=== PATIENT | female | born 1995 | race Caucasian/White ===

== ENCOUNTER → 2017-01-05 | Outpatient (CLI) | payer MEDICAID ==
--- NOTE | 2017-01-05 14:10 | Diagnostic Imaging Report ---
PROCEDURE: US OB SINGLE FETUS <14 WKS. TECHNIQUE: Multiple real-time grayscale images were obtained over the gravid uterus in various projections. INDICATION: Dating. FINDINGS: There is a single intrauterine with heart rate at 146 beats per minute. The placenta is anterior. No placenta previa. Adequate amniotic fluid is seen. The growth parameters are: Biparietal diameter: 15 weeks and 2 days Head circumference: 15 weeks and zero day Abdominal circumference: 14 weeks and 3 days Femur length: 14 weeks and 2 days These average at: 14 weeks and 6 days. This would correlate with an PRIMITIVO of 06/30/2017. IMPRESSION: Live intrauterine . Dictated by: Dictated on workstation # [id number]
== END ==
LOC: RAD 12:46
PROVIDERS: ATTEND Family Medicine
DX: Z34.92 Encounter for supervision of normal pregnancy, unspecified, second trimester (principal)
CPT/HCPCS: 76801

== ENCOUNTER 2017-03-06 00:30 | Outpatient (CLI) | payer MEDICAID ==
[2017-03-06 00:45] VITALS: BP 102/56
[2017-03-06] MEDS ORDERED: PREN-53 PO (03:03)
[2017-03-06 04:00] VITALS: BP 109/64
[2017-03-06] MEDS ORDERED: NITR-65 PO (05:09)
--- NOTE | 2017-03-07 13:29 | Physician Query-Final Dx ---
RAFAEL FUNES 03/07/17 1329: Clinic Account Progress/Dx Physician Query: Please give diagnosis Date of Service Mar 06, 2017 at 00:30 ENEIDA CHANDLER DO 03/15/17 0825: Clinic Account Progress/Dx DIAGNOSIS: Diagnosis 1. - 23 wk GA 2. Fall -monitored for 4h w/ reassuring FHT RAFAEL FUNES Mar 07, 2017 13:29 ENEIDA CHANDLER DO Mar 15, 2017 08:25
== END 2017-03-06 05:17 | disposition home or self-care (01) ==
LOC: WSo 00:30 → LDRP 00:30 → WSo 05:17
PROVIDERS: ATTEND Family Medicine
DX: O9A.212 Injury, poisoning and certain other consequences of external causes complicating pregnancy, second trimester (principal); W19.XXXA Unspecified fall, initial encounter; Z3A.23 23 weeks gestation of pregnancy
CPT/HCPCS: 96361; 99213

== ENCOUNTER → 2017-03-29 | Outpatient (CLI) | payer MEDICAID ==
[~2017-03-29] MED LIST: NITR-65 PO; PREN-53 PO
--- NOTE | 2017-03-29 12:16 | Diagnostic Imaging Report ---
INDICATION: survey. TECHNIQUE: Multiple real-time grayscale images were obtained over the gravid uterus. COMPARISON: None FINDINGS: There is a single living intrauterine in cephalic presentation. There is a normal volume amniotic fluid. Placenta is anterior. There is no previa. The anatomical survey is unremarkable apart from the four-chamber heart not being well seen due to positioning. The heart rate is 123 beats per minute and regular. The biometry correlates with a gestational age of 27 weeks 3 days. IMPRESSION: Single living intrauterine with sonographically estimated gestational age of 27 weeks 3 days and estimated date of confinement of 06/25/2017. Suboptimal evaluation of the heart due to positioning Biometrical measurements are as follows: Biparietal 7.08 cm, age 28 weeks 4 days. Head circumference 26.13 cm, age 28 weeks 3 days. Abdominal circumference 20.81 cm, age 25 weeks 3 days. Femur length 4.99 cm, age 27 weeks 0 days. Sonographic estimate age: 27 weeks 3 days. Sonographic estimated date of delivery: 06/25/2017. Estimated Weight: 926 gm (+/- 135 gm). LMP percentile: 25%. heart rate: 123 beats per minute. number: 1 of 1. Dictated by: Dictated on workstation # [id number]
== END ==
LOC: RAD 10:54
PROVIDERS: ATTEND Family Medicine
DX: Z36 Encounter for antenatal screening of mother (principal); Z3A.27 27 weeks gestation of pregnancy
CPT/HCPCS: 76801; 76805

== ENCOUNTER → 2017-04-28 | Outpatient (CLI) | payer MEDICAID ==
--- NOTE | 2017-04-28 19:03 | Diagnostic Imaging Report ---
INDICATION: Assessment for heart tone. TECHNIQUE: Multiple, limited real-time grayscale images were obtained over the gravid uterus. COMPARISON: 03/29/2017. FINDINGS: Single viable intrauterine , currently in a cephalic presentation. Placenta is anterior and without evidence for previa. There is presence of polyhydramnios with an amniotic fluid index at 27 cm. heart rate: 125 beats per minute. number: 1 of 1. IMPRESSION: 1. Limited obstetrical sonogram imaging demonstrates cephalic presentation. cardiac activity demonstrated at 125 beats per minute. 2. There is presence of polyhydramnios, likely change from prior study. Currently with an index at 27 cm. Short-term followup imaging is recommended for reevaluation. Dictated by: Dictated on workstation # [id number]
== END ==
LOC: RAD 10:15
PROVIDERS: ATTEND Family Medicine
DX: Z36.89 Encounter for other specified antenatal screening (principal); Z3A.00 Weeks of gestation of pregnancy not specified
CPT/HCPCS: 76816

== ENCOUNTER 2017-05-26 21:18 | Outpatient (CLI) | payer MEDICAID ==
[~2017-05-26] VITALS: Ht 162.6 cm; Wt 89.9 kg
[2017-05-26 21:59] LABS: BILIRUBIN,URINE NEGATIVE (NEGATIVE); KETONES,URINE NEGATIVE (NEGATIVE); LEUKOCYTE ESTERASE ,URINE 3+ (NEGATIVE); NITRITE,URINE POSITIVE (NEGATIVE); PH,URINE 6 (5-9); PROTEIN,URINE 2+ (NEGATIVE); UROBILINOGEN,URINE NORMAL (NORMAL)
[2017-05-26 22:06] LABS: SQUAMOUS EPITHELIAL CELL,UR 25-50 /HPF; WBC,URINE TNTC /HPF
[2017-05-26] MEDS ORDERED: cefTRIAXone 1 GM (ROCEPHIN) VIAL ONE (22:10)
[2017-05-26] MEDS ORDERED: LACTATED RINGERS 1,000 ML IV SCH (22:15)
[2017-05-26] MEDS ORDERED: cefTRIAXone INJECTION 1,000 MG in NS (IVPB) 50 ML IV ONE (22:15)
[2017-05-26] MEDS ORDERED: NS (IVPB) 50 ML ONE (22:26)
--- NOTE | 2017-05-27 07:41 | Physician Query-Final Dx ---
RAFAEL FUNES 05/27/17 0741: Clinic Account Progress/Dx Physician Query: Please give diagnosis Date of Service May 26, 2017 at 21:18 PAPA POWELL DO 06/13/17 0924: Clinic Account Progress/Dx Physician Query: Please give diagnosis DIAGNOSIS: Diagnosis Threatened labor Polyhydramnios RAFAEL FUNES May 27, 2017 07:41 APPA POWELL DO Jun 13, 2017 09:24
== END 2017-05-26 23:30 | disposition home or self-care (01) ==
LOC: WSo 21:18 → LDRP 21:18 → WSo 23:30
PROVIDERS: ATTEND Family Medicine
DX: O47.03 False labor before 37 completed weeks of gestation, third trimester (principal); O40.3XX0 Polyhydramnios, third trimester, not applicable or unspecified; Z3A.35 35 weeks gestation of pregnancy
CPT/HCPCS: 81000; 87077; 87088; 87186; 96361; 96374; 99213

== ENCOUNTER 2017-06-02 | Outpatient (CLI) | payer MEDICAID ==
[~2017-06-02] VITALS: Ht 162.6 cm; Wt 90.5 kg
[2017-06-02 00:17] VITALS: BP 121/63
[2017-06-02] MEDS ORDERED: NITR-65 PO (00:25)
[2017-06-02] MEDS ORDERED: hydrOXYzine (VISTARIL) 25 MG CAP ONE (00:51)
[2017-06-02] MEDS ORDERED: hydrOXYzine (VISTARIL) 25 MG CAP PO ONE (01:00)
[2017-06-02 02:01] VITALS: BP 97/54
[2017-06-02 02:12] VITALS: BP 97/54
--- NOTE | 2017-06-03 08:17 | Physician Query-Final Dx ---
RAFAEL FUNES 06/03/17 0817: Clinic Account Progress/Dx Physician Query: Please give diagnosis Date of Service Jun 02, 2017 at 00:00 JESSE GONG MD 06/06/17 1854: Clinic Account Progress/Dx DIAGNOSIS: Diagnosis Vaginal discharge in RAFAEL FUNES Jun 03, 2017 08:17 JESSE GONG MD Jun 06, 2017 18:54
== END 2017-06-02 02:12 | disposition home or self-care (01) ==
LOC: WSo → LDRP 00:01 → WSo 02:12
PROVIDERS: ATTEND Family Medicine
DX: O99.89 Other specified diseases and conditions complicating pregnancy, childbirth and the puerperium (principal); N89.8 Other specified noninflammatory disorders of vagina; Z3A.36 36 weeks gestation of pregnancy
CPT/HCPCS: 99214

== ENCOUNTER → 2017-06-09 | Outpatient (CLI) | payer MEDICAID ==
--- NOTE | 2017-06-09 15:02 | Diagnostic Imaging Report ---
INDICATION: O40.3XX0 POLYHDRAMNIOS IN 3D TRIMESTER COMPLICATIO COMPARISON: None available. Biophysical Profile Score: Movement: 2 Breathin Tone: 2 Fluid: 2 Total: 8/8 cardiac activity was identified, although the heart rate was not assessed. Presentation is cephalic. Placenta is anterior in location. APRYL is 23 cm. The single largest vertical pocket is 9.2 cm. IMPRESSION: Normal Biophysical Profile Score. Dictated by: Dictated on workstation # [id number]
[2017-06-09 15:35] VITALS: BP 110/73
== END ==
LOC: RAD 14:06
PROVIDERS: ATTEND Family Medicine
DX: O40.3XX0 Polyhydramnios, third trimester, not applicable or unspecified (principal)
CPT/HCPCS: 76819

== ENCOUNTER → 2017-06-15 | Outpatient (CLI) | payer MEDICAID ==
--- NOTE | 2017-06-15 19:20 | Diagnostic Imaging Report ---
EXAMINATION: OB ultrasound. Biophysical profile. INDICATION: Polyhydramnios. FINDINGS: heart rate is 140 beats per minute. The presentation is cephalic. The placenta is anterior. No placenta previa. APRYL is 9.2 cm. This is decreased from 23 cm measurements on prior exam of 06/09/2017. The maternal adnexa are obscured. Biophysical profile parameters are within normal limits with a total score of 8 out of 8. IMPRESSION: Total biophysical profile score is 8 out of 8. Dictated on workstation # [id number]
== END ==
LOC: RAD 11:54
PROVIDERS: ATTEND Family Medicine
DX: O40.3XX0 Polyhydramnios, third trimester, not applicable or unspecified (principal); Z3A.00 Weeks of gestation of pregnancy not specified
CPT/HCPCS: 76819

== ENCOUNTER 2017-06-23 06:00 | Inpatient (IN) | payer MEDICAID ==
[~2017-06-23] VITALS: Ht 162.6 cm; Wt 89.0 kg
[2017-06-23] VITALS (39 sets, daily range): BP systolic 94–123; BP diastolic 53–80
--- OUTSIDE RECORDS SUMMARY | 2017-06-23 06:19 | XMS REPORT | Continuity of Care Document ---
Author Author [facility] [employer]. Organization [facility]. Address Unknown Phone Unavailable Allergies Active Description Code Type Severity Reaction Onset Reported/Identified Relationship to Patient Clinical Status Yes No Known Allergies NKA Miscellaneous Allergy Unknown N/A 06/07/2014 Yes MDX - No Known Drug Allergies - Nkd [id number] Drug Allergy Unknown N/A 06/10/2014 Yes No Known Drug Allergies - Nkda [id number] Drug Allergy Unknown N/A 06/10/2014 Yes No Known Drug Allergies [id number] Drug Allergy Unknown N/ A 01/14/2015 Medications Problems Date Dx Coded Attending Type Code Diagnosis Diagnosed By 02/13/2014 Donato Layne 455.3 02/13/2014 Donato Layne 648.93 02/13/2014 Donato Layne 787.91 02/13/2014 Donato Layne 788.41 02/13/2014 Donato Layne 789.03 02/13/2014 Donato Layne 789.04 06/05/2014 Dontrell Weston 278.00 06/05/2014 Dontrell Weston 346.90 06/05/2014 Dontrell Weston 644.13 06/12/2014 Dontrell Weston 278.00 06/12/2014 Dontrell Weston 455.6 06/12/2014 PriDontrell swanson 645.11 06/12/2014 Dontrell Weston 649.11 06/12/2014 Dontrell Weston 664.01 06/12/2014 Dontrell Weston 671.81 06/12/2014 Dontrell Weston V22.0 06/12/2014 Dontrell Weston V27.0 01/14/2015 ZAID LOPEZ 692.9 01/14/2015 ZAID LOPEZ W 698.9 01/14/2015 ZAID LOPEZ A 782.1 Procedures Code Description Performed By Performed On 73.01 06/10/2014 73.4 06/10/2014 73.59 06/10/2014 75.69 06/10/2014 Results Encounters ACCT No. Visit Date/Time Discharge Status Pt. Type Provider Facility Loc./Unit Complaint [id number] 01/14/2015 16:03:00 2014 17:05:00 DIS Emergency ZAID LOPEZ [facility] COL.ER [id number] 06/10/2014 06:53:00 2013 13:00:00 DIS Inpatient Dontrell Weston [facility] OB [id number] 06/04/2014 22:48:00 2013 00:25:00 DIS Outpatient Dontrell Weston [facility] LDRO [id number] 02/13/2014 17:56:00 2013 19:44:00 DIS Emergency Donato Layne [facility]. COL.ER
--- OUTSIDE RECORDS SUMMARY | 2017-06-23 06:19 | XMS REPORT ---
Author Author RODRIGO DAVID Organization [facility] Address [address] [place] [address] Care Team Providers Care Supervisor Sample Name Role Phone RODRIGO DAVID Unavailable PROBLEMS Type Condition ICD9-CM Code PNF85-PS Code Onset Dates Condition Status SNOMED Code Problem Anxiety state, unspecified F41.1 Active 698570642 Problem Major depressive disorder, recurrent episode, moderate F33.1 Active 004288231 Problem Polyhydramnios in third trimester complication, single or unspecified fetus O40.3XX0 Active 44936078 Problem Unspecified mood [affective] disorder F39 Active 97171470 Problem Post traumatic stress disorder F43.10 Active 59056612 Problem care, subsequent in second trimester Z34.82 Active 583935091 Problem Borderline personality disorder F60.3 Active 39283692 Problem Adjustment disorder with depressed mood F43.21 Active 82295541 ALLERGIES No Information SOCIAL HISTORY Never Assessed PLAN OF CARE VITAL SIGNS MEDICATIONS Unknown Medications RESULTS No Results PROCEDURES No Known procedures IMMUNIZATIONS No Known Immunizations MEDICAL (GENERAL) HISTORY Type Description Date Hospitalization History childbirth only
--- OUTSIDE RECORDS SUMMARY | 2017-06-23 06:19 | XMS REPORT | Continuity of Care Document ---
Author Author [facility]. Address [address] [place] [address] Phone Unavailable Care Team Providers Care Systems Navigator Name Role Phone Unavailable Unavailable Insurance Providers Payer Name Policy Number Subscriber Name Relationship [employer] [id number] TRISH LI SELF / SAME PATIENT Advance Directives Directive Response Recorded Date/Time Advance Directives: No 01/14/15 3:56pm Chief Complaint and Reason for Visit Reason for Visit Contact dermatitis Problems Medical Problems Problem Onset Date Status Hemorrhoids in in second trimester Unknown Active Contact dermatitis Unknown Active Medications Medication Dose Route Sig Days/Qty Instructions Order Date Discontinued Date Status [id number] () 1 TAB TAB 1 TAB ORAL 01/14/15 Discontinued Nutritional Supplement (Cranberry) 1 CAP CAP 2 CAP ORAL Discontinued oxyCODONE/Acetaminophen (Percocet) 5 MG/325 MG TABLET 1-2 UDTAB ORAL Every four hours PRN Pain 30 Qty 1-2 tablets (not to exceed 12 tablets/24 hours) 01/14/15 Discontinued Ibuprofen (Motrin) 600 MG TABLET 600 MG ORAL Every six hours PRN Pain 30 Qty 06/12/14 01/14/15 Discontinued predniSONE (predniSONE*) 20 MG TABLET 60 MG ORAL Once daily 15 Qty Active Family History Relationship Name Date of Condition Age ( At Onset ) Cause of Age ( At ) Age Gender Recorded Date/Time MOTHER Family history of cancer Unknown 30-40 30-40 F 01/14/15 1629 MOTHER Family history: Diabetes mellitus 20-25 30-40 30-40 F 1629 Social History Query Response Start Date Stop Date Smoking status: Current every day smoker Hospital Discharge Instructions No hospital discharge instructions. Plan of Care Discharge Date 01/14/15 5:05pm Disposition HOME, SELF-CARE or ASST LIVING Condition at Discharge Stable Instructions/Education Provided Contact Dermatitis (ED) Prescriptions See Medications Section Referrals Call office to schedule Madonna Betancourt Additional Instructions/Education take the prednisone as directed start benadryl for itching and for antihistamine properties to help stop the reaction you are having- take every six hours keep wound dry recheck with any increased redness, warmth, swelling or pain to area Some of your test results may not be complete prior to your leaving the Emergency Department. The Emergency Department is not authorized to give test results over the phone. Please contact the doctor's office listed on form for your final results. Follow up with your primary care physician or return to the Emergency Department for worsening or worrisome symptoms. * Emergency Department phone number: [phone] MEDICAL RECORD If you need copies of your X-rays, call [phone]. If you need copies of your medical record, including lab results, a signed authorization for release of records will be required. A telephone call for release of Health Information is not allowed. BILLING Billing can sometimes be confusing and frustrating. To help avoid confusion in the future, please take a moment to acquaint yourself with the billing parties for services. SERVICE BILLING LIBERTARIAN Emergency Room Services [facility]. Physician Services [facility] Resources X-rays [facility] Patients will receive bills for services from the appropriate provider. If have any questions about your [facility] bill, our staff will be happy to assist you. Please call [phone] and ask for the billing department. THANK YOU for choosing [facility] as your emergency care provider. Care Plan and Goals ~~Discharge Care Plan~~ Problem: Wound care and treatment Goal: Wound will be clean and dry, without redness, swelling or drainage. Instructions: Take medication(s) as prescribed. Keep wound clean and dry. Apply antibiotic ointment as directed. Follow up with primary care physician as directed. Keep wound covered if working in an unclean environment. ~~Discharge Care Plan~~ Problem: Rash/hives Goal: Decreased redness, itching, and blotches. Instructions: Take medication(s) as directed. Keep a log of medication times and dosages to avoid over or under dosage. Avoid triggers that cause your rash or hives. Functional Status No functional status results. Allergies, Adverse Reactions, Alerts Allergen Type Severity Reaction Status Last Updated No Known Drug Allergies Allergy Unknown Active 01/14/15 Immunizations No Known History of Immunizations. Vital Signs Vital Reading Collection Date/Time Result Blood Pressure 01/14/15 3:56pm 127/62 Blood Pressure Source 01/14/15 3:56pm SI Patient Temperature 01/14/15 3:56pm 96.5 Temperature Source 01/14/15 3:56pm O Respiratory Rate 01/14/15 3:56pm 16 Pulse Rate 01/14/15 3:56pm 112 Pulse Location 01/14/15 3:56pm PO Bedside Pulse Oximetry 01/14/15 3:56pm 96 Height 01/14/15 3:56pm 162.6 cm Height 06/10/14 7:10am 5 ft 64 in Weight 01/14/15 3:56pm 90.9 kg Weight 01/14/15 3:56pm 200.0 lb Body Mass Index 01/14/15 3:56pm 34.4 Procedures No Known History of Procedures. Results No Known Relevant Diagnostic Tests, Laboratory Data and/or Discharge Summary. Encounters Encounter Location Date/Time Departed Emergency [facility] 01/14/15 5:05pm Recent Diagnosis Contact dermatitis
--- OUTSIDE RECORDS SUMMARY | 2017-06-23 06:19 | XMS REPORT ---
Author Author RODRIGO DAVID Organization [facility] Address [address] [place] [address] Care Team Providers Care Brisket Puller Name Role Phone RODRIGO DAVID Unavailable PROBLEMS Type Condition ICD9-CM Code [id number] Code Onset Dates Condition Status SNOMED Code Problem Anxiety state, unspecified F41.1 Active 877330039 Problem Major depressive disorder, recurrent episode, moderate F33.1 Active 507121711 Problem Polyhydramnios in third trimester complication, single or unspecified fetus O40.3XX0 Active 60770590 Problem Unspecified mood [affective] disorder F39 Active 70954846 Problem Post traumatic stress disorder F43.10 Active 13972743 Problem care, subsequent in second trimester Z34.82 Active 852337049 Problem Borderline personality disorder F60.3 Active 86696075 Problem Adjustment disorder with depressed mood F43.21 Active 25066933 ALLERGIES No Information SOCIAL HISTORY Never Assessed PLAN OF CARE VITAL SIGNS MEDICATIONS Unknown Medications RESULTS No Results PROCEDURES No Known procedures IMMUNIZATIONS No Known Immunizations MEDICAL (GENERAL) HISTORY Type Description Date Hospitalization History childbirth only
--- OUTSIDE RECORDS SUMMARY | 2017-06-23 06:19 | XMS REPORT ---
Author Author FABI TEMPLETON Organization [employer] Address Unknown Phone Unavailable Care Team Providers Care Used [employer] Name Role Phone FABI TEMPLETON CP Unavailable Allergies No Known Allergies Problems Problem Type Condition Code Onset Dates Condition Status Assessment Major depressive disorder, recurrent episode, moderate F33.1 Active Problem Major depressive disorder, recurrent episode, moderate F33.1 Active Medications No Known Medications Procedures Procedure Coding System Code Date Psychotherapy, patient &/family, 30 minutes, new patient CPT-4 40000 Apr Results No Known Results Summary Purpose [employer] Submission
--- OUTSIDE RECORDS SUMMARY | 2017-06-23 06:19 | XMS REPORT ---
Author Author FABI TEMPLETON Organization [facility] Address [address] [place] [address] Care Team Providers Care Client Application Support Specialist Name Role Phone FABI TEMPLETON Unavailable PROBLEMS Type Condition ICD9-CM Code AIB01-PE Code Onset Dates Condition Status SNOMED Code Problem Anxiety state, unspecified F41.1 Active 033904167 Problem Major depressive disorder, recurrent episode, moderate F33.1 Active 636864304 Problem Polyhydramnios in third trimester complication, single or unspecified fetus O40.3XX0 Active 97875939 Problem Unspecified mood [affective] disorder F39 Active 46517189 Problem Post traumatic stress disorder F43.10 Active 16436826 Problem care, subsequent in second trimester Z34.82 Active 623792666 Problem Borderline personality disorder F60.3 Active 31509825 Problem Adjustment disorder with depressed mood F43.21 Active 34952640 ALLERGIES No Information SOCIAL HISTORY Never Assessed PLAN OF CARE Activity Details Follow Up next available Reason:depression and anxiety VITAL SIGNS MEDICATIONS Unknown Medications RESULTS No Results PROCEDURES Procedure Date Ordered Result Body Site Psychotherapy, patient &/family, 30 minutes, established patient December 15, 2016 IMMUNIZATIONS No Known Immunizations MEDICAL (GENERAL) HISTORY Type Description Date Hospitalization History childbirth only
[2017-06-23] MEDS ORDERED: D5 LR IV SOLUTION 1,000 ML IV SCH (06:20)
[2017-06-23] MEDS ORDERED: MINERAL OIL CONCENTRATE 99.9% 15 ML UDC TOP PRN (06:30)
[2017-06-23] MEDS ORDERED: OXYTOCIN/NORMAL SALINE 500 ML IV SCH ×2 (06:47→12:53)
[2017-06-23 07:09] LABS: BASOPHILS % (AUTO) 0 % (0-10); EOSINOPHILS # (AUTO) 0.1 10^3/uL (0.0-0.3); EOSINOPHILS % (AUTO) 2 % (0-10); LYMPHOCYTES % (AUTO) 15 % (12-44); MEAN CORPUSCULAR HEMOGLOBIN 27 PG (25-34); MEAN CORPUSCULAR HGB CONC 33 G/DL (32-36); MEAN CORPUSCULAR VOLUME 84 FL (80-99); MEAN PLATELET VOLUME 11.2 FL (7.4-10.4); MONOCYTES # (AUTO) 0.8 X 10^3 (0.0-1.0); MONOCYTES % (AUTO) 12 % (0-12); NEUTROPHILS # (AUTO) 4.8 X 10^3 (1.8-7.8); NEUTROPHILS % (AUTO) 72 % (42-75); PLATELET COUNT 227 10^3/uL (130-400); RED BLOOD COUNT 3.93 10^6/uL (4.35-5.85); WHITE BLOOD COUNT 6.6 10^3/uL (4.3-11.0)
[2017-06-23] MEDS ORDERED: SUFENTA 0.6MCG/ML BUPIVA 0.125 100 ML ONE (09:08)
[2017-06-23] MEDS ORDERED: BUPIVACAINE 0.25% 30 ML (SENSORCAINE) VIAL ONE (09:27)
[2017-06-23] MEDS ORDERED: fentaNYL INJECTION 100 MCG/2 ML AMP ONE (09:27)
--- NOTE | 2017-06-23 09:43 | Labor Progress Note ---
Labor Progress Note Labor Progress Note Date Seen by Provider: Jun 23, 2017 Time Seen by Provider: 09:40 Subjective: Pt feeling contractions, getting ready to have epidural placed. Objective: Cervical exam:4 cm/70-80%/-1 Consistency: soft Position: Presentation: vtx heart tones: [150] beats per minute, reassuring Tocometer: [] ctx/10 minutes AROM clear fluid, FSE placed Assessment/Plan: Angelica Perez is a (21 /Para 2 /1 ,Gestational Age (wks)39 here for IOL. CEFM/TOCO Continue pitocin Anesthesia: epidural to be placed Anticipate vaginal delivery. Vitals - Labs Vital Signs - I&O Vital Signs Date Time Temp Pulse Resp B/P (MAP) Pulse Ox O2 Delivery O2 Flow Rate FiO2 06/23/17 09:00 95 18 119/76 Room Air 06/23/17 08:35 100 120/78 Room Air 06/23/17 08:25 100 119/78 Room Air 06/23/17 08:05 97.9 107 109/71 Room Air 06/23/17 07:55 117 18 116/62 Room Air Labs Laboratory Tests 06/23/17 06:50: White Blood Count 6.6, Red Blood Count 3.93L, Hemoglobin 10.7L, Hematocrit 33L, Mean Corpuscular Volume 84, Mean Corpuscular Hemoglobin 27, Mean Corpuscular Hemoglobin Concent 33, Red Cell Distribution Width 14.0, Platelet Count 227, Mean Platelet Volume 11.2H, Neutrophils (%) (Auto) 72, Lymphocytes (%) (Auto) 15 , Monocytes (%) (Auto) 12, Eosinophils (%) (Auto) 2, Basophils (%) (Auto) 0, Neutrophils # (Auto) 4.8, Lymphocytes # (Auto) 1.0, Monocytes # (Auto) 0.8, Eosinophils # (Auto) 0.1, Basophils # (Auto) 0.0 ENEIDA CHANDLER DO Jun 23, 2017 09:43
--- NOTE | 2017-06-23 09:46 | History & Physical-OB ---
OB - Chief Complaint & HPI Date/Time Date of Admission: Date of Admission: Jun 23, 2017 at 6:15 am Time Seen by Provider: 10:00 (on 06/22) Chief Complaint/History OB-Reason for Admission/Chief: Induction of Labor Hx : 2 Hx Para: 1 Expected Date of Delivery: Jun 30, 2017 Gestational Age in Weeks: 39 Gestational Age in Days: 0 Indication for induction: medical complication (polyhydramnios) Admission Nurse Assessment Rev: Yes History of Labs A+, antibody neg, RI, GC/chlamydia neg. HIV/HepB/RPR NR. 1 hour glucola nml. Tetra low risk. GBS neg. Allergies and Home Medications Allergies Coded Allergies: No Known Allergies (Verified Allergy, Unknown, 03/06/17) Home Medications [id number]/Iron Fumarate/FA/Dss 1 Each Tablet, 1 EACH PO DAILY, (Reported) OB - History Hx of Present Care: Yes Ultrasounds: Abnormal US findings (polyhydramnios) Obstetrical Complications: Other (polyhydramnios, seen x2 by MFM, did not continue follow-up, did not obtain ordered 3 hour glucola) Medical Complications: None Information Induced Hypertension: No Maternal Gestational Diabetes: No Hemorrhage: No Obstetrical History Hx : 2 Hx Para: 1 Hx # Term Pregnancies: 1 Hx # Pregnancies: 0 Number of Living Children: 1 Hx Termination: No Hx Multiple Gestation: No Hx Ectopic : No Hx Stillbirth: No Hx Complication: Yes (polyhydramnios) Hx Induced Hypertens: No Hx Maternal Gestational Diabet: No Hx Hemorrhage: No Delivery History Hx Dystocia: No Hx Forceps Assisted Delivery: No Hx Vacuum Extraction Assisted: No Hx Placenta Abnormality: No Hx Distress: No Hx Large For Gestational Age I: No Hx Small for Gestational Age I: No Hx Section: No Hx Vaginal Delivery Post C-Sec: No Hx Blood Disorders: No Adverse Rxn to Tranfusion: No Patient Past Medical History PMHx: depression PSurgHx: none Social History/Family History HIV/AIDS: No Recent Infectious Disease Expo: No Sexually Transmitted Disease: No Alcohol Use: Denies Use Recreational Drug Use: No Smoking Cessation: Never smoker Immunizations Hepatitis A: No Hepatitis B: No Tetanus Booster (TDap): Less than 5yrs Date of Influenza Vaccine: May 08, 2017 Rubella: immune RPR/VDRL: Negative GBS Status: Negative HBsAG: Negative OB - Admission Exam Physical Exam Vitals: Vital Signs 06/23/17 06/23/17 08:05 09:00 Temp 97.9 Pulse 95 Resp 18 B/P (MAP) 119/76 O2 Delivery Room Air Abdomen: Non tender Extremities: Normal Cervical Dilatation: 4cm Effacement: 50% Station: -2 Membranes: Intact Mckeon Scoring Tool (Modified) Dilation (cm): 3-4cm (2) Effacement (%): 51-79% (2) Descent/Station: -2 (1) Cervix Consistency: Soft (2) Cervix Position: Anterior (2) Add 1 point for: Each previous vaginal delivery (1) Mckeon Score: 10 Labs Laboratory Tests Test 06/23/17 06:50 Range/Units White Blood Count 6.6 4.3-11.0 10^3/uL Red Blood Count 3.93 L 4.35-5.85 10^6/uL Hemoglobin 10.7 L 11.5-16.0 G/DL Hematocrit 33 L 35-52 % Mean Corpuscular Volume 84 80-99 FL Mean Corpuscular Hemoglobin 27 25-34 PG Mean Corpuscular Hemoglobin Concent 33 32-36 G/DL Red Cell Distribution Width 14.0 10.0-14.5 % Platelet Count 227 130-400 10^3/uL Mean Platelet Volume 11.2 H 7.4-10.4 FL Neutrophils (%) (Auto) 72 42-75 % Lymphocytes (%) (Auto) 15 12-44 % Monocytes (%) (Auto) 12 0-12 % Eosinophils (%) (Auto) 2 0-10 % Basophils (%) (Auto) 0 0-10 % Neutrophils # (Auto) 4.8 1.8-7.8 X 10^3 Lymphocytes # (Auto) 1.0 1.0-4.0 X 10^3 Monocytes # (Auto) 0.8 0.0-1.0 X 10^3 Eosinophils # (Auto) 0.1 0.0-0.3 10^3/uL Basophils # (Auto) 0.0 0.0-0.1 10^3/uL OB - Assessment/Plan/Diagnosis Assessment Assessment: induction of labor Plan Plan: Induction Induction Method: per Pitocin Protocol Copy Copies To 1: RODRIGO DAVID MD, BETHANY N MD Jun 23, 2017 9:46 am
[2017-06-23] MEDS ORDERED: LACTATED RINGERS 1,000 ML IV ONE ×2 (10:54)
[2017-06-23] MEDS ORDERED: ONDANSETRON 4 MG/2 ML (SDV) Z0FRAN IV PRN (11:00)
[2017-06-23] MEDS ORDERED: NALOXONE 0.4 MG/ML 1 ML (NARCAN) VIAL IV PRN (11:00)
[2017-06-23] MEDS ORDERED: EPIDURAL (SUFENTA 0.6MCG/ML BUPIVA 0.125%) 100 ML BAG EPI PRN (11:00)
--- NOTE | 2017-06-23 12:39 | OB Labor & Delivery Record ---
Vag Delivery Note Vag Delivery Note Date of Delivery: 06/23/17 Preoperative Diagnosis: Angelica Perez is a (21 /Para 2 / 1, Gestational Age (wks)39with 0 days Postoperative Diagnosis: Same Surgeon: RODRIGO DAVID Anesthesia: epidural Delivery Type: spontaneous vaginal Findings: [] Viable male infant, apgars 8/9, weight 8#2 Lacerations: periurethral abrasion Intact placenta with 3 vessel cord. No nuchal cord, body cord or shoulder dystocia Estimated Blood Loss: 250 ml Complications: None Condition: Stable Description of Procedure: The patient is a at 39w0d who presented for IOL for polyhydramnios. She was admitted and informed consent was obtained. Her labor course was unremarkable. She progressed to complete dilatation and began to push. She was then set up for delivery. The infant's head was delivered atraumatically in the THOR position. The shoulders and remainder of the infant's body were then delivered without difficulty. Upon delivery, the infant was immediately vigorous and was placed on maternal abdomen. After a delay, the cord was doubly clamped and cut and the remained on maternal abdomen transitioning. An intact placenta with 3-vessel cord delivered via Marine and there was found to be minimal bleeding.~ Vigorous fundal massage was performed and the fundus was found to be firm. IV oxytocin was given. Examination of the vagina and perineum revealed a periurethral abrasion. Following the delivery, sponge, instrument and needle counts were correct. Mom and baby were both in stable condition in the labor suite. Vitals - Labs Vital Signs - I&O Vital Signs 06/23/17 06/23/17 11:15 11:30 Temp 98.4 Pulse 91 Resp 18 B/P (MAP) 105/68 (80) Pulse Ox 98 O2 Delivery Room Air Labs Laboratory Tests 06/23/17 06:50: White Blood Count 6.6, Red Blood Count 3.93L, Hemoglobin 10.7L, Hematocrit 33L, Mean Corpuscular Volume 84, Mean Corpuscular Hemoglobin 27, Mean Corpuscular Hemoglobin Concent 33, Red Cell Distribution Width 14.0, Platelet Count 227, Mean Platelet Volume 11.2H, Neutrophils (%) (Auto) 72, Lymphocytes (%) (Auto) 15 , Monocytes (%) (Auto) 12, Eosinophils (%) (Auto) 2, Basophils (%) (Auto) 0, Neutrophils # (Auto) 4.8, Lymphocytes # (Auto) 1.0, Monocytes # (Auto) 0.8, Eosinophils # (Auto) 0.1, Basophils # (Auto) 0.0 RODRIGO DAVID MD Jun 23, 2017 12:39 pm
[2017-06-23] MEDS ORDERED: WITCH HAZEL(TUCKS) 40 EA JAR TOP PRN (13:00)
[2017-06-23] MEDS ORDERED: BENZOCAINE/MENTHOL (DERMOPLAST) 56 ML CAN TP PRN (13:00)
[2017-06-23] MEDS ORDERED: CATHETER FLUSH 10 ML SYR IV SCH (14:00)
[2017-06-23] MEDS: IBUPROFEN 600 MG (MOTRIN) TAB PO SCH ×2 (14:34→19:41)
[2017-06-23] MEDS: CATHETER FLUSH 10 ML SYR IV SCH ×2 (19:41→22:56)
[2017-06-24] VITALS: BP 104/64
[2017-06-24] MEDS: IBUPROFEN 600 MG (MOTRIN) TAB PO SCH ×2 (02:08→09:49)
[2017-06-24 04:00] VITALS: BP 93/59
[2017-06-24 05:31] LABS: BASOPHILS % (AUTO) 0 % (0-10); EOSINOPHILS # (AUTO) 0.1 10^3/uL (0.0-0.3); EOSINOPHILS % (AUTO) 2 % (0-10); LYMPHOCYTES # (AUTO) 1.6 X 10^3 (1.0-4.0); LYMPHOCYTES % (AUTO) 23 % (12-44); MEAN CORPUSCULAR HEMOGLOBIN 28 PG (25-34); MEAN CORPUSCULAR HGB CONC 33 G/DL (32-36); MEAN CORPUSCULAR VOLUME 83 FL (80-99); MEAN PLATELET VOLUME 11.1 FL (7.4-10.4); MONOCYTES # (AUTO) 0.8 X 10^3 (0.0-1.0); MONOCYTES % (AUTO) 11 % (0-12); NEUTROPHILS # (AUTO) 4.6 X 10^3 (1.8-7.8); NEUTROPHILS % (AUTO) 64 % (42-75); PLATELET COUNT 227 10^3/uL (130-400); RED BLOOD COUNT 3.99 10^6/uL (4.35-5.85); RED CELL DISTRIBUTION WIDTH 13.9 % (10.0-14.5); WHITE BLOOD COUNT 7.1 10^3/uL (4.3-11.0)
[2017-06-24] MEDS ORDERED: PRENATAL VITAMIN 1 EA TAB PO SCH (07:00)
[2017-06-24 09:30] VITALS: BP 122/69
--- NOTE | 2017-06-24 10:27 | Anesthesia-Regional Post-Op ---
Regional Patient Condition Mental Status: Alert, Oriented x3 Circulation: Same as Pre-Op Headache: Absent Sensation: Full Recovery Motor Block: Absent Post Op Complications Complications None Follow Up Care/Instructions Patient Instructions None needed. Anesthesia/Patient Condition Patient is doing well, no complaints, stable vital signs, no apparent adverse anesthesia problems. No complications reported per nursing. KATELIN VIGIL CRNA Jun 24, 2017 10:26
[2017-06-24] MEDS ORDERED: IBUP-1773 PO (12:30)
--- NOTE | 2017-06-24 12:31 | Discharge Instructions ---
Discharge Inst-Women's Serv Depart Medications New, Converted or Re-Newed RX: Transmitted to Pharmacy ([facility]) New Medications: Ibuprofen (Ibuprofen) 600 Mg Tablet 600 MG PO Q6H PRN for CRAMPS, #90 TAB 0 Refills Continued Medications: Mmp146/Iron Fumarate/FA/Dss ( 19 Tablet) 1 Each Tablet 1 EACH PO DAILY, TAB Follow Up/Instructions Goal/Follow Up: Follow-up w/ Dr. Hubbard in 6 wk Activity Activity: Activity as Tolerated Nothing Inside Vagina: No Douching, No [place], No Tampons Diet Discharge Diet: No Restrictions Symptoms to Report to : Bleeding Excessive, Pain Increased, Fever Over 101 Degrees F, Vaginal Bleeding Increase, Vaginal Discharge Foul, Questions/Concerns , Shortness of Breath For Any Problems or Questions: Contact Your Physician Copies To 1: RODRIGO HUBBARD MD, LINDA K DO Jun 24, 2017 12:31
--- NOTE | 2017-06-24 12:35 | Discharge Summary ---
Diagnosis/Chief Complaint Date of Admission Jun 23, 2017 at 06:15 Date of Discharge Jun 24, 2017 Admission Diagnosis Admission Diagnosis at 39 wk GA Polyhydramnios Discharge Diagnosis at 39 wk GA - IOL for Polyhydramnios s/p 06/23/17 Discharge Summary-OBS Procedures None. Discharge Physical Examination Allergies: Coded Allergies: No Known Allergies (Verified Allergy, Unknown, 03/06/17) Vitals & I&Os Vital Sign - Last 12Hours Date Time Temp Pulse Resp B/P (MAP) Pulse Ox O2 Delivery O2 Flow Rate FiO2 06/24/17 04:00 97.0 76 18 93/59 (70) 96 Room Air General Appearance: Alert, Oriented X3, Cooperative Abdominal: Soft, No Tenderness Psych/Mental Status: Mood NL Hospital Course Routine pp care Labs Laboratory Tests 06/24/17 05:15: White Blood Count 7.1, Red Blood Count 3.99L, Hemoglobin 11.1L, Hematocrit 33L, Mean Corpuscular Volume 83, Mean Corpuscular Hemoglobin 28, Mean Corpuscular Hemoglobin Concent 33, Red Cell Distribution Width 13.9, Platelet Count 227, Mean Platelet Volume 11.1H, Neutrophils (%) (Auto) 64, Lymphocytes (%) (Auto) 23 , Monocytes (%) (Auto) 11, Eosinophils (%) (Auto) 2, Basophils (%) (Auto) 0, Neutrophils # (Auto) 4.6, Lymphocytes # (Auto) 1.6, Monocytes # (Auto) 0.8, Eosinophils # (Auto) 0.1, Basophils # (Auto) 0.0 Discharge Instructions to patient/family Please see electronic discharge instructions given to patient. Discharge Medications Reviewed and agree with Discharge Medication list on patient's Discharge Instruction sheet Clinical Quality Measures DVT/VTE Risk/Contraindication: Risk Factor Score Per Nursin RFS Level Per Nursing on Admit: 1=Low/No VTE PPX Copy Copies To 1: RODRIGO DAVID MD, LINDA K DO Jun 24, 2017 12:35
[2017-06-24 14:10] VITALS: BP 119/80
[2017-06-24 15:45] VITALS: BP 119/80
== END 2017-06-24 15:45 | disposition home or self-care (01) | DRG 775 ==
LOC: LDRP 06:15
PROVIDERS: ADMIT Family Medicine; ATTEND Family Medicine
PROC: 10E0XZZ Delivery of Products of Conception, External Approach (ICD-10-PCS; principal; 2017-06-23)
PROC: 3E033VJ Introduction of Other Hormone into Peripheral Vein, Percutaneous Approach (ICD-10-PCS; 2017-06-23)
DX: O40.3XX0 Polyhydramnios, third trimester, not applicable or unspecified (principal); Z3A.39 39 weeks gestation of pregnancy; Z37.0 Single live birth
CPT/HCPCS: 36415; 85025; 86850; 86900; 86901

== ENCOUNTER → 2017-09-29 | Outpatient (CLI) | payer MEDICAID ==
[~2017-09-29] MED LIST changes: +IBUP-1773 PO
[2017-09-29 18:02] LABS: BASOPHILS # (AUTO) 0.1 10^3/uL (0.0-0.1); BASOPHILS % (AUTO) 1 % (0-10); EOSINOPHILS # (AUTO) 0.2 10^3/uL (0.0-0.3); EOSINOPHILS % (AUTO) 2 % (0-10); HEMATOCRIT 39 % (35-52); HEMOGLOBIN 13.2 G/DL (11.5-16.0); LYMPHOCYTES # (AUTO) 1.9 X 10^3 (1.0-4.0); LYMPHOCYTES % (AUTO) 19 % (12-44); MEAN CORPUSCULAR HEMOGLOBIN 29 PG (25-34); MEAN CORPUSCULAR HGB CONC 34 G/DL (32-36); MEAN CORPUSCULAR VOLUME 85 FL (80-99); MEAN PLATELET VOLUME 9.7 FL (7.4-10.4); MONOCYTES # (AUTO) 0.8 X 10^3 (0.0-1.0); MONOCYTES % (AUTO) 8 % (0-12); NEUTROPHILS # (AUTO) 7.1 X 10^3 (1.8-7.8); NEUTROPHILS % (AUTO) 70 % (42-75); PLATELET COUNT 314 10^3/uL (130-400); RED BLOOD COUNT 4.59 10^6/uL (4.35-5.85); RED CELL DISTRIBUTION WIDTH 15.1 % (10.0-14.5); WHITE BLOOD COUNT 10.2 10^3/uL (4.3-11.0)
[2017-09-29 18:19] LABS: ALANINE AMINOTRANSFERASE 16 U/L (0-55); ALBUMIN 4.4 GM/DL (3.2-4.5); ALKALINE PHOSPHATASE 55 U/L (40-136); BILIRUBIN,TOTAL 0.4 MG/DL (0.1-1.0); BUN/CREATININE RATIO 22; CALCIUM 9.4 MG/DL (8.5-10.1); CARBON DIOXIDE 28 MMOL/L (21-32); CHLORIDE 105 MMOL/L (98-107); CREATININE SERUM 0.72 MG/DL (0.60-1.30); GFR ESTIMATED > 60; GLUCOSE 94 MG/DL (70-105); POTASSIUM 3.8 MMOL/L (3.6-5.0); SODIUM 139 MMOL/L (135-145); URIC ACID 4.7 MG/DL (2.6-7.2)
== END ==
LOC: LAB 17:46
PROVIDERS: ATTEND Nurse Practitioner Family
DX: M79.671 Pain in right foot (principal); M79.672 Pain in left foot; M79.89 Other specified soft tissue disorders
CPT/HCPCS: 36415; 80053; 84443; 84550; 85025; 86430

== ENCOUNTER → 2017-10-10 | Outpatient (CLI) | payer MEDICAID ==
--- NOTE | 2017-10-10 17:17 | Diagnostic Imaging Report ---
CLINICAL INDICATION: Patient is having trouble walking, controlling her legs correctly and has numbness in her anterior portion of the right tibia and fibula area. This started after she got epidural having a baby 3 months ago. EXAM: MRI of the thoracic spine performed without IV contrast. Sequences include sagittal T1, sagittal T2, sagittal T2 fat-sat and axial T2. COMPARISON: None. FINDINGS: Thoracic spine has normal alignment with no fracture or dislocation. There is no abnormal paraspinal soft tissue signal or abnormality. The thoracic spinal cord has normal anatomic appearance with no abnormal cord signal. There is a small area of intraosseous hemangioma or Modic type II degenerative signal changes involving the anterior superior aspect of the T7 vertebral body. There is no significant spurring seen in the region. Otherwise, the thoracic vertebra have normal signal characteristics. The intervertebral disk heights are well-preserved. There is no significant central spinal canal or neural foramen narrowing. IMPRESSION: 1: Benign intraosseous hemangioma versus degenerative fatty infiltration involving the superior anterior aspect of the T7 vertebral body. 2: Otherwise, unremarkable MRI of the thoracic spine. Dictated by: Dictated on workstation # [id number]
--- NOTE | 2017-10-10 17:33 | Diagnostic Imaging Report ---
PROCEDURE: MRI lumbar spine. TECHNIQUE: Multiplanar, multisequence MRI of the lumbar spine was performed without contrast. INDICATION: Low back pain and radiculopathy. COMPARISON: No comparison available. FINDINGS: Alignment of the lumbar spine appears normal. Vertebral body heights are well maintained. There is no focal marrow signal abnormality demonstrated to suggest an acute osseous injury or underlying osseous lesion. Lower thoracic cord is unremarkable. The distal thoracic canal demonstrates no significant stenosis. The conus terminates at a normal level. There is no intrathecal mass. There is no abnormal nerve root thickening or clumping. There is no MR evidence of a disc herniation. There is no MR evidence of significant lumbar canal, lateral recess, or neural foraminal stenosis. The paraspinal soft tissues are unremarkable. The aorta is normal in caliber. The kidneys appear nonobstructed. IMPRESSION: 1. Normal height and alignment of the lumbar spine without evidence of osseous abnormality. 2. No disc herniation demonstrated. There is no MR evidence of significant lumbar canal, lateral recess, or neural foraminal stenosis. Dictated by: Dictated on workstation # [id number]
== END ==
LOC: RAD 16:08
PROVIDERS: ATTEND Nurse Practitioner Family
DX: M54.16 Radiculopathy, lumbar region (principal)
CPT/HCPCS: 72146; 72148

== ENCOUNTER → 2017-10-17 | Outpatient (CLI) | payer MEDICAID ==
--- NOTE | 2017-10-17 10:10 | Diagnostic Imaging Report ---
INDICATION: Bilateral lower extremity edema. EXAMINATIONS: Both grayscale and color Doppler imaging of the deep veins of the lower extremities were performed with waveform analysis. FINDINGS: There is no intraluminal filling defect. Normal continuous flow is seen throughout the deep venous systems of both legs, and there is normal response to augmentation. The deep veins compress normally. IMPRESSION: No ultrasound evidence of deep venous thrombosis in either lower extremity. Dictated by: Dictated on workstation # [id number]
== END ==
LOC: RAD 08:14
PROVIDERS: ATTEND Nurse Practitioner Family
DX: R60.0 Localized edema (principal); M79.604 Pain in right leg; M79.605 Pain in left leg
CPT/HCPCS: 93970

== ENCOUNTER 2018-02-11 15:28 | Emergency (ER) | payer MEDICAID ==
[~2018-02-11] VITALS: Ht 162.6 cm; Wt 86.2 kg
[2018-02-11] MEDS ORDERED: BACL10TA (16:02)
[2018-02-11] MEDS ORDERED: GABA800T2 (16:02)
[2018-02-11] MEDS ORDERED: IBUP-1780 (16:02)
[2018-02-11] MEDS ORDERED: ARIP5TAB20 (16:02)
[2018-02-11] MEDS ORDERED: HYDR-757 PO (16:09)
--- NOTE | 2018-02-11 16:09 | ED Back Pain ---
General Chief Complaint: Back Problems Stated Complaint: BACK PAIN Nursing Triage Note: ARRIVED VIA AMB TO ROOM 04 CARRYING A BABY. STATES SHE HAS HAD SPINE ISSUES CAUSING BACK AND LEG PAIN SINCE HAVING AN EPIDURAL WITH HER LABOR. SCHEDULED TO SEE A SPECIALIST ON THE . Nursing Sepsis Screen: No Definite Risk Source of Information: Patient Exam Limitations: No Limitations History of Present Illness Date Seen by Provider: Feb 11, 2018 Time Seen by Provider: 16:04 Initial Comments to ER with midline lumbar back pain. This began in June 2017 after having an epidural for childbirth in May.She had a thoracic and lumbar spine MRI which showed no evidence of central canal stenosis. These were done in September of this year. She states that she has had intermittent episodes of urinating on herself sinceDece. She is followed up with primary careand has also had an EMG done. She states she is scheduled to see [facility]. She was formerly on tramadoland she states that these did help when she took 2 at a time. She is also on baclofen which is not helping, she is on ibuprofen which is not helping. She is not breast-feeding.the pain radiates down both of her legs. Location: Lumbar Spine Timing/Duration: Other (8 months) Severity: Moderate Pain/Injury Location: Back Associated Symptoms: lower back pain Allergies and Home Medications Allergies Coded Allergies: No Known Allergies (Verified Allergy, Unknown, 03/06/17) Patient Home Medication List Home Medication List Reviewed: Yes Constitutional: see HPI EENTM: see HPI Respiratory: no symptoms reported Cardiovascular: no symptoms reported Genitourinary: no symptoms reported Musculoskeletal: see HPI, back pain Skin: no symptoms reported Psychiatric/Neurological: No Symptoms Reported Past [id number]-[id number] Hx Patient Social History Alcohol Use: Denies Use Recreational Drug Use: No Smoking Status: Never a Smoker Recent Foreign Travel: No Contact w/Someone Who Travel: No Recent Infectious Disease Expo: No Recent Hopitalizations: No Immunizations Up To Date Tetanus Booster (TDap): Less than 5yrs PED Vaccines UTD: No Date of Influenza Vaccine: May 08, 2017 Seasonal Allergies Seasonal Allergies: No Past Medical History Surgeries: No Respiratory: No Cardiac: No Neurological: No : No Last Menstrual Period: Jan 22, 2018 Female Reproductive Disorders: Denies Sexually Transmitted Disease: No HIV/AIDS: No Genitourinary: No Gastrointestinal: No Musculoskeletal: Yes Chronic Back Pain Endocrine: No HEENT: No Cancer: No Psychosocial: Yes Anxiety, PTSD, Depression Integumentary: No Blood Disorders: No Adverse Reaction/Blood Tranf: No Family Medical History Diabetes mellitus 19 MOTHER G8 SISTER Hypertension 19 MOTHER Respiratory disorder 19 MOTHER Visual disorder 19 MOTHER Physical Exam Vital Signs Vital Signs - First Documented 02/11/18 15:45 Temp 98.0 Pulse 111 Resp 16 B/P (MAP) 105/82 (90) Pulse Ox 98 O2 Delivery Room Air Capillary Refill : Less Than 3 Seconds Height, Weight, BMI Height: 5'4.00" Weight: 190lbs. 4.0oz. [id number]; 33.7 BMI Method:Stated General Appearance: No Apparent Distress, WD/WN HEENT: PERRL/EOMI, TMs Normal Neck: Full Range of Motion, Normal Inspection Respiratory: No Accessory Muscle Use, No Respiratory Distress Gastrointestinal: Non Tender, Soft Back: Vertebral Tenderness (over the L1-L3 region but there is no erythema overlying this) Extremity: Normal Capillary Refill, Normal Inspection Neurologic/Psychiatric: Alert, Oriented x3 Skin: Normal Color, Warm/Dry Progress/Results/Core Measures Results/Orders Vital Signs/I&O 02/11/18 15:45 Temp 98.0 Pulse 111 Resp 16 B/P (MAP) 105/82 (90) Pulse Ox 98 O2 Delivery Room Air Blood Pressure Mean: 90 Departure Impression Primary Impression: Back pain Disposition: 01 HOME, SELF-CARE Condition: Stable Departure-Patient Inst. Decision time for Depature: 16:08 Referrals: RUBEN HOLLOWAY MD (PCP) Primary Care Physician JAHAIRA MORALES APRN (Family) Primary Care Physician Patient Instructions: Low Back Pain (DC) Add. Discharge Instructions: continue with the baclofen and the ibuprofen. Use the hydrocodone only as needed for intolerable pain. This is a very addicting medication All discharge instructions reviewed with patient and/or family. Voiced understanding. Scripts Hydrocodone/Acetaminophen ([place] 5-325 Tablet) 1 Each Tablet 1 EACH PO Q6H, #10 TAB Prov: TIARRA JIMÉNEZ APRN 02/11/18 TIARRA JIMÉNEZ APRN Feb 11, 2018 16:09
[2018-02-11 16:32] VITALS: BP 105/82
== END 2018-02-11 16:31 | disposition home or self-care (01) ==
LOC: EDUNIT# 15:28 → ER 15:30
DX: M54.5 Low back pain (principal); F41.9 Anxiety disorder, unspecified; F43.10 Post-traumatic stress disorder, unspecified; F32.9 Major depressive disorder, single episode, unspecified; Z82.49 Family history of ischemic heart disease and other diseases of the circulatory system
CPT/HCPCS: 99281

== ENCOUNTER 2018-12-30 18:08 | Emergency (ER) | payer MEDICAID ==
[~2018-12-30] VITALS: Ht 162.6 cm; Wt 104.3 kg
[~2018-12-30 18:08] MED LIST changes: +ARIP5TAB20; +BACL10TA; +GABA800T10; +HYDR-4226 PO; +IBUP-1780
--- OUTSIDE RECORDS SUMMARY | 2018-12-30 18:14 | XMS REPORT ---
Author Author NICOLAS ROMO Organization [facility] Address [address] [place] [address] Care Team Providers Care Healthcare Financial Analyst Name Role Phone CLARISSA NICOLAS Unavailable PROBLEMS Type Condition ICD9-CM Code [id number] Code Onset Dates Condition Status SNOMED Code Problem Adjustment disorder with depressed mood F43.21 Active 35316637 Problem Unspecified mood [affective] disorder F39 Active 66592980 Problem Borderline personality disorder F60.3 Active 88617600 Problem Major depressive disorder, recurrent episode, moderate F33.1 Active 830265407 Problem Anxiety state, unspecified F41.1 Active 445473220 Problem care, subsequent in second trimester Z34.82 Active 605777999 Problem Post traumatic stress disorder F43.10 Active 92619303 Problem Dyspepsia R10.13 Active 666400476 Problem Complex regional pain syndrome I of right lower limb G90.521 Active 652518952281725 Problem Decreased movements in third trimester, single or unspecified fetus O36.8130 Active 818363919 Problem Polyhydramnios in third trimester complication, single or unspecified fetus O40.3XX0 Active 39774393 Problem Neuropathy G62.9 Active 075761103 Problem Bipolar disorder, current episode mixed, moderate F31.62 Active 619688462 ALLERGIES Substance Reaction Event Type Date Status Sumatriptan pinprick sensation Drug Allergy Jun, Active ENCOUNTERS Encounter Location Date Diagnosis [facility] [address] [facility] [id number], [place] [address] Jul, [facility] [address] [facility] [id number], [place] [address] Jun, Bipolar disorder, current episode mixed, moderate F31.62 and Post traumatic stress disorder F43.10 [facility] [address] [facility] [id number], [place] [address] May, Dyspepsia R10.13 [place] [id number] [place] [address] Apr, [place] [address] [address] Apr, Complex regional pain syndrome I of right lower limb G90.521 [place] [address] [address] Apr, Screening for STD (sexually transmitted disease) Z11.3 ; Encounter for surveillance of contraceptive pills Z30.41 and Well woman exam with routine gynecological exam Z01.419 [place] [address] [address] Apr, Bipolar disorder, current episode mixed, moderate F31.62 and Post traumatic stress disorder F43.10 [place] [address] [address] Mar, Bipolar disorder, current episode mixed, moderate F31.62 and Post traumatic stress disorder F43.10 [facility] [id number] [place] [address] 05 Mar, 2018 Sore throat J02.9 ; Strep throat J02.0 and Cough R05 [place] [id number] [place] [address] 04 Mar, 2018 Left upper quadrant pain R10.12 ; Complex regional pain syndrome I of right lower limb G90.521 and Dyspepsia R10.13 [facility] [id number] [place] [address] Feb, Acute maxillary sinusitis, recurrence not specified J01.00 [place] [address] [address] Jan, Dysfunction of both eustachian tubes H69.83 and Complex regional pain syndrome I of right lower limb G90.521 [place] [address] [address] Jan, Acute non-recurrent frontal sinusitis J01.10 and Acute suppurative otitis media of left ear without spontaneous rupture of tympanic membrane, recurrence not specified H66.002 [place] [id number] [place] [address] 17 Jan, 2018 Neuropathy G62.9 [place] [id number] [place] [address] 11 Jan, 2018 control counseling Z30.09 and Encounter for Depo-Provera contraception Z30.42 [place] [id number] [place] [address] 05 Jan, 2018 Acute cystitis without hematuria N30.00 [place] [id number] [place] [address] 02 Jan, 2018 Dysfunction of right eustachian tube H69.81 and Complex regional pain syndrome I of right lower limb G90.521 [place] [id number] [place] [address] 04 Dec, 2017 Acute right ankle pain M25.571 ; Neuropathy G62.9 and Complex regional pain syndrome I of right lower limb G90.521 [place] [id number] [place] [address] November, [place] [id number] [place] [address] Oct, Neuropathy G62.9 [place] [id number] [place] [address] Oct, [place] [id number] [place] [address] Oct, Bipolar disorder, current episode mixed, moderate F31.62 and Post traumatic stress disorder F43.10 [place] [id number] [place] [address] Sep, Bipolar disorder, current episode mixed, moderate F31.62 and Post traumatic stress disorder F43.10 [place] [id number] [place] [address] Sep, [facility] [address] [address] Sep, Bipolar disorder, current episode mixed, moderate F31.62 ; High risk medication use Z79.899 and Post traumatic stress disorder F43.10 [place] [address] [address] Sep, [place] [address] [address] Aug, Lumbar radiculopathy M54.16 [place] [address] [address] Aug, Major depressive disorder, recurrent episode, moderate F33.1 ; Anxiety state, unspecified F41.1 ; Borderline personality disorder F60.3 and Post traumatic stress disorder F43.10 [place] [id number] [place] [address] Aug, Anxiety state, unspecified F41.1 ; Adjustment disorder with depressed mood F43.21 ; Major depressive disorder, recurrent episode, moderate F33.1 ; Post traumatic stress disorder F43.10 and Unspecified mood [affective] disorder F39 [place] [id number] [place] [address] Aug, [facility] [id number] [place] [address] Jul, Acute nasopharyngitis J00 and Dependent edema R60.9 [facility] [address] [place] [address] Jul, [facility] [id number] [place] [address] Jun, Screening for deficiency anemia Z13.[address] [place] [address] May, Decreased movements in third trimester, single or unspecified fetus O36.8130 ; Polyhydramnios in third trimester complication, single or unspecified fetus O40.3XX0 and 38 weeks gestation of Z3A.38 [place] [id number] [place] [address] May, 37 weeks gestation of Z3A.37 ; Third trimester Z34.93 and Polyhydramnios affecting in third trimester O40.3XX0 [place] [id number] [place] [address] May, care in third trimester Z34.93 ; Polyhydramnios in third trimester complication, single or unspecified fetus O40.3XX0 and 37 weeks gestation of Z3A.37 [place] [id number] [place] [address] May, [place] [id number] [place] [address] May, care, subsequent in third trimester Z34.83 and 35 weeks gestation of Z3A.35 [place] [id number] [place] [address] May, [place] [id number] [place] [address] Apr, 34 weeks gestation of Z3A.34 [place] [id number] [place] [address] Apr, 32 weeks gestation of Z3A.32 and Polyhydramnios in third trimester complication, single or unspecified fetus O40.3XX0 [place] [address] [address] Apr, [place] [id number] [place] [address] Apr, 30 weeks gestation of Z3A.30 and Encounter for immunization Z23 [place] [address] [place] [address] 15 Mar, 2017 Diabetes mellitus screening Z13.1 ; care in third trimester Z34.93 ; 28 weeks gestation of Z3A.28 ; Evaluate anatomy not seen on prior sonogram Z36 and Encounter for immunization Z23 [place] [id number] [place] [address] Feb, care, subsequent in second trimester Z34.82 and 25 weeks gestation of Z3A.25 [place] [id number] [place] [address] Feb, Unspecified mood [affective] disorder F39 and Borderline personality disorder F60.3 [place] [id number] [place] [address] Jan, care, subsequent in second trimester Z34.82 and 21 weeks gestation of Z3A.21 [place] [id number] [place] [address] Jan, Screening, anemia, deficiency, iron Z13.0 [place] [id number] [place] [address] Dec, care, subsequent in second trimester Z34.82 ; Second trimester Z33.1 and 17 weeks gestation of Z3A.17 [place] [id number] [place] [address] Dec, Post traumatic stress disorder F43.10 and Adjustment disorder with depressed mood F43.21 [place] [id number] [place] [address] Dec, care, subsequent in first trimester Z34.81 and 12 weeks gestation of Z3A.12 [place] [id number] [place] [address] November, Major depressive disorder, recurrent episode, moderate F33.1 and Anxiety state, unspecified F41.1 [place] [address] [place] [address] November, [place] [address] [place] [address] November, [place] [address] [place] [address] November, [place] [id number] [place] [address] November, care, subsequent in first trimester Z34.81 and UTI in , first trimester O23.41 [place] [id number] [place] [address] Oct, [place] [id number] [place] [address] Oct, Encounter for test, result unknown Z32.[address] [place] [address] Apr, Major depressive disorder, recurrent episode, moderate F33.1 IMMUNIZATIONS No Known Immunizations SOCIAL HISTORY Never Assessed REASON FOR VISIT zhang/trudy Patricia PLAN OF CARE Activity Details Follow Up 4 Weeks Reason: VITAL SIGNS Height 64 in 2018-06-26 Weight 219.2 lbs 2018-06-26 Heart Rate 96 bpm 2018-06-26 Respiratory Rate 20 2018-06-26 BMI 37.62 kg/m2 2018-06-26 Blood pressure systolic 112 mmHg 2018-06-26 Blood pressure diastolic 76 mmHg 2018-06-26 MEDICATIONS Medication Instructions Dosage Frequency Start Date End Date Duration Status Ibuprofen 800 MG Orally Three times a day 1 tablet with food or milk as needed 8h Dec, Active Abilify 10 MG Orally Once a day 1 tablet 24h Sep, 30 days Active Hydrocodone-Acetaminophen 5-325 MG Orally Once a day. Must last 30 days 1 tablet as needed Apr, Active Baclofen 10 mg Orally Three times a day 1 tablet with food or milk 8h Active Trazodone HCl 100 mg Orally at bedtime as needed 1-2 tabs Mar, Active Propranolol HCl 10 MG Orally Twice a day as needed 1 tablet Jun, 30 day(s) Active RESULTS No Results PROCEDURES No Known procedures INSTRUCTIONS MEDICATIONS ADMINISTERED No Known Medications MEDICAL (GENERAL) HISTORY Type Description Date Surgical History natural birthx 2 Hospitalization History childbirth only
--- OUTSIDE RECORDS SUMMARY | 2018-12-30 18:14 | XMS REPORT ---
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 Hand Name Role Phone RUBEN HOLLOWAY Unavailable PROBLEMS Type Condition ICD9-CM Code GLU85-CI Code Onset Dates Condition Status SNOMED Code Problem Adjustment disorder with depressed mood F43.21 Active 18628208 Problem Unspecified mood [affective] disorder F39 Active 35993797 Problem Borderline personality disorder F60.3 Active 48154455 Problem Major depressive disorder, recurrent episode, moderate F33.1 Active 922393541 Problem Anxiety state, unspecified F41.1 Active 712417035 Problem care, subsequent in second trimester Z34.82 Active 502462206 Problem Post traumatic stress disorder F43.10 Active 99528493 Problem Dyspepsia R10.13 Active 898914733 Problem Complex regional pain syndrome I of right lower limb G90.521 Active 237541322272618 Problem Decreased movements in third trimester, single or unspecified fetus O36.8130 Active 842340118 Problem Polyhydramnios in third trimester complication, single or unspecified fetus O40.3XX0 Active 07077782 Problem Neuropathy G62.9 Active 873665621 Problem Bipolar disorder, current episode mixed, moderate F31.62 Active 715144245 ALLERGIES Substance Reaction Event Type Date Status Sumatriptan pinprick sensation Drug Allergy Mar, Active ENCOUNTERS Encounter Location Date Diagnosis [facility] [address] [facility] [id number] [address] Jun, [facility] [address] [id number] [address] Apr, [facility] [address] [facility] [id number] [address] Apr, Complex regional pain syndrome I of right lower limb G90.521 [place] [address] [id number] [place] [address] 03 Apr, 2018 Screening for STD (sexually transmitted disease) Z11.3 ; Encounter for surveillance of contraceptive pills Z30.41 and Well woman exam with routine gynecological exam Z01.419 [place] [id number] [place] [address] Apr, Bipolar disorder, current episode mixed, moderate F31.62 and Post traumatic stress disorder F43.10 [place] [address] [address] Mar, Bipolar disorder, current episode mixed, moderate F31.62 and Post traumatic stress disorder F43.10 [facility] [place] [id number] [place] [address] 05 Mar, 2018 Sore throat J02.9 ; Strep throat J02.0 and Cough R05 [place] [address] [address] 04 Mar, 2018 Left upper quadrant pain R10.12 ; Complex regional pain syndrome I of right lower limb G90.521 and Dyspepsia R10.13 [facility] [place] [id number] [place] [address] Feb, Acute maxillary sinusitis, recurrence not specified J01.00 [place] [id number] [place] [address] Jan, Dysfunction of both eustachian tubes H69.83 and Complex regional pain syndrome I of right lower limb G90.521 [place] [id number] [place] [address] Jan, Acute non-recurrent frontal sinusitis J01.10 and Acute suppurative otitis media of left ear without spontaneous rupture of tympanic membrane, recurrence not specified H66.002 [place] [id number] [place] [address] Jan, Neuropathy G62.9 [place] [id number] [place] [address] 11 Jan, 2018 control counseling Z30.09 and Encounter for Depo-Provera contraception Z30.42 [place] [id number] [place] [address] 05 Jan, 2018 Acute cystitis without hematuria N30.00 [place] [address] [id number] [place] [address] 02 Jan, 2018 Dysfunction of right eustachian tube H69.81 and Complex regional pain syndrome I of right lower limb G90.521 [place] [id number] [place] [address] 04 Dec, 2017 Acute right ankle pain M25.571 ; Neuropathy G62.9 and Complex regional pain syndrome I of right lower limb G90.521 [place] [id number] [place] [address] November, [place] [id number] [place] [address] Oct, Neuropathy G62.9 [place] [id number] [place] [address] Oct, [place] [id number] [place] [address] Oct, Bipolar disorder, current episode mixed, moderate F31.62 and Post traumatic stress disorder F43.10 [place] [id number] [place] [address] Sep, Bipolar disorder, current episode mixed, moderate F31.62 and Post traumatic stress disorder F43.10 [place] [id number] [place] [address] Sep, [place] [id number] [place] [address] Sep, Bipolar disorder, current episode mixed, moderate F31.62 ; High risk medication use Z79.899 and Post traumatic stress disorder F43.10 [facility] [id number] [place] [address] Sep, [place] [id number] [place] [address] 26 Aug, 2017 Lumbar radiculopathy M54.16 [place] [id number] [place] [address] 19 Aug, 2017 Major depressive disorder, recurrent episode, moderate F33.1 ; Anxiety state, unspecified F41.1 ; Borderline personality disorder F60.3 and Post traumatic stress disorder F43.10 [place] [id number] [place] [address] 15 Aug, 2017 Anxiety state, unspecified F41.1 ; Adjustment disorder with depressed mood F43.21 ; Major depressive disorder, recurrent episode, moderate F33.1 ; Post traumatic stress disorder F43.10 and Unspecified mood [affective] disorder F39 [place] [id number] [place] [address] Aug, [facility] [id number] [place] [address] Jul, Acute nasopharyngitis J00 and Dependent edema R60.9 [place] [id number] [place] [address] Jul, [facility] [id number] [place] [address] Jun, Screening for deficiency anemia Z13.0 [place] [id number] [place] [address] May, Decreased movements in third trimester, single or unspecified fetus O36.8130 ; Polyhydramnios in third trimester complication, single or unspecified fetus O40.3XX0 and 38 weeks gestation of Z3A.38 [place] [address] [id number] [place] [address] May, 37 weeks gestation of Z3A.37 ; Third trimester Z34.93 and Polyhydramnios affecting in third trimester O40.3XX0 [place] [id number] [place] [address] May, care in third trimester Z34.93 ; Polyhydramnios in third trimester complication, single or unspecified fetus O40.3XX0 and 37 weeks gestation of Z3A.37 [place] [address] [address] May, [place] [id number] [place] [address] May, care, subsequent in third trimester Z34.83 and 35 weeks gestation of Z3A.35 [place] [address] [address] May, [place] [address] [address] Apr, 34 weeks gestation of Z3A.34 [place] [address] [id number] [place] [address] Apr, 32 weeks gestation of Z3A.32 and Polyhydramnios in third trimester complication, single or unspecified fetus O40.3XX0 [place] [id number] [place] [address] Apr, [place] [address] [address] Apr, 30 weeks gestation of Z3A.30 and Encounter for immunization Z23 [address] [address] 15 Mar, 2017 Diabetes mellitus screening Z13.1 ; care in third trimester Z34.93 ; 28 weeks gestation of Z3A.28 ; Evaluate anatomy not seen on prior sonogram Z36 and Encounter for immunization Z23 [address] [address] Feb, care, subsequent in second trimester Z34.82 and 25 weeks gestation of Z3A.25 [place] [address] [id number] [place] [address] Feb, Unspecified mood [affective] disorder F39 and Borderline personality disorder F60.3 [place] [id number] [place] [address] Jan, care, subsequent in second trimester Z34.82 and 21 weeks gestation of Z3A.21 [place] [id number] [place] [address] Jan, Screening, anemia, deficiency, iron Z13.0 [place] [id number] [place] [address] Dec, care, subsequent in second trimester Z34.82 ; Second trimester Z33.1 and 17 weeks gestation of Z3A.17 [place] [address] [id number] [place] [address] Dec, Post traumatic stress disorder F43.10 and Adjustment disorder with depressed mood F43.21 [place] [id number] [place] [address] Dec, care, subsequent in first trimester Z34.81 and 12 weeks gestation of Z3A.12 [place] [id number] [place] [address] November, Major depressive disorder, recurrent episode, moderate F33.1 and Anxiety state, unspecified F41.1 [place] [id number] [place] [address] November, [place] [id number] [place] [address] November, [place] [address] [id number] [place] [address] November, [place] [address] [facility] [id number] [address] November, care, subsequent in first trimester Z34.81 and UTI in , first trimester O23.41 [place] [id number] [address] Oct, [place] [address] [address] Oct, Encounter for test, result unknown Z32.00 [place] [address] [address] Apr, Major depressive disorder, recurrent episode, moderate F33.1 IMMUNIZATIONS No Known Immunizations SOCIAL HISTORY Never Assessed REASON FOR VISIT Fever, PT reports she has been having a fever for a couple of days, and has a sh apr pain on her left side that goes around to her back, pain strong enough to ca use nausea. PT notes loss of appetite due to nausea, Pt is concerened it could b e her gallbladder-[facility] PLAN OF CARE Activity Details Follow Up 3 Months; call if pain not improving Reason: Pending Test H PYLORI (IN HOUSE) VITAL SIGNS Height 64 in 2018-03-28 Weight 195 lbs 2018-03-28 Temperature 97.9 degrees Fahrenheit 2018-03-28 Heart Rate 106 bpm 2018-03-28 Respiratory Rate 18 2018-03-28 Oximetry 97 % 2018-03-28 BMI 33.47 kg/m2 2018-03-28 Blood pressure systolic 110 mmHg 2018-03-28 Blood pressure diastolic 70 mmHg 2018-03-28 MEDICATIONS Medication Instructions Dosage Frequency Start Date End Date Duration Status Depo-Provera 150 MG/ML 1 ml Active SudoGest 60 mg Orally every 6 hrs 1 tablet as needed 6h Jan, 07 days Active Omeprazole 20 mg Orally Once a day, 30 min ac 1 capsule Mar, Active Abilify 5 MG Orally Once a day 1 tablet 24h Sep, 30 days Active Ibuprofen 800 MG Orally Three times a day 1 tablet with food or milk as needed 8h Dec, Active Hydrocodone-Acetaminophen 5-325 MG Orally Once a day. Must last 30 days 1 tablet as needed Mar, Active Baclofen 10 mg Orally Three times a day 1 tablet with food or milk 8h Active Gabapentin 800 MG Orally Three times a day 1 tablet 8h Dec, 30 day(s) Active RESULTS No Results PROCEDURES Procedure Date Ordered Result Body Site IMMUNOASSAY,INFECTIOUS AGENT Mar 28, 2018 INSTRUCTIONS MEDICATIONS ADMINISTERED No Known Medications MEDICAL (GENERAL) HISTORY Type Description Date Surgical History natural birthx 2 Hospitalization History childbirth only
--- OUTSIDE RECORDS SUMMARY | 2018-12-30 18:14 | XMS REPORT ---
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 Name Role Phone KP SCHMIDTA Unavailable PROBLEMS Type Condition ICD9-CM Code [id number] Code Onset Dates Condition Status SNOMED Code Problem Adjustment disorder with depressed mood F43.21 Active 94605417 Problem Unspecified mood [affective] disorder F39 Active 79598129 Problem Borderline personality disorder F60.3 Active 50483715 Problem Major depressive disorder, recurrent episode, moderate F33.1 Active 724614493 Problem Anxiety state, unspecified F41.1 Active 685356809 Problem care, subsequent in second trimester Z34.82 Active 885036340 Problem Post traumatic stress disorder F43.10 Active 84013696 Problem Dyspepsia R10.13 Active 798802092 Problem Complex regional pain syndrome I of right lower limb G90.521 Active 836733412503954 Problem Decreased movements in third trimester, single or unspecified fetus O36.8130 Active 208719236 Problem Polyhydramnios in third trimester complication, single or unspecified fetus O40.3XX0 Active 90235625 Problem Neuropathy G62.9 Active 134167840 Problem Bipolar disorder, current episode mixed, moderate F31.62 Active [id number] ALLERGIES No Information ENCOUNTERS Encounter Location Date Diagnosis [facility] [id number] [address] Jun, [facility] [id number] [address] Apr, [facility] [id number] [address] Apr, Complex regional pain syndrome I of right lower limb G90.521 [facility] [id number] [address] Apr, Screening for STD (sexually transmitted disease) Z11.3 ; Encounter for surveillance of contraceptive pills Z30.41 and Well woman exam with routine gynecological exam Z01.419 [place] [id number] [place] [address] 01 Apr, 2018 Bipolar disorder, current episode mixed, moderate F31.62 and Post traumatic stress disorder F43.10 [place] [address] [address] 10 Mar, 2018 Bipolar disorder, current episode mixed, moderate F31.62 and Post traumatic stress disorder F43.10 [facility] IN [facility] [address] [address] 05 Mar, 2018 Sore throat J02.9 ; Strep throat J02.0 and Cough R05 [address] [address] 04 Mar, 2018 Left upper quadrant pain R10.12 ; Complex regional pain syndrome I of right lower limb G90.521 and Dyspepsia R10.13 [facility] IN [place] [address] [address] Feb, Acute maxillary sinusitis, recurrence not specified J01.00 [place] [id number] [place] [address] Jan, Dysfunction of both eustachian tubes H69.83 and Complex regional pain syndrome I of right lower limb G90.521 [place] [id number] [place] [address] Jan, Acute non-recurrent frontal sinusitis J01.10 and Acute suppurative otitis media of left ear without spontaneous rupture of tympanic membrane, recurrence not specified H66.002 [place] [id number] [place] [address] Jan, Neuropathy G62.9 [place] [address] [address] Jan, control counseling Z30.09 and Encounter for Depo-Provera contraception Z30.42 [place] [id number] [place] [address] 05 Jan, 2018 Acute cystitis without hematuria N30.00 [place] [id number] [place] [address] 02 Jan, 2018 Dysfunction of right eustachian tube H69.81 and Complex regional pain syndrome I of right lower limb G90.521 [place] [address] [place] [address] 04 Dec, 2017 Acute right ankle pain M25.571 ; Neuropathy G62.9 and Complex regional pain syndrome I of right lower limb G90.521 [place] [id number] [place] [address] November, [place] [id number] [place] [address] Oct, Neuropathy G62.9 [place] [id number] [place] [address] Oct, [place] [id number] [place] [address] Oct, Bipolar disorder, current episode mixed, moderate F31.62 and Post traumatic stress disorder F43.10 [place] [id number] [place] [address] Sep, Bipolar disorder, current episode mixed, moderate F31.62 and Post traumatic stress disorder F43.10 [place] [id number] [place] [address] Sep, [place] [id number] [place] [address] Sep, Bipolar disorder, current episode mixed, moderate F31.62 ; High risk medication use Z79.899 and Post traumatic stress disorder F43.10 [place] [address] [place] [address] Sep, [facility] [id number] [place] [address] Aug, Lumbar radiculopathy M54.16 [place] [id number] [place] [address] Aug, Major depressive disorder, recurrent episode, moderate F33.1 ; Anxiety state, unspecified F41.1 ; Borderline personality disorder F60.3 and Post traumatic stress disorder F43.10 [place] [address] [address] 15 Aug, 2017 Anxiety state, unspecified F41.1 ; Adjustment disorder with depressed mood F43.21 ; Major depressive disorder, recurrent episode, moderate F33.1 ; Post traumatic stress disorder F43.10 and Unspecified mood [affective] disorder F39 [place] [address] [address] Aug, [facility] [id number] [place] [address] Jul, Acute nasopharyngitis J00 and Dependent edema R60.9 [place] [id number] [place] [address] Jul, [facility] [id number] [place] [address] Jun, Screening for deficiency anemia Z13.0 [place] [address] [place] [address] May, Decreased movements in third trimester, single or unspecified fetus O36.8130 ; Polyhydramnios in third trimester complication, single or unspecified fetus O40.3XX0 and 38 weeks gestation of Z3A.38 [place] [address] [place] [address] May, 37 weeks gestation of Z3A.37 ; Third trimester Z34.93 and Polyhydramnios affecting in third trimester O40.3XX0 [place] [address] [place] [address] 16 May, 2017 care in third trimester Z34.93 ; Polyhydramnios in third trimester complication, single or unspecified fetus O40.3XX0 and 37 weeks gestation of Z3A.37 [place] [address] [place] [address] 09 May, 2017 [place] [address] [place] [address] May, care, subsequent in third trimester Z34.83 and 35 weeks gestation of Z3A.35 [place] [id number] [place] [address] May, [place] [id number] [place] [address] Apr, 34 weeks gestation of Z3A.34 [place] [address] [place] [address] Apr, 32 weeks gestation of Z3A.32 and Polyhydramnios in third trimester complication, single or unspecified fetus O40.3XX0 [place] [id number] [place] [address] Apr, [place] [id number] [place] [address] Apr, 30 weeks gestation of Z3A.30 and Encounter for immunization Z23 [place] [id number] [place] [address] Mar, Diabetes mellitus screening Z13.1 ; care in third trimester Z34.93 ; 28 weeks gestation of Z3A.28 ; Evaluate anatomy not seen on prior sonogram Z36 and Encounter for immunization Z23 [place] [id number] [place] [address] Feb, care, subsequent in second trimester Z34.82 and 25 weeks gestation of Z3A.25 [place] [id number] [place] [address] Feb, Unspecified mood [affective] disorder F39 and Borderline personality disorder F60.3 [place] [address] [place] [address] Jan, care, subsequent in second trimester Z34.82 and 21 weeks gestation of Z3A.21 [place] [id number] [place] [address] Jan, Screening, anemia, deficiency, iron Z13.0 [place] [id number] [place] [address] Dec, care, subsequent in second trimester Z34.82 ; Second trimester Z33.1 and 17 weeks gestation of Z3A.17 [place] [address] [place] [address] Dec, Post traumatic stress disorder F43.10 and Adjustment disorder with depressed mood F43.21 [place] [id number] [place] [address] Dec, care, subsequent in first trimester Z34.81 and 12 weeks gestation of Z3A.12 [place] [address] [place] [address] November, Major depressive disorder, recurrent episode, moderate F33.1 and Anxiety state, unspecified F41.1 [place] [address] [place] [address] November, [place] [id number] [place] [address] November, [place] [address] [place] [address] November, [place] [address] [place] [address] November, care, subsequent in first trimester Z34.81 and UTI in , first trimester O23.41 [place] [address] [address] Oct, [place] [id number] [address] Oct, Encounter for test, result unknown Z32.00 [place] [id number] [address] Apr, Major depressive disorder, recurrent episode, moderate F33.1 IMMUNIZATIONS No Known Immunizations SOCIAL HISTORY Never Assessed REASON FOR VISIT rx from lab PLAN OF CARE VITAL SIGNS MEDICATIONS Medication Instructions Dosage Frequency Start Date End Date Duration Status Diflucan 150 MG 1 tablet Apr, Apr, 1 dose Active RESULTS No Results PROCEDURES No Known procedures INSTRUCTIONS MEDICATIONS ADMINISTERED No Known Medications MEDICAL (GENERAL) HISTORY Type Description Date Surgical History natural birthx 2 Hospitalization History childbirth only
--- OUTSIDE RECORDS SUMMARY | 2018-12-30 18:14 | XMS REPORT ---
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 Role Phone RUBEN HOLLOWAY Unavailable PROBLEMS Type Condition ICD9-CM Code [id number] Code Onset Dates Condition Status SNOMED Code Problem Adjustment disorder with depressed mood F43.21 Active 27922648 Problem Unspecified mood [affective] disorder F39 Active 70284097 Problem Borderline personality disorder F60.3 Active 14522759 Problem Major depressive disorder, recurrent episode, moderate F33.1 Active 149437076 Problem Anxiety state, unspecified F41.1 Active 537036869 Problem care, subsequent in second trimester Z34.82 Active 508986664 Problem Post traumatic stress disorder F43.10 Active 53143406 Problem Dyspepsia R10.13 Active 090692490 Problem Complex regional pain syndrome I of right lower limb G90.521 Active 126638210363369 Problem Decreased movements in third trimester, single or unspecified fetus O36.8130 Active 272656761 Problem Polyhydramnios in third trimester complication, single or unspecified fetus O40.3XX0 Active 21283702 Problem Neuropathy G62.9 Active 788309008 Problem Bipolar disorder, current episode mixed, moderate F31.62 Active 214818136 ALLERGIES No Information ENCOUNTERS Encounter Location Date Diagnosis [facility] [id number] [address] Jun, [facility] [address] [address] May, Dyspepsia R10.13 [facility] [id number] [address] Apr, [facility] [id number] [address] Apr, Complex regional pain syndrome I of right lower limb G90.521 [place] [id number] [place] [address] Apr, Screening for STD (sexually transmitted disease) Z11.3 ; Encounter for surveillance of contraceptive pills Z30.41 and Well woman exam with routine gynecological exam Z01.419 [place] [address] [address] Apr, Bipolar disorder, current episode mixed, moderate F31.62 and Post traumatic stress disorder F43.10 [place] [address] [address] Mar, Bipolar disorder, current episode mixed, moderate F31.62 and Post traumatic stress disorder F43.10 [facility] [address] [address] 05 Mar, 2018 Sore throat J02.9 ; Strep throat J02.0 and Cough R05 [place] [address] [address] 04 Mar, 2018 Left upper quadrant pain R10.12 ; Complex regional pain syndrome I of right lower limb G90.521 and Dyspepsia R10.13 [facility] [place] [id number] [place] [address] Feb, Acute maxillary sinusitis, recurrence not specified J01.00 [place] [address] [address] Jan, Dysfunction of both eustachian tubes H69.83 and Complex regional pain syndrome I of right lower limb G90.521 [place] [address] [address] Jan, Acute non-recurrent frontal sinusitis J01.10 and Acute suppurative otitis media of left ear without spontaneous rupture of tympanic membrane, recurrence not specified H66.002 [place] [address] [address] 17 Jan, 2018 Neuropathy G62.9 [place] [id number] [place] [address] 11 Jan, 2018 control counseling Z30.09 and Encounter for Depo-Provera contraception Z30.42 [place] [id number] [place] [address] 05 Jan, 2018 Acute cystitis without hematuria N30.00 [place] [address] [address] 02 Jan, 2018 Dysfunction of right eustachian tube H69.81 and Complex regional pain syndrome I of right lower limb G90.521 [place] [id number] [place] [address] 04 Dec, 2017 Acute right ankle pain M25.571 ; Neuropathy G62.9 and Complex regional pain syndrome I of right lower limb G90.521 [place] [id number] [place] [address] November, [place] [id number] [place] [address] Oct, Neuropathy G62.9 [place] [id number] [place] [address] Oct, [place] [id number] [place] [address] Oct, Bipolar disorder, current episode mixed, moderate F31.62 and Post traumatic stress disorder F43.10 [place] [id number] [place] [address] Sep, Bipolar disorder, current episode mixed, moderate F31.62 and Post traumatic stress disorder F43.10 [place] [id number] [place] [address] Sep, [place] [id number] [place] [address] Sep, Bipolar disorder, current episode mixed, moderate F31.62 ; High risk medication use Z79.899 and Post traumatic stress disorder F43.10 [place] [id number] [place] [address] Sep, [place] [id number] [place] [address] Aug, Lumbar radiculopathy M54.16 [place] [id number] [place] [address] Aug, Major depressive disorder, recurrent episode, moderate F33.1 ; Anxiety state, unspecified F41.1 ; Borderline personality disorder F60.3 and Post traumatic stress disorder F43.10 [place] [id number] [place] [address] 15 Aug, 2017 Anxiety state, unspecified F41.1 ; Adjustment disorder with depressed mood F43.21 ; Major depressive disorder, recurrent episode, moderate F33.1 ; Post traumatic stress disorder F43.10 and Unspecified mood [affective] disorder F39 [facility] [id number] [place] [address] Aug, [facility] [id number] [place] [address] Jul, Acute nasopharyngitis J00 and Dependent edema R60.9 [place] [id number] [place] [address] Jul, [facility] [id number] [place] [address] Jun, Screening for deficiency anemia Z13.0 [place] [address] [place] [address] May, Decreased movements in third trimester, single or unspecified fetus O36.8130 ; Polyhydramnios in third trimester complication, single or unspecified fetus O40.3XX0 and 38 weeks gestation of Z3A.38 [place] [address] [place] [address] May, 37 weeks gestation of Z3A.37 ; Third trimester Z34.93 and Polyhydramnios affecting in third trimester O40.3XX0 [place] [address] [place] [address] May, care in third trimester Z34.93 ; Polyhydramnios in third trimester complication, single or unspecified fetus O40.3XX0 and 37 weeks gestation of Z3A.37 [place] [id number] [place] [address] May, [place] [id number] [place] [address] May, care, subsequent in third trimester Z34.83 and 35 weeks gestation of Z3A.35 [place] [id number] [place] [address] May, [place] [id number] [place] [address] Apr, 34 weeks gestation of Z3A.34 [place] [id number] [place] [address] Apr, 32 weeks gestation of Z3A.32 and Polyhydramnios in third trimester complication, single or unspecified fetus O40.3XX0 [place] [id number] [place] [address] Apr, [place] [id number] [place] [address] Apr, 30 weeks gestation of Z3A.30 and Encounter for immunization Z23 [place] [id number] [place] [address] Mar, Diabetes mellitus screening Z13.1 ; care in third trimester Z34.93 ; 28 weeks gestation of Z3A.28 ; Evaluate anatomy not seen on prior sonogram Z36 and Encounter for immunization Z23 [place] [id number] [place] [address] Feb, care, subsequent in second trimester Z34.82 and 25 weeks gestation of Z3A.25 [place] [id number] [place] [address] Feb, Unspecified mood [affective] disorder F39 and Borderline personality disorder F60.3 [place] [id number] [place] [address] Jan, care, subsequent in second trimester Z34.82 and 21 weeks gestation of Z3A.21 [place] [id number] [place] [address] Jan, Screening, anemia, deficiency, iron Z13.0 [place] [id number] [place] [address] Dec, care, subsequent in second trimester Z34.82 ; Second trimester Z33.1 and 17 weeks gestation of Z3A.17 [place] [id number] [place] [address] Dec, Post traumatic stress disorder F43.10 and Adjustment disorder with depressed mood F43.21 [place] [id number] [place] [address] Dec, care, subsequent in first trimester Z34.81 and 12 weeks gestation of Z3A.12 [place] [id number] [place] [address] November, Major depressive disorder, recurrent episode, moderate F33.1 and Anxiety state, unspecified F41.1 [place] [id number] [place] [address] November, [place] [id number] [place] [address] November, [place] [address] [place] [address] November, [facility] [address] [address] November, care, subsequent in first trimester Z34.81 and UTI in , first trimester O23.41 [place] [id number] [place] [address] Oct, [place] [id number] [place] [address] Oct, Encounter for test, result unknown Z32.00 [place] [address] [place] [address] Apr, Major depressive disorder, recurrent episode, moderate F33.1 IMMUNIZATIONS No Known Immunizations SOCIAL HISTORY Never Assessed REASON FOR VISIT Refill request PLAN OF CARE VITAL SIGNS MEDICATIONS Medication Instructions Dosage Frequency Start Date End Date Duration Status Ibuprofen 800 MG Orally Three times a day 1 tablet with food or milk as needed 8h Dec, Active RESULTS No Results PROCEDURES No Known procedures INSTRUCTIONS MEDICATIONS ADMINISTERED No Known Medications MEDICAL (GENERAL) HISTORY Type Description Date Surgical History natural birthx 2 Hospitalization History childbirth only
--- OUTSIDE RECORDS SUMMARY | 2018-12-30 18:14 | XMS REPORT ---
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 Name Role Phone NICOLAS OLMOS Unavailable PROBLEMS Type Condition ICD9-CM Code HTE45-MW Code Onset Dates Condition Status SNOMED Code Problem Anxiety state, unspecified F41.1 Active 181355186 Problem Major depressive disorder, recurrent episode, moderate F33.1 Active 309338639 Problem Adjustment disorder with depressed mood F43.21 Active 35200071 Problem Borderline personality disorder F60.3 Active 22830610 Problem Unspecified mood [affective] disorder F39 Active 05360723 Problem Complex regional pain syndrome I of right lower limb G90.521 Active 004869893139659 Problem Post traumatic stress disorder F43.10 Active 06592680 Problem Dyspepsia R10.13 Active 879321957 Problem care, subsequent in second trimester Z34.82 Active 050684022 Problem Polyhydramnios in third trimester complication, single or unspecified fetus O40.3XX0 Active 54142758 Problem Decreased movements in third trimester, single or unspecified fetus O36.8130 Active 675920868 Problem Bipolar disorder, current episode mixed, moderate F31.62 Active 869105722 Problem Neuropathy G62.9 Active 546469395 ALLERGIES Substance Reaction Event Type Date Status Sumatriptan pinprick sensation Drug Allergy Sep, Active ENCOUNTERS Encounter Location Date Diagnosis [facility] [address] [facility] [id number] [address] Oct, Sore throat J02.9 ; Chest congestion R09.89 and Acute bronchitis, unspecified organism J20.9 [facility] [place] [address] [facility] [id number] [address] Oct, Bipolar disorder, current episode mixed, moderate F31.62 and Post traumatic stress disorder F43.10 [facility] [place] [address] [address] Sep, Bipolar disorder, current episode mixed, moderate F31.62 and Post traumatic stress disorder F43.10 [facility] [place] [address], [place] [address] Aug, Complex regional pain syndrome I of right lower limb G90.521 [facility] [place] [id number] [place] [address] Jul, Complex regional pain syndrome I of right lower limb G90.521 [facility] [place] [id number] [place] [address] Jul, Complex regional pain syndrome I of right lower limb G90.521 [facility] [place] [address] [place] [address] Jul, Complex regional pain syndrome I of right lower limb G90.521 [facility] [place] [address] [place] [address] Jul, Bipolar disorder, current episode mixed, moderate F31.62 and Post traumatic stress disorder F43.10 [place] [address] [place] [address] Jun, Bipolar disorder, current episode mixed, moderate F31.62 and Post traumatic stress disorder F43.10 [facility] [place] [address] [address] May, Dyspepsia R10.13 [facility] [place] [address], [place] [address] Apr, [facility] [place] [id number] [place] [address] Apr, Complex regional pain syndrome I of right lower limb G90.521 [facility] [place] [address] [place] [address] Apr, Screening for STD (sexually transmitted disease) Z11.3 ; Encounter for surveillance of contraceptive pills Z30.41 and Well woman exam with routine gynecological exam Z01.419 [facility] [id number] [place] [address] 01 Apr, 2018 Bipolar disorder, current episode mixed, moderate F31.62 and Post traumatic stress disorder F43.10 [place] [address] [address] 10 Mar, 2018 Bipolar disorder, current episode mixed, moderate F31.62 and Post traumatic stress disorder F43.10 [facility] [address] [address] 05 Mar, 2018 Sore throat J02.9 ; Strep throat J02.0 and Cough R05 [place] [address] [address] 04 Mar, 2018 Left upper quadrant pain R10.12 ; Complex regional pain syndrome I of right lower limb G90.521 and Dyspepsia R10.13 [facility] [id number] [place] [address] Feb, Acute maxillary sinusitis, recurrence not specified J01.00 [place] [address] [address] Jan, Dysfunction of both eustachian tubes H69.83 and Complex regional pain syndrome I of right lower limb G90.521 [place] [address] [address] Jan, Acute non-recurrent frontal sinusitis J01.10 and Acute suppurative otitis media of left ear without spontaneous rupture of tympanic membrane, recurrence not specified H66.002 [facility] [id number] [place] [address] 17 Jan, 2018 Neuropathy G62.9 [place] [address] [address] 11 Jan, 2018 control counseling Z30.09 and Encounter for Depo-Provera contraception Z30.42 [facility] [id number] [place] [address] 05 Jan, 2018 Acute cystitis without hematuria N30.00 [facility] [id number] [place] [address] Jan, Dysfunction of right eustachian tube H69.81 and Complex regional pain syndrome I of right lower limb G90.521 [facility] [place] [id number] [place] [address] Dec, Acute right ankle pain M25.571 ; Neuropathy G62.9 and Complex regional pain syndrome I of right lower limb G90.521 [facility] [id number] [place] [address] November, [facility] [place] [id number] [place] [address] Oct, Neuropathy G62.9 [facility] [id number] [place] [address] Oct, [facility] [id number] [place] [address] Oct, Bipolar disorder, current episode mixed, moderate F31.62 and Post traumatic stress disorder F43.10 [facility] [id number] [place] [address] Sep, Bipolar disorder, current episode mixed, moderate F31.62 and Post traumatic stress disorder F43.10 [facility] [id number] [place] [address] Sep, [place] [id number] [place] [address] Sep, Bipolar disorder, current episode mixed, moderate F31.62 ; High risk medication use Z79.899 and Post traumatic stress disorder F43.10 [facility] [id number] [place] [address] Sep, [facility] [place] [address] [place] [address] Aug, Lumbar radiculopathy M54.16 [facility] [id number] [place] [address] 19 Aug, 2017 Major depressive disorder, recurrent episode, moderate F33.1 ; Anxiety state, unspecified F41.1 ; Borderline personality disorder F60.3 and Post traumatic stress disorder F43.10 [place] [id number] [place] [address] 15 Aug, 2017 Anxiety state, unspecified F41.1 ; Adjustment disorder with depressed mood F43.21 ; Major depressive disorder, recurrent episode, moderate F33.1 ; Post traumatic stress disorder F43.10 and Unspecified mood [affective] disorder F39 [place] [address] [address] Aug, [facility] [id number] [place] [address] Jul, Acute nasopharyngitis J00 and Dependent edema R60.[address] [address] Jul, [facility] [id number] [place] [address] Jun, Screening for deficiency anemia Z13.0 [place] [place] [id number] [place] [address] May, Decreased movements in third trimester, single or unspecified fetus O36.8130 ; Polyhydramnios in third trimester complication, single or unspecified fetus O40.3XX0 and 38 weeks gestation of Z3A.38 [place] [id number] [place] [address] May, 37 weeks gestation of Z3A.37 ; Third trimester Z34.93 and Polyhydramnios affecting in third trimester O40.3XX0 [place] [address] [place] [address] 16 May, 2017 care in third trimester Z34.93 ; Polyhydramnios in third trimester complication, single or unspecified fetus O40.3XX0 and 37 weeks gestation of Z3A.37 [place] [id number] [place] [address] May, [place] [id number] [place] [address] May, care, subsequent in third trimester Z34.83 and 35 weeks gestation of Z3A.35 [place] [address] [address] May, [place] [id number] [place] [address] Apr, 34 weeks gestation of Z3A.34 [place] [id number] [place] [address] Apr, 32 weeks gestation of Z3A.32 and Polyhydramnios in third trimester complication, single or unspecified fetus O40.3XX0 [place] [id number] [place] [address] Apr, [place] [place] [id number] [place] [address] Apr, 30 weeks gestation of Z3A.30 and Encounter for immunization Z23 [place] [id number] [place] [address] Mar, Diabetes mellitus screening Z13.1 ; care in third trimester Z34.93 ; 28 weeks gestation of Z3A.28 ; Evaluate anatomy not seen on prior sonogram Z36 and Encounter for immunization Z23 [place] [address] [place] [address] Feb, care, subsequent in second trimester Z34.82 and 25 weeks gestation of Z3A.25 [place] [id number] [place] [address] Feb, Unspecified mood [affective] disorder F39 and Borderline personality disorder F60.3 [facility] [id number] [place] [address] Jan, care, subsequent in second trimester Z34.82 and 21 weeks gestation of Z3A.21 [place] [id number] [place] [address] 07 Jan, 2017 Screening, anemia, deficiency, iron Z13.0 [place] [address] [address] Dec, care, subsequent in second trimester Z34.82 ; Second trimester Z33.1 and 17 weeks gestation of Z3A.17 [place] [id number] [place] [address] Dec, Post traumatic stress disorder F43.10 and Adjustment disorder with depressed mood F43.21 [facility] [id number] [place] [address] Dec, care, subsequent in first trimester Z34.81 and 12 weeks gestation of Z3A.12 [place] [id number] [place] [address] November, Major depressive disorder, recurrent episode, moderate F33.1 and Anxiety state, unspecified F41.1 [place] [address] [place] [address] November, [place] [id number] [place] [address] November, [place] [id number] [place] [address] November, [place] [id number] [place] [address] November, care, subsequent in first trimester Z34.81 and UTI in , first trimester O23.41 [place] [address] [facility] [id number] [place] [address] Oct, [facility] [place] [address] [facility] [id number] [address] 10 Oct, 2016 Encounter for test, result unknown Z32.00 [place] [address] [facility] [id number], [place] [address] Apr, Major depressive disorder, recurrent episode, moderate F33.1 IMMUNIZATIONS No Known Immunizations SOCIAL HISTORY Never Assessed REASON FOR VISIT f/u [place] PLAN OF CARE Activity Details Follow Up 4 Weeks Reason: VITAL SIGNS Height 64 in 2018-09-25 Weight 226.8 lbs 2018-09-25 Heart Rate 84 bpm 2018-09-25 Respiratory Rate 22 2018-09-25 BMI 38.93 kg/m2 2018-09-25 Blood pressure systolic 130 mmHg 2018-09-25 Blood pressure diastolic 80 mmHg 2018-09-25 MEDICATIONS Medication Instructions Dosage Frequency Start Date End Date Duration Status Baclofen 10 mg Orally Three times a day 1 tablet with food or milk 8h Active Propranolol HCl 10 MG Orally Twice a day as needed 1 tablet Jun, 30 days Active Trileptal 300 MG Orally Twice a day 1 tablet 12h Sep, 30 day(s) Active Trazodone HCl 100 mg Orally at bedtime as needed 1-2 tabs Mar, 30 days Active Ibuprofen 800 MG Orally Three times a day 1 tablet with food or milk as needed 8h Dec, Active Lyrica 75 MG Orally Twice a day 1 capsule 12h Active Hydrocodone-Acetaminophen 5-325 MG Orally Once a day 1 tablet as needed 24h Aug, Active Effexor XR 75 MG Orally Once a day 1 capsule with food 24h Jul, 30 days Active RESULTS No Results PROCEDURES No Known procedures INSTRUCTIONS MEDICATIONS ADMINISTERED No Known Medications MEDICAL (GENERAL) HISTORY Type Description Date Surgical History natural birthx 2 Hospitalization History childbirth only
--- OUTSIDE RECORDS SUMMARY | 2018-12-30 18:15 | XMS REPORT ---
Author Author RUBEN HOLLOWAY Organization [facility] Address [address] [place] [address] Care Team Providers Care Hemstitcher Name Role Phone RUBEN HOLLOWAY Unavailable PROBLEMS Type Condition ICD9-CM Code [id number] Code Onset Dates Condition Status SNOMED Code Problem Adjustment disorder with depressed mood F43.21 Active 02652274 Problem Unspecified mood [affective] disorder F39 Active 70981064 Problem Borderline personality disorder F60.3 Active 52820587 Problem Major depressive disorder, recurrent episode, moderate F33.1 Active 495608681 Problem Anxiety state, unspecified F41.1 Active 191715878 Problem care, subsequent in second trimester Z34.82 Active 905150642 Problem Post traumatic stress disorder F43.10 Active 90586148 Problem Dyspepsia R10.13 Active 675510051 Problem Complex regional pain syndrome I of right lower limb G90.521 Active 962923189663821 Problem Decreased movements in third trimester, single or unspecified fetus O36.8130 Active 210386599 Problem Polyhydramnios in third trimester complication, single or unspecified fetus O40.3XX0 Active 03038758 Problem Neuropathy G62.9 Active 769874505 Problem Bipolar disorder, current episode mixed, moderate F31.62 Active 913189108 ALLERGIES No Information ENCOUNTERS Encounter Location Date Diagnosis [facility] [id number] [address] Jun, [facility] [id number] [address] Apr, [facility] [id number], [place] [address] Apr, Complex regional pain syndrome I of right lower limb G90.521 [facility] [id number] [address] Apr, Screening for STD (sexually transmitted disease) Z11.3 ; Encounter for surveillance of contraceptive pills Z30.41 and Well woman exam with routine gynecological exam Z01.419 [place] [id number] [place] [address] Apr, Bipolar disorder, current episode mixed, moderate F31.62 and Post traumatic stress disorder F43.10 [place] [address] [address] Mar, Bipolar disorder, current episode mixed, moderate F31.62 and Post traumatic stress disorder F43.10 [facility] [address] [address] 05 Mar, 2018 Sore throat J02.9 ; Strep throat J02.0 and Cough R05 [address] [address] 04 Mar, 2018 Left upper quadrant pain R10.12 ; Complex regional pain syndrome I of right lower limb G90.521 and Dyspepsia R10.13 [facility] [place] [id number] [place] [address] Feb, Acute maxillary sinusitis, recurrence not specified J01.00 [place] [id number] [place] [address] Jan, Dysfunction of both eustachian tubes H69.83 and Complex regional pain syndrome I of right lower limb G90.521 [place] [id number] [place] [address] Jan, Acute non-recurrent frontal sinusitis J01.10 and Acute suppurative otitis media of left ear without spontaneous rupture of tympanic membrane, recurrence not specified H66.002 [place] [id number] [place] [address] Jan, Neuropathy G62.9 [place] [address] [address] Jan, control counseling Z30.09 and Encounter for Depo-Provera contraception Z30.42 [place] [id number] [place] [address] 05 Jan, 2018 Acute cystitis without hematuria N30.00 [place] [id number] [place] [address] 02 Jan, 2018 Dysfunction of right eustachian tube H69.81 and Complex regional pain syndrome I of right lower limb G90.521 [place] [id number] [place] [address] 04 Dec, 2017 Acute right ankle pain M25.571 ; Neuropathy G62.9 and Complex regional pain syndrome I of right lower limb G90.521 [place] [id number] [place] [address] November, [place] [id number] [place] [address] Oct, Neuropathy G62.9 [place] [id number] [place] [address] Oct, [place] [id number] [place] [address] Oct, Bipolar disorder, current episode mixed, moderate F31.62 and Post traumatic stress disorder F43.10 [place] [address] [place] [address] Sep, Bipolar disorder, current episode mixed, moderate F31.62 and Post traumatic stress disorder F43.10 [place] [address] [place] [address] Sep, [place] [id number] [place] [address] Sep, Bipolar disorder, current episode mixed, moderate F31.62 ; High risk medication use Z79.899 and Post traumatic stress disorder F43.10 [place] [address] [place] [address] Sep, [facility] [id number] [place] [address] Aug, Lumbar radiculopathy M54.16 [facility] [id number] [place] [address] 19 Aug, 2017 Major depressive disorder, recurrent episode, moderate F33.1 ; Anxiety state, unspecified F41.1 ; Borderline personality disorder F60.3 and Post traumatic stress disorder F43.10 [place] [id number] [place] [address] 15 Aug, 2017 Anxiety state, unspecified F41.1 ; Adjustment disorder with depressed mood F43.21 ; Major depressive disorder, recurrent episode, moderate F33.1 ; Post traumatic stress disorder F43.10 and Unspecified mood [affective] disorder F39 [place] [id number] [place] [address] Aug, [facility] [id number] [place] [address] Jul, Acute nasopharyngitis J00 and Dependent edema R60.9 [place] [id number] [place] [address] Jul, [facility] [id number] [place] [address] Jun, Screening for deficiency anemia Z13.0 [place] [id number] [place] [address] May, Decreased movements in third trimester, single or unspecified fetus O36.8130 ; Polyhydramnios in third trimester complication, single or unspecified fetus O40.3XX0 and 38 weeks gestation of Z3A.38 [place] [id number] [place] [address] May, 37 weeks gestation of Z3A.37 ; Third trimester Z34.93 and Polyhydramnios affecting in third trimester O40.3XX0 [place] [address] [place] [address] 16 May, 2017 care in third trimester Z34.93 ; Polyhydramnios in third trimester complication, single or unspecified fetus O40.3XX0 and 37 weeks gestation of Z3A.37 [place] [id number] [place] [address] 09 May, 2017 [place] [id number] [place] [address] May, care, subsequent in third trimester Z34.83 and 35 weeks gestation of Z3A.35 [place] [id number] [place] [address] May, [place] [id number] [place] [address] Apr, 34 weeks gestation of Z3A.34 [place] [id number] [place] [address] Apr, 32 weeks gestation of Z3A.32 and Polyhydramnios in third trimester complication, single or unspecified fetus O40.3XX0 [place] [id number] [place] [address] Apr, [place] [id number] [place] [address] Apr, 30 weeks gestation of Z3A.30 and Encounter for immunization Z23 [place] [id number] [place] [address] Mar, Diabetes mellitus screening Z13.1 ; care in third trimester Z34.93 ; 28 weeks gestation of Z3A.28 ; Evaluate anatomy not seen on prior sonogram Z36 and Encounter for immunization Z23 [place] [id number] [place] [address] Feb, care, subsequent in second trimester Z34.82 and 25 weeks gestation of Z3A.25 [place] [id number] [place] [address] Feb, Unspecified mood [affective] disorder F39 and Borderline personality disorder F60.3 [place] [id number] [place] [address] Jan, care, subsequent in second trimester Z34.82 and 21 weeks gestation of Z3A.21 [place] [id number] [place] [address] Jan, Screening, anemia, deficiency, iron Z13.0 [place] [id number] [place] [address] Dec, care, subsequent in second trimester Z34.82 ; Second trimester Z33.1 and 17 weeks gestation of Z3A.17 [place] [id number] [place] [address] Dec, Post traumatic stress disorder F43.10 and Adjustment disorder with depressed mood F43.21 [place] [id number] [place] [address] Dec, care, subsequent in first trimester Z34.81 and 12 weeks gestation of Z3A.12 [place] [id number] [place] [address] November, Major depressive disorder, recurrent episode, moderate F33.1 and Anxiety state, unspecified F41.1 [place] [id number] [place] [address] November, [place] [id number] [place] [address] November, [place] [id number] [place] [address] November, [place] [id number] [place] [address] November, care, subsequent in first trimester Z34.81 and UTI in , first trimester O23.41 [place] [address], [place] [address] Oct, [place] [id number], [place] [address] Oct, Encounter for test, result unknown Z32.00 [place] [id number], [place] [address] Apr, Major depressive disorder, recurrent episode, moderate F33.1 IMMUNIZATIONS No Known Immunizations SOCIAL HISTORY Never Assessed REASON FOR VISIT Medication refill request PLAN OF CARE VITAL SIGNS MEDICATIONS Medication Instructions Dosage Frequency Start Date End Date Duration Status Baclofen 10 mg Orally Three times a day 1 tablet with food or milk 8h Active Hydrocodone-Acetaminophen 5-325 MG Orally Once a day. Must last 30 days 1 tablet as needed Apr, Active RESULTS No Results PROCEDURES No Known procedures INSTRUCTIONS MEDICATIONS ADMINISTERED No Known Medications MEDICAL (GENERAL) HISTORY Type Description Date Surgical History natural birthx 2 Hospitalization History childbirth only
--- OUTSIDE RECORDS SUMMARY | 2018-12-30 18:15 | XMS REPORT ---
Author Author NICOLAS ROMO Organization [facility] Address [address] [place] [address] Care Team Providers Care Department Of Mathematics Chair Name Role Phone NICOLAS ROMO Unavailable PROBLEMS Type Condition ICD9-CM Code AXA21-YO Code Onset Dates Condition Status SNOMED Code Problem Adjustment disorder with depressed mood F43.21 Active 70069017 Problem Unspecified mood [affective] disorder F39 Active 84802498 Problem Borderline personality disorder F60.3 Active 38540670 Problem Major depressive disorder, recurrent episode, moderate F33.1 Active 692645715 Problem Anxiety state, unspecified F41.1 Active 630408423 Problem care, subsequent in second trimester Z34.82 Active 564573754 Problem Post traumatic stress disorder F43.10 Active 50768075 Problem Dyspepsia R10.13 Active 487674374 Problem Complex regional pain syndrome I of right lower limb G90.521 Active 716105267740052 Problem Decreased movements in third trimester, single or unspecified fetus O36.8130 Active 836393452 Problem Polyhydramnios in third trimester complication, single or unspecified fetus O40.3XX0 Active 25758757 Problem Neuropathy G62.9 Active 815853014 Problem Bipolar disorder, current episode mixed, moderate F31.62 Active 011346623 ALLERGIES No Information ENCOUNTERS Encounter Location Date Diagnosis [facility] [id number], [place] [address] Jun, [facility] [id number], [place] [address] Apr, [facility] [id number], [place] [address] Apr, Complex regional pain syndrome I of right lower limb G90.521 [facility] [id number], [place] [address] Apr, Screening for STD (sexually transmitted disease) Z11.3 ; Encounter for surveillance of contraceptive pills Z30.41 and Well woman exam with routine gynecological exam Z01.419 [place] [id number] [place] [address] Apr, Bipolar disorder, current episode mixed, moderate F31.62 and Post traumatic stress disorder F43.10 [place] [address] [address] Mar, Bipolar disorder, current episode mixed, moderate F31.62 and Post traumatic stress disorder F43.10 [facility] [place] [address] [address] 05 Mar, 2018 Sore throat J02.9 ; Strep throat J02.0 and Cough R05 [address] [address] 04 Mar, 2018 Left upper quadrant pain R10.12 ; Complex regional pain syndrome I of right lower limb G90.521 and Dyspepsia R10.13 [facility] [place] [address] [address] Feb, Acute maxillary sinusitis, recurrence not specified J01.00 [place] [address] [address] Jan, Dysfunction of both eustachian tubes H69.83 and Complex regional pain syndrome I of right lower limb G90.521 [place] [address] [address] Jan, Acute non-recurrent frontal sinusitis J01.10 and Acute suppurative otitis media of left ear without spontaneous rupture of tympanic membrane, recurrence not specified H66.002 [place] [id number] [place] [address] Jan, Neuropathy G62.9 [place] [address] [address] 11 Jan, 2018 control counseling Z30.09 and Encounter for Depo-Provera contraception Z30.42 [place] [id number] [place] [address] 05 Jan, 2018 Acute cystitis without hematuria N30.00 [place] [id number] [place] [address] 02 Jan, 2018 Dysfunction of right eustachian tube H69.81 and Complex regional pain syndrome I of right lower limb G90.521 [place] [id number] [place] [address] 04 Dec, 2017 Acute right ankle pain M25.571 ; Neuropathy G62.9 and Complex regional pain syndrome I of right lower limb G90.521 [place] [id number] [place] [address] November, [place] [id number] [place] [address] Oct, Neuropathy G62.9 [place] [id number] [place] [address] Oct, [place] [id number] [place] [address] Oct, Bipolar disorder, current episode mixed, moderate F31.62 and Post traumatic stress disorder F43.10 [place] [address] [place] [address] Sep, Bipolar disorder, current episode mixed, moderate F31.62 and Post traumatic stress disorder F43.10 [place] [address] [place] [address] Sep, [place] [id number] [place] [address] Sep, Bipolar disorder, current episode mixed, moderate F31.62 ; High risk medication use Z79.899 and Post traumatic stress disorder F43.10 [place] [id number] [place] [address] Sep, [place] [id number] [place] [address] Aug, Lumbar radiculopathy M54.16 [place] [id number] [place] [address] Aug, Major depressive disorder, recurrent episode, moderate F33.1 ; Anxiety state, unspecified F41.1 ; Borderline personality disorder F60.3 and Post traumatic stress disorder F43.10 [place] [id number] [place] [address] Aug, Anxiety state, unspecified F41.1 ; Adjustment disorder with depressed mood F43.21 ; Major depressive disorder, recurrent episode, moderate F33.1 ; Post traumatic stress disorder F43.10 and Unspecified mood [affective] disorder F39 [place] [id number] [place] [address] Aug, [facility] [id number] [place] [address] Jul, Acute nasopharyngitis J00 and Dependent edema R60.9 [place] [id number] [place] [address] Jul, [place] [id number] [place] [address] Jun, Screening for deficiency anemia Z13.0 [place] [id number] [place] [address] May, Decreased movements in third trimester, single or unspecified fetus O36.8130 ; Polyhydramnios in third trimester complication, single or unspecified fetus O40.3XX0 and 38 weeks gestation of Z3A.38 [place] [id number] [place] [address] May, 37 weeks gestation of Z3A.37 ; Third trimester Z34.93 and Polyhydramnios affecting in third trimester O40.3XX0 [place] [id number] [place] [address] 16 May, 2017 care in third trimester Z34.93 ; Polyhydramnios in third trimester complication, single or unspecified fetus O40.3XX0 and 37 weeks gestation of Z3A.37 [place] [id number] [place] [address] 09 May, 2017 [place] [id number] [place] [address] May, care, subsequent in third trimester Z34.83 and 35 weeks gestation of Z3A.35 [place] [id number] [place] [address] May, [place] [id number] [place] [address] Apr, 34 weeks gestation of Z3A.34 [place] [id number] [place] [address] Apr, 32 weeks gestation of Z3A.32 and Polyhydramnios in third trimester complication, single or unspecified fetus O40.3XX0 [place] [id number] [place] [address] Apr, [place] [id number] [place] [address] Apr, 30 weeks gestation of Z3A.30 and Encounter for immunization Z23 [place] [id number] [place] [address] Mar, Diabetes mellitus screening Z13.1 ; care in third trimester Z34.93 ; 28 weeks gestation of Z3A.28 ; Evaluate anatomy not seen on prior sonogram Z36 and Encounter for immunization Z23 [place] [id number] [place] [address] Feb, care, subsequent in second trimester Z34.82 and 25 weeks gestation of Z3A.25 [place] [id number] [place] [address] Feb, Unspecified mood [affective] disorder F39 and Borderline personality disorder F60.3 [place] [id number] [place] [address] Jan, care, subsequent in second trimester Z34.82 and 21 weeks gestation of Z3A.21 [place] [id number] [place] [address] Jan, Screening, anemia, deficiency, iron Z13.0 [place] [id number] [place] [address] Dec, care, subsequent in second trimester Z34.82 ; Second trimester Z33.1 and 17 weeks gestation of Z3A.17 [place] [id number] [place] [address] Dec, Post traumatic stress disorder F43.10 and Adjustment disorder with depressed mood F43.21 [place] [id number] [place] [address] Dec, care, subsequent in first trimester Z34.81 and 12 weeks gestation of Z3A.12 [place] [id number] [place] [address] November, Major depressive disorder, recurrent episode, moderate F33.1 and Anxiety state, unspecified F41.1 [place] [id number] [place] [address] November, [place] [id number] [place] [address] November, [place] [id number] [place] [address] November, [place] [id number] [place] [address] November, care, subsequent in first trimester Z34.81 and UTI in , first trimester O23.41 [place] [address] [facility] [id number] [address] Oct, [place] [address] [facility] [id number] [address] Oct, Encounter for test, result unknown Z32.00 [place] [address] [facility] [id number] [address] Apr, Major depressive disorder, recurrent episode, moderate F33.1 IMMUNIZATIONS No Known Immunizations SOCIAL HISTORY Never Assessed REASON FOR VISIT f/u PLAN OF CARE Activity Details Follow Up June Reason: VITAL SIGNS MEDICATIONS Medication Instructions Dosage Frequency Start Date End Date Duration Status SudoGest 60 mg Orally every 6 hrs 1 tablet as needed 6h Jan, 7 days Active Trazodone HCl 100 mg Orally at bedtime as needed 1-2 tabs Mar, 30 days Active Abilify 10 MG Orally Once a day 1 tablet 24h Sep, 30 days Active Hydrocodone-Acetaminophen 5-325 MG Orally Once a day. Must last 30 days 1 tablet as needed Mar, Active Ibuprofen 800 MG Orally Three times a day 1 tablet with food or milk as needed 8h Dec, Active Baclofen 10 mg Orally Three times a day 1 tablet with food or milk 8h Active Depo-Provera 150 MG/ML 1 ml Active Omeprazole 20 mg Orally Once a day, 30 min ac 1 capsule Mar, Active RESULTS No Results PROCEDURES No Known procedures INSTRUCTIONS MEDICATIONS ADMINISTERED No Known Medications MEDICAL (GENERAL) HISTORY Type Description Date Surgical History natural birthx 2 Hospitalization History childbirth only
--- OUTSIDE RECORDS SUMMARY | 2018-12-30 18:15 | XMS REPORT ---
Author Author ALY SCHMID [facility] Address [address] [place] [address] Care Team Providers Care Facilities Director Name Role Phone KP SCHMIDTA Unavailable PROBLEMS Type Condition ICD9-CM Code GMO21-FY Code Onset Dates Condition Status SNOMED Code Problem Adjustment disorder with depressed mood F43.21 Active 86822543 Problem Unspecified mood [affective] disorder F39 Active 90178410 Problem Borderline personality disorder F60.3 Active 78343076 Problem Major depressive disorder, recurrent episode, moderate F33.1 Active 160915476 Problem Anxiety state, unspecified F41.1 Active 822253501 Problem care, subsequent in second trimester Z34.82 Active 322655832 Problem Post traumatic stress disorder F43.10 Active 11229283 Problem Dyspepsia R10.13 Active 266760432 Problem Complex regional pain syndrome I of right lower limb G90.521 Active 469393730265262 Problem Decreased movements in third trimester, single or unspecified fetus O36.8130 Active 744389137 Problem Polyhydramnios in third trimester complication, single or unspecified fetus O40.3XX0 Active 05133408 Problem Neuropathy G62.9 Active 459046173 Problem Bipolar disorder, current episode mixed, moderate F31.62 Active 767312309 ALLERGIES Substance Reaction Event Type Date Status Sumatriptan pinprick sensation Drug Allergy Apr, Active ENCOUNTERS Encounter Location Date Diagnosis [facility] [address] [facility] [id number], [place] [address] Jun, [facility] [address], [place] [address] Apr, [facility] [address] [facility] [id number], [place] [address] Apr, Complex regional pain syndrome I of right lower limb G90.521 [facility] [place] [address] [place] [id number] [place] [address] 03 Apr, 2018 Screening for STD (sexually transmitted disease) Z11.3 ; Encounter for surveillance of contraceptive pills Z30.41 and Well woman exam with routine gynecological exam Z01.419 [place] [address] [place] [id number] [place] [address] Apr, Bipolar disorder, current episode mixed, moderate F31.62 and Post traumatic stress disorder F43.10 [place] [address] [address] Mar, Bipolar disorder, current episode mixed, moderate F31.62 and Post traumatic stress disorder F43.10 [facility] [place] [address] [place] [id number] [place] [address] 05 Mar, 2018 Sore throat J02.9 ; Strep throat J02.0 and Cough R05 [address] [address] 04 Mar, 2018 Left upper quadrant pain R10.12 ; Complex regional pain syndrome I of right lower limb G90.521 and Dyspepsia R10.13 [facility] [place] [address] [place] [id number] [place] [address] Feb, Acute maxillary sinusitis, recurrence not specified J01.00 [place] [address] [place] [id number] [place] [address] Jan, Dysfunction of both eustachian tubes H69.83 and Complex regional pain syndrome I of right lower limb G90.521 [place] [address] [place] [id number] [place] [address] Jan, Acute non-recurrent frontal sinusitis J01.10 and Acute suppurative otitis media of left ear without spontaneous rupture of tympanic membrane, recurrence not specified H66.002 [place] [address] [place] [id number] [place] [address] Jan, Neuropathy G62.9 [place] [address] [place] [id number] [place] [address] 11 Jan, 2018 control counseling Z30.09 and Encounter for Depo-Provera contraception Z30.42 [place] [address] [place] [id number] [place] [address] 05 Jan, 2018 Acute cystitis without hematuria N30.00 [place] [address] [place] [id number] [place] [address] 02 Jan, 2018 Dysfunction of right eustachian tube H69.81 and Complex regional pain syndrome I of right lower limb G90.521 [place] [address] [place] [id number] [place] [address] 04 Dec, 2017 Acute right ankle pain M25.571 ; Neuropathy G62.9 and Complex regional pain syndrome I of right lower limb G90.521 [place] [address] [place] [id number] [place] [address] November, [place] [address] [place] [id number] [place] [address] Oct, Neuropathy G62.9 [place] [address] [place] [id number] [place] [address] Oct, [place] [address] [place] [id number] [place] [address] Oct, Bipolar disorder, current episode mixed, moderate F31.62 and Post traumatic stress disorder F43.10 [place] [address] [place] [id number] [place] [address] Sep, Bipolar disorder, current episode mixed, moderate F31.62 and Post traumatic stress disorder F43.10 [place] [address] [address] [id number] [place] [address] Sep, [place] [address] [place] [id number] [place] [address] Sep, Bipolar disorder, current episode mixed, moderate F31.62 ; High risk medication use Z79.899 and Post traumatic stress disorder F43.10 [facility] [address] [place] [address] Sep, [facility] [address] [place] [id number] [place] [address] 26 Aug, 2017 Lumbar radiculopathy M54.16 [place] [address] [place] [id number] [place] [address] 19 Aug, 2017 Major depressive disorder, recurrent episode, moderate F33.1 ; Anxiety state, unspecified F41.1 ; Borderline personality disorder F60.3 and Post traumatic stress disorder F43.10 [place] [address] [place] [id number] [place] [address] 15 Aug, 2017 Anxiety state, unspecified F41.1 ; Adjustment disorder with depressed mood F43.21 ; Major depressive disorder, recurrent episode, moderate F33.1 ; Post traumatic stress disorder F43.10 and Unspecified mood [affective] disorder F39 [place] [address] [id number] [place] [address] 15 Aug, 2017 [facility] WALK IN [facility] [address] [id number] [place] [address] Jul, Acute nasopharyngitis J00 and Dependent edema R60.9 [place] [address] [place] [id number] [place] [address] Jul, [facility] [address] [place] [id number] [place] [address] Jun, Screening for deficiency anemia Z13.0 [place] [address] [address] [id number] [place] [address] May, Decreased movements in third trimester, single or unspecified fetus O36.8130 ; Polyhydramnios in third trimester complication, single or unspecified fetus O40.3XX0 and 38 weeks gestation of Z3A.38 [place] [address] [place] [address] [id number] [place] [address] May, 37 weeks gestation of Z3A.37 ; Third trimester Z34.93 and Polyhydramnios affecting in third trimester O40.3XX0 [place] [address] [address] [id number] [place] [address] May, care in third trimester Z34.93 ; Polyhydramnios in third trimester complication, single or unspecified fetus O40.3XX0 and 37 weeks gestation of Z3A.37 [place] [address] [address] [id number] [place] [address] May, [place] [address] [address] [id number] [place] [address] May, care, subsequent in third trimester Z34.83 and 35 weeks gestation of Z3A.35 [place] [address] [place] [address] [id number] [place] [address] May, [place] [address] [address] Apr, 34 weeks gestation of Z3A.34 [place] [address] [place] [id number] [place] [address] Apr, 32 weeks gestation of Z3A.32 and Polyhydramnios in third trimester complication, single or unspecified fetus O40.3XX0 [place] [address] [place] [id number] [place] [address] Apr, [place] [address] [address] Apr, 30 weeks gestation of Z3A.30 and Encounter for immunization Z23 [address] [address] 15 Mar, 2017 Diabetes mellitus screening Z13.1 ; care in third trimester Z34.93 ; 28 weeks gestation of Z3A.28 ; Evaluate anatomy not seen on prior sonogram Z36 and Encounter for immunization Z23 [address] [address] Feb, care, subsequent in second trimester Z34.82 and 25 weeks gestation of Z3A.25 [place] [address] [address] [id number] [place] [address] Feb, Unspecified mood [affective] disorder F39 and Borderline personality disorder F60.3 [place] [address] [address] [id number] [place] [address] Jan, care, subsequent in second trimester Z34.82 and 21 weeks gestation of Z3A.21 [place] [address] [place] [address] [id number] [place] [address] Jan, Screening, anemia, deficiency, iron Z13.0 [place] [address] [place] [address] [id number] [place] [address] Dec, care, subsequent in second trimester Z34.82 ; Second trimester Z33.1 and 17 weeks gestation of Z3A.17 [place] [address] [place] [id number] [place] [address] Dec, Post traumatic stress disorder F43.10 and Adjustment disorder with depressed mood F43.21 [place] [address] [place] [id number] [place] [address] Dec, care, subsequent in first trimester Z34.81 and 12 weeks gestation of Z3A.12 [place] [address] [place] [address] November, Major depressive disorder, recurrent episode, moderate F33.1 and Anxiety state, unspecified F41.1 [place] [address] [place] [id number] [place] [address] November, [place] [address] [place] [id number] [place] [address] November, [place] [address] [place] [id number] [place] [address] November, [place] [address] [facility] [id number], [place] [address] November, care, subsequent in first trimester Z34.81 and UTI in , first trimester O23.41 [place] [address], [place] [address] Oct, [place] [address] [address] Oct, Encounter for test, result unknown Z32.00 [place] [address], [place] [address] Apr, Major depressive disorder, recurrent episode, moderate F33.1 IMMUNIZATIONS No Known Immunizations SOCIAL HISTORY Never Assessed REASON FOR VISIT Well Woman Exam bea SINGLETON, normal pap 11/2016 Sussy, concerned with STD Magdalena maravilla MA PLAN OF CARE Activity Details Follow Up 1 Year Reason:WWE Pending Test GC/CHLAM PROBE (STATE) Pending Test TEST, URINE (IN HOUSE) VITAL SIGNS Height 64 in 2018-04-26 Weight 205.8 lbs 2018-04-26 Temperature 97.9 degrees Fahrenheit 2018-04-26 Heart Rate 100 bpm 2018-04-26 Respiratory Rate 22 2018-04-26 BMI 35.32 kg/m2 2018-04-26 Blood pressure systolic 124 mmHg 2018-04-26 Blood pressure diastolic 74 mmHg 2018-04-26 MEDICATIONS Medication Instructions Dosage Frequency Start Date End Date Duration Status Omeprazole 20 mg Orally Once a day, 30 min ac 1 capsule Mar, Active Hydrocodone-Acetaminophen 5-325 MG Orally Once a day. Must last 30 days 1 tablet as needed Mar, Active Trazodone HCl 100 mg Orally at bedtime as needed 1-2 tabs Mar, 30 days Active Loestrin Fe 08/13 1-20 MG-MCG Orally Once a day 1 tablet 24h Apr, 28 day(s) Active Ibuprofen 800 MG Orally Three times a day 1 tablet with food or milk as needed 8h Dec, Active Baclofen 10 mg Orally Three times a day 1 tablet with food or milk 8h Active Abilify 10 MG Orally Once a day 1 tablet 24h Sep, 30 days Active RESULTS No Results PROCEDURES Procedure Date Ordered Result Body Site Bacterial Vaginosis In House Apr 26, 2018 No Charge Apr 26, 2018 [facility] Apr 26, 2018 URINE TEST Apr 26, 2018 INSTRUCTIONS MEDICATIONS ADMINISTERED No Known Medications MEDICAL (GENERAL) HISTORY Type Description Date Surgical History natural birthx 2 Hospitalization History childbirth only
--- OUTSIDE RECORDS SUMMARY | 2018-12-30 18:15 | XMS REPORT ---
Author Author NICOLAS ROMO Organization [facility] Address [address] [place] [address] Care Team Providers Care Train Engineer Name Role Phone CLARISSA NICOLAS Unavailable PROBLEMS Type Condition ICD9-CM Code HUD21-KF Code Onset Dates Condition Status SNOMED Code Problem Adjustment disorder with depressed mood F43.21 Active 35461977 Problem Unspecified mood [affective] disorder F39 Active 03260302 Problem Borderline personality disorder F60.3 Active 45383784 Problem Major depressive disorder, recurrent episode, moderate F33.1 Active 251852530 Problem Anxiety state, unspecified F41.1 Active 315223591 Problem care, subsequent in second trimester Z34.82 Active 063749478 Problem Post traumatic stress disorder F43.10 Active 25137698 Problem Dyspepsia R10.13 Active 738783867 Problem Complex regional pain syndrome I of right lower limb G90.521 Active 720794765037874 Problem Decreased movements in third trimester, single or unspecified fetus O36.8130 Active 348278486 Problem Polyhydramnios in third trimester complication, single or unspecified fetus O40.3XX0 Active 14404547 Problem Neuropathy G62.9 Active 097873655 Problem Bipolar disorder, current episode mixed, moderate F31.62 Active 460782858 ALLERGIES No Information ENCOUNTERS Encounter Location Date Diagnosis [facility] [id number] [address] Jun, [facility] [address] [id number] [address] Apr, [facility] [id number] [address] Apr, Bipolar disorder, current episode mixed, moderate F31.62 and Post traumatic stress disorder F43.10 [facility] [address] [address] 10 Mar, 2018 Bipolar disorder, current episode mixed, moderate F31.62 and Post traumatic stress disorder F43.10 [facility] WALK IN [facility] [address] [address] 05 Mar, 2018 Sore throat J02.9 ; Strep throat J02.0 and Cough R05 [place] [address] [address] 04 Mar, 2018 Left upper quadrant pain R10.12 ; Complex regional pain syndrome I of right lower limb G90.521 and Dyspepsia R10.13 [facility] IN [facility] [address] [address] 15 Feb, 2018 Acute maxillary sinusitis, recurrence not specified J01.00 [place] [address] [address] Jan, Dysfunction of both eustachian tubes H69.83 and Complex regional pain syndrome I of right lower limb G90.521 [place] [address] [address] Jan, Acute non-recurrent frontal sinusitis J01.10 and Acute suppurative otitis media of left ear without spontaneous rupture of tympanic membrane, recurrence not specified H66.002 [place] [address] [address] 17 Jan, 2018 Neuropathy G62.9 [place] [address] [address] 11 Jan, 2018 control counseling Z30.09 and Encounter for Depo-Provera contraception Z30.42 [place] [address] [address] 05 Jan, 2018 Acute cystitis without hematuria N30.00 [place] [address] [address] 02 Jan, 2018 Dysfunction of right eustachian tube H69.81 and Complex regional pain syndrome I of right lower limb G90.521 [place] [address] [place] [address] Dec, Acute right ankle pain M25.571 ; Neuropathy G62.9 and Complex regional pain syndrome I of right lower limb G90.521 [place] [address] [place] [address] November, [place] [address] [place] [id number] [place] [address] Oct, Neuropathy G62.9 [place] [address] [place] [id number] [place] [address] Oct, [place] [address] [place] [id number] [place] [address] Oct, Bipolar disorder, current episode mixed, moderate F31.62 and Post traumatic stress disorder F43.10 [place] [address] [place] [id number] [place] [address] Sep, Bipolar disorder, current episode mixed, moderate F31.62 and Post traumatic stress disorder F43.10 [place] [address] [place] [address] Sep, [place] [address] [place] [address] Sep, Bipolar disorder, current episode mixed, moderate F31.62 ; High risk medication use Z79.899 and Post traumatic stress disorder F43.10 [place] [address] [place] [address] Sep, [place] [address] [place] [id number] [place] [address] Aug, Lumbar radiculopathy M54.16 [place] [address] [place] [address] Aug, Major depressive disorder, recurrent episode, moderate F33.1 ; Anxiety state, unspecified F41.1 ; Borderline personality disorder F60.3 and Post traumatic stress disorder F43.10 [place] [address] [place] [id number] [place] [address] Aug, Anxiety state, unspecified F41.1 ; Adjustment disorder with depressed mood F43.21 ; Major depressive disorder, recurrent episode, moderate F33.1 ; Post traumatic stress disorder F43.10 and Unspecified mood [affective] disorder F39 [place] [address] [address] Aug, [facility] [address] [address] Jul, Acute nasopharyngitis J00 and Dependent edema R60.9 [place] [address] [address] Jul, [place] [address] [address] Jun, Screening for deficiency anemia Z13.0 [place] [id number] [place] [address] May, Decreased movements in third trimester, single or unspecified fetus O36.8130 ; Polyhydramnios in third trimester complication, single or unspecified fetus O40.3XX0 and 38 weeks gestation of Z3A.38 [place] [address] [place] [id number] [place] [address] May, 37 weeks gestation of Z3A.37 ; Third trimester Z34.93 and Polyhydramnios affecting in third trimester O40.3XX0 [place] [address] [address] May, care in third trimester Z34.93 ; Polyhydramnios in third trimester complication, single or unspecified fetus O40.3XX0 and 37 weeks gestation of Z3A.37 [place] [address] [address] May, [place] [address] [place] [id number] [place] [address] May, care, subsequent in third trimester Z34.83 and 35 weeks gestation of Z3A.35 [place] [id number] [place] [address] May, [place] [address] [address] Apr, 34 weeks gestation of Z3A.34 [place] [id number] [place] [address] Apr, 32 weeks gestation of Z3A.32 and Polyhydramnios in third trimester complication, single or unspecified fetus O40.3XX0 [place] [id number] [place] [address] Apr, [place] [id number] [place] [address] Apr, 30 weeks gestation of Z3A.30 and Encounter for immunization Z23 [address] [address] Mar, Diabetes mellitus screening Z13.1 ; care in third trimester Z34.93 ; 28 weeks gestation of Z3A.28 ; Evaluate anatomy not seen on prior sonogram Z36 and Encounter for immunization Z23 [place] [id number] [place] [address] Feb, care, subsequent in second trimester Z34.82 and 25 weeks gestation of Z3A.[address] [address] Feb, Unspecified mood [affective] disorder F39 and Borderline personality disorder F60.3 [place] [id number] [place] [address] Jan, care, subsequent in second trimester Z34.82 and 21 weeks gestation of Z3A.21 [place] [address] [place] [address] 07 Jan, 2017 Screening, anemia, deficiency, iron Z13.0 [place] [address] [place] [id number] [place] [address] 30 Dec, 2016 care, subsequent in second trimester Z34.82 ; Second trimester Z33.1 and 17 weeks gestation of Z3A.17 [place] [address] [place] [id number] [place] [address] 16 Dec, 2016 Post traumatic stress disorder F43.10 and Adjustment disorder with depressed mood F43.21 [place] [address] [place] [id number] [place] [address] Dec, care, subsequent in first trimester Z34.81 and 12 weeks gestation of Z3A.12 [place] [address] [place] [id number] [place] [address] November, Major depressive disorder, recurrent episode, moderate F33.1 and Anxiety state, unspecified F41.1 [place] [address] [place] [id number] [place] [address] November, [place] [address] [place] [id number] [place] [address] November, [place] [address] [place] [id number] [place] [address] November, [place] [address] [place] [id number] [place] [address] November, care, subsequent in first trimester Z34.81 and UTI in , first trimester O23.41 [place] [address] [place] [id number] [place] [address] Oct, [place] [address] [place] [id number] [place] [address] Oct, Encounter for test, result unknown Z32.00 [facility] [address] [facility] [id number] [address] Apr, Major depressive disorder, recurrent episode, moderate F33.1 IMMUNIZATIONS No Known Immunizations SOCIAL HISTORY Never Assessed REASON FOR VISIT f/u PLAN OF CARE Activity Details Follow Up 3 Weeks Reason: VITAL SIGNS MEDICATIONS Medication Instructions Dosage Frequency Start Date End Date Duration Status Hydrocodone-Acetaminophen 5-325 MG Orally Once a day. Must last 30 days 1 tablet as needed Mar, Active Depo-Provera 150 MG/ML 1 ml Active Omeprazole 20 mg Orally Once a day, 30 min ac 1 capsule Mar, Active SudoGest 60 mg Orally every 6 hrs 1 tablet as needed 6h Jan, 7 days Active Trazodone HCl 50 MG Orally at bedtime as needed 0.5-2 tabs Mar, 30 day(s) Active Baclofen 10 mg Orally Three times a day 1 tablet with food or milk 8h Active Ibuprofen 800 MG Orally Three times a day 1 tablet with food or milk as needed 8h Dec, Active Abilify 10 MG Orally Once a day 1 tablet 24h Sep, 30 days Active Gabapentin 800 MG Orally Three times a day 1 tablet 8h Dec, 30 day(s) Active RESULTS No Results PROCEDURES No Known procedures INSTRUCTIONS MEDICATIONS ADMINISTERED No Known Medications MEDICAL (GENERAL) HISTORY Type Description Date Surgical History natural birthx 2 Hospitalization History childbirth only
--- OUTSIDE RECORDS SUMMARY | 2018-12-30 18:16 | XMS REPORT ---
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 Name Role Phone RUBEN HOLLOWAY Unavailable PROBLEMS Type Condition ICD9-CM Code STL34-FX Code Onset Dates Condition Status SNOMED Code Problem Adjustment disorder with depressed mood F43.21 Active 87055461 Problem Unspecified mood [affective] disorder F39 Active 60928872 Problem Borderline personality disorder F60.3 Active 98177720 Problem Major depressive disorder, recurrent episode, moderate F33.1 Active 407003238 Problem Anxiety state, unspecified F41.1 Active 677159989 Problem care, subsequent in second trimester Z34.82 Active 304601574 Problem Post traumatic stress disorder F43.10 Active 76166903 Problem Dyspepsia R10.13 Active 488955310 Problem Complex regional pain syndrome I of right lower limb G90.521 Active 676701277448757 Problem Decreased movements in third trimester, single or unspecified fetus O36.8130 Active 178871213 Problem Polyhydramnios in third trimester complication, single or unspecified fetus O40.3XX0 Active 23920663 Problem Neuropathy G62.9 Active 543663376 Problem Bipolar disorder, current episode mixed, moderate F31.62 Active 894210330 ALLERGIES No Information ENCOUNTERS Encounter Location Date Diagnosis [facility] [id number], [place] [address] 05 Mar, 2018 Sore throat J02.9 ; Strep throat J02.0 and Cough R05 [facility] [id number], [place] [address] 04 Mar, 2018 Left upper quadrant pain R10.12 ; Complex regional pain syndrome I of right lower limb G90.521 and Dyspepsia R10.13 [facility] [id number] [place] [address] Feb, Acute maxillary sinusitis, recurrence not specified J01.00 [place] [address] [id number] [place] [address] Jan, Dysfunction of both eustachian tubes H69.83 and Complex regional pain syndrome I of right lower limb G90.521 [place] [id number] [place] [address] Jan, Acute non-recurrent frontal sinusitis J01.10 and Acute suppurative otitis media of left ear without spontaneous rupture of tympanic membrane, recurrence not specified H66.002 [place] [address] [address] 17 Jan, 2018 Neuropathy G62.9 [place] [address] [address] 11 Jan, 2018 control counseling Z30.09 and Encounter for Depo-Provera contraception Z30.42 [place] [id number] [place] [address] 05 Jan, 2018 Acute cystitis without hematuria N30.00 [place] [id number] [place] [address] 02 Jan, 2018 Dysfunction of right eustachian tube H69.81 and Complex regional pain syndrome I of right lower limb G90.521 [place] [id number] [place] [address] 04 Dec, 2017 Acute right ankle pain M25.571 ; Neuropathy G62.9 and Complex regional pain syndrome I of right lower limb G90.521 [place] [id number] [place] [address] November, [place] [id number] [place] [address] Oct, Neuropathy G62.9 [place] [id number] [place] [address] Oct, [place] [address] [place] [address] Oct, Bipolar disorder, current episode mixed, moderate F31.62 and Post traumatic stress disorder F43.10 [place] [address] [place] [address] Sep, Bipolar disorder, current episode mixed, moderate F31.62 and Post traumatic stress disorder F43.10 [place] [id number] [place] [address] Sep, [place] [id number] [place] [address] Sep, Bipolar disorder, current episode mixed, moderate F31.62 ; High risk medication use Z79.899 and Post traumatic stress disorder F43.10 [place] [id number] [place] [address] Sep, [facility] [place] [id number] [place] [address] Aug, Lumbar radiculopathy M54.16 [place] [id number] [place] [address] 19 Aug, 2017 Major depressive disorder, recurrent episode, moderate F33.1 ; Anxiety state, unspecified F41.1 ; Borderline personality disorder F60.3 and Post traumatic stress disorder F43.10 [place] [address] [place] [address] 15 Aug, 2017 Anxiety state, unspecified F41.1 ; Adjustment disorder with depressed mood F43.21 ; Major depressive disorder, recurrent episode, moderate F33.1 ; Post traumatic stress disorder F43.10 and Unspecified mood [affective] disorder F39 [place] [address] [place] [address] 15 Aug, 2017 [facility] [address] [place] [address] Jul, Acute nasopharyngitis J00 and Dependent edema R60.9 [place] [id number] [place] [address] Jul, [place] [id number] [place] [address] Jun, Screening for deficiency anemia Z13.0 [place] [id number] [place] [address] May, Decreased movements in third trimester, single or unspecified fetus O36.8130 ; Polyhydramnios in third trimester complication, single or unspecified fetus O40.3XX0 and 38 weeks gestation of Z3A.38 [place] [id number] [place] [address] May, 37 weeks gestation of Z3A.37 ; Third trimester Z34.93 and Polyhydramnios affecting in third trimester O40.3XX0 [place] [id number] [place] [address] 16 May, 2017 care in third trimester Z34.93 ; Polyhydramnios in third trimester complication, single or unspecified fetus O40.3XX0 and 37 weeks gestation of Z3A.37 [place] [id number] [place] [address] 09 May, 2017 [place] [id number] [place] [address] May, care, subsequent in third trimester Z34.83 and 35 weeks gestation of Z3A.35 [place] [id number] [place] [address] May, [place] [address] [address] Apr, 34 weeks gestation of Z3A.34 [place] [id number] [place] [address] 17 Oct, 2017 32 weeks gestation of Z3A.32 and Polyhydramnios in third trimester complication, single or unspecified fetus O40.3XX0 [id number] [place] [address] Apr, [place] [id number] [place] [address] Apr, 30 weeks gestation of Z3A.30 and Encounter for immunization Z23 [address] [address] Mar, Diabetes mellitus screening Z13.1 ; care in third trimester Z34.93 ; 28 weeks gestation of Z3A.28 ; Evaluate anatomy not seen on prior sonogram Z36 and Encounter for immunization Z23 [address] [place] [id number] [place] [address] Feb, care, subsequent in second trimester Z34.82 and 25 weeks gestation of Z3A.[address] [address] Feb, Unspecified mood [affective] disorder F39 and Borderline personality disorder F60.3 [place] [id number] [place] [address] Jan, care, subsequent in second trimester Z34.82 and 21 weeks gestation of Z3A.21 [place] [id number] [place] [address] Jan, Screening, anemia, deficiency, iron Z13.0 [place] [id number] [place] [address] Dec, care, subsequent in second trimester Z34.82 ; Second trimester Z33.1 and 17 weeks gestation of Z3A.17 [place] [id number] [place] [address] 16 Dec, 2016 Post traumatic stress disorder F43.10 and Adjustment disorder with depressed mood F43.[address] [id number] [address] Dec, care, subsequent in first trimester Z34.81 and 12 weeks gestation of Z3A.12 [place] [address], [place] [address] November, Major depressive disorder, recurrent episode, moderate F33.1 and Anxiety state, unspecified F41.1 [place] [id number] [place] [address] November, [place] [id number] [place] [address] November, [place] [id number] [place] [address] November, [place] [id number] [place] [address] November, care, subsequent in first trimester Z34.81 and UTI in , first trimester O23.41 [place] [address], [place] [address] Oct, [place] [id number] [place] [address] Oct, Encounter for test, result unknown Z32.00 [address], [place] [address] Apr, Major depressive disorder, recurrent episode, moderate F33.1 IMMUNIZATIONS No Known Immunizations SOCIAL HISTORY Never Assessed REASON FOR VISIT Refill request PLAN OF CARE VITAL SIGNS MEDICATIONS Medication Instructions Dosage Frequency Start Date End Date Duration Status Gabapentin 800 MG Orally Three times a day 1 tablet 8h Dec, 30 day(s) Active RESULTS No Results PROCEDURES No Known procedures INSTRUCTIONS MEDICATIONS ADMINISTERED No Known Medications MEDICAL (GENERAL) HISTORY Type Description Date Surgical History natural birthx 2 Hospitalization History childbirth only
--- OUTSIDE RECORDS SUMMARY | 2018-12-30 18:16 | XMS REPORT ---
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 Name Role Phone RUBEN HOLLOWAY Unavailable PROBLEMS Type Condition ICD9-CM Code EUX06-PB Code Onset Dates Condition Status SNOMED Code Problem Adjustment disorder with depressed mood F43.21 Active 28691620 Problem Unspecified mood [affective] disorder F39 Active 53644648 Problem Borderline personality disorder F60.3 Active 08616399 Problem Major depressive disorder, recurrent episode, moderate F33.1 Active 391582646 Problem Anxiety state, unspecified F41.1 Active 603410492 Problem care, subsequent in second trimester Z34.82 Active 178408025 Problem Post traumatic stress disorder F43.10 Active 30427797 Problem Dyspepsia R10.13 Active 985491684 Problem Complex regional pain syndrome I of right lower limb G90.521 Active 721669424496271 Problem Decreased movements in third trimester, single or unspecified fetus O36.8130 Active 266586552 Problem Polyhydramnios in third trimester complication, single or unspecified fetus O40.3XX0 Active 39377684 Problem Neuropathy G62.9 Active 048573934 Problem Bipolar disorder, current episode mixed, moderate F31.62 Active 856286291 ALLERGIES Substance Reaction Event Type Date Status Sumatriptan pinprick sensation Drug Allergy Jan, Active ENCOUNTERS Encounter Location Date Diagnosis [facility] [address] [facility] [id number] [address] Apr, [facility] [id number], [place] [address] Mar, Bipolar disorder, current episode mixed, moderate F31.62 and Post traumatic stress disorder F43.10 [facility] [address] [facility] [id number] [address] Mar, Sore throat J02.9 ; Strep throat J02.0 and Cough R05 [place] [address] [address] 04 Mar, 2018 Left upper quadrant pain R10.12 ; Complex regional pain syndrome I of right lower limb G90.521 and Dyspepsia R10.13 [facility] [address] [address] Feb, Acute maxillary sinusitis, recurrence not specified J01.00 [address] [place] [address] [address] Jan, Dysfunction of both eustachian tubes H69.83 and Complex regional pain syndrome I of right lower limb G90.521 [address] [address] Jan, Acute non-recurrent frontal sinusitis J01.10 and Acute suppurative otitis media of left ear without spontaneous rupture of tympanic membrane, recurrence not specified H66.002 [address] [address] [address] 17 Jan, 2018 Neuropathy G62.9 [address] [address] [address] Jan, control counseling Z30.09 and Encounter for Depo-Provera contraception Z30.42 [address] [place] [address] [address] 05 Jan, 2018 Acute cystitis without hematuria N30.00 [address] [address] [address] Jan, Dysfunction of right eustachian tube H69.81 and Complex regional pain syndrome I of right lower limb G90.521 [place] [address] [address] 04 Dec, 2017 Acute right ankle pain M25.571 ; Neuropathy G62.9 and Complex regional pain syndrome I of right lower limb G90.521 [facility] [address], [place] [address] November, [facility] [id number] [place] [address] Oct, Neuropathy G62.9 [facility] [address] [place] [address] Oct, [place] [id number] [place] [address] Oct, Bipolar disorder, current episode mixed, moderate F31.62 and Post traumatic stress disorder F43.10 [place] [id number] [place] [address] Sep, Bipolar disorder, current episode mixed, moderate F31.62 and Post traumatic stress disorder F43.10 [place] [address] [place] [address] Sep, [place] [address] [place] [address] Sep, Bipolar disorder, current episode mixed, moderate F31.62 ; High risk medication use Z79.899 and Post traumatic stress disorder F43.10 [address] [place] [address], [place] [address] Sep, [place] [address] [place] [address] Aug, Lumbar radiculopathy M54.16 [place] [address], [place] [address] Aug, Major depressive disorder, recurrent episode, moderate F33.1 ; Anxiety state, unspecified F41.1 ; Borderline personality disorder F60.3 and Post traumatic stress disorder F43.10 [place] [id number], [place] [address] 15 Aug, 2017 Anxiety state, unspecified F41.1 ; Adjustment disorder with depressed mood F43.21 ; Major depressive disorder, recurrent episode, moderate F33.1 ; Post traumatic stress disorder F43.10 and Unspecified mood [affective] disorder F39 [facility] [id number] [place] [address] 15 Aug, 2017 [facility] [id number] [place] [address] Jul, Acute nasopharyngitis J00 and Dependent edema R60.9 [facility] [id number] [place] [address] Jul, [place] [id number] [place] [address] Jun, Screening for deficiency anemia Z13.0 [place] [address] [place] [address] May, Decreased movements in third trimester, single or unspecified fetus O36.8130 ; Polyhydramnios in third trimester complication, single or unspecified fetus O40.3XX0 and 38 weeks gestation of Z3A.38 [place] [address] [place] [address] 22 May, 2017 37 weeks gestation of Z3A.37 ; Third trimester Z34.93 and Polyhydramnios affecting in third trimester O40.3XX0 [place] [address] [place] [address] 16 May, 2017 care in third trimester Z34.93 ; Polyhydramnios in third trimester complication, single or unspecified fetus O40.3XX0 and 37 weeks gestation of Z3A.37 [place] [address] [place] [address] 09 May, 2017 [place] [address] [place] [address] 07 May, 2017 care, subsequent in third trimester Z34.83 and 35 weeks gestation of Z3A.35 [place] [address], [place] [address] May, [place] [id number] [place] [address] Apr, 34 weeks gestation of Z3A.34 [place] [id number] [place] [address] Apr, 32 weeks gestation of Z3A.32 and Polyhydramnios in third trimester complication, single or unspecified fetus O40.3XX0 [place] [address] [place] [address] Apr, [place] [id number] [place] [address] Apr, 30 weeks gestation of Z3A.30 and Encounter for immunization Z23 [address] [address] Mar, Diabetes mellitus screening Z13.1 ; care in third trimester Z34.93 ; 28 weeks gestation of Z3A.28 ; Evaluate anatomy not seen on prior sonogram Z36 and Encounter for immunization Z23 [place] [id number] [place] [address] Feb, care, subsequent in second trimester Z34.82 and 25 weeks gestation of Z3A.25 [place] [address] [place] [address] Feb, Unspecified mood [affective] disorder F39 and Borderline personality disorder F60.3 [place] [address] [place] [address] Jan, care, subsequent in second trimester Z34.82 and 21 weeks gestation of Z3A.21 [place] [address] [place] [address] 07 Jan, 2017 Screening, anemia, deficiency, iron Z13.0 [place] [address] [place] [address] 30 Dec, 2016 care, subsequent in second trimester Z34.82 ; Second trimester Z33.1 and 17 weeks gestation of Z3A.17 [place] [address] [place] [address] 16 Dec, 2016 Post traumatic stress disorder F43.10 and Adjustment disorder with depressed mood F43.21 [place] [address] [address] 02 Dec, 2016 care, subsequent in first trimester Z34.81 and 12 weeks gestation of Z3A.12 [place] [address] [address] November, Major depressive disorder, recurrent episode, moderate F33.1 and Anxiety state, unspecified F41.1 [place] [address] [address] November, [place] [id number] [place] [address] November, [place] [address] [address] November, [place] [id number] [place] [address] November, care, subsequent in first trimester Z34.81 and UTI in , first trimester O23.41 [place] [id number] [place] [address] Oct, [place] [address] [address] Oct, Encounter for test, result unknown Z32.00 [place] [id number] [place] [address] Apr, Major depressive disorder, recurrent episode, moderate F33.1 IMMUNIZATIONS No Known Immunizations SOCIAL HISTORY Never Assessed REASON FOR VISIT Ear pain Pt c/o L ear pain was given amoxicillen last week which has not helped , she is also having leg pain from an incident with epidural during labor and wo uld like pain meds for that ARELI Basurto PLAN OF CARE Activity Details Follow Up prn Reason: VITAL SIGNS Height 5'4" in 2018-02-20 Weight 196.4 lbs 2018-02-20 Temperature 98.9 degrees Fahrenheit 2018-02-20 Heart Rate 90 bpm 2018-02-20 Respiratory Rate 18 2018-02-20 BMI 33.71 kg/m2 2018-02-20 Blood pressure systolic 122 mmHg 2018-02-20 Blood pressure diastolic 68 mmHg 2018-02-20 MEDICATIONS Medication Instructions Dosage Frequency Start Date End Date Duration Status Augmentin 875-125 MG Orally every 12 hrs 1 tablet 12h Jan, Feb, 10 day(s) Active Hydrocodone-Acetaminophen 5-325 MG Orally Once a day. Must last 30 days 1 tablet as needed Jan, Active SudoGest 60 mg Orally every 6 hrs 1 tablet as needed 6h Jan, 07 days Active Abilify 5 MG Orally Once a day 1 tablet 24h Sep, 30 days Active Gabapentin 800 MG Orally Three times a day 1 tablet 8h Dec, 30 day(s) Active Baclofen 10 mg Orally Three times a day 1 tablet with food or milk 8h Active SudoGest 60 mg Orally every 6 hrs 1 tablet as needed 6h Jan, 07 days Active Ibuprofen 800 MG Orally Three times a day 1 tablet with food or milk as needed 8h Dec, Active RESULTS No Results PROCEDURES No Known procedures INSTRUCTIONS MEDICATIONS ADMINISTERED No Known Medications MEDICAL (GENERAL) HISTORY Type Description Date Surgical History natural birthx 2 Hospitalization History childbirth only
--- OUTSIDE RECORDS SUMMARY | 2018-12-30 18:16 | XMS REPORT ---
Author Author ALY SCHMID Organization [facility] Address [address] [place] [address] Care Team Providers Care Foreign Language Professor Name Role Phone KP SCHMIDTA Unavailable PROBLEMS Type Condition ICD9-CM Code [id number] Code Onset Dates Condition Status SNOMED Code Problem Adjustment disorder with depressed mood F43.21 Active 51022132 Problem Unspecified mood [affective] disorder F39 Active 10808385 Problem Borderline personality disorder F60.3 Active 61140688 Problem Major depressive disorder, recurrent episode, moderate F33.1 Active 741914022 Problem Anxiety state, unspecified F41.1 Active 553775905 Problem care, subsequent in second trimester Z34.82 Active 795952206 Problem Post traumatic stress disorder F43.10 Active 32364074 Problem Dyspepsia R10.13 Active 304307391 Problem Complex regional pain syndrome I of right lower limb G90.521 Active 317171773441145 Problem Decreased movements in third trimester, single or unspecified fetus O36.8130 Active 988929622 Problem Polyhydramnios in third trimester complication, single or unspecified fetus O40.3XX0 Active 91019985 Problem Neuropathy G62.9 Active 027113711 Problem Bipolar disorder, current episode mixed, moderate F31.62 Active 390220504 ALLERGIES Substance Reaction Event Type Date Status Sumatriptan pinprick sensation Drug Allergy Jan, Active ENCOUNTERS Encounter Location Date Diagnosis [facility] [address] [facility] [id number] [address] Apr, [facility] [id number] [address] Mar, Bipolar disorder, current episode mixed, moderate F31.62 and Post traumatic stress disorder F43.10 [facility] [address] [facility] [facility] [id number], [place] [address] 05 Mar, 2018 Sore throat J02.9 ; Strep throat J02.0 and Cough R05 [place] [id number] [place] [address] 04 Mar, 2018 Left upper quadrant pain R10.12 ; Complex regional pain syndrome I of right lower limb G90.521 and Dyspepsia R10.13 [facility] [id number] [place] [address] Feb, Acute maxillary sinusitis, recurrence not specified J01.00 [place] [address] [address] Jan, Dysfunction of both eustachian tubes H69.83 and Complex regional pain syndrome I of right lower limb G90.521 [place] [address] [address] Jan, Acute non-recurrent frontal sinusitis J01.10 and Acute suppurative otitis media of left ear without spontaneous rupture of tympanic membrane, recurrence not specified H66.002 [place] [address] [address] 17 Jan, 2018 Neuropathy G62.9 [place] [address] [address] Jan, control counseling Z30.09 and Encounter for Depo-Provera contraception Z30.42 [place] [address] [address] 05 Jan, 2018 Acute cystitis without hematuria N30.00 [place] [id number] [place] [address] Jan, Dysfunction of right eustachian tube H69.81 and Complex regional pain syndrome I of right lower limb G90.521 [place] [id number] [place] [address] 04 Dec, 2017 Acute right ankle pain M25.571 ; Neuropathy G62.9 and Complex regional pain syndrome I of right lower limb G90.521 [facility] [address] [address] November, [facility] [id number] [place] [address] Oct, Neuropathy G62.9 [facility] [address] [place] [address] Oct, [place] [id number] [place] [address] Oct, Bipolar disorder, current episode mixed, moderate F31.62 and Post traumatic stress disorder F43.10 [place] [id number] [place] [address] Sep, Bipolar disorder, current episode mixed, moderate F31.62 and Post traumatic stress disorder F43.10 [place] [address] [place] [address] Sep, [place] [address] [place] [address] Sep, Bipolar disorder, current episode mixed, moderate F31.62 ; High risk medication use Z79.899 and Post traumatic stress disorder F43.10 [place] [address] [address] Sep, [place] [address] [place] [address] Aug, Lumbar radiculopathy M54.16 [place] [address], [place] [address] Aug, Major depressive disorder, recurrent episode, moderate F33.1 ; Anxiety state, unspecified F41.1 ; Borderline personality disorder F60.3 and Post traumatic stress disorder F43.10 [place] [address], [place] [address] 15 Aug, 2017 Anxiety state, unspecified F41.1 ; Adjustment disorder with depressed mood F43.21 ; Major depressive disorder, recurrent episode, moderate F33.1 ; Post traumatic stress disorder F43.10 and Unspecified mood [affective] disorder F39 [facility] [id number] [place] [address] 15 Aug, 2017 [facility] [id number] [place] [address] Jul, Acute nasopharyngitis J00 and Dependent edema R60.9 [facility] [id number] [place] [address] Jul, [place] [address] [address] Jun, Screening for deficiency anemia Z13.0 [place] [id number] [place] [address] May, Decreased movements in third trimester, single or unspecified fetus O36.8130 ; Polyhydramnios in third trimester complication, single or unspecified fetus O40.3XX0 and 38 weeks gestation of Z3A.38 [place] [id number] [place] [address] May, 37 weeks gestation of Z3A.37 ; Third trimester Z34.93 and Polyhydramnios affecting in third trimester O40.3XX0 [place] [id number] [place] [address] 16 May, 2017 care in third trimester Z34.93 ; Polyhydramnios in third trimester complication, single or unspecified fetus O40.3XX0 and 37 weeks gestation of Z3A.37 [place] [id number] [place] [address] 09 May, 2017 [place] [id number] [place] [address] 07 May, 2017 care, subsequent in third trimester Z34.83 and 35 weeks gestation of Z3A.35 [place] [address], [place] [address] May, [place] [id number] [place] [address] Apr, 34 weeks gestation of Z3A.34 [place] [id number] [place] [address] Apr, 32 weeks gestation of Z3A.32 and Polyhydramnios in third trimester complication, single or unspecified fetus O40.3XX0 [place] [id number] [place] [address] Apr, [place] [id number] [place] [address] Apr, 30 weeks gestation of Z3A.30 and Encounter for immunization Z23 [place] [id number] [place] [address] Mar, Diabetes mellitus screening Z13.1 ; care in third trimester Z34.93 ; 28 weeks gestation of Z3A.28 ; Evaluate anatomy not seen on prior sonogram Z36 and Encounter for immunization Z23 [place] [id number] [place] [address] Feb, care, subsequent in second trimester Z34.82 and 25 weeks gestation of Z3A.25 [place] [id number] [place] [address] Feb, Unspecified mood [affective] disorder F39 and Borderline personality disorder F60.3 [place] [id number] [place] [address] Jan, care, subsequent in second trimester Z34.82 and 21 weeks gestation of Z3A.21 [place] [id number] [place] [address] 07 Jan, 2017 Screening, anemia, deficiency, iron Z13.0 [place] [id number] [place] [address] 30 Dec, 2016 care, subsequent in second trimester Z34.82 ; Second trimester Z33.1 and 17 weeks gestation of Z3A.17 [place] [id number] [place] [address] 16 Dec, 2016 Post traumatic stress disorder F43.10 and Adjustment disorder with depressed mood F43.21 [place] [address] [address] 02 Dec, 2016 care, subsequent in first trimester Z34.81 and 12 weeks gestation of Z3A.12 [place] [address] [address] November, Major depressive disorder, recurrent episode, moderate F33.1 and Anxiety state, unspecified F41.1 [place] [id number] [place] [address] November, [place] [id number] [place] [address] November, [place] [address] [address] November, [place] [id number] [place] [address] November, care, subsequent in first trimester Z34.81 and UTI in , first trimester O23.41 [place] [id number] [place] [address] Oct, [place] [id number] [place] [address] Oct, Encounter for test, result unknown Z32.00 [place] [id number] [place] [address] 18 Apr, 2016 Major depressive disorder, recurrent episode, moderate F33.1 IMMUNIZATIONS No Known Immunizations SOCIAL HISTORY Never Assessed REASON FOR VISIT Sore throat/Earrache-ARELI Crow, Pt c/o not being able to breath. Hospital j ust put her on Hydrocodone 5mg, pain in left ear and left eye is red and irritat ed PLAN OF CARE Activity Details Follow Up 3-5 days if not better Reason:sinus infection VITAL SIGNS Height 5'4" in 2018-02-15 Weight 194.3 lbs 2018-02-15 Temperature 98.1 degrees Fahrenheit 2018-02-15 Heart Rate 96 bpm 2018-02-15 Respiratory Rate 18 2018-02-15 BMI 33.35 kg/m2 2018-02-15 Blood pressure systolic 102 mmHg 2018-02-15 Blood pressure diastolic 68 mmHg 2018-02-15 MEDICATIONS Medication Instructions Dosage Frequency Start Date End Date Duration Status Abilify 5 MG Orally Once a day 1 tablet 24h Sep, 30 days Active Gabapentin 800 MG Orally Three times a day 1 tablet 8h Dec, 30 day(s) Active Ibuprofen 800 MG Orally Three times a day 1 tablet with food or milk as needed 8h Dec, Active Baclofen 10 mg Orally Three times a day 1 tablet with food or milk 8h Active SudoGest 60 mg Orally every 6 hrs 1 tablet as needed 6h Jan, 07 days Active Augmentin 875-125 MG Orally every 12 hrs 1 tablet 12h Jan, Feb, 10 day(s) Active RESULTS No Results PROCEDURES No Known procedures INSTRUCTIONS MEDICATIONS ADMINISTERED No Known Medications MEDICAL (GENERAL) HISTORY Type Description Date Surgical History natural birthx 2 Hospitalization History childbirth only
--- OUTSIDE RECORDS SUMMARY | 2018-12-30 18:16 | XMS REPORT ---
Author Author RAUL BE Organization [facility] Address [address] [place] [address] Care Team Providers Care Retail Shift Leader Name Role Phone RAUL BE Unavailable PROBLEMS Type Condition ICD9-CM Code ADD03-BZ Code Onset Dates Condition Status SNOMED Code Problem Adjustment disorder with depressed mood F43.21 Active 07547466 Problem Unspecified mood [affective] disorder F39 Active 51287997 Problem Borderline personality disorder F60.3 Active 88245699 Problem Major depressive disorder, recurrent episode, moderate F33.1 Active 784799324 Problem Anxiety state, unspecified F41.1 Active 668562653 Problem care, subsequent in second trimester Z34.82 Active 123662167 Problem Post traumatic stress disorder F43.10 Active 04790450 Problem Dyspepsia R10.13 Active 719357872 Problem Complex regional pain syndrome I of right lower limb G90.521 Active 290795811172159 Problem Decreased movements in third trimester, single or unspecified fetus O36.8130 Active 674274656 Problem Polyhydramnios in third trimester complication, single or unspecified fetus O40.3XX0 Active 26987580 Problem Neuropathy G62.9 Active 343728258 Problem Bipolar disorder, current episode mixed, moderate F31.62 Active 811606247 ALLERGIES Substance Reaction Event Type Date Status Sumatriptan pinprick sensation Drug Allergy Feb, Active ENCOUNTERS Encounter Location Date Diagnosis [facility] [place] [address] [facility] [id number] [address] Apr, [facility] [place] [id number] [address] Mar, Bipolar disorder, current episode mixed, moderate F31.62 and Post traumatic stress disorder F43.10 [facility] [id number] [address] Mar, Sore throat J02.9 ; Strep throat J02.0 and Cough R05 [place] [address] [address] 04 Mar, 2018 Left upper quadrant pain R10.12 ; Complex regional pain syndrome I of right lower limb G90.521 and Dyspepsia R10.13 [facility] [address] [address] Feb, Acute maxillary sinusitis, recurrence not specified J01.00 [place] [address] [address] Jan, Dysfunction of both eustachian tubes H69.83 and Complex regional pain syndrome I of right lower limb G90.521 [place] [address] [address] Jan, Acute non-recurrent frontal sinusitis J01.10 and Acute suppurative otitis media of left ear without spontaneous rupture of tympanic membrane, recurrence not specified H66.002 [place] [address] [address] 17 Jan, 2018 Neuropathy G62.9 [place] [address] [address] Jan, control counseling Z30.09 and Encounter for Depo-Provera contraception Z30.42 [place] [address] [address] Jan, Acute cystitis without hematuria N30.00 [place] [address] [address] Jan, Dysfunction of right eustachian tube H69.81 and Complex regional pain syndrome I of right lower limb G90.521 [place] [address] [address] Dec, Acute right ankle pain M25.571 ; Neuropathy G62.9 and Complex regional pain syndrome I of right lower limb G90.521 [place] [address] [address] November, [place] [id number] [place] [address] Oct, Neuropathy G62.9 [facility] [place] [id number] [place] [address] Oct, [place] [id number] [place] [address] Oct, Bipolar disorder, current episode mixed, moderate F31.62 and Post traumatic stress disorder F43.10 [place] [id number] [place] [address] Sep, Bipolar disorder, current episode mixed, moderate F31.62 and Post traumatic stress disorder F43.10 [place] [id number] [place] [address] Sep, [place] [address] [place] [address] Sep, Bipolar disorder, current episode mixed, moderate F31.62 ; High risk medication use Z79.899 and Post traumatic stress disorder F43.10 [place] [address] [place] [address] Sep, [place] [id number] [place] [address] Aug, Lumbar radiculopathy M54.16 [place] [address] [place] [address] Aug, Major depressive disorder, recurrent episode, moderate F33.1 ; Anxiety state, unspecified F41.1 ; Borderline personality disorder F60.3 and Post traumatic stress disorder F43.10 [place] [address] [address] 15 Aug, 2017 Anxiety state, unspecified F41.1 ; Adjustment disorder with depressed mood F43.21 ; Major depressive disorder, recurrent episode, moderate F33.1 ; Post traumatic stress disorder F43.10 and Unspecified mood [affective] disorder F39 [facility] [place] [id number] [place] [address] 15 Aug, 2017 [facility] [address] [place] [address] Jul, Acute nasopharyngitis J00 and Dependent edema R60.9 [facility] [place] [id number] [place] [address] Jul, [place] [id number] [place] [address] Jun, Screening for deficiency anemia Z13.0 [place] [id number] [place] [address] May, Decreased movements in third trimester, single or unspecified fetus O36.8130 ; Polyhydramnios in third trimester complication, single or unspecified fetus O40.3XX0 and 38 weeks gestation of Z3A.38 [place] [id number] [place] [address] May, 37 weeks gestation of Z3A.37 ; Third trimester Z34.93 and Polyhydramnios affecting in third trimester O40.3XX0 [place] [address] [place] [address] 16 May, 2017 care in third trimester Z34.93 ; Polyhydramnios in third trimester complication, single or unspecified fetus O40.3XX0 and 37 weeks gestation of Z3A.37 [place] [id number] [place] [address] 09 May, 2017 [place] [address] [place] [address] 07 May, 2017 care, subsequent in third trimester Z34.83 and 35 weeks gestation of Z3A.35 [place] [address] [address] May, [place] [id number] [place] [address] Apr, 34 weeks gestation of Z3A.34 [place] [id number] [place] [address] Apr, 32 weeks gestation of Z3A.32 and Polyhydramnios in third trimester complication, single or unspecified fetus O40.3XX0 [place] [id number] [place] [address] Apr, [address] [address] Apr, 30 weeks gestation of Z3A.30 and Encounter for immunization Z23 [address] [address] 15 Mar, 2017 Diabetes mellitus screening Z13.1 ; care in third trimester Z34.93 ; 28 weeks gestation of Z3A.28 ; Evaluate anatomy not seen on prior sonogram Z36 and Encounter for immunization Z23 [place] [id number] [place] [address] Feb, care, subsequent in second trimester Z34.82 and 25 weeks gestation of Z3A.25 [place] [id number] [place] [address] Feb, Unspecified mood [affective] disorder F39 and Borderline personality disorder F60.3 [place] [id number] [place] [address] Jan, care, subsequent in second trimester Z34.82 and 21 weeks gestation of Z3A.21 [place] [id number] [place] [address] 07 Jan, 2017 Screening, anemia, deficiency, iron Z13.[address] [place] [address] 30 Dec, 2016 care, subsequent in second trimester Z34.82 ; Second trimester Z33.1 and 17 weeks gestation of Z3A.17 [place] [id number] [place] [address] 16 Dec, 2016 Post traumatic stress disorder F43.10 and Adjustment disorder with depressed mood F43.21 [place] [id number] [place] [address] 02 Dec, 2016 care, subsequent in first trimester Z34.81 and 12 weeks gestation of Z3A.12 [place] [id number] [place] [address] November, Major depressive disorder, recurrent episode, moderate F33.1 and Anxiety state, unspecified F41.1 [place] [id number] [place] [address] November, [place] [id number] [place] [address] November, [place] [id number] [place] [address] November, [place] [id number] [place] [address] November, care, subsequent in first trimester Z34.81 and UTI in , first trimester O23.41 [place] [id number] [place] [address] Oct, [place] [id number] [place] [address] Oct, Encounter for test, result unknown Z32.00 [place] [id number] [place] [address] Apr, Major depressive disorder, recurrent episode, moderate F33.1 IMMUNIZATIONS No Known Immunizations SOCIAL HISTORY Never Assessed REASON FOR VISIT congestion for about 1 month- has seen huerter x2 for this. Has tried ear drops , nasal spray, sudogest, allergy meds JStrasserRN PLAN OF CARE Activity Details Follow Up 1 Week, prn Reason:if symptoms not improving VITAL SIGNS Height 64 in 2018-03-08 Weight 194.4 lbs 2018-03-08 Temperature 98.1 degrees Fahrenheit 2018-03-08 Heart Rate 80 bpm 2018-03-08 Respiratory Rate 18 2018-03-08 BMI 33.37 kg/m2 2018-03-08 Blood pressure systolic 100 mmHg 2018-03-08 Blood pressure diastolic 70 mmHg 2018-03-08 MEDICATIONS Medication Instructions Dosage Frequency Start Date End Date Duration Status Gabapentin 800 MG Orally Three times a day 1 tablet 8h Dec, 30 day(s) Active Abilify 5 MG Orally Once a day 1 tablet 24h Sep, 30 days Active Ibuprofen 800 MG Orally Three times a day 1 tablet with food or milk as needed 8h Dec, Active Azithromycin 250 MG Orally Once a day 2 tablets on the first day, then 1 tablet daily for 4 days 24h Feb, Feb, 5 day(s) Active Baclofen 10 mg Orally Three times a day 1 tablet with food or milk 8h Active SudoGest 60 mg Orally every 6 hrs 1 tablet as needed 6h Jan, 07 days Active Hydrocodone-Acetaminophen 5-325 MG Orally Once a day. Must last 30 days 1 tablet as needed Jan, Active Depo-Provera 150 MG/ML 1 ml Active RESULTS No Results PROCEDURES No Known procedures INSTRUCTIONS MEDICATIONS ADMINISTERED No Known Medications MEDICAL (GENERAL) HISTORY Type Description Date Surgical History natural birthx 2 Hospitalization History childbirth only
--- OUTSIDE RECORDS SUMMARY | 2018-12-30 18:16 | XMS REPORT ---
Author Author RAUL BE Organization [facility] Address [address] [place] [address] Care Team Providers Care Lead Radiologic Technologist Name Role Phone RAUL BE Unavailable PROBLEMS Type Condition ICD9-CM Code [id number] Code Onset Dates Condition Status SNOMED Code Problem Adjustment disorder with depressed mood F43.21 Active 48137071 Problem Unspecified mood [affective] disorder F39 Active 00134722 Problem Borderline personality disorder F60.3 Active 44077206 Problem Major depressive disorder, recurrent episode, moderate F33.1 Active 061044752 Problem Anxiety state, unspecified F41.1 Active 325643596 Problem care, subsequent in second trimester Z34.82 Active 528388089 Problem Post traumatic stress disorder F43.10 Active 22602303 Problem Dyspepsia R10.13 Active 900389819 Problem Complex regional pain syndrome I of right lower limb G90.521 Active 925257012370238 Problem Decreased movements in third trimester, single or unspecified fetus O36.8130 Active 925015858 Problem Polyhydramnios in third trimester complication, single or unspecified fetus O40.3XX0 Active 67039742 Problem Neuropathy G62.9 Active 808805132 Problem Bipolar disorder, current episode mixed, moderate F31.62 Active 411589423 ALLERGIES Substance Reaction Event Type Date Status Sumatriptan pinprick sensation Drug Allergy Mar, Active ENCOUNTERS Encounter Location Date Diagnosis [facility] [address] [facility] [id number] [address] Apr, [facility] [address] [id number] [address] Apr, [facility] [address] [facility] [id number], [place] [address] Mar, Bipolar disorder, current episode mixed, moderate F31.62 and Post traumatic stress disorder F43.10 [facility] [id number] [place] [address] 05 Mar, 2018 Sore throat J02.9 ; Strep throat J02.0 and Cough R05 [place] [id number] [place] [address] 04 Mar, 2018 Left upper quadrant pain R10.12 ; Complex regional pain syndrome I of right lower limb G90.521 and Dyspepsia R10.13 [facility] [id number] [place] [address] 15 Feb, 2018 Acute maxillary sinusitis, recurrence not specified J01.00 [place] [address] [address] Jan, Dysfunction of both eustachian tubes H69.83 and Complex regional pain syndrome I of right lower limb G90.521 [place] [address] [address] Jan, Acute non-recurrent frontal sinusitis J01.10 and Acute suppurative otitis media of left ear without spontaneous rupture of tympanic membrane, recurrence not specified H66.002 [place] [id number] [place] [address] 17 Jan, 2018 Neuropathy G62.9 [place] [address] [address] 11 Jan, 2018 control counseling Z30.09 and Encounter for Depo-Provera contraception Z30.42 [place] [id number] [place] [address] 05 Jan, 2018 Acute cystitis without hematuria N30.00 [place] [address] [address] 02 Jan, 2018 Dysfunction of right eustachian tube H69.81 and Complex regional pain syndrome I of right lower limb G90.521 [place] [address] [address] Dec, Acute right ankle pain M25.571 ; Neuropathy G62.9 and Complex regional pain syndrome I of right lower limb G90.521 [place] [address] [place] [address] November, [place] [id number] [place] [address] Oct, Neuropathy G62.9 [place] [id number] [place] [address] Oct, [place] [id number] [place] [address] Oct, Bipolar disorder, current episode mixed, moderate F31.62 and Post traumatic stress disorder F43.10 [place] [address] [place] [address] Sep, Bipolar disorder, current episode mixed, moderate F31.62 and Post traumatic stress disorder F43.10 [place] [id number] [place] [address] Sep, [place] [id number] [place] [address] Sep, Bipolar disorder, current episode mixed, moderate F31.62 ; High risk medication use Z79.899 and Post traumatic stress disorder F43.10 [place] [address] [place] [address] Sep, [place] [id number] [place] [address] Aug, Lumbar radiculopathy M54.16 [place] [id number] [place] [address] Aug, Major depressive disorder, recurrent episode, moderate F33.1 ; Anxiety state, unspecified F41.1 ; Borderline personality disorder F60.3 and Post traumatic stress disorder F43.10 [place] [id number] [place] [address] 15 Aug, 2017 Anxiety state, unspecified F41.1 ; Adjustment disorder with depressed mood F43.21 ; Major depressive disorder, recurrent episode, moderate F33.1 ; Post traumatic stress disorder F43.10 and Unspecified mood [affective] disorder F39 [facility] [id number] [place] [address] Aug, [facility] [id number] [place] [address] Jul, Acute nasopharyngitis J00 and Dependent edema R60.[address] [address] Jul, [place] [address] [id number] [place] [address] Jun, Screening for deficiency anemia Z13.[address] [address] May, Decreased movements in third trimester, single or unspecified fetus O36.8130 ; Polyhydramnios in third trimester complication, single or unspecified fetus O40.3XX0 and 38 weeks gestation of Z3A.38 [place] [id number] [place] [address] May, 37 weeks gestation of Z3A.37 ; Third trimester Z34.93 and Polyhydramnios affecting in third trimester O40.3XX0 [place] [id number] [place] [address] 16 May, 2017 care in third trimester Z34.93 ; Polyhydramnios in third trimester complication, single or unspecified fetus O40.3XX0 and 37 weeks gestation of Z3A.37 [place] [address] [place] [address] May, [address] [address] May, care, subsequent in third trimester Z34.83 and 35 weeks gestation of Z3A.35 [place] [id number] [place] [address] May, [place] [address] [place] [address] Apr, 34 weeks gestation of Z3A.34 [place] [address] [address] Apr, 32 weeks gestation of Z3A.32 and Polyhydramnios in third trimester complication, single or unspecified fetus O40.3XX0 [place] [address] [id number] [place] [address] Apr, [address] [address] Apr, 30 weeks gestation of Z3A.30 and Encounter for immunization Z23 [place] [id number] [place] [address] 15 Mar, 2017 Diabetes mellitus screening Z13.1 ; care in third trimester Z34.93 ; 28 weeks gestation of Z3A.28 ; Evaluate anatomy not seen on prior sonogram Z36 and Encounter for immunization [id number] [place] [address] Feb, care, subsequent in second trimester Z34.82 and 25 weeks gestation of Z3A.25 [place] [id number] [place] [address] Feb, Unspecified mood [affective] disorder F39 and Borderline personality disorder F60.3 [place] [id number] [place] [address] Jan, care, subsequent in second trimester Z34.82 and 21 weeks gestation of Z3A.[address] [address] 07 Jan, 2017 Screening, anemia, deficiency, iron Z13.0 [place] [address] [address] 30 Dec, 2016 care, subsequent in second trimester Z34.82 ; Second trimester Z33.1 and 17 weeks gestation of Z3A.17 [place] [id number] [place] [address] 16 Dec, 2016 Post traumatic stress disorder F43.10 and Adjustment disorder with depressed mood F43.21 [place] [id number] [place] [address] 02 Dec, 2016 care, subsequent in first trimester Z34.81 and 12 weeks gestation of Z3A.12 [place] [id number] [place] [address] November, Major depressive disorder, recurrent episode, moderate F33.1 and Anxiety state, unspecified F41.1 [place] [id number] [place] [address] November, [place] [id number] [place] [address] November, [place] [id number] [place] [address] November, [place] [id number] [place] [address] November, care, subsequent in first trimester Z34.81 and UTI in , first trimester O23.41 [place] [id number] [place] [address] Oct, [place] [id number] [place] [address] Oct, Encounter for test, result unknown Z32.00 [place] [id number] [place] [address] Apr, Major depressive disorder, recurrent episode, moderate F33.1 IMMUNIZATIONS No Known Immunizations SOCIAL HISTORY Never Assessed REASON FOR VISIT Congestion, fever for the last few days JStrasserRN PLAN OF CARE Activity Details Follow Up 1 Week, prn Reason:if symptoms worsen VITAL SIGNS Height 64 in 2018-03-29 Weight 197.6 lbs 2018-03-29 Temperature 98.5 degrees Fahrenheit 2018-03-29 Heart Rate 96 bpm 2018-03-29 Respiratory Rate 22 2018-03-29 BMI 33.91 kg/m2 2018-03-29 Blood pressure systolic 102 mmHg 2018-03-29 Blood pressure diastolic 70 mmHg 2018-03-29 MEDICATIONS Medication Instructions Dosage Frequency Start Date End Date Duration Status PredniSONE 20 mg Orally Once a day 2 tablets 24h Mar, Mar, 05 days Active Ibuprofen 800 MG Orally Three times a day 1 tablet with food or milk as needed 8h Dec, Active Omeprazole 20 mg Orally Once a day, 30 min ac 1 capsule Mar, Active Baclofen 10 mg Orally Three times a day 1 tablet with food or milk 8h Active Amoxicillin 500 mg Orally every 12 hrs 1 capsule 12h Mar, Mar, 10 day(s) Active Depo-Provera 150 MG/ML 1 ml Active Gabapentin 800 MG Orally Three times a day 1 tablet 8h Dec, 30 day(s) Active Hydrocodone-Acetaminophen 5-325 MG Orally Once a day. Must last 30 days 1 tablet as needed Mar, Active SudoGest 60 mg Orally every 6 hrs 1 tablet as needed 6h Jan, 07 days Active Abilify 5 MG Orally Once a day 1 tablet 24h Sep, 30 days Active RESULTS Name Result Date Reference Range STREP A (IN HOUSE) 2018-03-29 STREP A positive Control + Lot # [id number] Exp date 2018-06-23 PROCEDURES Procedure Date Ordered Result Body Site STREP A ASSAY W/OPTIC Mar 29, 2018 INSTRUCTIONS MEDICATIONS ADMINISTERED No Known Medications MEDICAL (GENERAL) HISTORY Type Description Date Surgical History natural birthx 2 Hospitalization History childbirth only
--- OUTSIDE RECORDS SUMMARY | 2018-12-30 18:17 | XMS REPORT ---
Author Author RUBEN HOLLOWAY Organization [facility] Address [address] [place] [address] Care Team Providers Care Guide Foreign Tour Name Role Phone RUBEN HOLLOWAY Unavailable PROBLEMS Type Condition ICD9-CM Code [id number] Code Onset Dates Condition Status SNOMED Code Problem Post traumatic stress disorder F43.10 Active 64097251 Problem Borderline personality disorder F60.3 Active 09427111 Problem Adjustment disorder with depressed mood F43.21 Active 43894952 Problem Major depressive disorder, recurrent episode, moderate F33.1 Active 430640218 Problem Anxiety state, unspecified F41.1 Active 927752322 Problem care, subsequent in second trimester Z34.82 Active 287651757 Problem Complex regional pain syndrome I of right lower limb G90.521 Active 682306619612096 Problem Neuropathy G62.9 Active 845100430 Problem Polyhydramnios in third trimester complication, single or unspecified fetus O40.3XX0 Active 14630380 Problem Unspecified mood [affective] disorder F39 Active 29154502 Problem Bipolar disorder, current episode mixed, moderate F31.62 Active 332239003 Problem Decreased movements in third trimester, single or unspecified fetus O36.8130 Active 278914862 ALLERGIES Substance Reaction Event Type Date Status Sumatriptan pinprick sensation Drug Allergy Jan, Active ENCOUNTERS Encounter Location Date Diagnosis [facility] [address] [facility] [id number] [address] Feb, Acute maxillary sinusitis, recurrence not specified J01.00 [facility] [id number] [address] Jan, Dysfunction of both eustachian tubes H69.83 and Complex regional pain syndrome I of right lower limb G90.521 [facility] [id number], [place] [address] Jan, Acute non-recurrent frontal sinusitis J01.10 and Acute suppurative otitis media of left ear without spontaneous rupture of tympanic membrane, recurrence not specified H66.002 [place] [id number] [place] [address] 17 Jan, 2018 Neuropathy G62.9 [place] [address] [address] 11 Jan, 2018 control counseling Z30.09 and Encounter for Depo-Provera contraception Z30.42 [place] [address] [address] 05 Jan, 2018 Acute cystitis without hematuria N30.00 [place] [address] [address] 02 Jan, 2018 Dysfunction of right eustachian tube H69.81 and Complex regional pain syndrome I of right lower limb G90.521 [place] [address] [address] 04 Dec, 2017 Acute right ankle pain M25.571 ; Neuropathy G62.9 and Complex regional pain syndrome I of right lower limb G90.521 [place] [id number] [place] [address] November, [place] [id number] [place] [address] Oct, Neuropathy G62.9 [place] [id number] [place] [address] Oct, [place] [address] [address] Oct, Bipolar disorder, current episode mixed, moderate F31.62 and Post traumatic stress disorder F43.10 [place] [id number] [place] [address] Sep, Bipolar disorder, current episode mixed, moderate F31.62 and Post traumatic stress disorder F43.10 [place] [id number] [place] [address] Sep, [facility] [address] [address] Sep, Bipolar disorder, current episode mixed, moderate F31.62 ; High risk medication use Z79.899 and Post traumatic stress disorder F43.10 [facility] [address] [address] Sep, [place] [address] [address] Aug, Lumbar radiculopathy M54.16 [place] [address] [address] 19 Aug, 2017 Major depressive disorder, recurrent episode, moderate F33.1 ; Anxiety state, unspecified F41.1 ; Borderline personality disorder F60.3 and Post traumatic stress disorder F43.10 [place] [id number] [place] [address] 15 Aug, 2017 Anxiety state, unspecified F41.1 ; Adjustment disorder with depressed mood F43.21 ; Major depressive disorder, recurrent episode, moderate F33.1 ; Post traumatic stress disorder F43.10 and Unspecified mood [affective] disorder F39 [facility] [id number] [place] [address] Aug, [facility] [id number] [place] [address] Jul, Acute nasopharyngitis J00 and Dependent edema R60.9 [facility] [address] [address] Jul, [facility] [address] [address] Jun, Screening for deficiency anemia Z13.0 [place] [address] [address] May, Decreased movements in third trimester, single or unspecified fetus O36.8130 ; Polyhydramnios in third trimester complication, single or unspecified fetus O40.3XX0 and 38 weeks gestation of Z3A.38 [place] [address] [address] May, 37 weeks gestation of Z3A.37 ; Third trimester Z34.93 and Polyhydramnios affecting in third trimester O40.3XX0 [place] [address] [place] [address] May, care in third trimester Z34.93 ; Polyhydramnios in third trimester complication, single or unspecified fetus O40.3XX0 and 37 weeks gestation of Z3A.37 [place] [id number] [place] [address] May, [place] [id number] [place] [address] May, care, subsequent in third trimester Z34.83 and 35 weeks gestation of Z3A.35 [place] [id number] [place] [address] May, [place] [id number] [place] [address] Apr, 34 weeks gestation of Z3A.34 [place] [id number] [place] [address] Apr, 32 weeks gestation of Z3A.32 and Polyhydramnios in third trimester complication, single or unspecified fetus O40.3XX0 [place] [id number] [place] [address] Apr, [place] [id number] [place] [address] Apr, 30 weeks gestation of Z3A.30 and Encounter for immunization Z23 [place] [address], [place] [address] 15 Mar, 2017 Diabetes mellitus screening Z13.1 ; care in third trimester Z34.93 ; 28 weeks gestation of Z3A.28 ; Evaluate anatomy not seen on prior sonogram Z36 and Encounter for immunization Z23 [place] [address] [place] [address] Feb, care, subsequent in second trimester Z34.82 and 25 weeks gestation of Z3A.25 [place] [id number] [place] [address] Feb, Unspecified mood [affective] disorder F39 and Borderline personality disorder F60.3 [place] [id number] [place] [address] Jan, care, subsequent in second trimester Z34.82 and 21 weeks gestation of Z3A.21 [place] [id number] [place] [address] Jan, Screening, anemia, deficiency, iron Z13.0 [place] [id number] [place] [address] Dec, care, subsequent in second trimester Z34.82 ; Second trimester Z33.1 and 17 weeks gestation of Z3A.17 [place] [id number] [place] [address] Dec, Post traumatic stress disorder F43.10 and Adjustment disorder with depressed mood F43.[address] [place] [address] Dec, care, subsequent in first trimester Z34.81 and 12 weeks gestation of Z3A.12 [place] [id number] [place] [address] November, Major depressive disorder, recurrent episode, moderate F33.1 and Anxiety state, unspecified F41.[address] [id number] [address] November, [place] [address] [address] November, [facility] [address], [place] [address] November, [place] [address], [place] [address] November, care, subsequent in first trimester Z34.81 and UTI in , first trimester O23.41 [place] [id number] [place] [address] Oct, [place] [address] [place] [address] Oct, Encounter for test, result unknown Z32.00 [place] [address], [place] [address] Apr, Major depressive disorder, recurrent episode, moderate F33.1 IMMUNIZATIONS No Known Immunizations SOCIAL HISTORY Never Assessed REASON FOR VISIT Frequent urination-ARELI antonio, lower back is hurting PLAN OF CARE Activity Details Follow Up Regular appt Reason: VITAL SIGNS Height 5'4" in 2018-01-26 Weight 191.0 lbs 2018-01-26 Temperature 98.0 degrees Fahrenheit 2018-01-26 Heart Rate 80 bpm 2018-01-26 Respiratory Rate 18 2018-01-26 BMI 32.78 kg/m2 2018-01-26 Blood pressure systolic 98 mmHg 2018-01-26 Blood pressure diastolic 54 mmHg 2018-01-26 MEDICATIONS Medication Instructions Dosage Frequency Start Date End Date Duration Status Gabapentin 800 MG Orally Three times a day 1 tablet 8h Dec, 30 day(s) Active Macrobid 100 mg Orally every 12 hrs 1 capsule with food 12h Jan, Jan, 05 days Active Abilify 5 MG Orally Once a day 1 tablet 24h Sep, 30 days Active SudoGest 60 mg Orally every 6 hrs 1 tablet as needed 6h Jan, 07 days Active Baclofen 10 mg Orally Three times a day 1 tablet with food or milk 8h Active Cymbalta 60 MG Orally Once a day 1 capsule 24h Active Ibuprofen 800 MG Orally Three times a day 1 tablet with food or milk as needed 8h Dec, Active RESULTS Name Result Date Reference Range UA LONG DIP (IN HOUSE) 2018-01-26 Lot # [id number] Exp date 10/2018 Clarity clear Color yellow Odor no GLU negative JADE negative KET negative SG 1.025 BLO 3+ pH 7.0 Protein negative URO 0.2 NIT negative DL trace Lot # Exp date PROCEDURES Procedure Date Ordered Result Body Site URINALYSIS, AUTO, W/O SCOPE January 26, 2018 INSTRUCTIONS MEDICATIONS ADMINISTERED No Known Medications MEDICAL (GENERAL) HISTORY Type Description Date Surgical History natural birthx 2 Hospitalization History childbirth only
--- OUTSIDE RECORDS SUMMARY | 2018-12-30 18:17 | XMS REPORT ---
Author Author RUBEN HOLLOWAY Organization [facility] [place] Address [address] [place] [address] Care Team Providers Care Director Sales Support Name Role Phone RUBEN HOLLOWAY Unavailable PROBLEMS Type Condition ICD9-CM Code [id number] Code Onset Dates Condition Status SNOMED Code Problem Post traumatic stress disorder F43.10 Active 33538987 Problem Borderline personality disorder F60.3 Active 31014586 Problem Adjustment disorder with depressed mood F43.21 Active 41153737 Problem Major depressive disorder, recurrent episode, moderate F33.1 Active 876758744 Problem Anxiety state, unspecified F41.1 Active 255143492 Problem care, subsequent in second trimester Z34.82 Active 407505521 Problem Complex regional pain syndrome I of right lower limb G90.521 Active 258600063723932 Problem Neuropathy G62.9 Active 851481713 Problem Polyhydramnios in third trimester complication, single or unspecified fetus O40.3XX0 Active 54475215 Problem Unspecified mood [affective] disorder F39 Active 39692890 Problem Bipolar disorder, current episode mixed, moderate F31.62 Active 801235406 Problem Decreased movements in third trimester, single or unspecified fetus O36.8130 Active 290740056 ALLERGIES Substance Reaction Event Type Date Status Sumatriptan pinprick sensation Drug Allergy Jan, Active ENCOUNTERS Encounter Location Date Diagnosis [facility] [address] [facility] [id number] [address] Feb, Acute maxillary sinusitis, recurrence not specified J01.00 [facility] [place] [id number] [address] Jan, Dysfunction of both eustachian tubes H69.83 and Complex regional pain syndrome I of right lower limb G90.521 [facility] [place] [id number] [address] Jan, Acute non-recurrent frontal sinusitis J01.10 and Acute suppurative otitis media of left ear without spontaneous rupture of tympanic membrane, recurrence not specified H66.002 [place] [id number] [place] [address] 17 Jan, 2018 Neuropathy G62.9 [place] [address] [address] 11 Jan, 2018 control counseling Z30.09 and Encounter for Depo-Provera contraception Z30.42 [place] [address] [address] 05 Jan, 2018 Acute cystitis without hematuria N30.00 [place] [address] [address] 02 Jan, 2018 Dysfunction of right eustachian tube H69.81 and Complex regional pain syndrome I of right lower limb G90.521 [place] [address] [address] 04 Dec, 2017 Acute right ankle pain M25.571 ; Neuropathy G62.9 and Complex regional pain syndrome I of right lower limb G90.521 [place] [id number] [place] [address] November, [place] [id number] [place] [address] Oct, Neuropathy G62.9 [place] [id number] [place] [address] Oct, [place] [address] [address] Oct, Bipolar disorder, current episode mixed, moderate F31.62 and Post traumatic stress disorder F43.10 [place] [id number] [place] [address] Sep, Bipolar disorder, current episode mixed, moderate F31.62 and Post traumatic stress disorder F43.10 [place] [id number] [place] [address] Sep, [facility] [place] [address] [address] Sep, Bipolar disorder, current episode mixed, moderate F31.62 ; High risk medication use Z79.899 and Post traumatic stress disorder F43.10 [facility] [place] [address] [address] Sep, [place] [address] [address] Aug, Lumbar radiculopathy M54.16 [place] [address] [address] 19 Aug, 2017 Major depressive disorder, recurrent episode, moderate F33.1 ; Anxiety state, unspecified F41.1 ; Borderline personality disorder F60.3 and Post traumatic stress disorder F43.10 [place] [id number] [place] [address] 15 Aug, 2017 Anxiety state, unspecified F41.1 ; Adjustment disorder with depressed mood F43.21 ; Major depressive disorder, recurrent episode, moderate F33.1 ; Post traumatic stress disorder F43.10 and Unspecified mood [affective] disorder F39 [facility] [place] [id number] [place] [address] Aug, [facility] [id number] [place] [address] Jul, Acute nasopharyngitis J00 and Dependent edema R60.9 [facility] [place] [address] [address] Jul, [facility] [place] [address] [address] Jun, Screening for deficiency anemia Z13.0 [place] [address] [address] May, Decreased movements in third trimester, single or unspecified fetus O36.8130 ; Polyhydramnios in third trimester complication, single or unspecified fetus O40.3XX0 and 38 weeks gestation of Z3A.38 [place] [address] [address] May, 37 weeks gestation of Z3A.37 ; Third trimester Z34.93 and Polyhydramnios affecting in third trimester O40.3XX0 [place] [address] [place] [address] May, care in third trimester Z34.93 ; Polyhydramnios in third trimester complication, single or unspecified fetus O40.3XX0 and 37 weeks gestation of Z3A.37 [place] [id number] [place] [address] May, [place] [id number] [place] [address] May, care, subsequent in third trimester Z34.83 and 35 weeks gestation of Z3A.35 [place] [id number] [place] [address] May, [place] [id number] [place] [address] Apr, 34 weeks gestation of Z3A.34 [place] [id number] [place] [address] Apr, 32 weeks gestation of Z3A.32 and Polyhydramnios in third trimester complication, single or unspecified fetus O40.3XX0 [place] [id number] [place] [address] Apr, [place] [id number] [place] [address] Apr, 30 weeks gestation of Z3A.30 and Encounter for immunization Z23 [place] [address] [address] 15 Mar, 2017 Diabetes mellitus screening Z13.1 ; care in third trimester Z34.93 ; 28 weeks gestation of Z3A.28 ; Evaluate anatomy not seen on prior sonogram Z36 and Encounter for immunization Z23 [place] [address] [place] [address] Feb, care, subsequent in second trimester Z34.82 and 25 weeks gestation of Z3A.25 [place] [id number] [place] [address] Feb, Unspecified mood [affective] disorder F39 and Borderline personality disorder F60.3 [place] [id number] [place] [address] Jan, care, subsequent in second trimester Z34.82 and 21 weeks gestation of Z3A.21 [place] [id number] [place] [address] Jan, Screening, anemia, deficiency, iron Z13.0 [place] [id number] [place] [address] Dec, care, subsequent in second trimester Z34.82 ; Second trimester Z33.1 and 17 weeks gestation of Z3A.17 [place] [id number] [place] [address] Dec, Post traumatic stress disorder F43.10 and Adjustment disorder with depressed mood F43.[address] [place] [address] Dec, care, subsequent in first trimester Z34.81 and 12 weeks gestation of Z3A.12 [place] [id number] [place] [address] November, Major depressive disorder, recurrent episode, moderate F33.1 and Anxiety state, unspecified F41.[address] [id number] [address] November, [place] [address] [address] November, [facility] [place] [address] [address] November, [place] [address] [place] [address] November, care, subsequent in first trimester Z34.81 and UTI in , first trimester O23.41 [place] [id number] [place] [address] Oct, [place] [id number] [place] [address] Oct, Encounter for test, result unknown Z32.00 [place] [address] [place] [address] Apr, Major depressive disorder, recurrent episode, moderate F33.1 IMMUNIZATIONS No Known Immunizations SOCIAL HISTORY Never Assessed REASON FOR VISIT Right ear pain WB-MA, Med refill, Sore throat PLAN OF CARE Activity Details Follow Up Regular appt Reason: VITAL SIGNS Height 5'4" in 2018-01-23 Weight 188 lbs 2018-01-23 Temperature 97.9 degrees Fahrenheit 2018-01-23 Heart Rate 90 bpm 2018-01-23 Respiratory Rate 20 2018-01-23 BMI 32.27 kg/m2 2018-01-23 Blood pressure systolic 116 mmHg 2018-01-23 Blood pressure diastolic 74 mmHg 2018-01-23 MEDICATIONS Medication Instructions Dosage Frequency Start Date End Date Duration Status Gabapentin 800 MG Orally Three times a day 1 tablet 8h Dec, 30 day(s) Active Cymbalta 60 MG Orally Once a day 1 capsule 24h Active Abilify 5 MG Orally Once a day 1 tablet 24h Sep, 30 days Active Baclofen 10 mg Orally Three [...]
--- OUTSIDE RECORDS SUMMARY | 2018-12-30 18:17 | XMS REPORT ---
Author Author RUBEN HOLLOWAY Organization [facility] Address [address] [place] [address] Care Team Providers Care Tomography Technologist Name Role Phone RUBEN HOLLOWAY Unavailable PROBLEMS Type Condition ICD9-CM Code TVO37-IB Code Onset Dates Condition Status SNOMED Code Problem Post traumatic stress disorder F43.10 Active 60132182 Problem Borderline personality disorder F60.3 Active 93274182 Problem Adjustment disorder with depressed mood F43.21 Active 30054357 Problem Major depressive disorder, recurrent episode, moderate F33.1 Active 456114131 Problem Anxiety state, unspecified F41.1 Active 445553644 Problem care, subsequent in second trimester Z34.82 Active 162212753 Problem Complex regional pain syndrome I of right lower limb G90.521 Active 614607576226242 Problem Neuropathy G62.9 Active 043225798 Problem Polyhydramnios in third trimester complication, single or unspecified fetus O40.3XX0 Active 81429661 Problem Unspecified mood [affective] disorder F39 Active 87258896 Problem Bipolar disorder, current episode mixed, moderate F31.62 Active 669792743 Problem Decreased movements in third trimester, single or unspecified fetus O36.8130 Active 021803942 ALLERGIES Substance Reaction Event Type Date Status Sumatriptan pinprick sensation Drug Allergy Dec, Active ENCOUNTERS Encounter Location Date Diagnosis [facility] [address] [facility] [id number] [address] Feb, Acute maxillary sinusitis, recurrence not specified J01.00 [facility] [id number] [address] Jan, Dysfunction of both eustachian tubes H69.83 and Complex regional pain syndrome I of right lower limb G90.521 [facility] [address] [id number], [place] [address] Jan, Acute non-recurrent frontal sinusitis J01.10 and Acute suppurative otitis media of left ear without spontaneous rupture of tympanic membrane, recurrence not specified H66.002 [place] [id number] [place] [address] 17 Jan, 2018 Neuropathy G62.9 [place] [address] [address] 11 Jan, 2018 control counseling Z30.09 and Encounter for Depo-Provera contraception Z30.42 [place] [address] [address] 05 Jan, 2018 Acute cystitis without hematuria N30.00 [place] [address] [address] 02 Jan, 2018 Dysfunction of right eustachian tube H69.81 and Complex regional pain syndrome I of right lower limb G90.521 [place] [address] [address] 04 Dec, 2017 Acute right ankle pain M25.571 ; Neuropathy G62.9 and Complex regional pain syndrome I of right lower limb G90.521 [place] [id number] [place] [address] November, [place] [id number] [place] [address] Oct, Neuropathy G62.9 [place] [id number] [place] [address] Oct, [place] [address] [address] Oct, Bipolar disorder, current episode mixed, moderate F31.62 and Post traumatic stress disorder F43.10 [place] [id number] [place] [address] Sep, Bipolar disorder, current episode mixed, moderate F31.62 and Post traumatic stress disorder F43.10 [place] [id number] [place] [address] Sep, [facility] [address] [address] Sep, Bipolar disorder, current episode mixed, moderate F31.62 ; High risk medication use Z79.899 and Post traumatic stress disorder F43.10 [facility] [address] [address] Sep, [place] [address] [address] Aug, Lumbar radiculopathy M54.16 [place] [address] [address] 19 Aug, 2017 Major depressive disorder, recurrent episode, moderate F33.1 ; Anxiety state, unspecified F41.1 ; Borderline personality disorder F60.3 and Post traumatic stress disorder F43.10 [place] [id number] [place] [address] 15 Aug, 2017 Anxiety state, unspecified F41.1 ; Adjustment disorder with depressed mood F43.21 ; Major depressive disorder, recurrent episode, moderate F33.1 ; Post traumatic stress disorder F43.10 and Unspecified mood [affective] disorder F39 [facility] [id number] [place] [address] Aug, [facility] [id number] [place] [address] Jul, Acute nasopharyngitis J00 and Dependent edema R60.9 [facility] [address] [address] Jul, [facility] [address] [address] Jun, Screening for deficiency anemia Z13.0 [place] [address] [address] May, Decreased movements in third trimester, single or unspecified fetus O36.8130 ; Polyhydramnios in third trimester complication, single or unspecified fetus O40.3XX0 and 38 weeks gestation of Z3A.38 [place] [address], [place] [address] May, 37 weeks gestation of Z3A.37 ; Third trimester Z34.93 and Polyhydramnios affecting in third trimester O40.3XX0 [place] [address] [place] [address] May, care in third trimester Z34.93 ; Polyhydramnios in third trimester complication, single or unspecified fetus O40.3XX0 and 37 weeks gestation of Z3A.37 [place] [id number] [place] [address] May, [place] [id number] [place] [address] May, care, subsequent in third trimester Z34.83 and 35 weeks gestation of Z3A.35 [place] [id number] [place] [address] May, [place] [id number] [place] [address] Apr, 34 weeks gestation of Z3A.34 [place] [id number] [place] [address] Apr, 32 weeks gestation of Z3A.32 and Polyhydramnios in third trimester complication, single or unspecified fetus O40.3XX0 [place] [id number] [place] [address] Apr, [place] [id number] [place] [address] Apr, 30 weeks gestation of Z3A.30 and Encounter for immunization Z23 [place] [address], [place] [address] 15 Mar, 2017 Diabetes mellitus screening Z13.1 ; care in third trimester Z34.93 ; 28 weeks gestation of Z3A.28 ; Evaluate anatomy not seen on prior sonogram Z36 and Encounter for immunization Z23 [place] [address] [place] [address] Feb, care, subsequent in second trimester Z34.82 and 25 weeks gestation of Z3A.25 [place] [id number] [place] [address] Feb, Unspecified mood [affective] disorder F39 and Borderline personality disorder F60.3 [place] [id number] [place] [address] Jan, care, subsequent in second trimester Z34.82 and 21 weeks gestation of Z3A.21 [place] [id number] [place] [address] Jan, Screening, anemia, deficiency, iron Z13.0 [place] [id number] [place] [address] Dec, care, subsequent in second trimester Z34.82 ; Second trimester Z33.1 and 17 weeks gestation of Z3A.17 [place] [id number] [place] [address] Dec, Post traumatic stress disorder F43.10 and Adjustment disorder with depressed mood F43.21 [address] [place] [address] Dec, care, subsequent in first trimester Z34.81 and 12 weeks gestation of Z3A.12 [place] [id number] [place] [address] November, Major depressive disorder, recurrent episode, moderate F33.1 and Anxiety state, unspecified F41.[address] [id number] [address] November, [place] [address], [place] [address] November, [facility] [address], [place] [address] November, [place] [address] [place] [address] November, care, subsequent in first trimester Z34.81 and UTI in , first trimester O23.41 [place] [id number] [place] [address] Oct, [place] [id number] [place] [address] Oct, Encounter for test, result unknown Z32.00 [place] [address], [place] [address] Apr, Major depressive disorder, recurrent episode, moderate F33.1 IMMUNIZATIONS No Known Immunizations SOCIAL HISTORY Never Assessed REASON FOR VISIT Right leg swelling WB-MA, PT is also having muscle spasms in the same leg PLAN OF CARE Activity Details Follow Up 4 Weeks Reason: VITAL SIGNS Height 5'4" in 2017-12-26 Weight 192.5 lbs 2017-12-26 Temperature 98 degrees Fahrenheit 2017-12-26 Heart Rate 72 bpm 2017-12-26 Respiratory Rate 20 2017-12-26 BMI 33.04 kg/m2 2017-12-26 Blood pressure systolic 104 mmHg 2017-12-26 Blood pressure diastolic 64 mmHg 2017-12-26 MEDICATIONS Medication Instructions Dosage Frequency Start Date End Date Duration Status Tramadol HCl 50 MG Orally 3 times a day 2 tablet 8h Active Gabapentin 800 MG Orally Three times a day 1 tablet 8h Dec, 30 day(s) Active Cymbalta 60 MG Orally Once a day 1 capsule 24h Active Baclofen 10 MG Orally Three times a day 1 tablet with food or milk 8h Active Abilify 5 MG Orally Once a day 1 tablet 24h Sep, 30 days Active Ibuprofen 800 MG Orally Three times a day 1 tablet with food or milk as needed 8h 04 Jesse, 2018 Active Gabapentin 600 MG Orally Once a day at HS 1 tablet Not-Taking RESULTS Name Result Date Reference Range Xray : Ankle, Right 2 views (IN HOUSE) 2017-12-26 PROCEDURES Procedure Date Ordered Result Body Site X-RAY EXAM OF ANKLE December 26, 2017 INSTRUCTIONS MEDICATIONS ADMINISTERED No Known Medications MEDICAL (GENERAL) HISTORY Type Description Date Surgical History natural birthx 2 Hospitalization History childbirth only
--- OUTSIDE RECORDS SUMMARY | 2018-12-30 18:17 | XMS REPORT ---
Author Author RUBEN HOLLOWAY Organization [facility] Address [address] [place] [address] Care Team Providers Care Email Marketer Name Role Phone RUBEN HOLLOWAY Unavailable PROBLEMS Type Condition ICD9-CM Code WBB74-[id number] Code Onset Dates Condition Status SNOMED Code Problem Post traumatic stress disorder F43.10 Active 38615910 Problem Borderline personality disorder F60.3 Active 13076003 Problem Adjustment disorder with depressed mood F43.21 Active 73902891 Problem Major depressive disorder, recurrent episode, moderate F33.1 Active 886372941 Problem Anxiety state, unspecified F41.1 Active 264228785 Problem care, subsequent in second trimester Z34.82 Active 461865295 Problem Complex regional pain syndrome I of right lower limb G90.521 Active 583565769643078 Problem Neuropathy G62.9 Active 246355598 Problem Polyhydramnios in third trimester complication, single or unspecified fetus O40.3XX0 Active 23350329 Problem Unspecified mood [affective] disorder F39 Active 74884427 Problem Bipolar disorder, current episode mixed, moderate F31.62 Active 747584117 Problem Decreased movements in third trimester, single or unspecified fetus O36.8130 Active 820848670 ALLERGIES No Information ENCOUNTERS Encounter Location Date Diagnosis [facility] [id number] [address] Feb, Acute maxillary sinusitis, recurrence not specified J01.00 [facility] [id number] [place] [address] Jan, Dysfunction of both eustachian tubes H69.83 and Complex regional pain syndrome I of right lower limb G90.521 [facility] [address] [facility] [id number] [address] Jan, Acute non-recurrent frontal sinusitis J01.10 and Acute suppurative otitis media of left ear without spontaneous rupture of tympanic membrane, recurrence not specified H66.002 [place] [address] [address] 17 Jan, 2018 Neuropathy G62.9 [place] [address] [address] 11 Jan, 2018 control counseling Z30.09 and Encounter for Depo-Provera contraception Z30.42 [place] [address] [address] 05 Jan, 2018 Acute cystitis without hematuria N30.00 [place] [address] [address] 02 Jan, 2018 Dysfunction of right eustachian tube H69.81 and Complex regional pain syndrome I of right lower limb G90.521 [place] [address] [address] 04 Dec, 2017 Acute right ankle pain M25.571 ; Neuropathy G62.9 and Complex regional pain syndrome I of right lower limb G90.521 [place] [address] [address] November, [place] [address] [address] Oct, Neuropathy G62.9 [place] [address] [address] Oct, [place] [address] [address] Oct, Bipolar disorder, current episode mixed, moderate F31.62 and Post traumatic stress disorder F43.10 [place] [address] [address] Sep, Bipolar disorder, current episode mixed, moderate F31.62 and Post traumatic stress disorder F43.10 [place] [address] [address] Sep, [facility] [id number] [place] [address] Sep, Bipolar disorder, current episode mixed, moderate F31.62 ; High risk medication use Z79.899 and Post traumatic stress disorder F43.10 [place] [address] [address] Sep, [place] [address] [address] Aug, Lumbar radiculopathy M54.16 [place] [address] [address] Aug, Major depressive disorder, recurrent episode, moderate F33.1 ; Anxiety state, unspecified F41.1 ; Borderline personality disorder F60.3 and Post traumatic stress disorder F43.10 [place] [address] [address] Aug, Anxiety state, unspecified F41.1 ; Adjustment disorder with depressed mood F43.21 ; Major depressive disorder, recurrent episode, moderate F33.1 ; Post traumatic stress disorder F43.10 and Unspecified mood [affective] disorder F39 [place] [id number] [place] [address] Aug, [facility] [address] [address] Jul, Acute nasopharyngitis J00 and Dependent edema R60.9 [facility] [address] [address] Jul, [place] [address] [address] Jun, Screening for deficiency anemia Z13.0 [place] [address] [address] May, Decreased movements in third trimester, single or unspecified fetus O36.8130 ; Polyhydramnios in third trimester complication, single or unspecified fetus O40.3XX0 and 38 weeks gestation of Z3A.38 [place] [id number] [place] [address] May, 37 weeks gestation of Z3A.37 ; Third trimester Z34.93 and Polyhydramnios affecting in third trimester O40.3XX0 [place] [id number] [place] [address] May, care in third trimester Z34.93 ; Polyhydramnios in third trimester complication, single or unspecified fetus O40.3XX0 and 37 weeks gestation of Z3A.37 [place] [id number] [place] [address] May, [address] [address] May, care, subsequent in third trimester Z34.83 and 35 weeks gestation of Z3A.35 [place] [id number] [place] [address] May, [place] [id number] [place] [address] Apr, 34 weeks gestation of Z3A.34 [place] [id number] [place] [address] Apr, 32 weeks gestation of Z3A.32 and Polyhydramnios in third trimester complication, single or unspecified fetus O40.3XX0 [place] [id number] [place] [address] Apr, [address] [address] Apr, 30 weeks gestation of Z3A.30 and Encounter for immunization Z23 [address] [address] 15 Mar, 2017 Diabetes mellitus screening Z13.1 ; care in third trimester Z34.93 ; 28 weeks gestation of Z3A.28 ; Evaluate anatomy not seen on prior sonogram Z36 and Encounter for immunization Z23 [place] [id number] [place] [address] Feb, care, subsequent in second trimester Z34.82 and 25 weeks gestation of Z3A.25 [address] [id number] [place] [address] Feb, Unspecified mood [affective] disorder F39 and Borderline personality disorder F60.[address] [address] Jan, care, subsequent in second trimester Z34.82 and 21 weeks gestation of Z3A.[address] [address] Jan, Screening, anemia, deficiency, iron Z13.0 [place] [id number] [place] [address] Dec, care, subsequent in second trimester Z34.82 ; Second trimester Z33.1 and 17 weeks gestation of Z3A.17 [place] [id number] [place] [address] Dec, Post traumatic stress disorder F43.10 and Adjustment disorder with depressed mood F43.21 [place] [id number] [place] [address] Dec, care, subsequent in first trimester Z34.81 and 12 weeks gestation of Z3A.12 [place] [id number] [place] [address] November, Major depressive disorder, recurrent episode, moderate F33.1 and Anxiety state, unspecified F41.[address] [address] November, [facility] [id number] [address] November, [facility] [address] [address] November, [facility] [address] [address] November, care, subsequent in first trimester Z34.81 and UTI in , first trimester O23.41 [place] [address] [address] Oct, [place] [address] [place] [address] Oct, Encounter for test, result unknown Z32.00 [place] [address] [address] Apr, Major depressive disorder, recurrent episode, moderate F33.1 IMMUNIZATIONS No Known Immunizations SOCIAL HISTORY Never Assessed REASON FOR VISIT Controlled Med Refill PLAN OF CARE VITAL SIGNS MEDICATIONS No Known Medications RESULTS No Results PROCEDURES No Known procedures INSTRUCTIONS MEDICATIONS ADMINISTERED No Known Medications MEDICAL (GENERAL) HISTORY Type Description Date Surgical History natural birthx 2 Hospitalization History childbirth only
--- OUTSIDE RECORDS SUMMARY | 2018-12-30 18:17 | XMS REPORT ---
Author Author ALY SCHMID Organization [facility] Address [address] [place] [address] Care Team Providers Care Water Valve Repairer Name Role Phone KP SCHMIDTA Unavailable PROBLEMS Type Condition ICD9-CM Code NAF80-ND Code Onset Dates Condition Status SNOMED Code Problem Adjustment disorder with depressed mood F43.21 Active 58470549 Problem Unspecified mood [affective] disorder F39 Active 74138840 Problem Borderline personality disorder F60.3 Active 13646046 Problem Major depressive disorder, recurrent episode, moderate F33.1 Active 812996184 Problem Anxiety state, unspecified F41.1 Active 045624844 Problem care, subsequent in second trimester Z34.82 Active 834848850 Problem Post traumatic stress disorder F43.10 Active 08211962 Problem Dyspepsia R10.13 Active 489609896 Problem Complex regional pain syndrome I of right lower limb G90.521 Active 943125440141336 Problem Decreased movements in third trimester, single or unspecified fetus O36.8130 Active 495646831 Problem Polyhydramnios in third trimester complication, single or unspecified fetus O40.3XX0 Active 70626588 Problem Neuropathy G62.9 Active 407363448 Problem Bipolar disorder, current episode mixed, moderate F31.62 Active 786011710 ALLERGIES Substance Reaction Event Type Date Status Sumatriptan pinprick sensation Drug Allergy Jan, Active ENCOUNTERS Encounter Location Date Diagnosis [facility] [address] [facility] [id number] [address] Mar, Sore throat J02.9 ; Strep throat J02.0 and Cough R05 [facility] [address] [facility] [facility] [id number] [address] 04 Mar, 2018 Left upper quadrant pain R10.12 ; Complex regional pain syndrome I of right lower limb G90.521 and Dyspepsia R10.13 [facility] [address] [place] [address] Feb, Acute maxillary sinusitis, recurrence not specified J01.00 [place] [id number] [place] [address] Jan, Dysfunction of both eustachian tubes H69.83 and Complex regional pain syndrome I of right lower limb G90.521 [place] [address] [address] Jan, Acute non-recurrent frontal sinusitis J01.10 and Acute suppurative otitis media of left ear without spontaneous rupture of tympanic membrane, recurrence not specified H66.002 [place] [id number] [place] [address] 17 Jan, 2018 Neuropathy G62.9 [place] [address] [address] 11 Jan, 2018 control counseling Z30.09 and Encounter for Depo-Provera contraception Z30.42 [place] [id number] [place] [address] 05 Jan, 2018 Acute cystitis without hematuria N30.00 [place] [id number] [place] [address] 02 Jan, 2018 Dysfunction of right eustachian tube H69.81 and Complex regional pain syndrome I of right lower limb G90.521 [place] [id number] [place] [address] Dec, Acute right ankle pain M25.571 ; Neuropathy G62.9 and Complex regional pain syndrome I of right lower limb G90.521 [place] [id number] [place] [address] November, [place] [id number] [place] [address] Oct, Neuropathy G62.9 [place] [id number], [place] [address] Oct, [facility] [address] [place] [address] Oct, Bipolar disorder, current episode mixed, moderate F31.62 and Post traumatic stress disorder F43.10 [facility] [address], [place] [address] Sep, Bipolar disorder, current episode mixed, moderate F31.62 and Post traumatic stress disorder F43.10 [place] [id number] [place] [address] Sep, [place] [id number] [place] [address] Sep, Bipolar disorder, current episode mixed, moderate F31.62 ; High risk medication use Z79.899 and Post traumatic stress disorder F43.10 [place] [id number] [place] [address] Sep, [facility] [address] [place] [address] Aug, Lumbar radiculopathy M54.16 [place] [address], [place] [address] 19 Aug, 2017 Major depressive disorder, recurrent episode, moderate F33.1 ; Anxiety state, unspecified F41.1 ; Borderline personality disorder F60.3 and Post traumatic stress disorder F43.10 [place] [address], [place] [address] 15 Aug, 2017 Anxiety state, unspecified F41.1 ; Adjustment disorder with depressed mood F43.21 ; Major depressive disorder, recurrent episode, moderate F33.1 ; Post traumatic stress disorder F43.10 and Unspecified mood [affective] disorder F39 [facility] [address], [place] [address] 15 Aug, 2017 [facility] [id number] [place] [address] Jul, Acute nasopharyngitis J00 and Dependent edema R60.9 [place] [id number] [place] [address] Jul, [place] [id number] [place] [address] Jun, Screening for deficiency anemia Z13.0 [place] [id number] [place] [address] May, Decreased movements in third trimester, single or unspecified fetus O36.8130 ; Polyhydramnios in third trimester complication, single or unspecified fetus O40.3XX0 and 38 weeks gestation of Z3A.38 [place] [id number] [place] [address] May, 37 weeks gestation of Z3A.37 ; Third trimester Z34.93 and Polyhydramnios affecting in third trimester O40.3XX0 [place] [address] [place] [address] 16 May, 2017 care in third trimester Z34.93 ; Polyhydramnios in third trimester complication, single or unspecified fetus O40.3XX0 and 37 weeks gestation of Z3A.37 [place] [address] [place] [address] May, [place] [id number] [place] [address] May, care, subsequent in third trimester Z34.83 and 35 weeks gestation of Z3A.35 [place] [id number] [place] [address] May, [place] [id number] [place] [address] Apr, 34 weeks gestation of Z3A.34 [place] [id number] [place] [address] Apr, 32 weeks gestation of Z3A.32 and Polyhydramnios in third trimester complication, single or unspecified fetus O40.3XX0 [place] [id number] [place] [address] Apr, [place] [id number] [place] [address] Apr, 30 weeks gestation of Z3A.30 and Encounter for immunization Z23 [place] [id number] [place] [address] Mar, Diabetes mellitus screening Z13.1 ; care in third trimester Z34.93 ; 28 weeks gestation of Z3A.28 ; Evaluate anatomy not seen on prior sonogram Z36 and Encounter for immunization Z23 [place] [id number] [place] [address] Feb, care, subsequent in second trimester Z34.82 and 25 weeks gestation of Z3A.25 [place] [id number] [place] [address] Feb, Unspecified mood [affective] disorder F39 and Borderline personality disorder F60.3 [place] [id number] [place] [address] Jan, care, subsequent in second trimester Z34.82 and 21 weeks gestation of Z3A.21 [place] [id number] [place] [address] Jan, Screening, anemia, deficiency, iron Z13.0 [place] [id number] [place] [address] Dec, care, subsequent in second trimester Z34.82 ; Second trimester Z33.1 and 17 weeks gestation of Z3A.17 [place] [id number] [place] [address] 16 Dec, 2016 Post traumatic stress disorder F43.10 and Adjustment disorder with depressed mood F43.21 [place] [address], [place] [address] Dec, care, subsequent in first trimester Z34.81 and 12 weeks gestation of Z3A.12 [place] [id number] [place] [address] November, Major depressive disorder, recurrent episode, moderate F33.1 and Anxiety state, unspecified F41.1 [place] [id number] [place] [address] November, [place] [id number] [place] [address] November, [place] [id number] [place] [address] November, [place] [id number] [place] [address] November, care, subsequent in first trimester Z34.81 and UTI in , first trimester O23.41 [place] [id number] [place] [address] Oct, [place] [id number] [place] [address] Oct, Encounter for test, result unknown Z32.00 [place] [id number] [place] [address] Apr, Major depressive disorder, recurrent episode, moderate F33.1 IMMUNIZATIONS Vaccine Route Administration Date Status DEPO PROVERA (150 MG/ML) IM Intramuscular February 01, 2018 Administered SOCIAL HISTORY Never Assessed REASON FOR VISIT control consult--Allan, -Is requesting depo provera PLAN OF CARE Activity Details Follow Up 3 months/1 year Reason: control VITAL SIGNS Height 5'4" in 2018-02-01 Weight 193.2 lbs 2018-02-01 Temperature 97.7 degrees Fahrenheit 2018-02-01 Heart Rate 92 bpm 2018-02-01 Respiratory Rate 18 2018-02-01 BMI 33.16 kg/m2 2018-02-01 Blood pressure systolic 122 mmHg 2018-02-01 Blood pressure diastolic 70 mmHg 2018-02-01 MEDICATIONS Medication Instructions Dosage Frequency Start Date End Date Duration Status Abilify 5 MG Orally Once a day 1 tablet 24h Sep, 30 days Active Gabapentin 800 MG Orally Three times a day 1 tablet 8h Dec, 30 day(s) Active SudoGest 60 mg Orally every 6 hrs 1 tablet as needed 6h Jan, 07 days Active Ibuprofen 800 MG Orally Three times a day 1 tablet with food or milk as needed 8h Dec, Active Baclofen 10 mg Orally Three times a day 1 tablet with food or milk 8h Active RESULTS Name Result Date Reference Range TEST, URINE (IN HOUSE) 2018-02-01 RESULTS Negative Lot # [id number] Control + Exp date 06/2019 GC/CHLAM URINE (STATE) 2018-02-01 CHLAMYDIA neg GC neg PROCEDURES Procedure Date Ordered Result Body Site URINE TEST February 01, 2018 No Charge February 01, 2018 DEPO PROVERA (150 MG/ML) February 01, 2018 THER/PROPH/DIAG INJ, SC/IM February 01, 2018 INSTRUCTIONS MEDICATIONS ADMINISTERED No Known Medications MEDICAL (GENERAL) HISTORY Type Description Date Surgical History natural birthx 2 Hospitalization History childbirth only
--- OUTSIDE RECORDS SUMMARY | 2018-12-30 18:18 | XMS REPORT ---
Author Author NICOLAS ROMO Organization [facility] Address [address] [place] [address] Care Team Providers Care Miniature Set Designer Name Role Phone NICOLAS ROMO Unavailable PROBLEMS Type Condition ICD9-CM Code QHE28-XG Code Onset Dates Condition Status SNOMED Code Problem Post traumatic stress disorder F43.10 Active 60533753 Problem Borderline personality disorder F60.3 Active 10709314 Problem Adjustment disorder with depressed mood F43.21 Active 16991773 Problem Major depressive disorder, recurrent episode, moderate F33.1 Active 082199134 Problem Anxiety state, unspecified F41.1 Active 938369744 Problem care, subsequent in second trimester Z34.82 Active 804432311 Problem Complex regional pain syndrome I of right lower limb G90.521 Active 935460909542209 Problem Neuropathy G62.9 Active 382538638 Problem Polyhydramnios in third trimester complication, single or unspecified fetus O40.3XX0 Active 01790891 Problem Unspecified mood [affective] disorder F39 Active 43397379 Problem Bipolar disorder, current episode mixed, moderate F31.62 Active 375534849 Problem Decreased movements in third trimester, single or unspecified fetus O36.8130 Active 007932310 ALLERGIES No Known Allergies ENCOUNTERS Encounter Location Date Diagnosis [facility] [id number] [address] 17 Jan, 2018 Neuropathy G62.9 [facility] [address] [address] 11 Jan, 2018 control counseling Z30.09 and Encounter for Depo-Provera contraception Z30.42 [facility] [id number] [address] 05 Jan, 2018 Acute cystitis without hematuria N30.00 [facility] [id number] [place] [address] Jan, Dysfunction of right eustachian tube H69.81 and Complex regional pain syndrome I of right lower limb G90.521 [place] [address] [id number] [place], [place] [address] Dec, Acute right ankle pain M25.571 ; Neuropathy G62.9 and Complex regional pain syndrome I of right lower limb G90.521 [address] [id number] [place] [address] November, [place] [id number] [place] [address] Oct, Neuropathy G62.9 [place] [id number] [place] [address] Oct, [place] [id number] [place] [address] Oct, Bipolar disorder, current episode mixed, moderate F31.62 and Post traumatic stress disorder F43.10 [place] [id number] [place] [address] Sep, Bipolar disorder, current episode mixed, moderate F31.62 and Post traumatic stress disorder F43.10 [place] [id number] [place] [address] Sep, [place] [id number] [place] [address] Sep, Bipolar disorder, current episode mixed, moderate F31.62 ; High risk medication use Z79.899 and Post traumatic stress disorder F43.10 [place] [id number] [place] [address] Sep, [place] [id number] [place] [address] Aug, Lumbar radiculopathy M54.16 [place] [address] [address] [place] [address] 19 Aug, 2017 Major depressive disorder, recurrent episode, moderate F33.1 ; Anxiety state, unspecified F41.1 ; Borderline personality disorder F60.3 and Post traumatic stress disorder F43.10 [facility] [id number] [place] [address] 15 Aug, 2017 Anxiety state, unspecified F41.1 ; Adjustment disorder with depressed mood F43.21 ; Major depressive disorder, recurrent episode, moderate F33.1 ; Post traumatic stress disorder F43.10 and Unspecified mood [affective] disorder F39 [facility] [id number] [place] [address] Aug, [facility] [id number] [place] [address] Jul, Acute nasopharyngitis J00 and Dependent edema R60.9 [place] [id number] [place] [address] Jul, [facility] [id number] [place] [address] Jun, Screening for deficiency anemia Z13.0 [place] [id number] [place] [address] May, Decreased movements in third trimester, single or unspecified fetus O36.8130 ; Polyhydramnios in third trimester complication, single or unspecified fetus O40.3XX0 and 38 weeks gestation of Z3A.38 [place] [id number] [place] [address] May, 37 weeks gestation of Z3A.37 ; Third trimester Z34.93 and Polyhydramnios affecting in third trimester O40.3XX0 [place] [address] [place] [address] 16 May, 2017 care in third trimester Z34.93 ; Polyhydramnios in third trimester complication, single or unspecified fetus O40.3XX0 and 37 weeks gestation of Z3A.37 [place] [id number] [place] [address] May, [place] [id number] [place] [address] May, care, subsequent in third trimester Z34.83 and 35 weeks gestation of Z3A.[address] [address] May, [place] [id number] [place] [address] Apr, 34 weeks gestation of Z3A.34 [place] [id number] [place] [address] Apr, 32 weeks gestation of Z3A.32 and Polyhydramnios in third trimester complication, single or unspecified fetus O40.3XX0 [place] [id number] [place] [address] Apr, [address] [address] Apr, 30 weeks gestation of Z3A.30 and Encounter for immunization Z23 [id number] [place] [address] 15 Mar, 2017 Diabetes mellitus screening Z13.1 ; care in third trimester Z34.93 ; 28 weeks gestation of Z3A.28 ; Evaluate anatomy not seen on prior sonogram Z36 and Encounter for immunization Z23 [address] [place] [address] Feb, care, subsequent in second trimester Z34.82 and 25 weeks gestation of Z3A.25 [id number] [place] [address] Feb, Unspecified mood [affective] disorder F39 and Borderline personality disorder F60.3 [address] [address] Jan, care, subsequent in second trimester Z34.82 and 21 weeks gestation of Z3A.21 [place] [address] [address] 07 Jan, 2017 Screening, anemia, deficiency, iron Z13.0 [place] [address], [place] [address] 30 Dec, 2016 care, subsequent in second trimester Z34.82 ; Second trimester Z33.1 and 17 weeks gestation of Z3A.17 [place] [id number] [place] [address] 16 Dec, 2016 Post traumatic stress disorder F43.10 and Adjustment disorder with depressed mood F43.21 [place] [address] [address] Dec, care, subsequent in first trimester Z34.81 and 12 weeks gestation of Z3A.12 [place] [address] [place] [address] November, Major depressive disorder, recurrent episode, moderate F33.1 and Anxiety state, unspecified F41.1 [place] [address] [address] November, [place] [address] [address] November, [place] [address] [address] [address] November, [place] [address] [address] November, care, subsequent in first trimester Z34.81 and UTI in , first trimester O23.41 [place] [address], [place] [address] Oct, [place] [id number] [address] Oct, Encounter for test, result unknown Z32.00 [facility] [address] [facility] [id number] [address] 18 Apr, 2016 Major depressive disorder, recurrent episode, moderate F33.1 IMMUNIZATIONS No Known Immunizations SOCIAL HISTORY Never Assessed REASON FOR VISIT Psychiatric f/u PLAN OF CARE Activity Details Follow Up 3 Weeks Reason: VITAL SIGNS Height 5'4" in 2017-10-17 Weight 186.5 lbs 2017-10-17 Heart Rate 104 bpm 2017-10-17 Respiratory Rate 20 2017-10-17 BMI 32.01 kg/m2 2017-10-17 Blood pressure systolic 120 mmHg 2017-10-17 Blood pressure diastolic 74 mmHg 2017-10-17 MEDICATIONS Medication Instructions Dosage Frequency Start Date End Date Duration Status Abilify 5 MG Orally Once a day 1 tablet 24h Sep, 30 day(s) Active Amoxicillin 250 MG Orally every 8 hrs 1 capsule 8h Not-Taking Flexeril 10 mg 1 tablet Active Gabapentin 300 MG Orally 3 times a day 1 tablet 8h Active Zoloft 50 mg Orally Once a day 1 tablet 24h 16 Dec, 2016 Not-Taking Complete 14-0.4 MG Orally Once a day 1 tablet 24h Not-Taking RESULTS No Results PROCEDURES No Known procedures INSTRUCTIONS MEDICATIONS ADMINISTERED No Known Medications MEDICAL (GENERAL) HISTORY Type Description Date Surgical History natural birthx 2 Hospitalization History childbirth only
--- OUTSIDE RECORDS SUMMARY | 2018-12-30 18:18 | XMS REPORT ---
Author Author RUBEN HOLLOWAY Organization [facility] Address [address] [place] [address] Care Team Providers Care Technical Sales Advisor Name Role Phone RUBEN HOLLOWAY Unavailable PROBLEMS Type Condition ICD9-CM Code PWR11-MR Code Onset Dates Condition Status SNOMED Code Problem Post traumatic stress disorder F43.10 Active 48506880 Problem Borderline personality disorder F60.3 Active 35078704 Problem Adjustment disorder with depressed mood F43.21 Active 31696732 Problem Major depressive disorder, recurrent episode, moderate F33.1 Active 675320003 Problem Anxiety state, unspecified F41.1 Active 415876467 Problem care, subsequent in second trimester Z34.82 Active 291411131 Problem Complex regional pain syndrome I of right lower limb G90.521 Active 896757321027903 Problem Neuropathy G62.9 Active 368125726 Problem Polyhydramnios in third trimester complication, single or unspecified fetus O40.3XX0 Active 06373431 Problem Unspecified mood [affective] disorder F39 Active 03620532 Problem Bipolar disorder, current episode mixed, moderate F31.62 Active 053005088 Problem Decreased movements in third trimester, single or unspecified fetus O36.8130 Active 618461228 ALLERGIES No Information ENCOUNTERS Encounter Location Date Diagnosis [id number] [place] [address] 17 Jan, 2018 Neuropathy G62.9 [facility] [id number] [address] 11 Jan, 2018 control counseling Z30.09 and Encounter for Depo-Provera contraception Z30.42 [place] [id number] [address] 05 Jan, 2018 Acute cystitis without hematuria N30.00 [place] [id number] [place] [address] Jan, Dysfunction of right eustachian tube H69.81 and Complex regional pain syndrome I of right lower limb G90.521 [address] [address] [id number] [place], [place] [address] Dec, Acute right ankle pain M25.571 ; Neuropathy G62.9 and Complex regional pain syndrome I of right lower limb G90.521 [address] [id number] [place] [address] November, [place] [address] Oct, Neuropathy G62.9 [place] [address] [address] Oct, [place] [id number] [place] [address] Oct, Bipolar disorder, current episode mixed, moderate F31.62 and Post traumatic stress disorder F43.10 [place] [id number] [place] [address] Sep, Bipolar disorder, current episode mixed, moderate F31.62 and Post traumatic stress disorder F43.10 [place] [id number] [place] [address] Sep, [place] [id number] [place] [address] Sep, Bipolar disorder, current episode mixed, moderate F31.62 ; High risk medication use Z79.899 and Post traumatic stress disorder F43.10 [place] [address] [address] Sep, [place] [id number] [place] [address] Aug, Lumbar radiculopathy M54.16 [place] [address] [id number] 19 Aug, 2017 Major depressive disorder, recurrent episode, moderate F33.1 ; Anxiety state, unspecified F41.1 ; Borderline personality disorder F60.3 and Post traumatic stress disorder F43.10 [place] [address] [address] [place] [address] 15 Aug, 2017 Anxiety state, unspecified F41.1 ; Adjustment disorder with depressed mood F43.21 ; Major depressive disorder, recurrent episode, moderate F33.1 ; Post traumatic stress disorder F43.10 and Unspecified mood [affective] disorder F39 [facility] [address] [place] [address] Aug, [facility] [address] [place] [address] Jul, Acute nasopharyngitis J00 and Dependent edema R60.9 [id number] [place] [address] Jul, [facility] [address] [place] [address] Jun, Screening for deficiency anemia Z13.0 [place] [id number] [place] [address] May, Decreased movements in third trimester, single or unspecified fetus O36.8130 ; Polyhydramnios in third trimester complication, single or unspecified fetus O40.3XX0 and 38 weeks gestation of Z3A.38 [place] [address] [place] [address] May, 37 weeks gestation of Z3A.37 ; Third trimester Z34.93 and Polyhydramnios affecting in third trimester O40.3XX0 [place] [address] [place] [address] May, care in third trimester Z34.93 ; Polyhydramnios in third trimester complication, single or unspecified fetus O40.3XX0 and 37 weeks gestation of Z3A.37 [place] [address] [place] [address] 09 May, 2017 [place] [id number] [place] [address] May, care, subsequent in third trimester Z34.83 and 35 weeks gestation of Z3A.35 [place] [id number] [place] [address] May, [place] [id number] [place] [address] Apr, 34 weeks gestation of Z3A.34 [place] [id number] [place] [address] Apr, 32 weeks gestation of Z3A.32 and Polyhydramnios in third trimester complication, single or unspecified fetus O40.3XX0 [place] [id number] [place] [address] Apr, [place] [id number] [place] [address] Apr, 30 weeks gestation of Z3A.30 and Encounter for immunization Z23 [place] [address] [place] [address] 15 Mar, 2017 Diabetes mellitus screening Z13.1 ; care in third trimester Z34.93 ; 28 weeks gestation of Z3A.28 ; Evaluate anatomy not seen on prior sonogram Z36 and Encounter for immunization Z23 [place] [address] [place] [address] Feb, care, subsequent in second trimester Z34.82 and 25 weeks gestation of Z3A.25 [place] [id number] [place] [address] Feb, Unspecified mood [affective] disorder F39 and Borderline personality disorder F60.[address] [place] [address] Jan, care, subsequent in second trimester Z34.82 and 21 weeks gestation of Z3A.21 [place] [id number] [place] [address] 07 Jan, 2017 Screening, anemia, deficiency, iron Z13.0 [place] [id number], [place] [address] Dec, care, subsequent in second trimester Z34.82 ; Second trimester Z33.1 and 17 weeks gestation of Z3A.17 [place] [id number] [place] [address] 16 Dec, 2016 Post traumatic stress disorder F43.10 and Adjustment disorder with depressed mood F43.21 [place] [id number] [place] [address] 02 Dec, 2016 care, subsequent in first trimester Z34.81 and 12 weeks gestation of Z3A.12 [place] [address] [address] November, Major depressive disorder, recurrent episode, moderate F33.1 and Anxiety state, unspecified F41.1 [place] [address], [place] [address] November, [place] [address], [place] [address] November, [place] [id number], [place] [address] November, [place] [id number] [place] [address] November, care, subsequent in first trimester Z34.81 and UTI in , first trimester O23.41 [place] [address], [place] [address] Oct, [place] [id number] [place] [address], [place] [address] Oct, Encounter for test, result unknown Z32.00 [facility] [address] [facility] [id number] [address] 18 Apr, 2016 Major depressive disorder, recurrent episode, moderate F33.1 IMMUNIZATIONS No Known Immunizations SOCIAL HISTORY Never Assessed REASON FOR VISIT MRI concerns PLAN OF CARE VITAL SIGNS MEDICATIONS Unknown Medications RESULTS No Results PROCEDURES No Known procedures INSTRUCTIONS MEDICATIONS ADMINISTERED No Known Medications MEDICAL (GENERAL) HISTORY Type Description Date Surgical History natural birthx 2 Hospitalization History childbirth only
--- OUTSIDE RECORDS SUMMARY | 2018-12-30 18:18 | XMS REPORT ---
Author Author RUBEN HOLLOWAY Organization [facility] Address [address] [place] [address] Care Team Providers Care Pan Tank Worker Name Role Phone RUBEN HOLLOWAY Unavailable PROBLEMS Type Condition ICD9-CM Code EZS98-MM Code Onset Dates Condition Status SNOMED Code Problem Post traumatic stress disorder F43.10 Active 44925108 Problem Borderline personality disorder F60.3 Active 45711045 Problem Adjustment disorder with depressed mood F43.21 Active 01610849 Problem Major depressive disorder, recurrent episode, moderate F33.1 Active 862788798 Problem Anxiety state, unspecified F41.1 Active 369511242 Problem care, subsequent in second trimester Z34.82 Active 653395670 Problem Complex regional pain syndrome I of right lower limb G90.521 Active 120009882898871 Problem Neuropathy G62.9 Active 725343077 Problem Polyhydramnios in third trimester complication, single or unspecified fetus O40.3XX0 Active 27773392 Problem Unspecified mood [affective] disorder F39 Active 85371446 Problem Bipolar disorder, current episode mixed, moderate F31.62 Active 258970665 Problem Decreased movements in third trimester, single or unspecified fetus O36.8130 Active 222789188 ALLERGIES Substance Reaction Event Type Date Status Sumatriptan pinprick sensation Drug Allergy Oct, Active ENCOUNTERS Encounter Location Date Diagnosis [facility] [address] [facility] [id number] [address] Jan, Dysfunction of both eustachian tubes H69.83 and Complex regional pain syndrome I of right lower limb G90.521 [facility] [address] [facility] [id number], [place] [address] Jan, Acute non-recurrent frontal sinusitis J01.10 and Acute suppurative otitis media of left ear without spontaneous rupture of tympanic membrane, recurrence not specified H66.002 [place] [address] [place] [id number] [place] [address] 17 Jan, 2018 Neuropathy G62.9 [place] [address] [id number] [place] [address] 11 Jan, 2018 control counseling Z30.09 and Encounter for Depo-Provera contraception Z30.42 [place] [address] [id number] [place] [address] 05 Jan, 2018 Acute cystitis without hematuria N30.00 [place] [address] [id number] [place] [address] 02 Jan, 2018 Dysfunction of right eustachian tube H69.81 and Complex regional pain syndrome I of right lower limb G90.521 [place] [address] [id number] [place] [address] 04 Dec, 2017 Acute right ankle pain M25.571 ; Neuropathy G62.9 and Complex regional pain syndrome I of right lower limb G90.521 [place] [address] [place] [id number] [place] [address] November, [place] [address] [id number] [place] [address] Oct, Neuropathy G62.9 [place] [address] [id number] [place] [address] Oct, [place] [address] [id number] [place] [address] Oct, Bipolar disorder, current episode mixed, moderate F31.62 and Post traumatic stress disorder F43.10 [place] [address] [id number] [place] [address] Sep, Bipolar disorder, current episode mixed, moderate F31.62 and Post traumatic stress disorder F43.10 [place] [id number] [place] [address] Sep, [place] [address] [place] [id number] [place] [address] Sep, Bipolar disorder, current episode mixed, moderate F31.62 ; High risk medication use Z79.899 and Post traumatic stress disorder F43.10 [place] [address] [id number] [place] [address] Sep, [place] [address] [address] Aug, Lumbar radiculopathy M54.16 [place] [address] [address] Aug, Major depressive disorder, recurrent episode, moderate F33.1 ; Anxiety state, unspecified F41.1 ; Borderline personality disorder F60.3 and Post traumatic stress disorder F43.10 [place] [id number] [place] [address] Aug, Anxiety state, unspecified F41.1 ; Adjustment disorder with depressed mood F43.21 ; Major depressive disorder, recurrent episode, moderate F33.1 ; Post traumatic stress disorder F43.10 and Unspecified mood [affective] disorder F39 [place] [id number] [place] [address] Aug, [facility] [id number] [place] [address] Jul, Acute nasopharyngitis J00 and Dependent edema R60.9 [place] [id number] [place] [address] Jul, [place] [id number] [place] [address] Jun, Screening for deficiency anemia Z13.0 [place] [address] [id number] [place] [address] May, Decreased movements in third trimester, single or unspecified fetus O36.8130 ; Polyhydramnios in third trimester complication, single or unspecified fetus O40.3XX0 and 38 weeks gestation of Z3A.38 [place] [address] [place] [address] May, 37 weeks gestation of Z3A.37 ; Third trimester Z34.93 and Polyhydramnios affecting in third trimester O40.3XX0 [place] [id number] [place] [address] May, care in third trimester Z34.93 ; Polyhydramnios in third trimester complication, single or unspecified fetus O40.3XX0 and 37 weeks gestation of Z3A.37 [place] [id number] [place] [address] May, [place] [address] [id number] [place] [address] May, care, subsequent in third trimester Z34.83 and 35 weeks gestation of Z3A.35 [place] [address] [id number] [place] [address] May, [place] [address] [id number] [place] [address] Apr, 34 weeks gestation of Z3A.34 [place] [address] [address] [id number] [place] [address] Apr, 32 weeks gestation of Z3A.32 and Polyhydramnios in third trimester complication, single or unspecified fetus O40.3XX0 [place] [address] [address] [id number] [place] [address] Apr, [place] [address] [address] [id number] [place] [address] Apr, 30 weeks gestation of Z3A.30 and Encounter for immunization Z23 [place] [address] [address] [id number] [place] [address] Mar, Diabetes mellitus screening Z13.1 ; care in third trimester Z34.93 ; 28 weeks gestation of Z3A.28 ; Evaluate anatomy not seen on prior sonogram Z36 and Encounter for immunization Z23 [place] [address] [id number] [place] [address] Feb, care, subsequent in second trimester Z34.82 and 25 weeks gestation of Z3A.25 [place] [address] [address] [id number] [place] [address] Feb, Unspecified mood [affective] disorder F39 and Borderline personality disorder F60.3 [place] [address] [id number] [place] [address] Jan, care, subsequent in second trimester Z34.82 and 21 weeks gestation of Z3A.21 [place] [address] [id number] [place] [address] Jan, Screening, anemia, deficiency, iron Z13.0 [place] [address] [address] Dec, care, subsequent in second trimester Z34.82 ; Second trimester Z33.1 and 17 weeks gestation of Z3A.17 [place] [address] [id number] [place] [address] Dec, Post traumatic stress disorder F43.10 and Adjustment disorder with depressed mood F43.21 [place] [address] [id number] [place] [address] Dec, care, subsequent in first trimester Z34.81 and 12 weeks gestation of Z3A.12 [place] [address] [address] [id number] [place] [address] November, Major depressive disorder, recurrent episode, moderate F33.1 and Anxiety state, unspecified F41.1 [place] [address] [address] [id number] [place] [address] November, [place] [address] [id number] [place] [address] November, [facility] [address] [facility] [id number], [place] [address] November, [facility] [address] [facility] [id number] [address] November, care, subsequent in first trimester Z34.81 and UTI in , first trimester O23.41 [place] [address] [address] Oct, [place] [address] [facility] [id number] [address] Oct, Encounter for test, result unknown Z32.00 [place] [address] [address] Apr, Major depressive disorder, recurrent episode, moderate F33.1 IMMUNIZATIONS No Known Immunizations SOCIAL HISTORY Never Assessed REASON FOR VISIT Establish Care, PT has leg pain and back pain. When given her epederial during c hild the location was missed twice-[facility] PLAN OF CARE Activity Details Follow Up 3 Months Reason: VITAL SIGNS Height 5'4" in 2017-11-07 Weight 187.5 lbs 2017-11-07 Heart Rate 90 bpm 2017-11-07 Respiratory Rate 20 2017-11-07 BMI 32.18 kg/m2 2017-11-07 Blood pressure systolic 108 mmHg 2017-11-07 Blood pressure diastolic 72 mmHg 2017-11-07 MEDICATIONS Medication Instructions Dosage Frequency Start Date End Date Duration Status Abilify 5 MG Orally Once a day 1 tablet 24h Sep, 30 days Active Gabapentin 300 MG Orally Twice a day, 2 hs 1 tablet Active Gabapentin 600 MG Orally Once a day @ HS 1 tablet Active Flexeril 10 mg 1 tablet Active Tramadol HCl 50 MG Orally 3 times a day 2 tablet 8h Active RESULTS No Results PROCEDURES No Known procedures INSTRUCTIONS MEDICATIONS ADMINISTERED No Known Medications MEDICAL (GENERAL) HISTORY Type Description Date Surgical History natural birthx 2 Hospitalization History childbirth only
--- OUTSIDE RECORDS SUMMARY | 2018-12-30 18:18 | XMS REPORT ---
Author Author NICOLAS ROMO Organization [facility] Address [address] [place] [address] Care Team Providers Care Technical Support Intern Name Role Phone NICOLAS ROMO Unavailable PROBLEMS Type Condition ICD9-CM Code THY31-AK Code Onset Dates Condition Status SNOMED Code Problem Post traumatic stress disorder F43.10 Active 78595818 Problem Borderline personality disorder F60.3 Active 15083787 Problem Adjustment disorder with depressed mood F43.21 Active 27680482 Problem Major depressive disorder, recurrent episode, moderate F33.1 Active 947644468 Problem Anxiety state, unspecified F41.1 Active 630531401 Problem care, subsequent in second trimester Z34.82 Active 304180795 Problem Complex regional pain syndrome I of right lower limb G90.521 Active 624398975077477 Problem Neuropathy G62.9 Active 635748210 Problem Polyhydramnios in third trimester complication, single or unspecified fetus O40.3XX0 Active 34552934 Problem Unspecified mood [affective] disorder F39 Active 21293601 Problem Bipolar disorder, current episode mixed, moderate F31.62 Active 995859321 Problem Decreased movements in third trimester, single or unspecified fetus O36.8130 Active 430239274 ALLERGIES Substance Reaction Event Type Date Status Sumatriptan pinprick sensation Drug Allergy Oct, Active ENCOUNTERS Encounter Location Date Diagnosis [facility] [address] [facility] [id number] [address] Jan, Dysfunction of both eustachian tubes H69.83 and Complex regional pain syndrome I of right lower limb G90.521 [facility] [address] [facility] [id number] [place] [address] Jan, Acute non-recurrent frontal sinusitis J01.10 and Acute suppurative otitis media of left ear without spontaneous rupture of tympanic membrane, recurrence not specified H66.002 [place] [address] [place] [id number] [place] [address] 17 Jan, 2018 Neuropathy G62.9 [place] [address] [place] [id number] [place] [address] 11 Jan, 2018 control counseling Z30.09 and Encounter for Depo-Provera contraception Z30.42 [place] [address] [place] [id number] [place] [address] 05 Jan, 2018 Acute cystitis without hematuria N30.00 [place] [address] [place] [id number] [place] [address] 02 Jan, 2018 Dysfunction of right eustachian tube H69.81 and Complex regional pain syndrome I of right lower limb G90.521 [place] [address] [place] [id number] [place] [address] 04 Dec, 2017 Acute right ankle pain M25.571 ; Neuropathy G62.9 and Complex regional pain syndrome I of right lower limb G90.521 [place] [address] [place] [id number] [place] [address] November, [place] [address] [place] [id number] [place] [address] Oct, Neuropathy G62.9 [place] [address] [place] [id number] [place] [address] Oct, [place] [address] [place] [id number] [place] [address] Oct, Bipolar disorder, current episode mixed, moderate F31.62 and Post traumatic stress disorder F43.10 [place] [address] [place] [id number] [place] [address] Sep, Bipolar disorder, current episode mixed, moderate F31.62 and Post traumatic stress disorder F43.10 [facility] [address] [place] [address] Sep, [place] [address] [place] [id number] [place] [address] Sep, Bipolar disorder, current episode mixed, moderate F31.62 ; High risk medication use Z79.899 and Post traumatic stress disorder F43.10 [place] [address] [place] [id number] [place] [address] Sep, [place] [address] [address] Aug, Lumbar radiculopathy M54.16 [place] [address] [place] [id number] [place] [address] Aug, Major depressive disorder, recurrent episode, moderate F33.1 ; Anxiety state, unspecified F41.1 ; Borderline personality disorder F60.3 and Post traumatic stress disorder F43.10 [place] [address] [place] [address] [id number] [place] [address] Aug, Anxiety state, unspecified F41.1 ; Adjustment disorder with depressed mood F43.21 ; Major depressive disorder, recurrent episode, moderate F33.1 ; Post traumatic stress disorder F43.10 and Unspecified mood [affective] disorder F39 [place] [address] [place] [id number] [place] [address] Aug, [facility] [address] [place] [id number] [place] [address] Jul, Acute nasopharyngitis J00 and Dependent edema R60.9 [place] [address] [place] [id number] [place] [address] Jul, [place] [address] [place] [address] [id number] [place] [address] Jun, Screening for deficiency anemia Z13.0 [place] [address] [place] [id number] [place] [address] May, Decreased movements in third trimester, single or unspecified fetus O36.8130 ; Polyhydramnios in third trimester complication, single or unspecified fetus O40.3XX0 and 38 weeks gestation of Z3A.38 [place] [address] [address] May, 37 weeks gestation of Z3A.37 ; Third trimester Z34.93 and Polyhydramnios affecting in third trimester O40.3XX0 [place] [address] [place] [id number] [place] [address] May, care in third trimester Z34.93 ; Polyhydramnios in third trimester complication, single or unspecified fetus O40.3XX0 and 37 weeks gestation of Z3A.37 [place] [address] [place] [id number] [place] [address] May, [place] [address] [place] [id number] [place] [address] May, care, subsequent in third trimester Z34.83 and 35 weeks gestation of Z3A.35 [place] [address] [place] [id number] [place] [address] May, [place] [address] [place] [id number] [place] [address] Apr, 34 weeks gestation of Z3A.34 [place] [address] [place] [address] [id number] [place] [address] Apr, 32 weeks gestation of Z3A.32 and Polyhydramnios in third trimester complication, single or unspecified fetus O40.3XX0 [place] [address] [place] [address] Apr, [place] [address] [place] [id number] [place] [address] Apr, 30 weeks gestation of Z3A.30 and Encounter for immunization Z23 [place] [address] [place] [id number] [place] [address] Mar, Diabetes mellitus screening Z13.1 ; care in third trimester Z34.93 ; 28 weeks gestation of Z3A.28 ; Evaluate anatomy not seen on prior sonogram Z36 and Encounter for immunization Z23 [place] [address] [place] [id number] [place] [address] Feb, care, subsequent in second trimester Z34.82 and 25 weeks gestation of Z3A.25 [place] [address] [place] [id number] [place] [address] Feb, Unspecified mood [affective] disorder F39 and Borderline personality disorder F60.3 [place] [address] [address] Jan, care, subsequent in second trimester Z34.82 and 21 weeks gestation of Z3A.21 [place] [address] [address] Jan, Screening, anemia, deficiency, iron Z13.0 [place] [address] [place] [id number] [place] [address] Dec, care, subsequent in second trimester Z34.82 ; Second trimester Z33.1 and 17 weeks gestation of Z3A.17 [place] [address] [place] [id number] [place] [address] Dec, Post traumatic stress disorder F43.10 and Adjustment disorder with depressed mood F43.21 [place] [address] [place] [id number] [place] [address] Dec, care, subsequent in first trimester Z34.81 and 12 weeks gestation of Z3A.12 [place] [address] [place] [id number] [place] [address] November, Major depressive disorder, recurrent episode, moderate F33.1 and Anxiety state, unspecified F41.1 [place] [address] [place] [id number] [place] [address] November, [place] [address] [place] [address] [id number] [place] [address] November, [facility] [id number] [address] November, [place] [address] [place] [address] [id number] [address] November, care, subsequent in first trimester Z34.81 and UTI in , first trimester O23.41 [place] [address] [address] Oct, [place] [address] [place] [address] [id number] [address] Oct, Encounter for test, result unknown Z32.00 [place] [address] [place] [address] [id number] [address] Apr, Major depressive disorder, recurrent episode, moderate F33.1 IMMUNIZATIONS No Known Immunizations SOCIAL HISTORY Never Assessed REASON FOR VISIT f/u [place] PLAN OF CARE Activity Details Follow Up 3 Months, prn Reason: VITAL SIGNS Height 5'4" in 2017-11-07 Weight 187.5 lbs 2017-11-07 Heart Rate 92 bpm 2017-11-07 Respiratory Rate 20 2017-11-07 BMI 32.18 kg/m2 2017-11-07 Blood pressure systolic 108 mmHg 2017-11-07 Blood pressure diastolic 72 mmHg 2017-11-07 MEDICATIONS Medication Instructions Dosage Frequency Start Date End Date Duration Status Zoloft 50 mg Orally Once a day 1 tablet 24h Dec, Not-Taking Amoxicillin 250 MG Orally every 8 hrs 1 capsule 8h Not-Taking Tramadol HCl 50 MG Orally 3 times a day 2 tablet 8h Active Complete 14-0.4 MG Orally Once a day 1 tablet 24h Not-Taking Flexeril 10 mg 1 tablet Active Gabapentin 600 MG Orally Once a day @ HS 1 tablet Active Abilify 5 MG Orally Once a day 1 tablet 24h Sep, 30 days Active Gabapentin 300 MG Orally Twice a day 1 tablet 12h Active RESULTS No Results PROCEDURES No Known procedures INSTRUCTIONS MEDICATIONS ADMINISTERED No Known Medications MEDICAL (GENERAL) HISTORY Type Description Date Surgical History natural birthx 2 Hospitalization History childbirth only
--- OUTSIDE RECORDS SUMMARY | 2018-12-30 18:18 | XMS REPORT ---
Author Author RODRIGO DAVID [facility] Address [address] [place] [address] Care Team Providers Care Concrete Block Molder Name Role Phone RODRIGO DAVID Unavailable PROBLEMS Type Condition ICD9-CM Code SDK51-DW Code Onset Dates Condition Status SNOMED Code Problem Post traumatic stress disorder F43.10 Active 67719658 Problem Borderline personality disorder F60.3 Active 36698815 Problem Adjustment disorder with depressed mood F43.21 Active 29701381 Problem Major depressive disorder, recurrent episode, moderate F33.1 Active 591220588 Problem Anxiety state, unspecified F41.1 Active 014306115 Problem care, subsequent in second trimester Z34.82 Active 389276070 Problem Complex regional pain syndrome I of right lower limb G90.521 Active 788250380055542 Problem Neuropathy G62.9 Active 039245918 Problem Polyhydramnios in third trimester complication, single or unspecified fetus O40.3XX0 Active 87119654 Problem Unspecified mood [affective] disorder F39 Active 99212772 Problem Bipolar disorder, current episode mixed, moderate F31.62 Active 041842749 Problem Decreased movements in third trimester, single or unspecified fetus O36.8130 Active 841977969 ALLERGIES No Information ENCOUNTERS Encounter Location Date Diagnosis [place] [address] [place] [address] Jan, Dysfunction of both eustachian tubes H69.83 and Complex regional pain syndrome I of right lower limb G90.521 [facility] [address] [place] [address] Jan, Acute non-recurrent frontal sinusitis J01.10 and Acute suppurative otitis media of left ear without spontaneous rupture of tympanic membrane, recurrence not specified H66.002 [facility] [address] [place] [address] 17 Jan, 2018 Neuropathy G62.9 [place] [address] [place] [id number] [place] [address] 11 Jan, 2018 control counseling Z30.09 and Encounter for Depo-Provera contraception Z30.42 [place] [address] [place] [id number] [place] [address] 05 Jan, 2018 Acute cystitis without hematuria N30.00 [place] [address] [place] [id number] [place] [address] 02 Jan, 2018 Dysfunction of right eustachian tube H69.81 and Complex regional pain syndrome I of right lower limb G90.521 [place] [address] [place] [id number] [place] [address] 04 Dec, 2017 Acute right ankle pain M25.571 ; Neuropathy G62.9 and Complex regional pain syndrome I of right lower limb G90.521 [place] [address] [place] [id number] [place] [address] November, [place] [address] [place] [id number] [place] [address] Oct, Neuropathy G62.9 [place] [address] [place] [id number] [place] [address] Oct, [place] [address] [place] [id number] [place] [address] Oct, Bipolar disorder, current episode mixed, moderate F31.62 and Post traumatic stress disorder F43.10 [place] [address] [place] [address] Sep, Bipolar disorder, current episode mixed, moderate F31.62 and Post traumatic stress disorder F43.10 [place] [address] [place] [id number] [place] [address] Sep, [place] [address] [place] [id number] [place] [address] Sep, Bipolar disorder, current episode mixed, moderate F31.62 ; High risk medication use Z79.899 and Post traumatic stress disorder F43.10 [facility] [address] [id number] [place] [address] Sep, [facility] [address] [place] [id number] [place] [address] Aug, Lumbar radiculopathy M54.16 [facility] [address] [address] Aug, Major depressive disorder, recurrent episode, moderate F33.1 ; Anxiety state, unspecified F41.1 ; Borderline personality disorder F60.3 and Post traumatic stress disorder F43.10 [place] [address] [place] [id number] [place] [address] Aug, Anxiety state, unspecified F41.1 ; Adjustment disorder with depressed mood F43.21 ; Major depressive disorder, recurrent episode, moderate F33.1 ; Post traumatic stress disorder F43.10 and Unspecified mood [affective] disorder F39 [facility] [address] [place] [id number] [place] [address] Aug, [facility] [address] [id number] [place] [address] Jul, Acute nasopharyngitis J00 and Dependent edema R60.9 [facility] [address] [id number] [place] [address] Jul, [facility] [address] [place] [id number] [place] [address] Jun, Screening for deficiency anemia Z13.0 [place] [address] [place] [id number] [place] [address] May, Decreased movements in third trimester, single or unspecified fetus O36.8130 ; Polyhydramnios in third trimester complication, single or unspecified fetus O40.3XX0 and 38 weeks gestation of Z3A.38 [place] [address] [place] [address] May, 37 weeks gestation of Z3A.37 ; Third trimester Z34.93 and Polyhydramnios affecting in third trimester O40.3XX0 [place] [address] [place] [id number] [place] [address] May, care in third trimester Z34.93 ; Polyhydramnios in third trimester complication, single or unspecified fetus O40.3XX0 and 37 weeks gestation of Z3A.37 [place] [address] [place] [id number] [place] [address] May, [place] [address] [place] [id number] [place] [address] May, care, subsequent in third trimester Z34.83 and 35 weeks gestation of Z3A.35 [place] [address] [place] [id number] [place] [address] May, [place] [address] [place] [id number] [place] [address] Apr, 34 weeks gestation of Z3A.34 [place] [address] [place] [id number] [place] [address] Apr, 32 weeks gestation of Z3A.32 and Polyhydramnios in third trimester complication, single or unspecified fetus O40.3XX0 [place] [address] [place] [id number] [place] [address] Apr, [place] [address] [place] [id number] [place] [address] Apr, 30 weeks gestation of Z3A.30 and Encounter for immunization Z23 [place] [address] [place] [id number] [place] [address] 15 Mar, 2017 Diabetes mellitus screening Z13.1 ; care in third trimester Z34.93 ; 28 weeks gestation of Z3A.28 ; Evaluate anatomy not seen on prior sonogram Z36 and Encounter for immunization Z23 [place] [address] [place] [id number] [place] [address] Feb, care, subsequent in second trimester Z34.82 and 25 weeks gestation of Z3A.25 [place] [address] [place] [id number] [place] [address] Feb, Unspecified mood [affective] disorder F39 and Borderline personality disorder F60.3 [place] [address] [place] [id number] [place] [address] Jan, care, subsequent in second trimester Z34.82 and 21 weeks gestation of Z3A.21 [place] [address] [place] [id number] [place] [address] Jan, Screening, anemia, deficiency, iron Z13.[address] [address] 30 Dec, 2016 care, subsequent in second trimester Z34.82 ; Second trimester Z33.1 and 17 weeks gestation of Z3A.17 [place] [address] [place] [id number] [place] [address] 16 Dec, 2016 Post traumatic stress disorder F43.10 and Adjustment disorder with depressed mood F43.21 [place] [address] [place] [id number] [place] [address] Dec, care, subsequent in first trimester Z34.81 and 12 weeks gestation of Z3A.12 [place] [address] [place] [id number] [place] [address] November, Major depressive disorder, recurrent episode, moderate F33.1 and Anxiety state, unspecified F41.1 [place] [address] [place] [id number] [place] [address] November, [place] [address] [place] [id number] [place] [address] November, [place] [address] [address] November, [facility] [address] [place] [id number] [place] [address] November, care, subsequent in first trimester Z34.81 and UTI in , first trimester O23.41 [place] [address] [place] [id number] [place] [address] Oct, [place] [address] [place] [id number] [place] [address] Oct, Encounter for test, result unknown Z32.00 [place] [id number] [place] [address] Apr, Major depressive disorder, recurrent episode, moderate F33.1 IMMUNIZATIONS No Known Immunizations SOCIAL HISTORY Never Assessed REASON FOR VISIT PLAN OF CARE VITAL SIGNS MEDICATIONS Unknown Medications RESULTS No Results PROCEDURES No Known procedures INSTRUCTIONS MEDICATIONS ADMINISTERED No Known Medications MEDICAL (GENERAL) HISTORY Type Description Date Surgical History natural birthx 2 Hospitalization History childbirth only
--- OUTSIDE RECORDS SUMMARY | 2018-12-30 18:19 | XMS REPORT ---
Author Author NICOLAS ROMO Organization [facility] Address [address] [place] [address] Care Team Providers Care Php Website Developer Name Role Phone NICOLAS ROMO Unavailable PROBLEMS Type Condition ICD9-CM Code GJV63-CN Code Onset Dates Condition Status SNOMED Code Problem Post traumatic stress disorder F43.10 Active 21122921 Problem Borderline personality disorder F60.3 Active 75685514 Problem Adjustment disorder with depressed mood F43.21 Active 59885711 Problem Major depressive disorder, recurrent episode, moderate F33.1 Active 823534008 Problem Anxiety state, unspecified F41.1 Active 378528419 Problem care, subsequent in second trimester Z34.82 Active 123922798 Problem Complex regional pain syndrome I of right lower limb G90.521 Active 667835185726731 Problem Neuropathy G62.9 Active 801108367 Problem Polyhydramnios in third trimester complication, single or unspecified fetus O40.3XX0 Active 29092828 Problem Unspecified mood [affective] disorder F39 Active 66864608 Problem Bipolar disorder, current episode mixed, moderate F31.62 Active 607012270 Problem Decreased movements in third trimester, single or unspecified fetus O36.8130 Active 495743389 ALLERGIES No Known Allergies ENCOUNTERS Encounter Location Date Diagnosis [facility] [id number] [address] 16 Jan, 2018 [facility] [address] [address] 11 Jan, 2018 control counseling Z30.09 and Encounter for Depo-Provera contraception Z30.42 [facility] [id number] [address] 05 Jan, 2018 Acute cystitis without hematuria N30.00 [facility] [address] [place] [address] Jan, Dysfunction of right eustachian tube H69.81 and Complex regional pain syndrome I of right lower limb G90.521 [place] [address] [place] [address] [id number] [place] [address] Dec, Acute right ankle pain M25.571 ; Neuropathy G62.9 and Complex regional pain syndrome I of right lower limb G90.521 [place] [address] [place] [id number] [place] [address] November, [place] [address] [place] [id number] [place] [address] Oct, Neuropathy G62.9 [place] [address] [place] [id number] [place] [address] Oct, [place] [address] [place] [id number] [place] [address] Oct, Bipolar disorder, current episode mixed, moderate F31.62 and Post traumatic stress disorder F43.10 [place] [address] [place] [id number] [place] [address] Sep, Bipolar disorder, current episode mixed, moderate F31.62 and Post traumatic stress disorder F43.10 [place] [address] [place] [address] Sep, [place] [address] [place] [id number] [place] [address] Sep, Bipolar disorder, current episode mixed, moderate F31.62 ; High risk medication use Z79.899 and Post traumatic stress disorder F43.10 [place] [address] [place] [id number] [place] [address] Sep, [place] [address] [place] [id number] [place] [address] Aug, Lumbar radiculopathy M54.16 [place] [address] [place] [id number] [place] [address] 19 Aug, 2017 Major depressive disorder, recurrent episode, moderate F33.1 ; Anxiety state, unspecified F41.1 ; Borderline personality disorder F60.3 and Post traumatic stress disorder F43.10 [place] [address] [place] [address] 15 Aug, 2017 Anxiety state, unspecified F41.1 ; Adjustment disorder with depressed mood F43.21 ; Major depressive disorder, recurrent episode, moderate F33.1 ; Post traumatic stress disorder F43.10 and Unspecified mood [affective] disorder F39 [facility] [address] [place] [id number] [place] [address] Aug, [facility] [address] [place] [id number] [place] [address] Jul, Acute nasopharyngitis J00 and Dependent edema R60.9 [place] [address] [place] [id number] [place] [address] Jul, [facility] [address] [place] [id number] [place] [address] Jun, Screening for deficiency anemia Z13.0 [place] [address] [place] [id number] [place] [address] May, Decreased movements in third trimester, single or unspecified fetus O36.8130 ; Polyhydramnios in third trimester complication, single or unspecified fetus O40.3XX0 and 38 weeks gestation of Z3A.38 [place] [address] [place] [address] May, 37 weeks gestation of Z3A.37 ; Third trimester Z34.93 and Polyhydramnios affecting in third trimester O40.3XX0 [place] [address] [place] [id number] [place] [address] 16 May, 2017 care in third trimester Z34.93 ; Polyhydramnios in third trimester complication, single or unspecified fetus O40.3XX0 and 37 weeks gestation of Z3A.37 [place] [address] [place] [address] 09 May, 2017 [place] [address] [place] [id number] [place] [address] May, care, subsequent in third trimester Z34.83 and 35 weeks gestation of Z3A.35 [place] [address] [place] [id number] [place] [address] May, [place] [address] [place] [id number] [place] [address] Apr, 34 weeks gestation of Z3A.34 [place] [address] [place] [id number] [place] [address] 17 Apr, 2017 32 weeks gestation of Z3A.32 and Polyhydramnios in third trimester complication, single or unspecified fetus O40.3XX0 [place] [id number] [place] [address] Apr, [place] [address] [place] [address] [id number] [place] [address] Apr, 30 weeks gestation of Z3A.30 and Encounter for immunization Z23 [place] [address] [place] [address] [id number] [place] [address] 15 Mar, 2017 Diabetes mellitus screening Z13.1 ; care in third trimester Z34.93 ; 28 weeks gestation of Z3A.28 ; Evaluate anatomy not seen on prior sonogram Z36 and Encounter for immunization Z23 [place] [address] [place] [address] Feb, care, subsequent in second trimester Z34.82 and 25 weeks gestation of Z3A.25 [place] [address] [place] [id number] [place] [address] Feb, Unspecified mood [affective] disorder F39 and Borderline personality disorder F60.3 [place] [id number] [place] [address] Jan, care, subsequent in second trimester Z34.82 and 21 weeks gestation of Z3A.21 [place] [address] [place] [id number] [address] 07 Jan, 2017 Screening, anemia, deficiency, iron Z13.0 [place] [address] [address] Dec, care, subsequent in second trimester Z34.82 ; Second trimester Z33.1 and 17 weeks gestation of Z3A.17 [place] [address] [place] [address] [id number] [place] [address] 16 Dec, 2016 Post traumatic stress disorder F43.10 and Adjustment disorder with depressed mood F43.21 [place] [address] [address] Dec, care, subsequent in first trimester Z34.81 and 12 weeks gestation of Z3A.12 [place] [address] [address] November, Major depressive disorder, recurrent episode, moderate F33.1 and Anxiety state, unspecified F41.1 [place] [address] [address] November, [place] [address] [address] November, [place] [address] [id number] [address] November, [place] [address] [place] [address] November, care, subsequent in first trimester Z34.81 and UTI in , first trimester O23.41 [place] [address] [address] Oct, [place] [address] [place] [address] [id number] [place] [address] Oct, Encounter for test, result unknown Z32.00 [facility] [address] [facility] [id number] [place] [address] Apr, Major depressive disorder, recurrent episode, moderate F33.1 IMMUNIZATIONS No Known Immunizations SOCIAL HISTORY Never Assessed REASON FOR VISIT intake-Dakota [facility] PLAN OF CARE Activity Details Follow Up 3 Weeks Reason: VITAL SIGNS Height 5'4" in 2017-09-26 Weight 182.9 lbs 2017-09-26 Heart Rate 82 bpm 2017-09-26 Respiratory Rate 18 2017-09-26 BMI 31.39 kg/m2 2017-09-26 Blood pressure systolic 110 mmHg 2017-09-26 Blood pressure diastolic 68 mmHg 2017-09-26 MEDICATIONS Medication Instructions Dosage Frequency Start Date End Date Duration Status Amoxicillin 250 MG Orally every 8 hrs 1 capsule 8h Not-Taking Flexeril 10 mg 1 tablet Active Zoloft 50 mg Orally Once a day 1 tablet 24h 16 Dec, 2016 Not-Taking [place] Carbonate 300 MG Orally twice a day 1 capsule 12h Sep, 30 day(s) Active Complete 14-0.4 MG Orally Once a day 1 tablet 24h Not-Taking RESULTS No Results PROCEDURES No Known procedures INSTRUCTIONS MEDICATIONS ADMINISTERED No Known Medications MEDICAL (GENERAL) HISTORY Type Description Date Surgical History natural birthx 2 Hospitalization History childbirth only
--- OUTSIDE RECORDS SUMMARY | 2018-12-30 18:19 | XMS REPORT ---
Author Author RUBEN HOLLOWAY Organization [facility] Address [address] [place] [address] Care Team Providers Care Sales Broker Name Role Phone RUBEN HOLLOWAY Unavailable PROBLEMS Type Condition ICD9-CM Code [id number] Code Onset Dates Condition Status SNOMED Code Problem Post traumatic stress disorder F43.10 Active 12645304 Problem Borderline personality disorder F60.3 Active 97427241 Problem Adjustment disorder with depressed mood F43.21 Active 03427197 Problem Major depressive disorder, recurrent episode, moderate F33.1 Active 070392665 Problem Anxiety state, unspecified F41.1 Active 992083437 Problem care, subsequent in second trimester Z34.82 Active 901476371 Problem Complex regional pain syndrome I of right lower limb G90.521 Active 230874755754468 Problem Neuropathy G62.9 Active 148163853 Problem Polyhydramnios in third trimester complication, single or unspecified fetus O40.3XX0 Active 32273502 Problem Unspecified mood [affective] disorder F39 Active 91023200 Problem Bipolar disorder, current episode mixed, moderate F31.62 Active 953499773 Problem Decreased movements in third trimester, single or unspecified fetus O36.8130 Active 198373892 ALLERGIES No Known Allergies ENCOUNTERS Encounter Location Date Diagnosis [place] [id number] [address] 16 Jan, 2018 [place] [id number] [address] 11 Jan, 2018 control counseling Z30.09 and Encounter for Depo-Provera contraception Z30.42 [place] [id number] [address] 05 Jan, 2018 Acute cystitis without hematuria N30.00 [place] [address] [place] [address] Jan, Dysfunction of right eustachian tube H69.81 and Complex regional pain syndrome I of right lower limb G90.521 [place] [address] [id number] [place] [address] Dec, Acute right ankle pain M25.571 ; Neuropathy G62.9 and Complex regional pain syndrome I of right lower limb G90.521 [place] [id number] [place] [address] November, [place] [id number] [place] [address] Oct, Neuropathy G62.9 [place] [id number] [place] [address] Oct, [place] [id number] [place] [address] Oct, Bipolar disorder, current episode mixed, moderate F31.62 and Post traumatic stress disorder F43.10 [place] [id number] [place] [address] Sep, Bipolar disorder, current episode mixed, moderate F31.62 and Post traumatic stress disorder F43.10 [place] [address] [place] [address] Sep, [place] [id number] [place] [address] Sep, Bipolar disorder, current episode mixed, moderate F31.62 ; High risk medication use Z79.899 and Post traumatic stress disorder F43.10 [place] [id number] [place] [address] Sep, [place] [id number] [place] [address] Aug, Lumbar radiculopathy M54.16 [place] [id number] [place] [address] 19 Aug, 2017 Major depressive disorder, recurrent episode, moderate F33.1 ; Anxiety state, unspecified F41.1 ; Borderline personality disorder F60.3 and Post traumatic stress disorder F43.10 [facility] [address] [place] [address] 15 Aug, 2017 Anxiety state, unspecified F41.1 ; Adjustment disorder with depressed mood F43.21 ; Major depressive disorder, recurrent episode, moderate F33.1 ; Post traumatic stress disorder F43.10 and Unspecified mood [affective] disorder F39 [facility] [id number] [place] [address] Aug, [facility] [id number] [place] [address] Jul, Acute nasopharyngitis J00 and Dependent edema R60.9 [place] [id number] [place] [address] Jul, [facility] [id number] [place] [address] Jun, Screening for deficiency anemia Z13.0 [place] [address] [place] [address] May, Decreased movements in third trimester, single or unspecified fetus O36.8130 ; Polyhydramnios in third trimester complication, single or unspecified fetus O40.3XX0 and 38 weeks gestation of Z3A.38 [place] [id number] [place] [address] May, 37 weeks gestation of Z3A.37 ; Third trimester Z34.93 and Polyhydramnios affecting in third trimester O40.3XX0 [place] [id number] [place] [address] 16 May, 2017 care in third trimester Z34.93 ; Polyhydramnios in third trimester complication, single or unspecified fetus O40.3XX0 and 37 weeks gestation of Z3A.37 [place] [address] [place] [address] 09 May, 2017 [place] [id number] [place] [address] May, care, subsequent in third trimester Z34.83 and 35 weeks gestation of Z3A.35 [place] [address] [place] [address] May, [place] [id number] [place] [address] Apr, 34 weeks gestation of Z3A.34 [place] [address] [place] [address] Apr, 32 weeks gestation of Z3A.32 and Polyhydramnios in third trimester complication, single or unspecified fetus O40.3XX0 [place] [address] [place] [address] Apr, [place] [address] [place] [address] Apr, 30 weeks gestation of Z3A.30 and Encounter for immunization Z23 [place] [address] [place] [address] 15 Mar, 2017 Diabetes mellitus screening Z13.1 ; care in third trimester Z34.93 ; 28 weeks gestation of Z3A.28 ; Evaluate anatomy not seen on prior sonogram Z36 and Encounter for immunization Z23 [address] [place] [address] Feb, care, subsequent in second trimester Z34.82 and 25 weeks gestation of Z3A.25 [place] [address] [place] [address] Feb, Unspecified mood [affective] disorder F39 and Borderline personality disorder F60.3 [place] [address] [place] [address] Jan, care, subsequent in second trimester Z34.82 and 21 weeks gestation of Z3A.21 [place] [address] [address] Jan, Screening, anemia, deficiency, iron Z13.0 [place] [address] [address] 30 Dec, 2016 care, subsequent in second trimester Z34.82 ; Second trimester Z33.1 and 17 weeks gestation of Z3A.17 [place] [address] [place] [address] 16 Dec, 2016 Post traumatic stress disorder F43.10 and Adjustment disorder with depressed mood F43.21 [place] [address] [address] Dec, care, subsequent in first trimester Z34.81 and 12 weeks gestation of Z3A.12 [place] [address] [address] November, Major depressive disorder, recurrent episode, moderate F33.1 and Anxiety state, unspecified F41.1 [place] [address] [address] November, [place] [address] [address] November, [place] [address] [address] November, [place] [address] [address] November, care, subsequent in first trimester Z34.81 and UTI in , first trimester O23.41 [place] [address] [address] Oct, [place] [id number] [place] [address] Oct, Encounter for test, result unknown Z32.00 [facility] [address] [facility] [id number] [place] [address] Apr, Major depressive disorder, recurrent episode, moderate F33.1 IMMUNIZATIONS No Known Immunizations SOCIAL HISTORY Never Assessed REASON FOR VISIT Pain (acute)back , patient states she went to ER at [facility] last week because is having pain on her spine , legs x few month -- arabella wells, PHQ 2, AUDIT C PLAN OF CARE Activity Details Follow Up Will call after MRI Reason: VITAL SIGNS Height 5'4" in 2017-09-19 Weight 186.0 lbs 2017-09-19 Temperature 98.0 degrees Fahrenheit 2017-09-19 Heart Rate 76 bpm 2017-09-19 Respiratory Rate 18 2017-09-19 BMI 31.92 kg/m2 2017-09-19 MEDICATIONS Medication Instructions Dosage Frequency Start Date End Date Duration Status Amoxicillin 250 MG Orally every 8 hrs 1 capsule 8h Not-Taking Flexeril 10 mg 1 tablet Active Zoloft 50 mg Orally Once a day 1 tablet 24h 16 Dec, 2016 Not-Taking Complete 14-0.4 MG Orally Once a day 1 tablet 24h Not-Taking RESULTS Name Result Date Reference Range MRI : Lumbar w/o contrast 2017-09-23 PROCEDURES No Known procedures INSTRUCTIONS MEDICATIONS ADMINISTERED No Known Medications MEDICAL (GENERAL) HISTORY Type Description Date Surgical History natural birthx 2 Hospitalization History childbirth only
--- OUTSIDE RECORDS SUMMARY | 2018-12-30 18:19 | XMS REPORT ---
Author Author PANCHO Yu Organization [facility] Address [address] [place] [address] Care Team Providers Care Airfield Manager Name Role Phone PANCHO Yu Unavailable PROBLEMS Type Condition ICD9-CM Code [id number] Code Onset Dates Condition Status SNOMED Code Problem Post traumatic stress disorder F43.10 Active 35063597 Problem Borderline personality disorder F60.3 Active 26004294 Problem Adjustment disorder with depressed mood F43.21 Active 33336798 Problem Major depressive disorder, recurrent episode, moderate F33.1 Active 510950738 Problem Anxiety state, unspecified F41.1 Active 776529510 Problem care, subsequent in second trimester Z34.82 Active 133881966 Problem Complex regional pain syndrome I of right lower limb G90.521 Active 990397030492518 Problem Neuropathy G62.9 Active 337646604 Problem Polyhydramnios in third trimester complication, single or unspecified fetus O40.3XX0 Active 01332885 Problem Unspecified mood [affective] disorder F39 Active 51743778 Problem Bipolar disorder, current episode mixed, moderate F31.62 Active 100491721 Problem Decreased movements in third trimester, single or unspecified fetus O36.8130 Active 444513172 ALLERGIES No Information ENCOUNTERS Encounter Location Date Diagnosis [facility] [id number] [address] Jan, [facility] [id number] [address] Jan, [place] [id number] [place] [address] Jan, Acute cystitis without hematuria N30.00 [facility] [id number] [address] Jan, Dysfunction of right eustachian tube H69.81 and Complex regional pain syndrome I of right lower limb G90.521 [place] [id number] [place] [address] Dec, Acute right ankle pain M25.571 ; Neuropathy G62.9 and Complex regional pain syndrome I of right lower limb G90.521 [place] [id number] [place] [address] November, [place] [id number] [place] [address] Oct, Neuropathy G62.9 [place] [address] [address] Oct, [place] [id number] [place] [address] Oct, Bipolar disorder, current episode mixed, moderate F31.62 and Post traumatic stress disorder F43.10 [place] [id number] [place] [address] Sep, Bipolar disorder, current episode mixed, moderate F31.62 and Post traumatic stress disorder F43.10 [place] [address] [place] [address] Sep, [place] [address] [place] [address] Sep, Bipolar disorder, current episode mixed, moderate F31.62 ; High risk medication use Z79.899 and Post traumatic stress disorder F43.10 [place] [address] [place] [address] Sep, [place] [id number] [place] [address] Aug, Lumbar radiculopathy M54.16 [place] [id number] [place] [address] Aug, Major depressive disorder, recurrent episode, moderate F33.1 ; Anxiety state, unspecified F41.1 ; Borderline personality disorder F60.3 and Post traumatic stress disorder F43.10 [place] [id number] [place] [address] Aug, Anxiety state, unspecified F41.1 ; Adjustment disorder with depressed mood F43.21 ; Major depressive disorder, recurrent episode, moderate F33.1 ; Post traumatic stress disorder F43.10 and Unspecified mood [affective] disorder F39 [facility] [id number] [place] [address] Aug, [facility] [address] [address] Jul, Acute nasopharyngitis J00 and Dependent edema R60.[address] [address] Jul, [place] [id number] [place] [address] Jun, Screening for deficiency anemia Z13.0 [place] [id number] [place] [address] May, Decreased movements in third trimester, single or unspecified fetus O36.8130 ; Polyhydramnios in third trimester complication, single or unspecified fetus O40.3XX0 and 38 weeks gestation of Z3A.38 [address] [id number] [place] [address] May, 37 weeks gestation of Z3A.37 ; Third trimester Z34.93 and Polyhydramnios affecting in third trimester O40.3XX0 [address] [address] 16 May, 2017 care in third trimester Z34.93 ; Polyhydramnios in third trimester complication, single or unspecified fetus O40.3XX0 and 37 weeks gestation of Z3A.37 [place] [address] [place] [address] 09 May, 2017 [place] [id number] [place] [address] May, care, subsequent in third trimester Z34.83 and 35 weeks gestation of Z3A.35 [place] [id number] [place] [address] May, [place] [id number] [place] [address] Apr, 34 weeks gestation of Z3A.[address] [address] Apr, 32 weeks gestation of Z3A.32 and Polyhydramnios in third trimester complication, single or unspecified fetus O40.3XX0 [address] [address] Apr, [place] [id number] [place] [address] Apr, 30 weeks gestation of Z3A.30 and Encounter for immunization [id number] [place] [address] 15 Mar, 2017 Diabetes mellitus screening Z13.1 ; care in third trimester Z34.93 ; 28 weeks gestation of Z3A.28 ; Evaluate anatomy not seen on prior sonogram Z36 and Encounter for immunization Z23 [place] [id number] [place] [address] Feb, care, subsequent in second trimester Z34.82 and 25 weeks gestation of Z3A.25 [place] [id number] [place] [address] Feb, Unspecified mood [affective] disorder F39 and Borderline personality disorder F60.3 [id number] [place] [address] Jan, care, subsequent in second trimester Z34.82 and 21 weeks gestation of Z3A.21 [place] [address] [place] [address] 07 Jan, 2017 Screening, anemia, deficiency, iron Z13.0 [place] [address] [address] 30 Dec, 2016 care, subsequent in second trimester Z34.82 ; Second trimester Z33.1 and 17 weeks gestation of Z3A.17 [place] [id number] [place] [address] 16 Dec, 2016 Post traumatic stress disorder F43.10 and Adjustment disorder with depressed mood F43.21 [place] [id number] [place] [address] Dec, care, subsequent in first trimester Z34.81 and 12 weeks gestation of Z3A.12 [place] [id number] [place] [address] November, Major depressive disorder, recurrent episode, moderate F33.1 and Anxiety state, unspecified F41.1 [place] [id number] [place] [address] November, [place] [address] [address] November, [place] [id number] [place] [address] November, [place] [id number] [place] [address] November, care, subsequent in first trimester Z34.81 and UTI in , first trimester O23.41 [place] [address] [address] Oct, [place] [id number] [place] [address] Oct, Encounter for test, result unknown Z32.00 [facility] [address] [facility] [id number] [place] [address] 18 Apr, 2016 Major depressive disorder, recurrent episode, moderate F33.1 IMMUNIZATIONS No Known Immunizations SOCIAL HISTORY Never Assessed REASON FOR VISIT f/u PLAN OF CARE Activity Details Follow Up 2 Weeks Reason:Depression, anxiety VITAL SIGNS MEDICATIONS Unknown Medications RESULTS No Results PROCEDURES Procedure Date Ordered Result Body Site Psychotherapy, patient &/family, 30 minutes, established patient Sep 12, 2017 INSTRUCTIONS MEDICATIONS ADMINISTERED No Known Medications MEDICAL (GENERAL) HISTORY Type Description Date Surgical History natural birthx 2 Hospitalization History childbirth only
--- OUTSIDE RECORDS SUMMARY | 2018-12-30 18:19 | XMS REPORT ---
Author Author RODRIGO DAVID [facility] Address [address] [place] [address] Care Team Providers Care Dairy Equipment Repairer Name Role Phone FRANKIEKYRA ALEGRIAHANY Unavailable PROBLEMS Type Condition ICD9-CM Code [id number] Code Onset Dates Condition Status SNOMED Code Problem care, subsequent in second trimester Z34.82 Active 760116559 Problem Adjustment disorder with depressed mood F43.21 Active 85426758 Problem Post traumatic stress disorder F43.10 Active 36489164 Problem Major depressive disorder, recurrent episode, moderate F33.1 Active 288640091 Problem Anxiety state, unspecified F41.1 Active 695688304 Problem Neuropathy G62.9 Active 993952492 Problem Bipolar disorder, current episode mixed, moderate F31.62 Active 537785344 Problem Unspecified mood [affective] disorder F39 Active 31362483 Problem Borderline personality disorder F60.3 Active 89309430 Problem Decreased movements in third trimester, single or unspecified fetus O36.8130 Active 586946158 Problem Polyhydramnios in third trimester complication, single or unspecified fetus O40.3XX0 Active 18758866 ALLERGIES No Information ENCOUNTERS Encounter Location Date Diagnosis [place] [id number] [address] Jan, [facility] [place] [id number] [address] Oct, Neuropathy G62.9 [place] [id number] [address] Oct, [place] [id number] [address] Oct, Bipolar disorder, current episode mixed, moderate F31.62 and Post traumatic stress disorder F43.10 [place] [address] [place] [address] Sep, Bipolar disorder, current episode mixed, moderate F31.62 and Post traumatic stress disorder F43.10 [facility] [place] [id number] [place] [address] Sep, [facility] [place] [id number] [place] [address] Sep, Bipolar disorder, current episode mixed, moderate F31.62 ; High risk medication use Z79.899 and Post traumatic stress disorder F43.10 [facility] [place] [id number] [place] [address] Sep, [facility] [place] [id number] [place] [address] Aug, Lumbar radiculopathy M54.16 [place] [address] [address] 19 Aug, 2017 Major depressive disorder, recurrent episode, moderate F33.1 ; Anxiety state, unspecified F41.1 ; Borderline personality disorder F60.3 and Post traumatic stress disorder F43.10 [place] [id number] [place] [address] 15 Aug, 2017 Anxiety state, unspecified F41.1 ; Adjustment disorder with depressed mood F43.21 ; Major depressive disorder, recurrent episode, moderate F33.1 ; Post traumatic stress disorder F43.10 and Unspecified mood [affective] disorder F39 [facility] [place] [address] [place] [address] Aug, [facility] [id number] [place] [address] Jul, Acute nasopharyngitis J00 and Dependent edema R60.9 [facility] [place] [id number] [place] [address] Jul, [facility] [place] [address] [address] Jun, Screening for deficiency anemia Z13.0 [place] [address] [address] May, Decreased movements in third trimester, single or unspecified fetus O36.8130 ; Polyhydramnios in third trimester complication, single or unspecified fetus O40.3XX0 and 38 weeks gestation of Z3A.38 [place] [id number] [place] [address] May, 37 weeks gestation of Z3A.37 ; Third trimester Z34.93 and Polyhydramnios affecting in third trimester O40.3XX0 [place] [id number] [place] [address] May, care in third trimester Z34.93 ; Polyhydramnios in third trimester complication, single or unspecified fetus O40.3XX0 and 37 weeks gestation of Z3A.37 [place] [id number] [place] [address] May, [place] [id number] [place] [address] May, care, subsequent in third trimester Z34.83 and 35 weeks gestation of Z3A.35 [place] [address] [address] May, [place] [id number] [place] [address] Apr, 34 weeks gestation of Z3A.34 [place] [id number] [place] [address] Apr, 32 weeks gestation of Z3A.32 and Polyhydramnios in third trimester complication, single or unspecified fetus O40.3XX0 [place] [address] [address] Apr, [place] [id number] [place] [address] Apr, 30 weeks gestation of Z3A.30 and Encounter for immunization Z23 [id number] [place] [address] 15 Mar, 2017 Diabetes mellitus screening Z13.1 ; care in third trimester Z34.93 ; 28 weeks gestation of Z3A.28 ; Evaluate anatomy not seen on prior sonogram Z36 and Encounter for immunization Z23 [address] [address] Feb, care, subsequent in second trimester Z34.82 and 25 weeks gestation of Z3A.[address] [address] Feb, Unspecified mood [affective] disorder F39 and Borderline personality disorder F60.[address] [address] Jan, care, subsequent in second trimester Z34.82 and 21 weeks gestation of Z3A.[address] [address] Jan, Screening, anemia, deficiency, iron Z13.0 [id number] [place] [address] Dec, care, subsequent in second trimester Z34.82 ; Second trimester Z33.1 and 17 weeks gestation of Z3A.17 [id number] [place] [address] Dec, Post traumatic stress disorder F43.10 and Adjustment disorder with depressed mood F43.21 [id number] [place] [address] Dec, care, subsequent in first trimester Z34.81 and 12 weeks gestation of Z3A.[address] [address] November, Major depressive disorder, recurrent episode, moderate F33.1 and Anxiety state, unspecified F41.1 [place] [address] [place] [address] November, [place] [id number] [address] November, [place] [id number] [place] [address] November, [place] [id number] [place] [address] November, care, subsequent in first trimester Z34.81 and UTI in , first trimester O23.41 [place] [id number] [place] [address] Oct, [place] [id number] [place] [address] Oct, Encounter for test, result unknown Z32.[address] [place] [address] Apr, Major depressive disorder, recurrent episode, moderate F33.1 IMMUNIZATIONS Vaccine Route Administration Date Status FLUARIX QUAD (3 AND UP) 2016 IM Intramuscular Apr 08, 2017 Administered SOCIAL HISTORY Never Assessed REASON FOR VISIT OB 3 wk f/u -- arabella wells PLAN OF CARE Activity Details Follow Up 2 Weeks, 2 Weeks Reason: VITAL SIGNS Height 5'4" in 2017-04-08 Weight 194.6 lbs 2017-04-08 Temperature 98.0 degrees Fahrenheit 2017-04-08 BMI 33.40 kg/m2 2017-04-08 Blood pressure systolic 128 mmHg 2017-04-08 Blood pressure diastolic 70 mmHg 2017-04-08 MEDICATIONS Medication Instructions Dosage Frequency Start Date End Date Duration Status Complete 14-0.4 MG Orally Once a day 1 tablet 24h Active RESULTS Name Result Date Reference Range GLUCOSE PARMINDER 1 HOUR 2017-04-08 Gestational Diabetes Screen 99 65-139 CBC 2017-04-08 WBC 7.5 3.4-10.8 RBC 3.94 3.77-5.28 Hemoglobin 11.5 11.1-15.9 Hematocrit 34.3 34.0-46.6 MCV 87 79-97 MCH 29.2 26.6-33.0 MCHC 33.5 31.5-35.7 RDW 13.1 12.3-15.4 Platelets 275 150-379 Neutrophils 73 Lymphs 19 Monocytes 7 Eos 1 Basos 0 Neutrophils (Absolute) 5.4 1.4-7.0 Lymphs (Absolute) 1.4 0.7-3.1 Monocytes(Absolute) 0.6 0.1-0.9 Eos (Absolute) 0.1 0.0-0.4 Baso (Absolute) 0.0 0.0-0.2 Immature Granulocytes 0 Immature Grans (Abs) 0.0 0.0-0.1 UA OB DIP (IN HOUSE) 2017-04-08 Glucose neg Protein trace GLUCOSE PARMINDER 1 HOUR 2017-04-08 Gestational Diabetes Screen 99 65-139 CBC 2017-04-08 WBC 7.5 3.4-10.8 RBC 3.94 3.77-5.28 Hemoglobin 11.5 11.1-15.9 Hematocrit 34.3 34.0-46.6 MCV 87 79-97 MCH 29.2 26.6-33.0 MCHC 33.5 31.5-35.7 RDW 13.1 12.3-15.4 Platelets 275 150-379 Neutrophils 73 Lymphs 19 Monocytes 7 Eos 1 Basos 0 Neutrophils (Absolute) 5.4 1.4-7.0 Lymphs (Absolute) 1.4 0.7-3.1 Monocytes(Absolute) 0.6 0.1-0.9 Eos (Absolute) 0.1 0.0-0.4 Baso (Absolute) 0.0 0.0-0.2 Immature Granulocytes 0 Immature Grans (Abs) 0.0 0.0-0.1 UA OB DIP (IN HOUSE) 2017-04-08 Glucose neg Protein trace Ultrasound : OB, Follow-up 2017-04-28 PROCEDURES Procedure Date Ordered Result Body Site URINE-NO MICRO Apr 08, 2017 [facility] Apr 08, 2017 FLUARIX QUAD (3 & UP)-GSK-2015 Apr 08, 2017 VENIPUNCT, ROUTINE* Apr 08, 2017 SINGLE IMMUNIZATION ADMIN Apr 08, 2017 INSTRUCTIONS MEDICATIONS ADMINISTERED No Known Medications MEDICAL (GENERAL) HISTORY Type Description Date Surgical History natural birthx 2 Hospitalization History childbirth only
--- OUTSIDE RECORDS SUMMARY | 2018-12-30 18:19 | XMS REPORT ---
Author Author ENEIDA CHANDLER [facility] Address [address] [place] [address] Care Team Providers Care Manager Business Process Name Role Phone ENEIDA CHANDLER Unavailable PROBLEMS Type Condition ICD9-CM Code [id number] Code Onset Dates Condition Status SNOMED Code Problem Post traumatic stress disorder F43.10 Active 87545957 Problem Borderline personality disorder F60.3 Active 67620144 Problem Adjustment disorder with depressed mood F43.21 Active 88724998 Problem Major depressive disorder, recurrent episode, moderate F33.1 Active 471224473 Problem Anxiety state, unspecified F41.1 Active 423048923 Problem care, subsequent in second trimester Z34.82 Active 765914260 Problem Complex regional pain syndrome I of right lower limb G90.521 Active 489454832711133 Problem Neuropathy G62.9 Active 479180436 Problem Polyhydramnios in third trimester complication, single or unspecified fetus O40.3XX0 Active 92500437 Problem Unspecified mood [affective] disorder F39 Active 61441215 Problem Bipolar disorder, current episode mixed, moderate F31.62 Active 386064286 Problem Decreased movements in third trimester, single or unspecified fetus O36.8130 Active 024966315 ALLERGIES No Information ENCOUNTERS Encounter Location Date Diagnosis [place] [id number] [address] 16 Jan, 2018 [place] [id number] [address] 11 Jan, 2018 control counseling Z30.09 and Encounter for Depo-Provera contraception Z30.42 [place] [id number], [place] [address] 05 Jan, 2018 Acute cystitis without hematuria N30.00 [place] [id number] [place] [address] Jan, Dysfunction of right eustachian tube H69.81 and Complex regional pain syndrome I of right lower limb G90.521 [place] [id number] [place] [address] Dec, Acute right ankle pain M25.571 ; Neuropathy G62.9 and Complex regional pain syndrome I of right lower limb G90.521 [place] [id number] [place] [address] November, [place] [address] [address] Oct, Neuropathy G62.9 [place] [address] [address] Oct, [place] [id number] [place] [address] Oct, Bipolar disorder, current episode mixed, moderate F31.62 and Post traumatic stress disorder F43.10 [place] [id number] [place] [address] Sep, Bipolar disorder, current episode mixed, moderate F31.62 and Post traumatic stress disorder F43.10 [place] [id number] [place] [address] Sep, [place] [id number] [place] [address] Sep, Bipolar disorder, current episode mixed, moderate F31.62 ; High risk medication use Z79.899 and Post traumatic stress disorder F43.10 [place] [id number] [place] [address] Sep, [place] [address] [address] Aug, Lumbar radiculopathy M54.16 [place] [id number] [place] [address] 19 Aug, 2017 Major depressive disorder, recurrent episode, moderate F33.1 ; Anxiety state, unspecified F41.1 ; Borderline personality disorder F60.3 and Post traumatic stress disorder F43.10 [place] [address] [address] [place] [address] Aug, Anxiety state, unspecified F41.1 ; Adjustment disorder with depressed mood F43.21 ; Major depressive disorder, recurrent episode, moderate F33.1 ; Post traumatic stress disorder F43.10 and Unspecified mood [affective] disorder F39 [facility] [place] [id number] [place] [address] Aug, [facility] [id number] [place] [address] Jul, Acute nasopharyngitis J00 and Dependent edema R60.9 [address] [id number] [place] [address] Jul, [place] [id number] [place] [address] Jun, Screening for deficiency anemia Z13.0 [address] [id number] [place] [address] May, Decreased movements in third trimester, single or unspecified fetus O36.8130 ; Polyhydramnios in third trimester complication, single or unspecified fetus O40.3XX0 and 38 weeks gestation of Z3A.38 [place] [id number] [place] [address] May, 37 weeks gestation of Z3A.37 ; Third trimester Z34.93 and Polyhydramnios affecting in third trimester O40.3XX0 [place] [id number] [place] [address] May, care in third trimester Z34.93 ; Polyhydramnios in third trimester complication, single or unspecified fetus O40.3XX0 and 37 weeks gestation of Z3A.37 [place] [address] [place] [address] May, [place] [address] [address] May, care, subsequent in third trimester Z34.83 and 35 weeks gestation of Z3A.[address] [address] May, [place] [address] [address] Apr, 34 weeks gestation of Z3A.[address] [address] Apr, 32 weeks gestation of Z3A.32 and Polyhydramnios in third trimester complication, single or unspecified fetus O40.3XX0 [address] [address] Apr, [address] [address] Apr, 30 weeks gestation of Z3A.30 and Encounter for immunization Z23 [address] [id number] [place] [address] Mar, Diabetes mellitus screening Z13.1 ; care in third trimester Z34.93 ; 28 weeks gestation of Z3A.28 ; Evaluate anatomy not seen on prior sonogram Z36 and Encounter for immunization Z23 [address] [id number] [place] [address] Feb, care, subsequent in second trimester Z34.82 and 25 weeks gestation of Z3A.25 [address] [id number] [place] [address] Feb, Unspecified mood [affective] disorder F39 and Borderline personality disorder F60.[address] [address] Jan, care, subsequent in second trimester Z34.82 and 21 weeks gestation of Z3A.21 [place] [id number] [place] [address] 07 Jan, 2017 Screening, anemia, deficiency, iron Z13.0 [place] [address], [place] [address] 30 Dec, 2016 care, subsequent in second trimester Z34.82 ; Second trimester Z33.1 and 17 weeks gestation of Z3A.17 [place] [id number] [place] [address] 16 Dec, 2016 Post traumatic stress disorder F43.10 and Adjustment disorder with depressed mood F43.21 [place] [id number] [place] [address] 02 Dec, 2016 care, subsequent in first trimester Z34.81 and 12 weeks gestation of Z3A.12 [place] [id number] [place] [address] November, Major depressive disorder, recurrent episode, moderate F33.1 and Anxiety state, unspecified F41.1 [place] [id number] [place] [address] November, [place] [address], [place] [address] November, [place] [id number] [place] [address] November, [place] [id number] [place] [address] November, care, subsequent in first trimester Z34.81 and UTI in , first trimester O23.41 [place] [id number], [place] [address] Oct, [place] [id number] [place] [address] Oct, Encounter for test, result unknown Z32.00 [facility] [place] [address] [facility] [place] [id number] [place] [address] Apr, Major depressive disorder, recurrent episode, moderate F33.1 IMMUNIZATIONS No Known Immunizations SOCIAL HISTORY Never Assessed REASON FOR VISIT Test results PLAN OF CARE VITAL SIGNS MEDICATIONS Unknown Medications RESULTS No Results PROCEDURES No Known procedures INSTRUCTIONS MEDICATIONS ADMINISTERED No Known Medications MEDICAL (GENERAL) HISTORY Type Description Date Surgical History natural birthx 2 Hospitalization History childbirth only
--- OUTSIDE RECORDS SUMMARY | 2018-12-30 18:20 | XMS REPORT ---
Author Author RODRIGO DAVID [facility] Address [address] [place] [address] Care Team Providers Care Mh Teacher Name Role Phone FRANKIEKYRARODRIGO Unavailable PROBLEMS Type Condition ICD9-CM Code PBK34-QF Code Onset Dates Condition Status SNOMED Code Problem care, subsequent in second trimester Z34.82 Active 677590667 Problem Adjustment disorder with depressed mood F43.21 Active 02052508 Problem Post traumatic stress disorder F43.10 Active 96073900 Problem Major depressive disorder, recurrent episode, moderate F33.1 Active 292747104 Problem Anxiety state, unspecified F41.1 Active 301815975 Problem Neuropathy G62.9 Active 280602722 Problem Bipolar disorder, current episode mixed, moderate F31.62 Active 423471887 Problem Unspecified mood [affective] disorder F39 Active 17168271 Problem Borderline personality disorder F60.3 Active 09897706 Problem Decreased movements in third trimester, single or unspecified fetus O36.8130 Active 026700483 Problem Polyhydramnios in third trimester complication, single or unspecified fetus O40.3XX0 Active 04703957 ALLERGIES No Known Allergies ENCOUNTERS Encounter Location Date Diagnosis [place] [id number] [address] Jan, [facility] [id number], [place] [address] November, [facility] [id number] [place] [address] Oct, Neuropathy G62.9 [facility] [id number], [place] [address] Oct, [facility] [id number], [place] [address] Oct, Bipolar disorder, current episode mixed, moderate F31.62 and Post traumatic stress disorder F43.10 [facility] [address] [place] [address] Sep, Bipolar disorder, current episode mixed, moderate F31.62 and Post traumatic stress disorder F43.10 [place] [id number] [place] [address] Sep, [facility] [id number] [place] [address] Sep, Bipolar disorder, current episode mixed, moderate F31.62 ; High risk medication use Z79.899 and Post traumatic stress disorder F43.10 [place] [id number] [place] [address] Sep, [facility] [id number] [place] [address] Aug, Lumbar radiculopathy M54.16 [facility] [id number] [place] [address] Aug, Major depressive disorder, recurrent episode, moderate F33.1 ; Anxiety state, unspecified F41.1 ; Borderline personality disorder F60.3 and Post traumatic stress disorder F43.10 [place] [id number] [place] [address] Aug, Anxiety state, unspecified F41.1 ; Adjustment disorder with depressed mood F43.21 ; Major depressive disorder, recurrent episode, moderate F33.1 ; Post traumatic stress disorder F43.10 and Unspecified mood [affective] disorder F39 [facility] [id number] [place] [address] Aug, [facility] [id number] [place] [address] Jul, Acute nasopharyngitis J00 and Dependent edema R60.9 [facility] [id number] [place] [address] Jul, [place] [address], [place] [address] Jun, Screening for deficiency anemia Z13.0 [place] [address], [place] [address] May, Decreased movements in third trimester, single or unspecified fetus O36.8130 ; Polyhydramnios in third trimester complication, single or unspecified fetus O40.3XX0 and 38 weeks gestation of Z3A.38 [place] [id number], [place] [address] May, 37 weeks gestation of Z3A.37 ; Third trimester Z34.93 and Polyhydramnios affecting in third trimester O40.3XX0 [place] [address], [place] [address] May, care in third trimester Z34.93 ; Polyhydramnios in third trimester complication, single or unspecified fetus O40.3XX0 and 37 weeks gestation of Z3A.37 [place] [address] [place] [address] May, [place] [address], [place] [address] May, care, subsequent in third trimester Z34.83 and 35 weeks gestation of Z3A.35 [place] [address], [place] [address] May, [place] [address] [place] [address] Apr, 34 weeks gestation of Z3A.34 [place] [address] [place] [address] Apr, 32 weeks gestation of Z3A.32 and Polyhydramnios in third trimester complication, single or unspecified fetus O40.3XX0 [place] [address] [place] [address] Apr, [place] [id number] [place] [address] Apr, 30 weeks gestation of Z3A.30 and Encounter for immunization Z23 [place] [id number] [place] [address] 15 Mar, 2017 Diabetes mellitus screening Z13.1 ; care in third trimester Z34.93 ; 28 weeks gestation of Z3A.28 ; Evaluate anatomy not seen on prior sonogram Z36 and Encounter for immunization Z23 [place] [id number] [place] [address] Feb, care, subsequent in second trimester Z34.82 and 25 weeks gestation of Z3A.25 [place] [id number] [place] [address] Feb, Unspecified mood [affective] disorder F39 and Borderline personality disorder F60.3 [place] [id number] [place] [address] Jan, care, subsequent in second trimester Z34.82 and 21 weeks gestation of Z3A.21 [place] [id number] [place] [address] Jan, Screening, anemia, deficiency, iron Z13.0 [place] [id number] [place] [address] Dec, care, subsequent in second trimester Z34.82 ; Second trimester Z33.1 and 17 weeks gestation of Z3A.17 [place] [id number] [place] [address] 16 Dec, 2016 Post traumatic stress disorder F43.10 and Adjustment disorder with depressed mood F43.[address] [place] [address] Dec, care, subsequent in first trimester Z34.81 and 12 weeks gestation of Z3A.12 [place] [address], [place] [address] November, Major depressive disorder, recurrent episode, moderate F33.1 and Anxiety state, unspecified F41.1 [place] [address], [place] [address] November, [place] [id number] [place] [address] November, [place] [id number] [place] [address] November, [place] [id number] [place] [address] November, care, subsequent in first trimester Z34.81 and UTI in , first trimester O23.41 [place] [id number] [place] [address] Oct, [place] [address] [place] [address] Oct, Encounter for test, result unknown Z32.00 [place] [address] [place] [address] Apr, Major depressive disorder, recurrent episode, moderate F33.1 IMMUNIZATIONS No Known Immunizations SOCIAL HISTORY Never Assessed REASON FOR VISIT OB f/u 1 wk-Miguel A Koroma PLAN OF CARE VITAL SIGNS Height 5'4" in 2017-06-22 Weight 196.1 lbs 2017-06-22 Temperature 97.9 degrees Fahrenheit 2017-06-22 Heart Rate 100 bpm 2017-06-22 Respiratory Rate 16 2017-06-22 BMI 33.66 kg/m2 2017-06-22 Blood pressure systolic 110 mmHg 2017-06-22 Blood pressure diastolic 68 mmHg 2017-06-22 MEDICATIONS Medication Instructions Dosage Frequency Start Date End Date Duration Status Complete 14-0.4 MG Orally Once a day 1 tablet 24h Active Zoloft 50 mg Orally Once a day 1 tablet 24h Dec, Not-Taking Amoxicillin 250 MG Orally every 8 hrs 1 capsule 8h Not-Taking RESULTS Name Result Date Reference Range UA OB DIP (IN HOUSE) 2017-06-22 Glucose negative Protein negative PROCEDURES Procedure Date Ordered Result Body Site NON-STRESS TEST 2017-06-22 Reactive NON-STRESS TEST Jun 22, 2017 URINE-NO MICRO Jun 22, 2017 INSTRUCTIONS MEDICATIONS ADMINISTERED No Known Medications MEDICAL (GENERAL) HISTORY Type Description Date Surgical History natural birthx 2 Hospitalization History childbirth only
--- OUTSIDE RECORDS SUMMARY | 2018-12-30 18:20 | XMS REPORT ---
Author Author RODRIGO DAVID [facility] Address [address] [place] [address] Care Team Providers Care Pocket Cutter Name Role Phone FRANKIEKYRA ALEGRIAHANY Unavailable PROBLEMS Type Condition ICD9-CM Code UIE89-ON Code Onset Dates Condition Status SNOMED Code Problem care, subsequent in second trimester Z34.82 Active 072746984 Problem Adjustment disorder with depressed mood F43.21 Active 67405052 Problem Post traumatic stress disorder F43.10 Active 22523707 Problem Major depressive disorder, recurrent episode, moderate F33.1 Active 857536889 Problem Anxiety state, unspecified F41.1 Active 054043933 Problem Neuropathy G62.9 Active 293254242 Problem Bipolar disorder, current episode mixed, moderate F31.62 Active 764739516 Problem Unspecified mood [affective] disorder F39 Active 38249197 Problem Borderline personality disorder F60.3 Active 27172516 Problem Decreased movements in third trimester, single or unspecified fetus O36.8130 Active 408640007 Problem Polyhydramnios in third trimester complication, single or unspecified fetus O40.3XX0 Active 37139739 ALLERGIES No Information ENCOUNTERS Encounter Location Date Diagnosis [place] [id number], [place] [address] Jan, [facility] [id number], [place] [address] Oct, Neuropathy G62.9 [place] [id number], [place] [address] Oct, [place] [id number] [address] Oct, Bipolar disorder, current episode mixed, moderate F31.62 and Post traumatic stress disorder F43.10 [place] [address] [place] [address] Sep, Bipolar disorder, current episode mixed, moderate F31.62 and Post traumatic stress disorder F43.10 [facility] [id number] [place] [address] Sep, [facility] [id number] [place] [address] Sep, Bipolar disorder, current episode mixed, moderate F31.62 ; High risk medication use Z79.899 and Post traumatic stress disorder F43.10 [facility] [id number] [place] [address] Sep, [facility] [id number] [place] [address] Aug, Lumbar radiculopathy M54.16 [place] [address] [address] 19 Aug, 2017 Major depressive disorder, recurrent episode, moderate F33.1 ; Anxiety state, unspecified F41.1 ; Borderline personality disorder F60.3 and Post traumatic stress disorder F43.10 [place] [id number] [place] [address] 15 Aug, 2017 Anxiety state, unspecified F41.1 ; Adjustment disorder with depressed mood F43.21 ; Major depressive disorder, recurrent episode, moderate F33.1 ; Post traumatic stress disorder F43.10 and Unspecified mood [affective] disorder F39 [facility] [address] [place] [address] Aug, [facility] [id number] [place] [address] Jul, Acute nasopharyngitis J00 and Dependent edema R60.9 [facility] [id number] [place] [address] Jul, [facility] [address] [address] Jun, Screening for deficiency anemia Z13.0 [place] [address], [place] [address] May, Decreased movements in third trimester, single or unspecified fetus O36.8130 ; Polyhydramnios in third trimester complication, single or unspecified fetus O40.3XX0 and 38 weeks gestation of Z3A.38 [place] [id number] [place] [address] May, 37 weeks gestation of Z3A.37 ; Third trimester Z34.93 and Polyhydramnios affecting in third trimester O40.3XX0 [place] [id number] [place] [address] May, care in third trimester Z34.93 ; Polyhydramnios in third trimester complication, single or unspecified fetus O40.3XX0 and 37 weeks gestation of Z3A.37 [place] [id number] [place] [address] May, [place] [id number] [place] [address] May, care, subsequent in third trimester Z34.83 and 35 weeks gestation of Z3A.35 [place] [address], [place] [address] May, [place] [id number] [place] [address] Apr, 34 weeks gestation of Z3A.34 [place] [id number] [place] [address] Apr, 32 weeks gestation of Z3A.32 and Polyhydramnios in third trimester complication, single or unspecified fetus O40.3XX0 [place] [address], [place] [address] Apr, [place] [id number] [place] [address] Apr, 30 weeks gestation of Z3A.30 and Encounter for immunization Z23 [id number] [place] [address] 15 Mar, 2017 Diabetes mellitus screening Z13.1 ; care in third trimester Z34.93 ; 28 weeks gestation of Z3A.28 ; Evaluate anatomy not seen on prior sonogram Z36 and Encounter for immunization Z23 [address] [address] Feb, care, subsequent in second trimester Z34.82 and 25 weeks gestation of Z3A.[address] [address] Feb, Unspecified mood [affective] disorder F39 and Borderline personality disorder F60.[address] [address] Jan, care, subsequent in second trimester Z34.82 and 21 weeks gestation of Z3A.[address] [address] Jan, Screening, anemia, deficiency, iron Z13.0 [id number] [place] [address] Dec, care, subsequent in second trimester Z34.82 ; Second trimester Z33.1 and 17 weeks gestation of Z3A.17 [id number] [place] [address] Dec, Post traumatic stress disorder F43.10 and Adjustment disorder with depressed mood F43.21 [address] [place] [address] Dec, care, subsequent in first trimester Z34.81 and 12 weeks gestation of Z3A.[address] [address] November, Major depressive disorder, recurrent episode, moderate F33.1 and Anxiety state, unspecified F41.1 [place] [address], [place] [address] November, [place] [address], [place] [address] November, [place] [id number] [place] [address] November, [place] [id number] [place] [address] November, care, subsequent in first trimester Z34.81 and UTI in , first trimester O23.41 [place] [address], [place] [address] Oct, [place] [id number] [place] [address] Oct, Encounter for test, result unknown Z32.00 [address] [place] [address] Apr, Major depressive disorder, recurrent episode, moderate F33.1 IMMUNIZATIONS No Known Immunizations SOCIAL HISTORY Never Assessed REASON FOR VISIT 2 week ob fu -- [facility] PLAN OF CARE Activity Details Follow Up 2 Weeks Reason: VITAL SIGNS Height 5'4" in 2017-05-24 Weight 195.0 lbs 2017-05-24 Temperature 97.0 degrees Fahrenheit 2017-05-24 BMI 33.47 kg/m2 2017-05-24 Blood pressure systolic 108 mmHg 2017-05-24 Blood pressure diastolic 68 mmHg 2017-05-24 MEDICATIONS Medication Instructions Dosage Frequency Start Date End Date Duration Status Complete 14-0.4 MG Orally Once a day 1 tablet 24h Active RESULTS Name Result Date Reference Range UA OB DIP (IN HOUSE) 2017-05-24 Glucose neg Protein trace PROCEDURES Procedure Date Ordered Result Body Site URINE-NO MICRO May 24, 2017 INSTRUCTIONS MEDICATIONS ADMINISTERED No Known Medications MEDICAL (GENERAL) HISTORY Type Description Date Surgical History natural birthx 2 Hospitalization History childbirth only
--- OUTSIDE RECORDS SUMMARY | 2018-12-30 18:20 | XMS REPORT ---
Author Author RODRIGO DAVID [facility] Address [address] [place] [address] Care Team Providers Care Electrician Substation Name Role Phone FRANKIEKYRA ALEGRIAHANY Unavailable PROBLEMS Type Condition ICD9-CM Code [id number] Code Onset Dates Condition Status SNOMED Code Problem care, subsequent in second trimester Z34.82 Active 852097029 Problem Adjustment disorder with depressed mood F43.21 Active 44391350 Problem Post traumatic stress disorder F43.10 Active 06759533 Problem Major depressive disorder, recurrent episode, moderate F33.1 Active 666951185 Problem Anxiety state, unspecified F41.1 Active 250692241 Problem Neuropathy G62.9 Active 409784086 Problem Bipolar disorder, current episode mixed, moderate F31.62 Active 138791387 Problem Unspecified mood [affective] disorder F39 Active 88560526 Problem Borderline personality disorder F60.3 Active 43993599 Problem Decreased movements in third trimester, single or unspecified fetus O36.8130 Active 387323425 Problem Polyhydramnios in third trimester complication, single or unspecified fetus O40.3XX0 Active 30954576 ALLERGIES No Information ENCOUNTERS Encounter Location Date Diagnosis [place] [id number] [address] Jan, [facility] [id number] [address] Oct, Neuropathy G62.9 [place] [id number] [address] Oct, [place] [id number] [address] Oct, Bipolar disorder, current episode mixed, moderate F31.62 and Post traumatic stress disorder F43.10 [place] [address] [place] [address] Sep, Bipolar disorder, current episode mixed, moderate F31.62 and Post traumatic stress disorder F43.10 [facility] [id number] [place] [address] Sep, [facility] [id number] [place] [address] Sep, Bipolar disorder, current episode mixed, moderate F31.62 ; High risk medication use Z79.899 and Post traumatic stress disorder F43.10 [facility] [id number] [place] [address] Sep, [facility] [id number] [place] [address] Aug, Lumbar radiculopathy M54.16 [place] [address] [address] 19 Aug, 2017 Major depressive disorder, recurrent episode, moderate F33.1 ; Anxiety state, unspecified F41.1 ; Borderline personality disorder F60.3 and Post traumatic stress disorder F43.10 [place] [id number] [place] [address] 15 Aug, 2017 Anxiety state, unspecified F41.1 ; Adjustment disorder with depressed mood F43.21 ; Major depressive disorder, recurrent episode, moderate F33.1 ; Post traumatic stress disorder F43.10 and Unspecified mood [affective] disorder F39 [facility] [address] [place] [address] Aug, [facility] [id number] [place] [address] Jul, Acute nasopharyngitis J00 and Dependent edema R60.9 [facility] [id number] [place] [address] Jul, [facility] [address] [address] Jun, Screening for deficiency anemia Z13.0 [place] [address] [address] May, Decreased movements in third trimester, single or unspecified fetus O36.8130 ; Polyhydramnios in third trimester complication, single or unspecified fetus O40.3XX0 and 38 weeks gestation of Z3A.38 [place] [id number] [place] [address] May, 37 weeks gestation of Z3A.37 ; Third trimester Z34.93 and Polyhydramnios affecting in third trimester O40.3XX0 [place] [id number] [place] [address] May, care in third trimester Z34.93 ; Polyhydramnios in third trimester complication, single or unspecified fetus O40.3XX0 and 37 weeks gestation of Z3A.37 [place] [id number] [place] [address] May, [place] [id number] [place] [address] May, care, subsequent in third trimester Z34.83 and 35 weeks gestation of Z3A.35 [place] [address] [address] May, [place] [id number] [place] [address] Apr, 34 weeks gestation of Z3A.34 [place] [id number] [place] [address] Apr, 32 weeks gestation of Z3A.32 and Polyhydramnios in third trimester complication, single or unspecified fetus O40.3XX0 [place] [address] [address] Apr, [place] [id number] [place] [address] Apr, 30 weeks gestation of Z3A.30 and Encounter for immunization Z23 [place] [id number] [place] [address] 15 Mar, 2017 Diabetes mellitus screening Z13.1 ; care in third trimester Z34.93 ; 28 weeks gestation of Z3A.28 ; Evaluate anatomy not seen on prior sonogram Z36 and Encounter for immunization Z23 [address] [address] Feb, care, subsequent in second trimester Z34.82 and 25 weeks gestation of Z3A.[address] [address] Feb, Unspecified mood [affective] disorder F39 and Borderline personality disorder F60.[address] [address] Jan, care, subsequent in second trimester Z34.82 and 21 weeks gestation of Z3A.[address] [address] Jan, Screening, anemia, deficiency, iron Z13.0 [place] [id number] [place] [address] Dec, care, subsequent in second trimester Z34.82 ; Second trimester Z33.1 and 17 weeks gestation of Z3A.17 [place] [id number] [place] [address] Dec, Post traumatic stress disorder F43.10 and Adjustment disorder with depressed mood F43.21 [place] [address] [place] [address] Dec, care, subsequent in first trimester Z34.81 and 12 weeks gestation of Z3A.[address] [address] November, Major depressive disorder, recurrent episode, moderate F33.1 and Anxiety state, unspecified F41.1 [place] [address] [place] [address] November, [place] [address] [address] November, [place] [id number] [place] [address] November, [place] [id number] [place] [address] November, care, subsequent in first trimester Z34.81 and UTI in , first trimester O23.41 [place] [address] [address] Oct, [place] [id number] [place] [address] Oct, Encounter for test, result unknown Z32.00 [place] [address] [place] [address] Apr, Major depressive disorder, recurrent episode, moderate F33.1 IMMUNIZATIONS Vaccine Route Administration Date Status TDAP (BOOSTRIX) IM Intramuscular Apr 26, 2017 Administered SOCIAL HISTORY Never Assessed REASON FOR VISIT OB 2 wk f/u -- arabella wells PLAN OF CARE Activity Details Follow Up 2 Weeks, 2 Weeks, 2 Weeks Reason: VITAL SIGNS Height 5'4" in 2017-04-26 Weight 195.0 lbs 2017-04-26 Temperature 97.6 degrees Fahrenheit 2017-04-26 BMI 33.47 kg/m2 2017-04-26 Blood pressure systolic 118 mmHg 2017-04-26 Blood pressure diastolic 70 mmHg 2017-04-26 MEDICATIONS Medication Instructions Dosage Frequency Start Date End Date Duration Status Complete 14-0.4 MG Orally Once a day 1 tablet 24h Active RESULTS Name Result Date Reference Range UA OB DIP (IN HOUSE) 2017-04-26 Glucose neg Protein trace PROCEDURES Procedure Date Ordered Result Body Site URINE-NO MICRO Apr 26, 2017 TDAP (BOOSTRIX) Apr 26, 2017 SINGLE IMMUNIZATION ADMIN Apr 26, 2017 INSTRUCTIONS MEDICATIONS ADMINISTERED No Known Medications MEDICAL (GENERAL) HISTORY Type Description Date Surgical History natural birthx 2 Hospitalization History childbirth only
--- OUTSIDE RECORDS SUMMARY | 2018-12-30 18:20 | XMS REPORT ---
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 Name Role Phone FRANKIEKYRA ALEGRIAHANY Unavailable PROBLEMS Type Condition ICD9-CM Code [id number] Code Onset Dates Condition Status SNOMED Code Problem care, subsequent in second trimester Z34.82 Active 522659780 Problem Adjustment disorder with depressed mood F43.21 Active 81991471 Problem Post traumatic stress disorder F43.10 Active 39579511 Problem Major depressive disorder, recurrent episode, moderate F33.1 Active 320457758 Problem Anxiety state, unspecified F41.1 Active 698774262 Problem Neuropathy G62.9 Active 911362834 Problem Bipolar disorder, current episode mixed, moderate F31.62 Active 985724556 Problem Unspecified mood [affective] disorder F39 Active 56068400 Problem Borderline personality disorder F60.3 Active 89402533 Problem Decreased movements in third trimester, single or unspecified fetus O36.8130 Active 891669076 Problem Polyhydramnios in third trimester complication, single or unspecified fetus O40.3XX0 Active 01070203 ALLERGIES No Information ENCOUNTERS Encounter Location Date Diagnosis [place] [id number], [place] [address] Jan, [facility] [id number], [place] [address] Oct, Neuropathy G62.9 [place] [id number], [place] [address] Oct, [place] [id number], [place] [address] Oct, Bipolar disorder, current episode mixed, moderate F31.62 and Post traumatic stress disorder F43.10 [place] [address] [place] [address] Sep, Bipolar disorder, current episode mixed, moderate F31.62 and Post traumatic stress disorder F43.10 [facility] [id number] [place] [address] Sep, [facility] [id number] [place] [address] Sep, Bipolar disorder, current episode mixed, moderate F31.62 ; High risk medication use Z79.899 and Post traumatic stress disorder F43.10 [facility] [id number] [place] [address] Sep, [facility] [id number] [place] [address] Aug, Lumbar radiculopathy M54.16 [place] [address] [address] 19 Aug, 2017 Major depressive disorder, recurrent episode, moderate F33.1 ; Anxiety state, unspecified F41.1 ; Borderline personality disorder F60.3 and Post traumatic stress disorder F43.10 [place] [id number] [place] [address] 15 Aug, 2017 Anxiety state, unspecified F41.1 ; Adjustment disorder with depressed mood F43.21 ; Major depressive disorder, recurrent episode, moderate F33.1 ; Post traumatic stress disorder F43.10 and Unspecified mood [affective] disorder F39 [facility] [address] [place] [address] Aug, [facility] [id number] [place] [address] Jul, Acute nasopharyngitis J00 and Dependent edema R60.9 [facility] [id number] [place] [address] Jul, [facility] [address] [address] Jun, Screening for deficiency anemia Z13.0 [place] [address], [place] [address] May, Decreased movements in third trimester, single or unspecified fetus O36.8130 ; Polyhydramnios in third trimester complication, single or unspecified fetus O40.3XX0 and 38 weeks gestation of Z3A.38 [place] [id number] [place] [address] May, 37 weeks gestation of Z3A.37 ; Third trimester Z34.93 and Polyhydramnios affecting in third trimester O40.3XX0 [place] [id number] [place] [address] May, care in third trimester Z34.93 ; Polyhydramnios in third trimester complication, single or unspecified fetus O40.3XX0 and 37 weeks gestation of Z3A.37 [place] [id number] [place] [address] May, [place] [id number] [place] [address] May, care, subsequent in third trimester Z34.83 and 35 weeks gestation of Z3A.35 [place] [address], [place] [address] May, [place] [id number] [place] [address] Apr, 34 weeks gestation of Z3A.34 [place] [id number] [place] [address] Apr, 32 weeks gestation of Z3A.32 and Polyhydramnios in third trimester complication, single or unspecified fetus O40.3XX0 [place] [address], [place] [address] Apr, [place] [id number] [place] [address] Apr, 30 weeks gestation of Z3A.30 and Encounter for immunization Z23 [place] [id number] [place] [address] 15 Mar, 2017 Diabetes mellitus screening Z13.1 ; care in third trimester Z34.93 ; 28 weeks gestation of Z3A.28 ; Evaluate anatomy not seen on prior sonogram Z36 and Encounter for immunization Z23 [address] [address] Feb, care, subsequent in second trimester Z34.82 and 25 weeks gestation of Z3A.[address] [address] Feb, Unspecified mood [affective] disorder F39 and Borderline personality disorder F60.[address] [address] Jan, care, subsequent in second trimester Z34.82 and 21 weeks gestation of Z3A.[address] [address] Jan, Screening, anemia, deficiency, iron Z13.0 [place] [id number] [place] [address] Dec, care, subsequent in second trimester Z34.82 ; Second trimester Z33.1 and 17 weeks gestation of Z3A.17 [id number] [place] [address] Dec, Post traumatic stress disorder F43.10 and Adjustment disorder with depressed mood F43.21 [place] [id number] [place] [address] Dec, care, subsequent in first trimester Z34.81 and 12 weeks gestation of Z3A.[address] [address] November, Major depressive disorder, recurrent episode, moderate F33.1 and Anxiety state, unspecified F41.1 [place] [address], [place] [address] November, [place] [address], [place] [address] November, [place] [id number] [place] [address] November, [place] [id number] [place] [address] November, care, subsequent in first trimester Z34.81 and UTI in , first trimester O23.41 [place] [address], [place] [address] Oct, [place] [id number] [place] [address] Oct, Encounter for test, result unknown Z32.00 [address], [place] [address] Apr, Major depressive disorder, recurrent episode, moderate F33.1 IMMUNIZATIONS No Known Immunizations SOCIAL HISTORY Never Assessed REASON FOR VISIT Referral PLAN OF CARE VITAL SIGNS MEDICATIONS Unknown Medications RESULTS No Results PROCEDURES No Known procedures INSTRUCTIONS MEDICATIONS ADMINISTERED No Known Medications MEDICAL (GENERAL) HISTORY Type Description Date Surgical History natural birthx 2 Hospitalization History childbirth only
--- OUTSIDE RECORDS SUMMARY | 2018-12-30 18:20 | XMS REPORT ---
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 Name Role Phone PANCHO Yu Unavailable PROBLEMS Type Condition ICD9-CM Code [id number]-EY Code Onset Dates Condition Status SNOMED Code Problem Post traumatic stress disorder F43.10 Active 26214149 Problem Borderline personality disorder F60.3 Active 75809132 Problem Adjustment disorder with depressed mood F43.21 Active 88925631 Problem Major depressive disorder, recurrent episode, moderate F33.1 Active 864460574 Problem Anxiety state, unspecified F41.1 Active 579388304 Problem care, subsequent in second trimester Z34.82 Active 723443825 Problem Complex regional pain syndrome I of right lower limb G90.521 Active 589228393209680 Problem Neuropathy G62.9 Active 981867230 Problem Polyhydramnios in third trimester complication, single or unspecified fetus O40.3XX0 Active 94708626 Problem Unspecified mood [affective] disorder F39 Active 36130480 Problem Bipolar disorder, current episode mixed, moderate F31.62 Active 909169434 Problem Decreased movements in third trimester, single or unspecified fetus O36.8130 Active 021226141 ALLERGIES No Information ENCOUNTERS Encounter Location Date Diagnosis [place] [address] [id number] [address] Jan, [facility] [id number] [address] Jan, [place] [id number] [place] [address] Jan, Dysfunction of right eustachian tube H69.81 and Complex regional pain syndrome I of right lower limb G90.521 [place] [id number] [place] [address] Dec, Acute right ankle pain M25.571 ; Neuropathy G62.9 and Complex regional pain syndrome I of right lower limb G90.521 [place] [address] [place] [address] November, [place] [address] [id number] [place] [address] Oct, Neuropathy G62.9 [place] [id number] [place] [address] Oct, [place] [address] [id number] [place] [address] Oct, Bipolar disorder, current episode mixed, moderate F31.62 and Post traumatic stress disorder F43.10 [place] [address] [place] [address] Sep, Bipolar disorder, current episode mixed, moderate F31.62 and Post traumatic stress disorder F43.10 [place] [address] [place] [address] Sep, [place] [address] [id number] [place] [address] Sep, Bipolar disorder, current episode mixed, moderate F31.62 ; High risk medication use Z79.899 and Post traumatic stress disorder F43.10 [place] [address] [place] [address] Sep, [place] [address] [place] [address] Aug, Lumbar radiculopathy M54.16 [place] [address] [place] [address] Aug, Major depressive disorder, recurrent episode, moderate F33.1 ; Anxiety state, unspecified F41.1 ; Borderline personality disorder F60.3 and Post traumatic stress disorder F43.10 [place] [id number] [place] [address] 15 Aug, 2017 Anxiety state, unspecified F41.1 ; Adjustment disorder with depressed mood F43.21 ; Major depressive disorder, recurrent episode, moderate F33.1 ; Post traumatic stress disorder F43.10 and Unspecified mood [affective] disorder F39 [facility] [id number] [place] [address] Aug, [facility] [address] [address] Jul, Acute nasopharyngitis J00 and Dependent edema R60.[address] [address] Jul, [facility] [id number] [place] [address] Jun, Screening for deficiency anemia Z13.0 [place] [address] [address] May, Decreased movements in third trimester, single or unspecified fetus O36.8130 ; Polyhydramnios in third trimester complication, single or unspecified fetus O40.3XX0 and 38 weeks gestation of Z3A.38 [place] [id number] [place] [address] May, 37 weeks gestation of Z3A.37 ; Third trimester Z34.93 and Polyhydramnios affecting in third trimester O40.3XX0 [place] [id number] [place] [address] May, care in third trimester Z34.93 ; Polyhydramnios in third trimester complication, single or unspecified fetus O40.3XX0 and 37 weeks gestation of Z3A.37 [place] [id number] [place] [address] May, [place] [address] [address] May, care, subsequent in third trimester Z34.83 and 35 weeks gestation of Z3A.35 [place] [id number] [place] [address] May, [place] [id number] [place] [address] Apr, 34 weeks gestation of Z3A.34 [place] [id number] [place] [address] Apr, 32 weeks gestation of Z3A.32 and Polyhydramnios in third trimester complication, single or unspecified fetus O40.3XX0 [place] [id number] [place] [address] Apr, [place] [id number] [place] [address] Apr, 30 weeks gestation of Z3A.30 and Encounter for immunization Z23 [place] [id number] [place] [address] 15 Mar, 2017 Diabetes mellitus screening Z13.1 ; care in third trimester Z34.93 ; 28 weeks gestation of Z3A.28 ; Evaluate anatomy not seen on prior sonogram Z36 and Encounter for immunization Z23 [place] [id number] [place] [address] Feb, care, subsequent in second trimester Z34.82 and 25 weeks gestation of Z3A.25 [place] [id number] [place] [address] Feb, Unspecified mood [affective] disorder F39 and Borderline personality disorder F60.3 [place] [id number] [place] [address] Jan, care, subsequent in second trimester Z34.82 and 21 weeks gestation of Z3A.21 [place] [address] [address] 07 Jan, 2017 Screening, anemia, deficiency, iron Z13.0 [place] [address] [place] [address] 30 Dec, 2016 care, subsequent in second trimester Z34.82 ; Second trimester Z33.1 and 17 weeks gestation of Z3A.17 [place] [id number] [place] [address] 16 Dec, 2016 Post traumatic stress disorder F43.10 and Adjustment disorder with depressed mood F43.21 [place] [id number] [place] [address] 02 Dec, 2016 care, subsequent in first trimester Z34.81 and 12 weeks gestation of Z3A.12 [place] [id number] [place] [address] November, Major depressive disorder, recurrent episode, moderate F33.1 and Anxiety state, unspecified F41.1 [place] [id number] [place] [address] November, [place] [id number] [place] [address] November, [place] [id number] [place] [address] November, [place] [id number] [place] [address] November, care, subsequent in first trimester Z34.81 and UTI in , first trimester O23.41 [place] [id number] [place] [address] Oct, [place] [id number] [place] [address] Oct, Encounter for test, result unknown Z32.00 [place] [id number] [place] [address] Apr, Major depressive disorder, recurrent episode, moderate F33.1 IMMUNIZATIONS No Known Immunizations SOCIAL HISTORY Never Assessed REASON FOR VISIT BH/AT phone response PLAN OF CARE VITAL SIGNS MEDICATIONS Unknown Medications RESULTS No Results PROCEDURES No Known procedures INSTRUCTIONS MEDICATIONS ADMINISTERED No Known Medications MEDICAL (GENERAL) HISTORY Type Description Date Surgical History natural birthx 2 Hospitalization History childbirth only
--- OUTSIDE RECORDS SUMMARY | 2018-12-30 18:20 | XMS REPORT ---
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 [employer] Name Role Phone RODRIGO DAVID Unavailable PROBLEMS Type Condition ICD9-CM Code ZJZ80-FG Code Onset Dates Condition Status SNOMED Code Problem Post traumatic stress disorder F43.10 Active 86087225 Problem Borderline personality disorder F60.3 Active 27015685 Problem Adjustment disorder with depressed mood F43.21 Active 85290890 Problem Major depressive disorder, recurrent episode, moderate F33.1 Active 695297330 Problem Anxiety state, unspecified F41.1 Active 525119635 Problem care, subsequent in second trimester Z34.82 Active 969715631 Problem Complex regional pain syndrome I of right lower limb G90.521 Active 466170446776778 Problem Neuropathy G62.9 Active 153697592 Problem Polyhydramnios in third trimester complication, single or unspecified fetus O40.3XX0 Active 19588589 Problem Unspecified mood [affective] disorder F39 Active 20529986 Problem Bipolar disorder, current episode mixed, moderate F31.62 Active 971162242 Problem Decreased movements in third trimester, single or unspecified fetus O36.8130 Active 488749680 ALLERGIES No Information ENCOUNTERS Encounter Location Date Diagnosis [place] [id number] [facility] [id number] [address] Jan, [facility] [address] [facility] [id number] [address] Jan, [place] [id number] [address] Dec, Acute right ankle pain M25.571 ; Neuropathy G62.9 and Complex regional pain syndrome I of right lower limb G90.521 [place] [address] [id number] [address] November, [facility] [address] [address] Oct, Neuropathy G62.9 [facility] [address] [place] [address] Oct, [facility] [address] [place] [address] Oct, Bipolar disorder, current episode mixed, moderate F31.62 and Post traumatic stress disorder F43.10 [place] [address] [place] [address] Sep, Bipolar disorder, current episode mixed, moderate F31.62 and Post traumatic stress disorder F43.10 [place] [address] [place] [address] Sep, [place] [id number] [place] [address] Sep, Bipolar disorder, current episode mixed, moderate F31.62 ; High risk medication use Z79.899 and Post traumatic stress disorder F43.10 [place] [address] [place] [address] Sep, [place] [address] [place] [address] Aug, Lumbar radiculopathy M54.16 [facility] [address] [place] [address] Aug, Major depressive disorder, recurrent episode, moderate F33.1 ; Anxiety state, unspecified F41.1 ; Borderline personality disorder F60.3 and Post traumatic stress disorder F43.10 [facility] [address] [place] [address] 15 Aug, 2017 Anxiety state, unspecified F41.1 ; Adjustment disorder with depressed mood F43.21 ; Major depressive disorder, recurrent episode, moderate F33.1 ; Post traumatic stress disorder F43.10 and Unspecified mood [affective] disorder F39 [facility] [id number] [place] [address] Aug, [facility] [id number] [place] [address] Jul, Acute nasopharyngitis J00 and Dependent edema R60.9 [facility] [address] [address] Jul, [facility] [id number] [place] [address] Jun, Screening for deficiency anemia Z13.0 [place] [address] [address] May, Decreased movements in third trimester, single or unspecified fetus O36.8130 ; Polyhydramnios in third trimester complication, single or unspecified fetus O40.3XX0 and 38 weeks gestation of Z3A.38 [place] [id number] [place] [address] May, 37 weeks gestation of Z3A.37 ; Third trimester Z34.93 and Polyhydramnios affecting in third trimester O40.3XX0 [place] [id number] [place] [address] 16 May, 2017 care in third trimester Z34.93 ; Polyhydramnios in third trimester complication, single or unspecified fetus O40.3XX0 and 37 weeks gestation of Z3A.37 [place] [id number] [place] [address] May, [place] [address] [address] May, care, subsequent in third trimester Z34.83 and 35 weeks gestation of Z3A.35 [place] [id number] [place] [address] May, [place] [address] [place] [address] Apr, 34 weeks gestation of Z3A.34 [place] [id number] [place] [address] Apr, 32 weeks gestation of Z3A.32 and Polyhydramnios in third trimester complication, single or unspecified fetus O40.3XX0 [address] [id number] [place] [address] Apr, [place] [id number] [place] [address] Apr, 30 weeks gestation of Z3A.30 and Encounter for immunization [id number] [place] [address] Mar, Diabetes mellitus screening Z13.1 ; care in third trimester Z34.93 ; 28 weeks gestation of Z3A.28 ; Evaluate anatomy not seen on prior sonogram Z36 and Encounter for immunization Z23 [address] [id number] [place] [address] Feb, care, subsequent in second trimester Z34.82 and 25 weeks gestation of Z3A.25 [place] [id number] [place] [address] Feb, Unspecified mood [affective] disorder F39 and Borderline personality disorder F60.3 [place] [id number] [place] [address] Jan, care, subsequent in second trimester Z34.82 and 21 weeks gestation of Z3A.21 [id number] [place] [address] Jan, Screening, anemia, deficiency, iron Z13.0 [id number] [place] [address] Dec, care, subsequent in second trimester Z34.82 ; Second trimester Z33.1 and 17 weeks gestation of Z3A.17 [place] [address] [place] [address] 16 Dec, 2016 Post traumatic stress disorder F43.10 and Adjustment disorder with depressed mood F43.21 [place] [id number] [place] [address] 02 Dec, 2016 care, subsequent in first trimester Z34.81 and 12 weeks gestation of Z3A.12 [place] [id number] [place] [address] November, Major depressive disorder, recurrent episode, moderate F33.1 and Anxiety state, unspecified F41.1 [place] [id number] [place] [address] November, [place] [id number] [place] [address] November, [place] [id number] [place] [address] November, [place] [id number] [place] [address] November, care, subsequent in first trimester Z34.81 and UTI in , first trimester O23.41 [place] [id number] [place] [address] Oct, [place] [id number] [place] [address] Oct, Encounter for test, result unknown Z32.00 [place] [id number] [place] [address] Apr, Major depressive disorder, recurrent episode, moderate F33.1 IMMUNIZATIONS No Known Immunizations SOCIAL HISTORY Never Assessed REASON FOR VISIT PLAN OF CARE VITAL SIGNS MEDICATIONS Unknown Medications RESULTS No Results PROCEDURES No Known procedures INSTRUCTIONS MEDICATIONS ADMINISTERED No Known Medications MEDICAL (GENERAL) HISTORY Type Description Date Surgical History natural birthx 2 Hospitalization History childbirth only
--- OUTSIDE RECORDS SUMMARY | 2018-12-30 18:21 | XMS REPORT ---
Author Author FABI TEMPLETON Organization [facility] [place] Address [address] [place] [address] Care Team Providers Care Beater Worker Helper Name Role Phone FABI TEMPLETON Unavailable PROBLEMS Type Condition ICD9-CM Code OMV64-JE Code Onset Dates Condition Status SNOMED Code Problem Anxiety state, unspecified F41.1 Active 300293832 Problem Post traumatic stress disorder F43.10 Active 35876179 Problem care, subsequent in second trimester Z34.82 Active 582764367 Problem Major depressive disorder, recurrent episode, moderate F33.1 Active 089924849 Problem Bipolar disorder, current episode mixed, moderate F31.62 Active 414192774 Problem Decreased movements in third trimester, single or unspecified fetus O36.8130 Active 467694260 Problem Borderline personality disorder F60.3 Active 80022577 Problem Adjustment disorder with depressed mood F43.21 Active 06943435 Problem Polyhydramnios in third trimester complication, single or unspecified fetus O40.3XX0 Active 44197114 Problem Unspecified mood [affective] disorder F39 Active 45435213 ALLERGIES No Information ENCOUNTERS Encounter Location Date Diagnosis [place] [id number], [place] [address] Oct, [facility] [place] [address], [place] [address] Oct, [place] [id number], [place] [address] Sep, Bipolar disorder, current episode mixed, moderate F31.62 and Post traumatic stress disorder F43.10 [facility] [place] [address], [place] [address] Sep, [place] [id number], [place] [address] Sep, Bipolar disorder, current episode mixed, moderate F31.62 ; High risk medication use Z79.899 and Post traumatic stress disorder F43.10 [place] [address] [address] Sep, [place] [id number] [place] [address] Aug, Lumbar radiculopathy M54.16 [place] [address] [address] Aug, Major depressive disorder, recurrent episode, moderate F33.1 ; Anxiety state, unspecified F41.1 ; Borderline personality disorder F60.3 and Post traumatic stress disorder F43.10 [place] [id number] [place] [address] Aug, Anxiety state, unspecified F41.1 ; Adjustment disorder with depressed mood F43.21 ; Major depressive disorder, recurrent episode, moderate F33.1 ; Post traumatic stress disorder F43.10 and Unspecified mood [affective] disorder F39 [place] [address] [address] Aug, [facility] [id number] [place] [address] Jul, Acute nasopharyngitis J00 and Dependent edema R60.[address] [address] Jul, [facility] [place] [id number] [place] [address] Jun, Screening for deficiency anemia Z13.[address] [address] May, Decreased movements in third trimester, single or unspecified fetus O36.8130 ; Polyhydramnios in third trimester complication, single or unspecified fetus O40.3XX0 and 38 weeks gestation of Z3A.38 [place] [address], [place] [address] May, 37 weeks gestation of Z3A.37 ; Third trimester Z34.93 and Polyhydramnios affecting in third trimester O40.3XX0 [place] [address], [place] [address] May, care in third trimester Z34.93 ; Polyhydramnios in third trimester complication, single or unspecified fetus O40.3XX0 and 37 weeks gestation of Z3A.37 [place] [address] [place] [address] May, [place] [id number] [place] [address] May, care, subsequent in third trimester Z34.83 and 35 weeks gestation of Z3A.35 [place] [id number] [place] [address] May, [place] [id number] [place] [address] Apr, 34 weeks gestation of Z3A.34 [place] [address] [place] [address] Apr, 32 weeks gestation of Z3A.32 and Polyhydramnios in third trimester complication, single or unspecified fetus O40.3XX0 [place] [address] [place] [address] Apr, [place] [address] [place] [address] Apr, 30 weeks gestation of Z3A.30 and Encounter for immunization Z23 [place] [address] [place] [address] 15 Mar, 2017 Diabetes mellitus screening Z13.1 ; care in third trimester Z34.93 ; 28 weeks gestation of Z3A.28 ; Evaluate anatomy not seen on prior sonogram Z36 and Encounter for immunization Z23 [place] [id number] [place] [address] Feb, care, subsequent in second trimester Z34.82 and 25 weeks gestation of Z3A.25 [place] [id number] [place] [address] Feb, Unspecified mood [affective] disorder F39 and Borderline personality disorder F60.3 [place] [id number] [place] [address] Jan, care, subsequent in second trimester Z34.82 and 21 weeks gestation of Z3A.21 [place] [id number] [place] [address] Jan, Screening, anemia, deficiency, iron Z13.0 [place] [id number] [place] [address] Dec, care, subsequent in second trimester Z34.82 ; Second trimester Z33.1 and 17 weeks gestation of Z3A.17 [place] [id number] [place] [address] 16 Dec, 2016 Post traumatic stress disorder F43.10 and Adjustment disorder with depressed mood F43.21 [place] [id number] [place] [address] Dec, care, subsequent in first trimester Z34.81 and 12 weeks gestation of Z3A.12 [place] [id number] [place] [address] November, Major depressive disorder, recurrent episode, moderate F33.1 and Anxiety state, unspecified F41.1 [place] [id number] [place] [address] November, [place] [id number] [place] [address] November, [place] [address], [place] [address] November, [place] [address] [place] [address] November, care, subsequent in first trimester Z34.81 and UTI in , first trimester O23.41 [place] [id number] [place] [address] Oct, [place] [id number] [place] [address] Oct, Encounter for test, result unknown Z32.00 [place] [address] [place] [address] Apr, Major depressive disorder, recurrent episode, moderate F33.1 IMMUNIZATIONS No Known Immunizations SOCIAL HISTORY Never Assessed REASON FOR VISIT She wants to be "more patient with my anger." PLAN OF CARE Activity Details Follow Up Next available Reason:anger VITAL SIGNS MEDICATIONS Unknown Medications RESULTS No Results PROCEDURES Procedure Date Ordered Result Body Site Psychotherapy, patient &/family, 45 minutes, established patient Mar 01, 2017 INSTRUCTIONS MEDICATIONS ADMINISTERED No Known Medications MEDICAL (GENERAL) HISTORY Type Description Date Surgical History natural birthx 2 Hospitalization History childbirth only
--- OUTSIDE RECORDS SUMMARY | 2018-12-30 18:21 | XMS REPORT ---
Author Author SHERRY PAPA Organization [facility] Address [address] [place] [address] Care Team Providers Care Embossing Machine Operator Name Role Phone PAPA POWELL Unavailable PROBLEMS Type Condition ICD9-CM Code OZJ60-UB Code Onset Dates Condition Status SNOMED Code Problem care, subsequent in second trimester Z34.82 Active 470661361 Problem Adjustment disorder with depressed mood F43.21 Active 40044994 Problem Post traumatic stress disorder F43.10 Active 60480470 Problem Major depressive disorder, recurrent episode, moderate F33.1 Active 023575607 Problem Anxiety state, unspecified F41.1 Active 776545872 Problem Neuropathy G62.9 Active 262895927 Problem Bipolar disorder, current episode mixed, moderate F31.62 Active 880487878 Problem Unspecified mood [affective] disorder F39 Active 73251523 Problem Borderline personality disorder F60.3 Active 68433534 Problem Decreased movements in third trimester, single or unspecified fetus O36.8130 Active 005013721 Problem Polyhydramnios in third trimester complication, single or unspecified fetus O40.3XX0 Active 85677398 ALLERGIES No Information ENCOUNTERS Encounter Location Date Diagnosis [place] [id number], [place] [address] Jan, [facility] [id number], [place] [address] Oct, Neuropathy G62.9 [place] [address], [place] [address] Oct, [place] [id number], [place] [address] Oct, Bipolar disorder, current episode mixed, moderate F31.62 and Post traumatic stress disorder F43.10 [place] [address] [place] [address] Sep, Bipolar disorder, current episode mixed, moderate F31.62 and Post traumatic stress disorder F43.10 [facility] [id number] [place] [address] Sep, [facility] [id number] [place] [address] Sep, Bipolar disorder, current episode mixed, moderate F31.62 ; High risk medication use Z79.899 and Post traumatic stress disorder F43.10 [place] [id number] [place] [address] Sep, [place] [id number] [place] [address] Aug, Lumbar radiculopathy M54.16 [place] [id number] [place] [address] Aug, Major depressive disorder, recurrent episode, moderate F33.1 ; Anxiety state, unspecified F41.1 ; Borderline personality disorder F60.3 and Post traumatic stress disorder F43.10 [place] [id number] [place] [address] Aug, Anxiety state, unspecified F41.1 ; Adjustment disorder with depressed mood F43.21 ; Major depressive disorder, recurrent episode, moderate F33.1 ; Post traumatic stress disorder F43.10 and Unspecified mood [affective] disorder F39 [facility] [address] [place] [address] Aug, [facility] [address] [address] Jul, Acute nasopharyngitis J00 and Dependent edema R60.9 [facility] [id number] [place] [address] Jul, [facility] [address] [place] [address] Jun, Screening for deficiency anemia Z13.0 [place] [id number] [place] [address] May, Decreased movements in third trimester, single or unspecified fetus O36.8130 ; Polyhydramnios in third trimester complication, single or unspecified fetus O40.3XX0 and 38 weeks gestation of Z3A.38 [place] [id number] [place] [address] May, 37 weeks gestation of Z3A.37 ; Third trimester Z34.93 and Polyhydramnios affecting in third trimester O40.3XX0 [place] [id number] [place] [address] 16 May, 2017 care in third trimester Z34.93 ; Polyhydramnios in third trimester complication, single or unspecified fetus O40.3XX0 and 37 weeks gestation of Z3A.37 [place] [id number] [place] [address] May, [place] [id number] [place] [address] May, care, subsequent in third trimester Z34.83 and 35 weeks gestation of Z3A.35 [place] [id number] [place] [address] May, [place] [id number] [place] [address] Apr, 34 weeks gestation of Z3A.34 [place] [id number] [place] [address] Apr, 32 weeks gestation of Z3A.32 and Polyhydramnios in third trimester complication, single or unspecified fetus O40.3XX0 [place] [id number] [place] [address] Apr, [place] [id number] [place] [address] Apr, 30 weeks gestation of Z3A.30 and Encounter for immunization Z23 [place] [id number] [place] [address] Mar, Diabetes mellitus screening Z13.1 ; care in third trimester Z34.93 ; 28 weeks gestation of Z3A.28 ; Evaluate anatomy not seen on prior sonogram Z36 and Encounter for immunization Z23 [place] [id number] [place] [address] Feb, care, subsequent in second trimester Z34.82 and 25 weeks gestation of Z3A.25 [place] [id number] [place] [address] Feb, Unspecified mood [affective] disorder F39 and Borderline personality disorder F60.3 [place] [id number] [place] [address] Jan, care, subsequent in second trimester Z34.82 and 21 weeks gestation of Z3A.21 [address] [id number] [place] [address] Jan, Screening, anemia, deficiency, iron Z13.0 [place] [id number] [place] [address] Dec, care, subsequent in second trimester Z34.82 ; Second trimester Z33.1 and 17 weeks gestation of Z3A.17 [place] [id number] [place] [address] 16 Dec, 2016 Post traumatic stress disorder F43.10 and Adjustment disorder with depressed mood F43.21 [place] [id number] [place] [address] Dec, care, subsequent in first trimester Z34.81 and 12 weeks gestation of Z3A.[address] [place] [address] November, Major depressive disorder, recurrent episode, moderate F33.1 and Anxiety state, unspecified F41.1 [place] [address] [place] [address] November, [place] [id number] [place] [address] November, [place] [id number] [place] [address] November, [place] [id number] [place] [address] November, care, subsequent in first trimester Z34.81 and UTI in , first trimester O23.41 [place] [id number] [place] [address] Oct, [place] [id number] [place] [address] Oct, Encounter for test, result unknown Z32.00 [place] [id number] [place] [address] Apr, Major depressive disorder, recurrent episode, moderate F33.1 IMMUNIZATIONS No Known Immunizations SOCIAL HISTORY Never Assessed REASON FOR VISIT FYI PLAN OF CARE VITAL SIGNS MEDICATIONS Medication Instructions Dosage Frequency Start Date End Date Duration Status Nitrofurantoin Monohyd Macro 100 mg Orally every 12 hrs 1 capsule with food 12h May, May, 7 day(s) Active RESULTS No Results PROCEDURES No Known procedures INSTRUCTIONS MEDICATIONS ADMINISTERED No Known Medications MEDICAL (GENERAL) HISTORY Type Description Date Surgical History natural birthx 2 Hospitalization History childbirth only
--- OUTSIDE RECORDS SUMMARY | 2018-12-30 18:21 | XMS REPORT ---
Author Author RODRIGO DAVID [facility] Address [address] [place] [address] Care Team Providers Care Glaciologist Name Role Phone FRANKIEKYRARODRIGO Unavailable PROBLEMS Type Condition ICD9-CM Code RKN00-VY Code Onset Dates Condition Status SNOMED Code Problem care, subsequent in second trimester Z34.82 Active 443976544 Problem Adjustment disorder with depressed mood F43.21 Active 71468109 Problem Post traumatic stress disorder F43.10 Active 10756612 Problem Major depressive disorder, recurrent episode, moderate F33.1 Active 952096837 Problem Anxiety state, unspecified F41.1 Active 416404166 Problem Neuropathy G62.9 Active 962558836 Problem Bipolar disorder, current episode mixed, moderate F31.62 Active 991356739 Problem Unspecified mood [affective] disorder F39 Active 81760180 Problem Borderline personality disorder F60.3 Active 18905003 Problem Decreased movements in third trimester, single or unspecified fetus O36.8130 Active 691462666 Problem Polyhydramnios in third trimester complication, single or unspecified fetus O40.3XX0 Active 27405823 ALLERGIES No Known Allergies ENCOUNTERS Encounter Location Date Diagnosis [facility] [id number], [place] [address] Jan, [facility] [id number], [place] [address] Oct, [facility] [id number] [place] [address] Oct, Neuropathy G62.9 [facility] [id number], [place] [address] Oct, [facility] [id number] [place] [address] Oct, Bipolar disorder, current episode mixed, moderate F31.62 and Post traumatic stress disorder F43.10 [facility] [address] [place] [address] Sep, Bipolar disorder, current episode mixed, moderate F31.62 and Post traumatic stress disorder F43.10 [place] [id number] [place] [address] Sep, [facility] [id number] [place] [address] Sep, Bipolar disorder, current episode mixed, moderate F31.62 ; High risk medication use Z79.899 and Post traumatic stress disorder F43.10 [place] [id number] [place] [address] Sep, [facility] [id number] [place] [address] Aug, Lumbar radiculopathy M54.16 [facility] [id number] [place] [address] Aug, Major depressive disorder, recurrent episode, moderate F33.1 ; Anxiety state, unspecified F41.1 ; Borderline personality disorder F60.3 and Post traumatic stress disorder F43.10 [place] [id number] [place] [address] Aug, Anxiety state, unspecified F41.1 ; Adjustment disorder with depressed mood F43.21 ; Major depressive disorder, recurrent episode, moderate F33.1 ; Post traumatic stress disorder F43.10 and Unspecified mood [affective] disorder F39 [facility] [id number] [place] [address] Aug, [facility] [id number] [place] [address] Jul, Acute nasopharyngitis J00 and Dependent edema R60.9 [facility] [id number] [place] [address] Jul, [place] [address], [place] [address] Jun, Screening for deficiency anemia Z13.0 [place] [address], [place] [address] May, Decreased movements in third trimester, single or unspecified fetus O36.8130 ; Polyhydramnios in third trimester complication, single or unspecified fetus O40.3XX0 and 38 weeks gestation of Z3A.38 [place] [id number], [place] [address] May, 37 weeks gestation of Z3A.37 ; Third trimester Z34.93 and Polyhydramnios affecting in third trimester O40.3XX0 [place] [address], [place] [address] May, care in third trimester Z34.93 ; Polyhydramnios in third trimester complication, single or unspecified fetus O40.3XX0 and 37 weeks gestation of Z3A.37 [place] [address] [place] [address] May, [place] [address], [place] [address] May, care, subsequent in third trimester Z34.83 and 35 weeks gestation of Z3A.35 [place] [address], [place] [address] May, [place] [address] [place] [address] Apr, 34 weeks gestation of Z3A.34 [place] [address] [place] [address] Apr, 32 weeks gestation of Z3A.32 and Polyhydramnios in third trimester complication, single or unspecified fetus O40.3XX0 [place] [address] [place] [address] Apr, [id number] [place] [address] Apr, 30 weeks gestation of Z3A.30 and Encounter for immunization Z23 [place] [id number] [place] [address] 15 Mar, 2017 Diabetes mellitus screening Z13.1 ; care in third trimester Z34.93 ; 28 weeks gestation of Z3A.28 ; Evaluate anatomy not seen on prior sonogram Z36 and Encounter for immunization Z23 [address] [id number] [place] [address] Feb, care, subsequent in second trimester Z34.82 and 25 weeks gestation of Z3A.25 [address] [id number] [place] [address] Feb, Unspecified mood [affective] disorder F39 and Borderline personality disorder F60.3 [address] [id number] [place] [address] Jan, care, subsequent in second trimester Z34.82 and 21 weeks gestation of Z3A.21 [address] [id number] [place] [address] Jan, Screening, anemia, deficiency, iron Z13.0 [id number] [place] [address] Dec, care, subsequent in second trimester Z34.82 ; Second trimester Z33.1 and 17 weeks gestation of Z3A.17 [id number] [place] [address] 16 Dec, 2016 Post traumatic stress disorder F43.10 and Adjustment disorder with depressed mood F43.[address] [place] [address] Dec, care, subsequent in first trimester Z34.81 and 12 weeks gestation of Z3A.12 [place] [address], [place] [address] November, Major depressive disorder, recurrent episode, moderate F33.1 and Anxiety state, unspecified F41.1 [place] [address], [place] [address] November, [place] [id number] [place] [address] November, [place] [id number] [place] [address] November, [place] [id number] [place] [address] November, care, subsequent in first trimester Z34.81 and UTI in , first trimester O23.41 [place] [id number] [place] [address] Oct, [place] [id number] [place] [address] Oct, Encounter for test, result unknown Z32.00 [place] [address] [place] [address] Apr, Major depressive disorder, recurrent episode, moderate F33.1 IMMUNIZATIONS No Known Immunizations SOCIAL HISTORY Never Assessed REASON FOR VISIT OB 4wk f/u---DBennettRN, back pain, bilateral side pain, worse when sleeping PLAN OF CARE Activity Details Follow Up 3 Weeks, 3 Weeks Reason: VITAL SIGNS Height 5'4" in 2017-03-18 Weight 190 lbs 2017-03-18 Temperature 97.8 degrees Fahrenheit 2017-03-18 Heart Rate 110 bpm 2017-03-18 Respiratory Rate 20 2017-03-18 BMI 32.61 kg/m2 2017-03-18 Blood pressure systolic 122 mmHg 2017-03-18 Blood pressure diastolic 70 mmHg 2017-03-18 MEDICATIONS Medication Instructions Dosage Frequency Start Date End Date Duration Status Complete 14-0.4 MG Orally Once a day 1 tablet 24h Active RESULTS No Results PROCEDURES Procedure Date Ordered Result Body Site URINE-NO MICRO Mar 18, 2017 INSTRUCTIONS MEDICATIONS ADMINISTERED No Known Medications MEDICAL (GENERAL) HISTORY Type Description Date Surgical History natural birthx 2 Hospitalization History childbirth only
--- OUTSIDE RECORDS SUMMARY | 2018-12-30 18:21 | XMS REPORT ---
Author Author RODRIGO DAVID [facility] Address [address] [place] [address] Care Team Providers Care Measurement Advisor Name Role Phone RODRIGO DAVID Unavailable PROBLEMS Type Condition ICD9-CM Code CSC82-OW Code Onset Dates Condition Status SNOMED Code Problem Anxiety state, unspecified F41.1 Active 605759141 Problem Post traumatic stress disorder F43.10 Active 84456565 Problem care, subsequent in second trimester Z34.82 Active 491282949 Problem Major depressive disorder, recurrent episode, moderate F33.1 Active 261731023 Problem Bipolar disorder, current episode mixed, moderate F31.62 Active 274007116 Problem Decreased movements in third trimester, single or unspecified fetus O36.8130 Active 386258378 Problem Borderline personality disorder F60.3 Active 41915127 Problem Adjustment disorder with depressed mood F43.21 Active 75267782 Problem Polyhydramnios in third trimester complication, single or unspecified fetus O40.3XX0 Active 64791983 Problem Unspecified mood [affective] disorder F39 Active 28997459 ALLERGIES No Information ENCOUNTERS Encounter Location Date Diagnosis [place] [id number], [place] [address] Oct, [facility] [address] [address] Sep, [facility] [id number], [place] [address] Sep, Bipolar disorder, current episode mixed, moderate F31.62 ; High risk medication use Z79.899 and Post traumatic stress disorder F43.10 [facility] [address], [place] [address] Sep, [facility] [address] [place] [address] 26 Aug, 2017 Lumbar radiculopathy M54.16 [address] [address] [address] 19 Aug, 2017 Major depressive disorder, recurrent episode, moderate F33.1 ; Anxiety state, unspecified F41.1 ; Borderline personality disorder F60.3 and Post traumatic stress disorder F43.10 [place] [address] [address] 15 Aug, 2017 Anxiety state, unspecified F41.1 ; Adjustment disorder with depressed mood F43.21 ; Major depressive disorder, recurrent episode, moderate F33.1 ; Post traumatic stress disorder F43.10 and Unspecified mood [affective] disorder F39 [place] [address] [address] Aug, [facility] [address] [address] Jul, Acute nasopharyngitis J00 and Dependent edema R60.9 [place] [address] [address] Jul, [place] [address] [address] Jun, Screening for deficiency anemia Z13.0 [place] [id number] [place] [address] May, Decreased movements in third trimester, single or unspecified fetus O36.8130 ; Polyhydramnios in third trimester complication, single or unspecified fetus O40.3XX0 and 38 weeks gestation of Z3A.[address] [address] May, 37 weeks gestation of Z3A.37 ; Third trimester Z34.93 and Polyhydramnios affecting in third trimester O40.3XX0 [place] [address] [address] May, care in third trimester Z34.93 ; Polyhydramnios in third trimester complication, single or unspecified fetus O40.3XX0 and 37 weeks gestation of Z3A.37 [place] [id number] [place] [address] 09 May, 2017 [place] [id number] [place] [address] May, care, subsequent in third trimester Z34.83 and 35 weeks gestation of Z3A.35 [place] [id number] [place] [address] May, [place] [id number] [place] [address] Apr, 34 weeks gestation of Z3A.34 [place] [id number] [place] [address] Apr, 32 weeks gestation of Z3A.32 and Polyhydramnios in third trimester complication, single or unspecified fetus O40.3XX0 [place] [id number] [place] [address] Apr, [place] [id number] [place] [address] Apr, 30 weeks gestation of Z3A.30 and Encounter for immunization [id number] [place] [address] Mar, Diabetes mellitus screening Z13.1 ; care in third trimester Z34.93 ; 28 weeks gestation of Z3A.28 ; Evaluate anatomy not seen on prior sonogram Z36 and Encounter for immunization [id number] [place] [address] Feb, care, subsequent in second trimester Z34.82 and 25 weeks gestation of Z3A.25 [place] [id number] [place] [address] Feb, Unspecified mood [affective] disorder F39 and Borderline personality disorder F60.3 [place] [id number] [place] [address] Jan, care, subsequent in second trimester Z34.82 and 21 weeks gestation of Z3A.21 [place] [id number] [place] [address] 07 Jan, 2017 Screening, anemia, deficiency, iron Z13.0 [place] [id number] [place] [address] 30 Dec, 2016 care, subsequent in second trimester Z34.82 ; Second trimester Z33.1 and 17 weeks gestation of Z3A.17 [place] [id number] [place] [address] 16 Dec, 2016 Post traumatic stress disorder F43.10 and Adjustment disorder with depressed mood F43.21 [place] [id number] [place] [address] Dec, care, subsequent in first trimester Z34.81 and 12 weeks gestation of Z3A.12 [place] [id number] [place] [address] November, Major depressive disorder, recurrent episode, moderate F33.1 and Anxiety state, unspecified F41.1 [place] [address] [address] November, [place] [id number] [place] [address] November, [place] [id number] [place] [address] November, [place] [address] [place] [address] November, care, subsequent in first trimester Z34.81 and UTI in , first trimester O23.41 [place] [address] [facility] [id number] [address] Oct, [facility] [address] [facility] [id number] [address] Oct, Encounter for test, result unknown Z32.00 [place] [address] [facility] [id number] [address] Apr, Major depressive disorder, recurrent episode, moderate F33.1 IMMUNIZATIONS No Known Immunizations SOCIAL HISTORY Never Assessed REASON FOR VISIT 4 wk OB-TY Gonzales PLAN OF CARE Activity Details Follow Up 4 Weeks Reason: VITAL SIGNS Height 5'4" in 2016-12-24 Weight 179 lbs 2016-12-24 Temperature 98.1 degrees Fahrenheit 2016-12-24 Heart Rate 90 bpm 2016-12-24 Respiratory Rate 18 2016-12-24 BMI 30.72 kg/m2 2016-12-24 Blood pressure systolic 110 mmHg 2016-12-24 Blood pressure diastolic 70 mmHg 2016-12-24 MEDICATIONS Unknown Medications RESULTS Name Result Date Reference Range A1C (IN HOUSE) 2016-12-24 A1C IN HOUSE 5.2 4.3 - 5.6 % Previous A1c n/a Lot [id number] Exp date 09/2018 UA OB DIP (IN HOUSE) 2016-12-24 Glucose neg Protein trace TSH 2016-12-24 TSH 0.100 0.450-4.500 CBC 2016-12-24 WBC 6.7 3.4-10.8 RBC 4.37 3.77-5.28 Hemoglobin 13.1 11.1-15.9 Hematocrit 38.3 34.0-46.6 MCV 88 79-97 MCH 30.0 26.6-33.0 MCHC 34.2 31.5-35.7 RDW 13.6 12.3-15.4 Platelets 269 150-379 Neutrophils 70 Lymphs 23 Monocytes 6 Eos 1 Basos 0 Neutrophils (Absolute) 4.6 1.4-7.0 Lymphs (Absolute) 1.5 0.7-3.1 Monocytes(Absolute) 0.4 0.1-0.9 Eos (Absolute) 0.1 0.0-0.4 Baso (Absolute) 0.0 0.0-0.2 Immature Granulocytes 0 Immature Grans (Abs) 0.0 0.0-0.1 ANTIBODY SCREEN 2016-12-24 Antibody Screen Negative Negative BLOOD TYPE/RH FACTOR 2016-12-24 ABO Grouping A Rh Factor Positive RUBELLA ANTIBODIES, IgG 2016-12-24 Rubella Antibodies, IgG 1.83 Immune >0.99 Ultrasound : OB, Early <14 WEEKS 2017-01-05 SYPHILIS (STATE) 2016-12-24 HIV (STATE) 2016-12-24 HEP B SURFACE ANTIGEN (STATE) 2016-12-24 HEP B ANTIBODY negative HEP B ANTIBODY (L) HEP B ANTIBODY (STATE) PROCEDURES Procedure Date Ordered Result Body Site URINE-NO MICRO December 24, 2016 GLYCATED HEMOGLOBIN TEST December 24, 2016 No Charge December 24, 2016 [facility] December 24, 2016 VENIPUNCT, ROUTINE* December 24, 2016 INSTRUCTIONS MEDICATIONS ADMINISTERED No Known Medications MEDICAL (GENERAL) HISTORY Type Description Date Surgical History natural birthx 2 Hospitalization History childbirth only
--- OUTSIDE RECORDS SUMMARY | 2018-12-30 18:21 | XMS REPORT ---
Author Author RODRIGO DAVID Organization [facility] Address [address] [place] [address] Care Team Providers Care Rn Corrections Name Role Phone RODRIGO DAVID Unavailable PROBLEMS Type Condition ICD9-CM Code XHD38-AP Code Onset Dates Condition Status SNOMED Code Problem Anxiety state, unspecified F41.1 Active 029136913 Problem Major depressive disorder, recurrent episode, moderate F33.1 Active 752052066 Problem Polyhydramnios in third trimester complication, single or unspecified fetus O40.3XX0 Active 98262607 Problem Unspecified mood [affective] disorder F39 Active 63716871 Problem Post traumatic stress disorder F43.10 Active 09236374 Problem care, subsequent in second trimester Z34.82 Active 190901954 Problem Borderline personality disorder F60.3 Active 02916202 Problem Adjustment disorder with depressed mood F43.21 Active 78303298 ALLERGIES No Information SOCIAL HISTORY Never Assessed PLAN OF CARE VITAL SIGNS MEDICATIONS Medication Instructions Dosage Frequency Start Date End Date Duration Status Clotrimazole 1 % Vaginal Once a day 1 application at bedtime 24h November, November, 7 day(s) Active RESULTS No Results PROCEDURES No Known procedures IMMUNIZATIONS No Known Immunizations MEDICAL (GENERAL) HISTORY Type Description Date Hospitalization History childbirth only
--- OUTSIDE RECORDS SUMMARY | 2018-12-30 18:21 | XMS REPORT ---
Author Author ENEIDA CHANDLER [facility] Address [address] [place] [address] Care Team Providers Care Product Trainer Name Role Phone ENEIDA CHANDLER Unavailable PROBLEMS Type Condition ICD9-CM Code XUN87-OC Code Onset Dates Condition Status SNOMED Code Problem care, subsequent in second trimester Z34.82 Active 298972051 Problem Adjustment disorder with depressed mood F43.21 Active 52487734 Problem Post traumatic stress disorder F43.10 Active 10557604 Problem Major depressive disorder, recurrent episode, moderate F33.1 Active 873713964 Problem Anxiety state, unspecified F41.1 Active 013690054 Problem Neuropathy G62.9 Active 777297045 Problem Bipolar disorder, current episode mixed, moderate F31.62 Active 269983353 Problem Unspecified mood [affective] disorder F39 Active 13897422 Problem Borderline personality disorder F60.3 Active 09042740 Problem Decreased movements in third trimester, single or unspecified fetus O36.8130 Active 032171266 Problem Polyhydramnios in third trimester complication, single or unspecified fetus O40.3XX0 Active 40969541 ALLERGIES No Information ENCOUNTERS Encounter Location Date Diagnosis [place] [id number], [place] [address] Jan, [facility] [id number] [place] [address] November, [facility] [id number] [place] [address] Oct, Neuropathy G62.9 [facility] [id number] [place] [address] Oct, [facility] [id number], [place] [address] Oct, Bipolar disorder, current episode mixed, moderate F31.62 and Post traumatic stress disorder F43.10 [facility] [id number] [place] [address] Sep, Bipolar disorder, current episode mixed, moderate F31.62 and Post traumatic stress disorder F43.10 [place] [id number] [place] [address] Sep, [place] [address] [address] Sep, Bipolar disorder, current episode mixed, moderate F31.62 ; High risk medication use Z79.899 and Post traumatic stress disorder F43.10 [place] [address] [address] Sep, [place] [address] [address] Aug, Lumbar radiculopathy M54.16 [place] [id number] [place] [address] Aug, Major depressive disorder, recurrent episode, moderate F33.1 ; Anxiety state, unspecified F41.1 ; Borderline personality disorder F60.3 and Post traumatic stress disorder F43.10 [place] [id number] [place] [address] Aug, Anxiety state, unspecified F41.1 ; Adjustment disorder with depressed mood F43.21 ; Major depressive disorder, recurrent episode, moderate F33.1 ; Post traumatic stress disorder F43.10 and Unspecified mood [affective] disorder F39 [facility] [id number] [place] [address] Aug, [facility] [id number] [place] [address] Jul, Acute nasopharyngitis J00 and Dependent edema R60.9 [facility] [address] [address] Jul, [place] [address], [place] [address] Jun, Screening for deficiency anemia Z13.0 [place] [address] [place] [address] May, Decreased movements in third trimester, single or unspecified fetus O36.8130 ; Polyhydramnios in third trimester complication, single or unspecified fetus O40.3XX0 and 38 weeks gestation of Z3A.38 [place] [address] [place] [address] May, 37 weeks gestation of Z3A.37 ; Third trimester Z34.93 and Polyhydramnios affecting in third trimester O40.3XX0 [place] [id number] [place] [address] May, care in third trimester Z34.93 ; Polyhydramnios in third trimester complication, single or unspecified fetus O40.3XX0 and 37 weeks gestation of Z3A.37 [place] [id number] [place] [address] May, [place] [id number] [place] [address] May, care, subsequent in third trimester Z34.83 and 35 weeks gestation of Z3A.35 [place] [address] [place] [address] May, [place] [id number] [place] [address] Apr, 34 weeks gestation of Z3A.34 [place] [id number] [place] [address] Apr, 32 weeks gestation of Z3A.32 and Polyhydramnios in third trimester complication, single or unspecified fetus O40.3XX0 [place] [id number] [place] [address] Apr, [place] [id number] [place] [address] Apr, 30 weeks gestation of Z3A.30 and Encounter for immunization Z23 [place] [id number] [place] [address] Mar, Diabetes mellitus screening Z13.1 ; care in third trimester Z34.93 ; 28 weeks gestation of Z3A.28 ; Evaluate anatomy not seen on prior sonogram Z36 and Encounter for immunization Z23 [place] [id number] [place] [address] Feb, care, subsequent in second trimester Z34.82 and 25 weeks gestation of Z3A.25 [place] [id number] [place] [address] Feb, Unspecified mood [affective] disorder F39 and Borderline personality disorder F60.3 [place] [id number] [place] [address] Jan, care, subsequent in second trimester Z34.82 and 21 weeks gestation of Z3A.21 [place] [id number] [place] [address] Jan, Screening, anemia, deficiency, iron Z13.0 [place] [id number] [place] [address] Dec, care, subsequent in second trimester Z34.82 ; Second trimester Z33.1 and 17 weeks gestation of Z3A.17 [place] [id number] [place] [address] 16 Dec, 2016 Post traumatic stress disorder F43.10 and Adjustment disorder with depressed mood F43.21 [place] [id number] [place] [address] 02 Dec, 2016 care, subsequent in first trimester Z34.81 and 12 weeks gestation of Z3A.12 [place] [address], [place] [address] November, Major depressive disorder, recurrent episode, moderate F33.1 and Anxiety state, unspecified F41.1 [place] [address], [place] [address] November, [place] [id number] [place] [address] November, [place] [id number] [place] [address] November, [place] [id number] [place] [address] November, care, subsequent in first trimester Z34.81 and UTI in , first trimester O23.41 [place] [id number] [place] [address] Oct, [place] [address] [place] [address] Oct, Encounter for test, result unknown Z32.[address] [place] [address] Apr, Major depressive disorder, recurrent episode, moderate F33.1 IMMUNIZATIONS No Known Immunizations SOCIAL HISTORY Never Assessed REASON FOR VISIT [facility] Hemoglobin PLAN OF CARE VITAL SIGNS MEDICATIONS Unknown Medications RESULTS Name Result Date Reference Range HEMOGLOBIN (IN HOUSE) 2017-06-28 HEMOGLOBIN 12.1 11.5 - 16 gm/dL Lot # [id number] Exp date 06/13/2018 PROCEDURES Procedure Date Ordered Result Body Site HEMOGLOBIN Jun 28, 2017 INSTRUCTIONS MEDICATIONS ADMINISTERED No Known Medications MEDICAL (GENERAL) HISTORY Type Description Date Surgical History natural birthx 2 Hospitalization History childbirth only
--- OUTSIDE RECORDS SUMMARY | 2018-12-30 18:22 | XMS REPORT ---
Author Author FRANKIE RODRIGO [facility] Address [address] [place] [address] Care Team Providers Care Auto Wrecker Name Role Phone FRANKIE RODRIGO Unavailable PROBLEMS Type Condition ICD9-CM Code JTM21-NT Code Onset Dates Condition Status SNOMED Code Problem Anxiety state, unspecified F41.1 Active 887644234 Problem Post traumatic stress disorder F43.10 Active 85732971 Problem care, subsequent in second trimester Z34.82 Active 319197554 Problem Major depressive disorder, recurrent episode, moderate F33.1 Active 991881206 Problem Bipolar disorder, current episode mixed, moderate F31.62 Active 890784501 Problem Decreased movements in third trimester, single or unspecified fetus O36.8130 Active 718476555 Problem Borderline personality disorder F60.3 Active 75866307 Problem Adjustment disorder with depressed mood F43.21 Active 44145657 Problem Polyhydramnios in third trimester complication, single or unspecified fetus O40.3XX0 Active 10951107 Problem Unspecified mood [affective] disorder F39 Active 11189447 ALLERGIES No Known Allergies ENCOUNTERS Encounter Location Date Diagnosis [place] [address], [place] [address] Oct, [facility] [address], [place] [address] Oct, [facility] [id number], [place] [address] Sep, Bipolar disorder, current episode mixed, moderate F31.62 and Post traumatic stress disorder F43.10 [facility] [id number], [place] [address] Sep, [place] [address] [place] [address] Sep, Bipolar disorder, current episode mixed, moderate F31.62 ; High risk medication use Z79.899 and Post traumatic stress disorder F43.10 [facility] [id number] [place] [address] Sep, [place] [id number] [place] [address] Aug, Lumbar radiculopathy M54.16 [place] [address] [address] Aug, Major depressive disorder, recurrent episode, moderate F33.1 ; Anxiety state, unspecified F41.1 ; Borderline personality disorder F60.3 and Post traumatic stress disorder F43.10 [place] [id number] [place] [address] 15 Aug, 2017 Anxiety state, unspecified F41.1 ; Adjustment disorder with depressed mood F43.21 ; Major depressive disorder, recurrent episode, moderate F33.1 ; Post traumatic stress disorder F43.10 and Unspecified mood [affective] disorder F39 [place] [id number] [place] [address] Aug, [facility] [id number] [place] [address] Jul, Acute nasopharyngitis J00 and Dependent edema R60.9 [place] [id number] [place] [address] Jul, [facility] [id number] [place] [address] Jun, Screening for deficiency anemia Z13.0 [place] [id number] [place] [address] May, Decreased movements in third trimester, single or unspecified fetus O36.8130 ; Polyhydramnios in third trimester complication, single or unspecified fetus O40.3XX0 and 38 weeks gestation of Z3A.38 [place] [address] [place] [address] May, 37 weeks gestation of Z3A.37 ; Third trimester Z34.93 and Polyhydramnios affecting in third trimester O40.3XX0 [place] [id number] [place] [address] May, care in third trimester Z34.93 ; Polyhydramnios in third trimester complication, single or unspecified fetus O40.3XX0 and 37 weeks gestation of Z3A.37 [place] [id number] [place] [address] May, [place] [id number] [place] [address] May, care, subsequent in third trimester Z34.83 and 35 weeks gestation of Z3A.35 [place] [id number] [place] [address] May, [place] [id number] [place] [address] Apr, 34 weeks gestation of Z3A.34 [place] [id number] [place] [address] Apr, 32 weeks gestation of Z3A.32 and Polyhydramnios in third trimester complication, single or unspecified fetus O40.3XX0 [place] [id number] [place] [address] Apr, [place] [id number] [place] [address] Apr, 30 weeks gestation of Z3A.30 and Encounter for immunization Z23 [place] [id number] [place] [address] 15 Mar, 2017 Diabetes mellitus screening Z13.1 ; care in third trimester Z34.93 ; 28 weeks gestation of Z3A.28 ; Evaluate anatomy not seen on prior sonogram Z36 and Encounter for immunization Z23 [place] [id number] [place] [address] Feb, care, subsequent in second trimester Z34.82 and 25 weeks gestation of Z3A.25 [place] [id number] [place] [address] Feb, Unspecified mood [affective] disorder F39 and Borderline personality disorder F60.3 [place] [id number] [place] [address] Jan, care, subsequent in second trimester Z34.82 and 21 weeks gestation of Z3A.21 [place] [id number] [place] [address] Jan, Screening, anemia, deficiency, iron Z13.0 [place] [address] [address] Dec, care, subsequent in second trimester Z34.82 ; Second trimester Z33.1 and 17 weeks gestation of Z3A.17 [place] [id number] [place] [address] 16 Dec, 2016 Post traumatic stress disorder F43.10 and Adjustment disorder with depressed mood F43.21 [place] [address] [place] [address] Dec, care, subsequent in first trimester Z34.81 and 12 weeks gestation of Z3A.12 [place] [id number] [place] [address] November, Major depressive disorder, recurrent episode, moderate F33.1 and Anxiety state, unspecified F41.1 [place] [id number] [place] [address] November, [place] [id number] [place] [address] November, [place] [id number], [place] [address] November, [place] [address], [place] [address] November, care, subsequent in first trimester Z34.81 and UTI in , first trimester O23.[address] [place] [address] Oct, [place] [address] [place] [address] Oct, Encounter for test, result unknown Z32.00 [place] [id number] [place] [address] Apr, Major depressive disorder, recurrent episode, moderate F33.1 IMMUNIZATIONS No Known Immunizations SOCIAL HISTORY Never Assessed REASON FOR VISIT OB f/u 4 wk--[place] PLAN OF CARE Activity Details Follow Up 4 Weeks Reason: VITAL SIGNS Height 5'4" in 2017-01-21 Weight 181.0 lbs 2017-01-21 Temperature 98.4 degrees Fahrenheit 2017-01-21 Heart Rate 84 bpm 2017-01-21 Respiratory Rate 20 2017-01-21 BMI 31.07 kg/m2 2017-01-21 Blood pressure systolic 122 mmHg 2017-01-21 Blood pressure diastolic 70 mmHg 2017-01-21 MEDICATIONS Medication Instructions Dosage Frequency Start Date End Date Duration Status Complete 14-0.4 MG Orally Once a day 1 tablet 24h Active Zoloft 50 mg Orally Once a day for two weeks, then 1 tablet daily 1/2 tablet Dec, 30 day(s) Active RESULTS Name Result Date Reference Range UA OB DIP (IN HOUSE) 2017-01-21 Glucose Negative Protein Negative TETRA SCREEN 2017-01-21 Results Report Test Results: *Screen Negative* Gest. Age on Collection Date 17.1 Gestat. Age Based On PRIMITIVO Maternal Age At PRIMITIVO 22.6 Race Weight 181 Insulin Dep Diabetes No Multiple Gestation AFP Value 23.5 AFP MoM 0.70 hCG Value hCG MoM 0.69 uE3 Value 1.13 uE3 MoM 1.10 JAGJIT Value 109.75 JAGJIT MoM 0.71 OSBR [place] 1 [place] [address] DSR (Second Trimester) 1 [place] [address] DSR (By Age) 1 [place] 1114 T18 Risk Not increased T18 (By Age) 1:4339 Interpretation Comments: PDF . CULTURE, URINE 2017-01-21 Urine Culture, Routine Final report Result 1 No growth PDF Report 2017-01-21 PDF Report1 LCLS PROCEDURES Procedure Date Ordered Result Body Site URINE-NO MICRO January 21, 2017 [facility] 21, 2017 VENIPUNCT, ROUTINE* January 21, 2017 INSTRUCTIONS MEDICATIONS ADMINISTERED No Known Medications MEDICAL (GENERAL) HISTORY Type Description Date Surgical History natural birthx 2 Hospitalization History childbirth only
--- OUTSIDE RECORDS SUMMARY | 2018-12-30 18:22 | XMS REPORT | Continuity of Care Document ---
Author Organization Unknown Address Unknown Allergies Active Description Code Type Severity Reaction Onset Reported/Identified Relationship to Patient Clinical Status Yes NO KNOWN DRUG ALLERGIES NO KNOWN DRUG ALLERG UNKNOWN Yes NO KNOWN DRUG ALLERGIES UNKNOWN NO KNOWN DRUG ALLERG Yes No Known Allergies NKA Miscellaneous Allergy Unknown N/A 06/07/2014 Yes MDX - No Known Drug Allergies - Nkd [id number] Drug Allergy Unknown N/A 06/10/2014 Yes No Known Drug Allergies - Nkda [id number] Drug Allergy Unknown N/A 06/10/2014 Yes No Known Drug Allergies [id number] Drug Allergy Unknown N/A 01/14/2015 Medications Medication Packaging Start Date Stop Date Route Dosage Sig CEFTRIAXONE INJ 1 GM (ROCEPHIN) GM 2016 2016 ONCE&1739 CYCLOBENZAPRINE TAB 10 MG (FLEXERIL) MG 09/18/2017 09/18/2017 ONCE&0045 KETOROLAC VIAL INJ 30 MG/CC (TORADOL VIAL) MG 05/15/2018 05/15/2018 ONCE&0110 ORPHENADRINE INJ 60 MG/2CC (NORFLEX) MG 05/15/2018 05/15/2018 ONCE&0111 Problems Date Dx Coded Attending Type Code Diagnosis Diagnosed By 02/13/2014 Donato Layne 455.3 02/13/2014 Donato Layne 648.93 02/13/2014 Donato Layne 787.91 02/13/2014 Donato Layne 788.41 02/13/2014 Donato Layne 789.03 02/13/2014 Donato Layne 789.04 06/05/2014 Dontrell Weston W 278.00 06/05/2014 Dontrell Weston W 346.90 06/05/2014 Dontrell Weston 644.13 06/12/2014 Dontrell Weston 278.00 06/12/2014 Bj Westonen F 455.6 06/12/2014 PriddDontrell yung F 645.11 06/12/2014 PriddDontrell yung F 649.11 06/12/2014 PriddDontrell yung F 664.01 06/12/2014 PriddDontrell yung F 671.81 06/12/2014 AliciaDontrell yung A V22.0 06/12/2014 PrionielDontrell yung V27.0 01/14/2015 ZAID LOPEZ W 692.9 01/14/2015 ZAID LOPEZ W 698.9 01/14/2015 ZAID LOPEZ A 782.1 2016 Honoiro Davis 041.49 OTHER AND UNSPECIFIED ESCHERICHIA COLI [E. COLI] INFECTION IN CONDITIONS CLASSIFIED ELSEWHERE AND OF UNSPECIFIED SITE 2016 Honorio Davis 646.61 INFECTIONS OF GENITOURINARY TRACT IN , DELIVERED, WITH OR WITHOUT MENTION OF ANTEPARTUM CONDITION 2016 Honorio Davis B96.20 UNSP ESCHERICHIA COLI THE CAUSE OF DISEASES CLASSD ELSWHR 2016 Honorio Davis O23.41 UNSP INFCT OF URINARY TRACT IN , FIRST TRIMESTER 2016 Honorio Davis Z3A.01 LESS THAN 8 WEEKS GESTATION OF 03/06/[address] 041.49 OTHER AND UNSPECIFIED ESCHERICHIA COLI [E. COLI] INFECTION IN CONDITIONS CLASSIFIED ELSEWHERE AND OF UNSPECIFIED SITE 03/06/[address] 338.11 ACUTE PAIN DUE TO TRAUMA 03/06/[address] 646.61 03/06/[address] 646.81 03/06/[address] 646.83 03/06/[address] 719.45 PAIN IN JOINT INVOLVING PELVIC REGION AND THIGH 03/06/[address] 724.2 LUMBAGO 03/06/[address] B96.20 UNSP ESCHERICHIA COLI THE CAUSE OF DISEASES CLASSD ELSWHR 03/06/[address] G89.11 ACUTE PAIN DUE TO TRAUMA 03/06/[address] M25.551 PAIN IN RIGHT HIP 03/06/[address] M54.5 LOW BACK PAIN 03/06/[address] O23.42 UNSP INFCT OF URINARY TRACT IN , SECOND TRIMESTER 03/06/[address] O99.352 DISEASES OF THE NERVOUS SYS COMP , SECOND TRIMESTER 03/06/[address] O99.89 OTH DISEASES AND CONDITIONS COMPL PREG/CHLDBRTH 08/09/2017 Honorio Davis 845.00 UNSPECIFIED SITE OF ANKLE SPRAIN 08/09/2017 Honorio Davis S93.402A SPRAIN OF UNSPECIFIED LIGAMENT OF LEFT ANKLE, INIT ENCNTR 09/18/2017 KESHA SANCHEZ 724.1 PAIN IN THORACIC SPINE 09/18/2017 KESHA SANCHEZ M54.6 PAIN IN THORACIC SPINE 01/04/2018 Ruben Holloway 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 01/04/2018 Ruben Holloway G90.521 COMPLEX REGIONAL PAIN SYNDROME I OF RIGHT LOWER LIMB 01/19/2018 Ruben Holloway 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 01/19/2018 Ruben Holloway G90.521 COMPLEX REGIONAL PAIN SYNDROME I OF RIGHT LOWER LIMB 05/15/2018 JARON RIBEIRO 724.2 LUMBAGO 05/15/2018 JARON RIBEIRO M54.5 LOW BACK PAIN 11/23/2018 LEISURESHO 959.9 OTHER AND UNSPECIFIED INJURY TO UNSPECIFIED SITE 11/23/2018 LEISURE, SHO Saldivar T14.91 SUICIDE ATTEMPT 11/23/2018 LEISURE, SHO Saldivar 959.9 OTHER AND UNSPECIFIED INJURY TO UNSPECIFIED SITE 11/23/2018 LEISURE, SHO Saldivar T14.91 SUICIDE ATTEMPT 11/23/2018 LEISURE, SHO Saldivar 311 DEPRESSIVE DISORDER, NOT ELSEWHERE CLASSIFIED 11/23/2018 LEISURE, SHO Saldivar 959.9 OTHER AND UNSPECIFIED INJURY TO UNSPECIFIED SITE 11/23/2018 LEISURE, SHO Saldivar F32.9 MAJOR DEPRESSIVE DISORDER, SINGLE EPISODE, UNSPECIFIED 11/23/2018 LEISURE, SHO Saldivar T14.91 SUICIDE ATTEMPT 11/23/2018 LEISURE, SHO Saldivar 311 DEPRESSIVE DISORDER, NOT ELSEWHERE CLASSIFIED 11/23/2018 LEISURE, SHO Saldivar 959.9 OTHER AND UNSPECIFIED INJURY TO UNSPECIFIED SITE 11/23/2018 LEISURE, SHO Saldivar F32.9 MAJOR DEPRESSIVE DISORDER, SINGLE EPISODE, UNSPECIFIED 11/23/2018 LEISURE, SHO Saldivar T14.91 SUICIDE ATTEMPT 11/23/2018 LEISURE, SHO Saldivar 296.20 MAJOR DEPRESSIVE DISORDER, SINGLE EPISODE, UNSPECIFIED DEGREE 11/23/2018 LEISURE, SHO Saldivar 311 DEPRESSIVE DISORDER, NOT ELSEWHERE CLASSIFIED 11/23/2018 LEISURE, SHO Saldivar 780.4 DIZZINESS AND GIDDINESS 11/23/2018 LEISURE, SHO Saldivar 969.02 POISONING BY SELECTIVE SEROTONIN AND NOREPINEPHRINE REUPTAKE INHIBITORS 11/23/2018 LEISURE, SHO Saldivar F32.9 MAJOR DEPRESSIVE DISORDER, SINGLE EPISODE, UNSPECIFIED 11/23/2018 LEISURE, SHO Saldivar R42 DIZZINESS AND GIDDINESS 11/23/2018 LEISURE, SHO Saldivar T43.212A POISN BY SLCTV SEROTON/NOREPINEPH REUP INHIBTR,SLF-HRM, INIT Procedures Code Description Performed By Performed On 73.01 06/10/2014 73.4 06/10/2014 73.59 06/10/2014 75.69 06/10/2014 Results Test Result Range Comprehensive Metabolic Panel - 11/02/16 16:18 Albumin 4.2 g/dL 3.6-5.1 ALP 68 U/L 35-130 ALT 13 U/L 6-45 Anion Gap 15 6-14 AST 14 U/L 2-40 BUN 9 mg/dL 5-25 Calcium 9.3 mg/dL 8.3-10.4 Chloride 105 mmol/L 95-114 CO2 25 mEq/L 22-33 Creat 0.61 mg/dL 0.50-1.50 eGFR 123 mL/min/1.73m2 >59 Globulin 3.7 g/dL 2.3-3.5 Glucose 91 mg/dL 70-110 Osmo 290 280-295 Potassium 3.8 mmol/L 3.5-5.3 Sodium 141 mmol/L 134-148 TBil 0.4 mg/dL 0.2-1.2 TP 7.9 g/dL 6.0-8.3 Test-Urine - 11/02/16 16:18 Preg Test-U Positive Negative Urinalysis - 11/02/16 16:18 Icotest N/A Negative Urine Volume Urine Volume Sufficient (10mL) Urine Yeast No Yeast present Urine-Appearance Cloudy Clear Urine-Bacteria 4+ Urine-Bilirubin Negative Negative Urine-Blood Trace-lysed Negative Urine-Color Yellow Colorless-Lt. Yellow Urine-Epithelial Cells 0-5/HPF Urine-Glucose Negative Negative Urine-Ketones Negative Negative Urine-Leukocytes 1+ Negative Urine-Nitrite Positive Negative Urine-Other Culture to follow Urine-pH 6.0 5-8.5 Urine-Protein Negative Negative Urine-RBC Rare/HPF Urine-Specific Fortine 1.025 1.000-1.030 Urine-WBC 20-40/HPF Urobilinogen 0.2 E.U./dL 0.2-1.0 Urine Culture - 11/02/16 16:18 PRELIM CULTURE RESULTS >100,000 Gram Negative Lactose Wage Hand RAIZA / ID to Follow MEDIA PLATED Setup at 17:27 on 2016 CULTURE SOURCE clean [id number]\ Sensi - 11/02/16 16:18 FINAL CULTURE RESULTS Escherichia coli (Isolate 1) Ampicillin/Sulbactam <=8/4 Ampicillin <=8 Amoxicillin/K Clavulanate <=8/4 Ceftriaxone <=8 Ciprofloxacin <=1 Nitrofurantoin <=32 Gentamicin <=4 Levofloxacin <=2 Trimethoprim/ Sulfamethoxazole <=2/38 Tetracycline <=4 Amikacin <=16 Aztreonam <=8 Ceftazidime <=1 Ceftazidime/K Clavulanate <=0.25 Cephalothin 16 Cefotaxime <=2 Cefotaxime/K Clavulanate <=0.5 Cefoxitin <=8 Cefazolin <=8 Cefepime <=8 Cefuroxime 8 Ertapenem <=1 Imipenem <=4 Meropenem <=4 Piperacillin/Tazobactam <=16 Piperacillin <=16 Tigecycline <=2 Tobramycin <=4 BMP - 03/05/17 22:56 Anion Gap 16 6-14 BUN 11 mg/dL 5-25 Calcium 9.0 mg/dL 8.3-10.4 Chloride 106 mmol/L 95-114 CO2 21 mEq/L 22-33 Creat 0.55 mg/dL 0.50-1.50 eGFR 138 mL/min/1.73m2 >59 Glucose 97 mg/dL 70-110 Osmo 287 280-295 Potassium 3.6 mmol/L 3.5-5.3 Sodium 139 mmol/L 134-148 Urinalysis - 03/05/17 22:56 Icotest N/A Negative Urine Volume Urine Volume Sufficient (10mL) Urine Yeast No Yeast present Urine-Appearance Cloudy Clear Urine-Bacteria 3+ Urine-Bilirubin Negative Negative Urine-Blood 1+ Negative Urine-Color Yellow Colorless-Lt. Yellow Urine-Epithelial Cells 0-5/HPF Urine-Glucose Negative Negative Urine-Ketones Negative Negative Urine-Leukocytes 2+ Negative Urine-Nitrite Positive Negative Urine-Other Culture to follow Urine-pH 6.0 5-8.5 Urine-Protein Negative Negative Urine-RBC 2-5/HPF Urine-Specific Fortine >=1.030 1.000-1.030 Urine-WBC TNTC Urobilinogen 1.0 0.2-1.0 Urine Culture - 03/05/17 23:15 PRELIM CULTURE RESULTS >100,000 Gram Negative Lactose Wage Hand RAIZA / ID to Follow MEDIA PLATED Setup at 23:20 on 03/05/2017 CULTURE SOURCE void Sensi - 03/05/17 23:15 FINAL CULTURE RESULTS Escherichia coli (Isolate 1) Ampicillin/Sulbactam <=8/4 Ampicillin <=8 Amoxicillin/K Clavulanate <=8/4 Ceftriaxone <=8 Ciprofloxacin <=1 Nitrofurantoin <=32 Gentamicin <=4 Levofloxacin <=2 Trimethoprim/ Sulfamethoxazole <=2/38 Tetracycline <=4 Amikacin <=16 Aztreonam <=8 Ceftazidime <=1 Ceftazidime/K Clavulanate <=0.25 Cephalothin <=8 Cefotaxime <=2 Cefotaxime/K Clavulanate <=0.5 Cefoxitin <=8 Cefazolin <=8 Cefepime <=8 Cefuroxime <=4 Ertapenem <=1 Imipenem <=4 Meropenem <=4 Piperacillin/Tazobactam <=16 Piperacillin <=16 Tigecycline <=2 Tobramycin <=4 CBC - 04/08/17 15:05 WBC 7.5 x10E3/uL 3.4-10.8 RBC 3.94 x10E6/uL 3.77-5.28 Hemoglobin 11.5 g/dL 11.1-15.9 Hematocrit 34.3 % 34.0-46.6 MCV 87 fL 79-97 MCH 29.2 pg 26.6-33.0 MCHC 33.5 g/dL 31.5-35.7 RDW 13.1 % 12.3-15.4 Platelets 275 x10E3/uL 150-379 Neutrophils 73 % NRG Lymphs 19 % NRG Monocytes 7 % NRG Eos 1 % NRG Basos 0 % NRG Neutrophils (Absolute) 5.4 x10E3/uL 1.4-7.0 Lymphs (Absolute) 1.4 x10E3/uL 0.7-3.1 Monocytes(Absolute) 0.6 x10E3/uL 0.1-0.9 Eos (Absolute) 0.1 x10E3/uL 0.0-0.4 Baso (Absolute) 0.0 x10E3/uL 0.0-0.2 Immature Granulocytes 0 % NRG Immature Grans (Abs) 0.0 x10E3/uL 0.0-0.1 CULTURE, GROUP B STREP (VAGINAL) - 05/31/17 09:48 STREPTOCOCCUS, GROUP B CULTURE SEE NOTE NRG CULTURE, GENITAL - 04/26/18 11:08 CULTURE, GENITAL SEE NOTE NRG Ethanol - 11/23/18 17:11 Ethanol <10 mg/dL 20-80 Rapid Drug Screen + ETOH,Medical - 11/23/18 17:55 Amphetamine NEGATIVE NEGATIVE Barbiturates NEGATIVE NEGATIVE Benzodiazepines NEGATIVE NEGATIVE Cocaine NEGATIVE NEGATIVE Ethanol, Urine <10.00 mg/dL 20.00-80.00 Marijuana NEGATIVE NEGATIVE Methylenedioxymethamphetamine NEGATIVE NEGATIVE Opiates NEGATIVE NEGATIVE Oxycodone NEGATIVE NEGATIVE Phencyclidine NEGATIVE NEGATIVE Propoxyphene NEGATIVE NEGATIVE Tricyclic Antidepressant NEGATIVE NEGATIVE Encounters ACCT No. Visit Date/Time Discharge Status Pt. Type Provider Facility Loc./Unit Complaint [id number] 11/23/2018 16:50:00 11/23/2018 [facility]10:[id number]2018 00:53:00 05/15/2018 02:35:00 [id number] 01/[facility]/2018 08:50:00 01/19/2018 09:30:00 DIS Outpatient Ruben Holloway [id number] 09/18/2017 00:22:00 09/18/2017 00:54:00 DIS Outpatient KESHA SANCHEZ [facility] ER [id number] 08/09/2017 10:14:00 08/09/2017 11:12:00 DIS Outpatient Susan [facility] ER [id number] 03/05/2017 22:50:00 03/06/2017 00:08:[address] [id number] 2016 15:37:00 2016 17:59:00 [id number] 17:39:39 Document Registration [id number] 12/28/2018 16:40:00 ACT Outpatient RUBEN HOLLOWAY MD [facility] [id number] 04/26/2018 10:20:00 Document Registration [id number] 05/31/2017 09:00:00 Document Registration [id number] 04/08/2017 14:40:00 Document Registration [id number] 01/14/2015 16:03:00 01/14/2015 17:05:00 DIS Emergency ZAID LOPEZ [facility] COL.ER [id number] 06/10/2014 06:53:00 06/12/2014 13:00:00 DIS Inpatient Dontrell Weston [facility] OB [id number] 06/04/2014 22:48:00 06/05/2014 00:25:00 DIS Outpatient Dontrell Weston [facility] LDRO [id number] 02/13/2014 17:56:00 02/13/2014 19:44:00 DIS Emergency Donato Layne [facility] COL.ER
--- NOTE | 2018-12-30 19:06 | NUR ---
pt to rm 9 c/o lower abdominal pain radiating to back, vaginal bleeding today. states had positive test last night, and negative test this am. reports lmp approx. 10days ago but it only lasted 2 days.
[2018-12-30 19:21] LABS: BILIRUBIN,URINE NEGATIVE (NEGATIVE); CLARITY,URINE CLEAR; COLOR,URINE YELLOW; GLUCOSE, URINE (UA) NEGATIVE (NEGATIVE); KETONES,URINE NEGATIVE (NEGATIVE); LEUKOCYTE ESTERASE ,URINE 1+ (NEGATIVE); NITRITE,URINE NEGATIVE (NEGATIVE); PH,URINE 6 (5-9); PROTEIN,URINE 1+ (NEGATIVE); UROBILINOGEN,URINE 1 MG/DL (NORMAL)
--- NOTE | 2018-12-30 19:28 | ED GU-Female ---
General Chief Complaint: Abdominal/GI Problems Stated Complaint: LOWER PELVIC PAIN Nursing Triage Note: PT TO ED W/ C/O LOWER ABD ONSET 1500 TODAY. REPORTS TOOK PREG TEST AT HOME LAST NOC THAT WAS POSITIVE ET AGAIN THIS AM THAT WAS NEGATIVE. REPORTS LMP X2 WKS AGO. NOTED DK BROWN SPOTTING TODAY. NO OTHER C/O VOICED Nursing Sepsis Screen: No Definite Risk Source: patient Exam Limitations: no limitations History of Present Illness Date Seen by Provider: Dec 30, 2018 Time Seen by Provider: 19:13 Initial Comments Patient presents to ER by private conveyance with chief complaint that she is having vaginal bleeding today since 3:00 in the afternoon accompanied by severe 8 out of 10 suprapubic and right lower pelvic abdominal cramping. She says it feels like [place] and is radiating to her back. She has no fever or chills but she does have nausea and vomiting times one. She has a history of fibromyalgia. She's taken several doses of ibuprofen without effect. She is a . Her menstrual cycles very irregular at about 10-14 days ago she had 2 days of bleeding which was unexpected and usually her periods last 5 days. Prior to that was the beginning of October putting her in the 8-10 week range. She took a urine from seat test yesterday and it was positive which was the first time she ever tested it. His morning she took another urine test and it was negative. Nursing reports her bedside today is negative. Allergies and Home Medications Allergies Coded Allergies: No Known Allergies (Verified Allergy, Unknown, 03/06/17) Home Medications Hydrocodone Bit/Acetaminophen 1 Tab Tab, 1 EACH PO Q4-6HR PRN for PAIN-MODERATE Prescribed by: MILTON THORPE on 12/30/181933 Hydrocodone/Acetaminophen 1 Each Tablet, 1 EACH PO Q6H Prescribed by: TIARRA JIMÉNEZ on 02/11/18 1609 Patient Home Medication List Home Medication List Reviewed: Yes Review of Systems Review of Systems Constitutional: No chills, No diaphoresis EENTM: No ear discharge, No ear pain Respiratory: No cough, No short of breath Cardiovascular: No chest pain, No edema Gastrointestinal: see HPI, abdominal pain; No constipation, No diarrhea; nausea, vomiting (x1) Genitourinary: denies burning, denies discharge; dysuria (pressure) : Yes (yesterday urine test was positive) LMP: Oct 26, 2018 Past Mhntiqc-Xwuifr-Ferqdc Hx Patient Social History Alcohol Use: Occasionally Uses Recreational Drug Use: No Smoking Status: Never a Smoker Recent Foreign Travel: No Contact w/Someone Who Travel: No Recent Infectious Disease Expo: No Recent Hopitalizations: No Immunizations Up To Date Tetanus Booster (TDap): Less than 5yrs PED Vaccines UTD: No Date of Influenza Vaccine: May 08, 2017 Seasonal Allergies Seasonal Allergies: No Past Medical History Surgeries: No Respiratory: No Cardiac: No Neurological: No Hx : 2 Hx Para: 2 Female Reproductive Disorders: Denies Sexually Transmitted Disease: No HIV/AIDS: No Genitourinary: No Gastrointestinal: No Musculoskeletal: Yes Chronic Back Pain Endocrine: No HEENT: No Cancer: No Psychosocial: Yes Anxiety, PTSD, Depression Integumentary: No Blood Disorders: No Adverse Reaction/Blood Tranf: No Family Medical History Diabetes mellitus 19 MOTHER G8 SISTER Hypertension 19 MOTHER Respiratory disorder 19 MOTHER Visual disorder 19 MOTHER Physical Exam Vital Signs Vital Signs - First Documented 12/30/18 18:33 Temp 98.1 Pulse 101 Resp 18 B/P (MAP) 115/81 (92) Pulse Ox 94 O2 Delivery Room Air Capillary Refill : Less Than 3 Seconds Height, Weight, BMI Height: 5'4.00" Weight: 230lbs. 4.0oz. 104.849211ed; 33.7 BMI Method:Stated General Appearance: WD/WN, mild distress HEENT: PERRL/EOMI, pharynx normal Neck: full range of motion, normal inspection Cardiovascular: normal peripheral pulses, regular rate, rhythm Respiratory: lungs clear, normal breath sounds, no respiratory distress, no accessory muscle use Gastrointestinal: normal bowel sounds, soft, tenderness (suprapubic and right lower quadrant pelvis. Negative for pain over McBurney's point, rebound tenderness or Rovsing sign.) Neurologic/Psychiatric: alert, normal mood/affect, oriented x 3 Skin: normal color, warm/dry Progress/Results/Core Measures Suspected Sepsis Recent Fever Within 48 Hours: No Infection Criteria Present: None New/Unexplained Altered Menta: No Sepsis Screen: No Definite Risk SIRS Temperature:98.1 Pulse: 101 Respiratory Rate: 18 Blood Pressure 115 /81 Mean: 92 Results/Orders Lab Results Laboratory Tests Test 12/30/18 19:11 Range/Units Urine Color YELLOW Urine Clarity CLEAR Urine pH 6 5-9 Urine Specific Cantil 1.025 H 1.016-1.022 Urine Protein 1+ H NEGATIVE Urine Glucose (UA) NEGATIVE NEGATIVE Urine Ketones NEGATIVE NEGATIVE Urine Nitrite NEGATIVE NEGATIVE Urine Bilirubin NEGATIVE NEGATIVE Urine Urobilinogen 1 NORMAL MG/DL Urine Leukocyte Esterase 1+ H NEGATIVE Urine RBC (Auto) 2+ H NEGATIVE Urine RBC NONE /HPF Urine WBC 2-5 /HPF Urine Squamous Epithelial Cells 25-50 H /HPF Urine Crystals NONE /LPF Urine Bacteria MODERATE H /HPF Urine Casts NONE /LPF Urine Mucus NEGATIVE /LPF Urine Culture Indicated YES My Orders Orders - MILTON THORPE Ua Culture If Indicated (12/30/18 18:37) Urine Bedside (12/30/18 19:14) Hydrocodone/Apap 5/325 Tablet (Lortab 5 (12/30/18 19:30) Urine Culture (12/30/18 19:11) Medications Given in ED Current Medications Medications Dose Ordered Sig/Gini Route Start Time Stop Time Status Last Admin Dose Admin Acetaminophen/ Hydrocodone Bitart 1 tab ONCE ONCE PO 12/30/18 19:30 12/30/18 19:31 DC 12/30/18 19:30 1 TAB Vital Signs/I&O 12/30/18 18:33 Temp 98.1 Pulse 101 Resp 18 B/P (MAP) 115/81 (92) Pulse Ox 94 O2 Delivery Room Air Capillary Refill : Less Than 3 Seconds Blood Pressure Mean: 92 Progress Note : Time: 19:29 Progress Note Urine test in the ER is negative. Ectopic seems unlikely. I put her somewhere around 9 weeks plus or minus based on her loose LMP history. We will mortgage counselor expectant management for miscarriage and follow-up with OB next week. Departure Impression Primary Impression: Miscarriage Disposition: 01 HOME, SELF-CARE Condition: Stable Departure-Patient Inst. Decision time for Depature: 19:35 Referrals: RUBEN HOLLOWAY MD (PCP/Family) Primary Care Physician Patient Instructions: Miscarriage Add. Discharge Instructions: Continue to use ibuprofen 800 mg every 8 hours as necessary for pain. For breakthrough pain can use the hydrocodone one tablet every 4-6 hours as needed. Heating pads and rest may be helpful. Follow-up with OB next week as necessary. You may see clots but if you see a clot bigger than the size of your fist or you're having bleeding through pads more than one per hour routinely then you should return to the ER for further evaluation. All discharge instructions reviewed with patient and/or family. Voiced und erstanding. Scripts Hydrocodone Bit/Acetaminophen (Hydrocodone/Acetaminophen 5/325mg Tablet) 1 Tab Tab 1 EACH PO Q4-6HR PRN for PAIN-MODERATE MDD 10 for 3 Days, #12 TAB 0 Refills Prov: MILTON THORPE 12/30/18 Work/School Note: Work Release Form Date Seen in the Emergency Department: Dec 30, 2018 Return to Work: Jan 01, 2019 Restrictions: No Restrictions MILTON THORPE Dec 30, 2018 19:28
[2018-12-30 19:30] LABS: BACTERIA,URINE MODERATE /HPF
[2018-12-30] MEDS ORDERED: HYDROcodone/APAP 5 MG/325 MG (LORTAB) TAB PO ONE (19:30)
[2018-12-30 19:31] LABS: SQUAMOUS EPITHELIAL CELL,UR 25-50 /HPF
[2018-12-30] MEDS ORDERED: ACHD5005 PO (19:34)
[2018-12-30 19:39] VITALS: BP 115/81
== END 2018-12-30 19:39 | disposition home or self-care (01) ==
LOC: EDUNIT# 18:08 → ER 18:10
DX: O03.9 Complete or unspecified spontaneous abortion without complication (principal); M79.7 Fibromyalgia; F41.9 Anxiety disorder, unspecified; F43.10 Post-traumatic stress disorder, unspecified; F32.9 Major depressive disorder, single episode, unspecified; Z82.49 Family history of ischemic heart disease and other diseases of the circulatory system
CPT/HCPCS: 81000; 84703; 87088; 99283

== ENCOUNTER 2019-08-15 23:56 | Emergency (ER) | payer MEDICAID ==
[~2019-08-15] VITALS: Ht 162 cm; Wt 108.0 kg
[~2019-08-15 23:56] MED LIST changes: +ACHD5005 PO; -ARIP5TAB20; +ARIP5TAB57
[2019-08-16 00:45] LABS: BILIRUBIN,URINE NEGATIVE (NEGATIVE); CLARITY,URINE CLEAR; COLOR,URINE YELLOW; GLUCOSE, URINE (UA) NEGATIVE (NEGATIVE); KETONES,URINE NEGATIVE (NEGATIVE); LEUKOCYTE ESTERASE ,URINE NEGATIVE (NEGATIVE); NITRITE,URINE NEGATIVE (NEGATIVE); PROTEIN,URINE NEGATIVE (NEGATIVE)
[2019-08-16 00:53] LABS: BACTERIA,URINE TRACE /HPF; RBC,URINE 0-2 /HPF; WBC,URINE RARE /HPF
[2019-08-16] MEDS ORDERED: BUPIVACAINE 0.5% 30 ML (SENSORCAINE) VIAL INJ ONE (01:00)
[2019-08-16] MEDS ORDERED: methylPREDNISolone 40 MG/ML (DEPO MEDROL) VIAL IA ONE (01:00)
[2019-08-16] MEDS ORDERED: LIDOCAINE/EPI 2% 1:100,00 (XYLOCAINE) 20 ML VIAL INJ ONE (01:00)
--- NOTE | 2019-08-16 01:04 | ED Back Pain ---
General Chief Complaint: Back Problems Stated Complaint: PAIN IN LEFT LEG Nursing Triage Note: PT TO ED ROOM 10 C/O LEG NUMBNESS AND SHOOTING PAIN SENSATIONS AND LOWER BACK PAIN THATY THE PT STATES HAS BEEN ONGOING SINCE 2018 AFTER AN MRI REVEALED A MASS ON HER SPINE AFTER BEING A DIFFICULT CANIDATE FOR THE EPIDURAL. PT STATES SHE HAS HAD ISSUES WITH LEG PROBLEMS EVER SINCE THE EPIDURAL Nursing Sepsis Screen: No Definite Risk Source of Information: Patient Exam Limitations: No Limitations History of Present Illness Date Seen by Provider: Aug 16, 2019 Time Seen by Provider: 00:50 Initial Comments Patient presents to ER by private conveyance with chief complaint of 3 years of chronic low back and sciatic pain. She says it has been activated here in the past week in the last couple days she's been using anywhere from 6-9 tablets of 800 mg of ibuprofen a day. She's having no dysuria, hematuria. She uses Tylenol occasionally. She uses heating pads and topical creams. She does not have a back brace. She follows with Dr. Wood but does not feel he listens to her. She's been told she has fibromyalgia in the past. She's had MRI done one half years ago which did not demonstrate any significant stenosis or back disease. She does not follow with a pain specialist but she has been followed at [facility] with a neurologist to discharged her from her care. She's used Lyrica with no help. She says muscle relaxants and hydrocodone have worked well the past. She says in the past 2 days she just could not support her own weight because of the pain so she has had a fall down to the ground and be helped back up in her chair. Allergies and Home Medications Allergies Coded Allergies: No Known Allergies (Verified Allergy, Unknown, 03/06/17) Home Medications Hydrocodone Bit/Acetaminophen 1 Tab Tab, 1 EACH PO Q4-6HR PRN for PAIN-MODERATE Prescribed by: MILTON THORPE on 12/30/181933 Hydrocodone/Acetaminophen 1 Each Tablet, 1 EACH PO Q6H Prescribed by: TIARRA JIMÉNEZ on 02/11/18 1609 Patient Home Medication List Home Medication List Reviewed: Yes Review of Systems Constitutional: No chills, No diaphoresis EENTM: No ear discharge, No ear pain Respiratory: No cough, No short of breath Cardiovascular: No chest pain, No edema Gastrointestinal: No abdominal pain, No nausea, No vomiting Genitourinary: No discharge, No dysuria : No (presently on her menstrual period) Control/STD Prophylaxis: None Past Ncydsqf-Ppnglu-Dbjkfr Hx Patient Social History Alcohol Use: Occasionally Uses Alcohol Beverage of Choice: Beer Recreational Drug Use: No (USED ONE MONTH AGO) Drug of Choice: METH Smoking Status: Never a Smoker Recent Foreign Travel: No Contact w/Someone Who Travel: No Recent Infectious Disease Expo: No Recent Hopitalizations: No Physical Abuse: No Sexual Abuse: No Mistreated: No Fear: No Immunizations Up To Date Tetanus Booster (TDap): Less than 5yrs PED Vaccines UTD: No Date of Influenza Vaccine: May 08, 2017 Seasonal Allergies Seasonal Allergies: No Past Medical History Surgeries: No Respiratory: No Cardiac: No Neurological: No : No Last Menstrual Period: Aug 16, 2019 Female Reproductive Disorders: Denies Sexually Transmitted Disease: No HIV/AIDS: No Genitourinary: No Gastrointestinal: No Musculoskeletal: Yes Chronic Back Pain Endocrine: No HEENT: No Cancer: No Psychosocial: Yes Anxiety, PTSD, Depression Integumentary: No Blood Disorders: No Adverse Reaction/Blood Tranf: No Family Medical History Diabetes mellitus 19 MOTHER G8 SISTER Hypertension 19 MOTHER Respiratory disorder 19 MOTHER Visual disorder 19 MOTHER Physical Exam Vital Signs Vital Signs - First Documented 08/16/19 00:07 Temp 37.1 Pulse 67 Resp 20 B/P (MAP) 111/84 (93) Pulse Ox 96 O2 Delivery Room Air Capillary Refill : Less Than 3 Seconds Height, Weight, BMI Height: 5'4.00" Weight: 230lbs. 4.0oz. 104.306035vh; 41.00 BMI Method:Stated General Appearance: No Apparent Distress, WD/WN HEENT: Pharynx Normal, Moist Mucous Membranes Neck: Full Range of Motion, Normal Inspection Cardiovascular: Regular Rate, Rhythm, Normal Peripheral Pulses Respiratory: Chest Non Tender, Lungs Clear, Normal Breath Sounds, No Accessory Muscle Use, No Respiratory Distress Back: Normal Inspection, No CVA Tenderness, Vertebral Tenderness (at all levels of her back and left paralumbar spine are tender to palpation.) Extremity: Normal Capillary Refill, Normal Inspection, Normal Range of Motion, No Pedal Edema, Other (tenderness to palpation at all levels of her left lower extremity anterior and posterior even to light touch. Hyperalgesia) Neurologic/Psychiatric: Alert, Oriented x3, Normal Mood/Affect Skin: Normal Color, Warm/Dry Procedures/Interventions Progress Risks, benefits and alternatives were explained the patient. She consented. We used a 25-gauge 1-1/2 inch needle to access the left L5-S1 facet joint. Using the Z track method clean the skin with alcohol first. No blood was aspirated. We were able to easily place one and half cc of half percent bupivacaine and 1/2 cc of 2% lidocaine with epinephrine and 1 cc/40 mg of Depo-Medrol at the site. Patient tolerated procedure well. Progress/Results/Core Measures Results/Orders Lab Results Laboratory Tests Test 08/16/19 00:37 Range/Units Urine Color YELLOW Urine Clarity CLEAR Urine pH 6.0 5-9 Urine Specific [place] >=1.030 1.016-1.022 Urine Protein NEGATIVE NEGATIVE Urine Glucose (UA) NEGATIVE NEGATIVE Urine Ketones NEGATIVE NEGATIVE Urine Nitrite NEGATIVE NEGATIVE Urine Bilirubin NEGATIVE NEGATIVE Urine Urobilinogen 0.2 < = 1.0 MG/DL Urine Leukocyte Esterase NEGATIVE NEGATIVE Urine RBC (Auto) 2+ H NEGATIVE Urine RBC 0-2 /HPF Urine WBC RARE /HPF Urine Squamous Epithelial Cells 2-5 /HPF Urine Crystals NONE /LPF Urine Bacteria TRACE /HPF Urine Casts NONE /LPF Urine Mucus SMALL H /LPF Urine Culture Indicated NO Urine Opiates Screen NEGATIVE NEGATIVE Urine Oxycodone Screen NEGATIVE NEGATIVE Urine Methadone Screen NEGATIVE NEGATIVE Urine Propoxyphene Screen NEGATIVE NEGATIVE Urine Barbiturates Screen NEGATIVE NEGATIVE Ur Tricyclic Antidepressants Screen NEGATIVE NEGATIVE Urine Phencyclidine Screen NEGATIVE NEGATIVE Urine Amphetamines Screen NEGATIVE NEGATIVE Urine Methamphetamines Screen NEGATIVE NEGATIVE Urine Benzodiazepines Screen NEGATIVE NEGATIVE Urine Cocaine Screen NEGATIVE NEGATIVE Urine Cannabinoids Screen NEGATIVE NEGATIVE My Orders Orders - MILTON THORPE Ua Culture If Indicated (08/16/19 00:32) Methylprednisolone Acetate Inj (Depo-Med (08/16/19 01:00) Bupivacaine 0.5% Injection (Sensorcaine (08/16/19 01:00) Lidocaine/Epi 2% 1:100,000 (Xylocaine/Ep (08/16/19 01:00) Drug Screen Stat (Urine) (08/16/19 01:07) Medications Given in ED Current Medications Medications Dose Ordered Sig/Gini Route Start Time Stop Time Status Last Admin Dose Admin Bupivacaine HCl 30 ml ONCE ONCE INJ 08/16/19 01:00 08/16/19 01:04 DC 08/16/19 01:11 30 ML Lidocaine/ Epinephrine 20 ml ONCE ONCE INJ 08/16/19 01:00 08/16/19 01:04 DC 08/16/19 01:11 20 ML Methylprednisolone Acetate 40 mg ONCE ONCE IA 08/16/19 01:00 08/16/19 01:04 DC 08/16/19 01:11 40 MG Vital Signs/I&O 08/16/19 08/16/19 00:07 01:32 Temp 37.1 37.1 Pulse 67 67 Resp 20 20 B/P (MAP) 111/84 (93) 111/84 (93) Pulse Ox 96 96 O2 Delivery Room Air Blood Pressure Mean: 93 Progress Progress Note #1: Time: 01:10 Progress Note We have declined to provide her with opiates at this time. We have also cautioned her about taking some NSAIDs and explained the ceilings. We have encouraged her to follow-up with her primary care doctor to pursue physical therapy, obtain a back brace and consider referral to pain management. We have discussed expectations with fibromyalgia. We have encouraged her to follow up. She is able to sit up out of bed and briskly and moves all 4 extremities equal symmetric muscle motor strength especially when distracted. I do not suspect there is a new neurologic lesion since reviewing her MRI from 2018. We will trial a point tenderness injection of bupivacaine, lidocaine with epinephrine and Depo-Medrol at the L5-S1 facet joint which may help with her sciatic pain. Progress Note #2: Time: 01:31 Progress Note Patient's pain was diminished after the injection and she was able to walk out of here with a mildly antalgic gait. Departure Impression Primary Impression: Lumbago with sciatica, left side Qualified Codes: M54.42 - Lumbago with sciatica, left side; G89.29 - Other chronic pain Additional Impression: Fibromyalgia Disposition: HOME, SELF-CARE Condition: Stable Departure-Patient Inst. Decision time for Depature: 01:20 Referrals: RUBEN HOLLOWAY MD (PCP/Family) Primary Care Physician Patient Instructions: Sciatica (DC), Fibromyalgia (DC), Back Flexion Strengthening Exercises Add. Discharge Instructions: Review the handout for further teaching. Make a follow-up appointment in about 2-3 weeks with your primary care doctor to discuss further pain management strategies. Ibuprofen 800 mg hours as needed for pain. Tylenol 1000 mg every 8 hours as needed for pain. Obtain a back brace and wear it on the days that it helps. Heating pads can be helpful. Topical creams such as icy hot or Biofreeze can also be helpful. For the pain down in your leg you might consider it topical cream that has Capsaicin oil. All discharge instructions reviewed with patient and/or family. Voiced underst anding. Work/School Note: Work Release Form Date Seen in the Emergency Department: Baylee an 2019 Return to Work: Aug 17, 2019 Restrictions: Need Release from Doctor Other Restrictions Listed Below: Do not lift, push, pull greater than 40 pounds until 08/23/19. MILTON THORPE Aug 16, 2019 01:04
[2019-08-16 01:22] LABS: AMPHETAMINE SCREEN, URINE NEGATIVE (NEGATIVE); BARBITURATE SCREEN URINE NEGATIVE (NEGATIVE); BENZODIAZEPINES SCREEN URINE NEGATIVE (NEGATIVE); CANNABINOID SCREEN, URINE NEGATIVE (NEGATIVE); COCAINE SCREEN URINE NEGATIVE (NEGATIVE); METHADONE STAT NEGATIVE (NEGATIVE); METHAMPHETAMINE SCREEN URINE S NEGATIVE (NEGATIVE); OPIATE SCREEN URINE NEGATIVE (NEGATIVE); OXYCODONE STAT NEGATIVE (NEGATIVE); PROPOXYPHENE STAT NEGATIVE (NEGATIVE); TRICYCLIC ANTIDEPRESSANTS SCRE NEGATIVE (NEGATIVE)
[2019-08-16 01:32] VITALS: BP 111/84
== END 2019-08-16 01:32 | disposition home or self-care (01) ==
LOC: EDUNIT# 23:56 → ER 23:58
DX: M54.42 Lumbago with sciatica, left side (principal); M79.7 Fibromyalgia; F41.9 Anxiety disorder, unspecified; F43.10 Post-traumatic stress disorder, unspecified; F32.9 Major depressive disorder, single episode, unspecified; Z82.49 Family history of ischemic heart disease and other diseases of the circulatory system
CPT/HCPCS: 80306; 81000; 99284

== ENCOUNTER 2019-08-26 09:25 | Emergency (ER) | payer MEDICAID ==
[~2019-08-26] VITALS: Ht 162 cm; Wt 104.0 kg
[2019-08-26 10:04] LABS: BILIRUBIN,URINE NEGATIVE (NEGATIVE); CLARITY,URINE SL CLOUDY; COLOR,URINE DARK YELLOW; GLUCOSE, URINE (UA) NEGATIVE (NEGATIVE); KETONES,URINE NEGATIVE (NEGATIVE); LEUKOCYTE ESTERASE ,URINE TRACE (NEGATIVE); NITRITE,URINE NEGATIVE (NEGATIVE); PH,URINE 5.5 (5-9); PROTEIN,URINE TRACE (NEGATIVE)
[2019-08-26] MEDS ORDERED: PREG150C PO (10:07)
[2019-08-26] MEDS ORDERED: PRD10T (10:07)
[2019-08-26] MEDS ORDERED: PROP20TA5 PO (10:07)
[2019-08-26] MEDS ORDERED: LURA40TA3 PO (10:07)
[2019-08-26 10:13] LABS: BACTERIA,URINE FEW /HPF
--- NOTE | 2019-08-26 12:42 | ED Back Pain ---
General Chief Complaint: Back Problems Stated Complaint: DX W/ FLU/ L SIDE ABD PAIN Nursing Triage Note: PT TO ROOM 10 PER W/C PT CO OF BACK PAIN AND L LEG PAIN. PT STATES HAS FLU B SINCE LAST TUESDAY. [place] [facility] [place] Sepsis Screen: No Definite Risk Source of Information: Patient Exam Limitations: No Limitations History of Present Illness Date Seen by Provider: Aug 26, 2019 Time Seen by Provider: 12:42 Initial Comments 23-year-old female patient presents with complaints of chronic low back pain radiating down the left leg for proximally 2 years. States it has been worse since she was diagnosed with influenza B last . Reports pain is worse with standing for long periods and with coughing. Patient was seen at [facility] emergency department last Tuesday for influenza B. Denies any bowel incontinence or numbness of the genital area. She does report intermittent urinary incontinence with coughing only. States she is otherwise able to control her bladder without difficulty. Denies known injury to the low back or lower extremities. She also states she "has fibromyalgia in the left leg". Patient was started on prednisone 08/20/19. Patient regularly takes Lyrica, baclofen, and ibuprofen 800 mg. Location: Paraspinous Muscles Pain/Injury Location: Back, Lower Extremity (left lower extremity) Radiation: Buttocks (left buttock), Upper Legs (left lateral thigh) Method of Injury: Unknown (denies known injury) Modifying Factors: Improves With Immobilization; Worse With Movement; Improves With Pain Medication (mild improvement with ibuprofen, baclofen, and Lyrica); Worse With Other (standing for long periods and coughing) Associated Symptoms: muscle spasms, fever ((improving since tuesday)); No weakness, No numbness in legs/feet, No tingling in legs/feet, No sensory/motor loss; lower back pain, loss of bladder control (see history of present illness); No loss of bowel control Allergies and Home Medications Allergies Coded Allergies: No Known Allergies (Verified Allergy, Unknown, 03/06/17) Home Medications Benzonatate 100 Mg Capsule, 200 MG PO TID PRN for COUGH Prescribed by: ROBBIN RODGERS on 08/26/19 1302 Ciprofloxacin HCl 500 Mg Tablet, 500 MG PO BID Prescribed by: ROBBIN RODGERS on 08/26/19 1302 Ondansetron 8 Mg Tab.rapdis, 8 MG PO Q6H PRN for NAUSEA/VOMITING Prescribed by: ROBBIN RODGERS on 08/26/19 1302 Propranolol HCl 20 Mg Tablet, 20 MG PO BID, (Reported) Patient Home Medication List Home Medication List Reviewed: Yes Review of Systems Constitutional: see HPI, chills, fever, malaise EENTM: ear pain, nose congestion, throat pain, other (rhinorrhea); No ear discharge, No hearing loss, No hoarseness, No nose pain, No throat swelling Respiratory: cough; No dyspnea on exertion; phlegm (clear phlegm); No short of breath, No stridor, No wheezing Cardiovascular: No chest pain, No edema, No palpitations, No syncope Gastrointestinal: No abdominal pain, No constipation, No diarrhea; loss of appetite; No melena; nausea; No vomiting, No other (denies bowel incontinence) Genitourinary: No decreased output, No discharge, No dysuria; frequency; No hematuria; incontinence (stress); No pain : No Musculoskeletal: see HPI Skin: no symptoms reported Psychiatric/Neurological: No Symptoms Reported; Denies Numbness, Denies Paresthesia; Pre-Existing Deficit (patient is on Lyrica for neuropathy symptoms, but denies numbness, paresthesias, or tingling currently.); Denies Tingling, Denies Tremors, Denies Weakness All Other Systems Reviewed Negative Unless Noted: Yes (Negative excepted noted.) Past Ofqyefi-Jkphjh-Qqnsmy Hx Past Med/Social Hx: Reviewed and Corrections made Patient Social History Alcohol Use: Denies Use Alcohol Beverage of Choice: Beer Recreational Drug Use: No Drug of Choice: METH Smoking Status: Never a Smoker Recent Foreign Travel: No Contact w/Someone Who Travel: No Recent Infectious Disease Expo: No Recent Hopitalizations: No Physical Abuse: No Sexual Abuse: No Immunizations Up To Date Tetanus Booster (TDap): Less than 5yrs PED Vaccines UTD: No Date of Influenza Vaccine: May 08, 2017 Seasonal Allergies Seasonal Allergies: No Past Medical History Surgeries: No Respiratory: No Cardiac: No Neurological: No Female Reproductive Disorders: Denies Sexually Transmitted Disease: No HIV/AIDS: No Genitourinary: No Gastrointestinal: No Musculoskeletal: Yes Fibromyalgia (fibromyalgia in the left lower extremity), Chronic Back Pain Endocrine: No HEENT: No Cancer: No Psychosocial: Yes Anxiety, PTSD, Depression Integumentary: No Blood Disorders: No Adverse Reaction/Blood Tranf: No Family Medical History Reviewed Nursing Family Hx Diabetes mellitus 19 MOTHER G8 SISTER Hypertension 19 MOTHER Respiratory disorder 19 MOTHER Visual disorder 19 MOTHER No Pertinent Family Hx Physical Exam Vital Signs Vital Signs - First Documented 08/26/19 09:45 Temp 37.4 Pulse 102 Resp 18 B/P (MAP) 114/77 (89) Pulse Ox 99 Capillary Refill : Less Than 3 Seconds Height, Weight, BMI Height: 5'4.00" Weight: 230lbs. 4.0oz. [id number]; 39.00 BMI Method:Stated General Appearance: No Apparent Distress, WD/WN HEENT: PERRL/EOMI, Pharyngeal Erythema, Other (air fluid levels to the bilateral tympanic membranes without erythema, bulging, retractions, or perforation. Positive nasal congestion and rhinorrhea. Positive pharyngeal erythema without exudates.) Neck: Full Range of Motion, Supple, Other (bilateral anterior cervical lymphadenopathy with mild tenderness to palpation. Trachea midline.) Cardiovascular: Regular Rate, Rhythm, No Edema, No Gallop, No Murmur, Normal Peripheral Pulses Respiratory: Lungs Clear, Normal Breath Sounds, No Accessory Muscle Use, No Respiratory Distress, Other (generalized bilateral anterior, lateral, and posterior rib tenderness.) Gastrointestinal: Normal Bowel Sounds, No Organomegaly, Soft; No Distended; Tenderness (subcostal tenderness bilaterally without guarding or rebound.) Back: No Vertebral Tenderness; No CVA Tenderness (L), No CVA Tenderness (R), No Decreased Range of Motion; Muscle Spasm (muscle spasm noted to the lumbar paraspinous muscles (left greater than right) with mild tenderness palpation.) Extremity: Normal Capillary Refill, Normal Inspection, Normal Range of Motion, Other (left buttock and left lateral thigh tender to palpation without swelling or deformity.) Neurologic/Psychiatric: Alert, Oriented x3, No Motor/Sensory Deficits, Normal Mood/Affect Skin: Normal Color, Warm/Dry Progress/Results/Core Measures Results/Orders Lab Results Laboratory Tests Test 08/26/19 09:53 Range/Units Urine Color DARK YELLOW Urine Clarity SL CLOUDY Urine pH 5.5 5-9 Urine Specific [place] 1.025 H 1.016-1.022 Urine Protein TRACE H NEGATIVE Urine Glucose (UA) NEGATIVE NEGATIVE Urine Ketones NEGATIVE NEGATIVE Urine Nitrite NEGATIVE NEGATIVE Urine Bilirubin NEGATIVE NEGATIVE Urine Urobilinogen 0.2 < = 1.0 MG/DL Urine Leukocyte Esterase TRACE H NEGATIVE Urine RBC (Auto) NEGATIVE NEGATIVE Urine RBC NONE /HPF Urine WBC 5-10 H /HPF Urine Squamous Epithelial Cells 10-25 H /HPF Urine Crystals NONE /LPF Urine Bacteria FEW H /HPF Urine Casts PRESENT /LPF Urine Hyaline Casts 2-5 H /LPF Urine Mucus MODERATE H /LPF Urine Culture Indicated YES My Orders Orders - ROBBIN RODGERS PA Benzonatate Capsule (Tessalon Perles) (08/26/19 13:15) Acetaminophen Tablet (Tylenol Tablet) (08/26/19 13:05) Vital Signs/I&O 08/26/19 09:45 Temp 37.4 Pulse 102 Resp 18 B/P (MAP) 114/77 (89) Pulse Ox 99 Blood Pressure Mean: 89 Departure Communication (Admissions) Patient seen and evaluated. Patient given Tessalon Perles 200 mg and Tylenol extra strength 1000 mg by mouth 1 dose. Laboratory results discussed with the patient. Plan for discharge to home. Patient to continue the prednisone as prescribed by [facility] ER and her usual medications. Patient instructed to follow-up with [facility] for recheck as an outpatient and to return to the emergency department for worsened symptoms or any other concerns.. Impression Primary Impression: Urinary tract infection Qualified Codes: N30.00 - Acute cystitis without hematuria Additional Impressions: Chronic lumbar radiculopathy Influenza B Disposition: HOME, SELF-CARE Condition: Improved Departure-Patient Inst. Decision time for Depature: 13:00 Referrals: RUBEN HOLLOWAY MD (PCP/Family) Primary Care Physician Patient Instructions: Flu, Adult (DC), Radiculopathy (DC), Urinary Tract Infection, Adult (DC) Add. Discharge Instructions: All discharge instructions reviewed with patient and/or family. Voiced understanding. Medications as instructed. Continue usual home medications and recently prescribed medications including prednisone, baclofen, Lyrica, and ibuprofen. Tylenol extra strength [id number] as directed for pain or fever. Rest. Stay well hydrated. [id number] decongestants and antihistamines as needed for symptomatic relief. No heavy lifting or bending for 5-7 days, then increase activity as tolerated. You may use warm packs or heating pad as needed to the low back for muscle discomfort. Follow-up with Dr. Holloway as an outpatient for recheck, call for appointment time. Return to the emergency department for worsened symptoms or any other concerns. Scripts Ondansetron (Ondansetron Odt) 8 Mg Tab.rapdis 8 MG PO Q6H PRN for NAUSEA/VOMITING, #10 TAB 0 Refills Prov: ROBBIN RODGERS 08/26/19 Ciprofloxacin HCl (Ciprofloxacin HCl) 500 Mg Tablet 500 MG PO BID, #14 TAB 0 Refills Prov: ROBBIN RODGERS 08/26/19 Benzonatate (TESSALON PERLES) 100 Mg Capsule 200 MG PO TID PRN for COUGH, #30 CAP 0 Refills Prov: ROBBIN RODGERS 08/26/19 Work/School Note: Work Release Form Date Seen in the Emergency Department: Aug 26, 2019 Return to Work: Aug 28, 2019 Restrictions: Return-No Fever (24hrs), Return-No Vomiting(24hrs) ROBBIN RODGERS Aug 26, 2019 12:42
[2019-08-26] MEDS ORDERED: CIPR500T4 PO (13:02)
[2019-08-26] MEDS ORDERED: BENZ100C18 PO (13:02)
[2019-08-26] MEDS ORDERED: ONDA8TAB13 PO (13:02)
[2019-08-26] MEDS ORDERED: ACETAMINOPHEN 500 MG TAB (TYLENOL) PO STA (13:05)
[2019-08-26] MEDS ORDERED: BENZONATATE 100 MG (TESSALON) CAPSULE PO ONE (13:15)
[2019-08-26 13:22] VITALS: BP 114/77
== END 2019-08-26 13:22 | disposition home or self-care (01) ==
LOC: EDUNIT# 09:25 → ER 09:26
DX: N39.0 Urinary tract infection, site not specified (principal); M54.16 Radiculopathy, lumbar region; J10.1 Influenza due to other identified influenza virus with other respiratory manifestations; F41.9 Anxiety disorder, unspecified
CPT/HCPCS: 81000; 84703; 87088; 99283

== ENCOUNTER 2019-12-11 23:11 | Emergency (ER) | payer MEDICAID ==
[~2019-12-11] VITALS: Ht 162.5 cm; Wt 110.0 kg
[~2019-12-11 23:11] MED LIST changes: +BENZ100C18 PO; +CIPR500T4 PO; +LURA40TA3 PO; +ONDA8TAB13 PO; +PRD10T; +PREG150C PO; +PROP20TA5 PO
[2019-12-12] LABS: BASOPHILS % (AUTO) 0 % (0-10); EOSINOPHILS # (AUTO) 0.2 10^3/uL (0.0-0.3); EOSINOPHILS % (AUTO) 2 % (0-10); HEMATOCRIT 36 % (35-52); HEMOGLOBIN 12.1 G/DL (11.5-16.0); LYMPHOCYTES # (AUTO) 2.3 X 10^3 (1.0-4.0); LYMPHOCYTES % (AUTO) 23 % (12-44); MEAN CORPUSCULAR HEMOGLOBIN 28 PG (25-34); MEAN CORPUSCULAR HGB CONC 34 G/DL (32-36); MEAN CORPUSCULAR VOLUME 84 FL (80-99); MEAN PLATELET VOLUME 10.2 FL (7.4-10.4); MONOCYTES # (AUTO) 0.9 X 10^3 (0.0-1.0); MONOCYTES % (AUTO) 9 % (0-12); NEUTROPHILS # (AUTO) 6.7 X 10^3 (1.8-7.8); NEUTROPHILS % (AUTO) 66 % (42-75); PLATELET COUNT 337 10^3/uL (130-400); RED CELL DISTRIBUTION WIDTH 14.2 % (10.0-14.5)
[2019-12-12 00:01] LABS: BILIRUBIN,URINE NEGATIVE (NEGATIVE); CLARITY,URINE CLOUDY; COLOR,URINE YELLOW; GLUCOSE, URINE (UA) NEGATIVE (NEGATIVE); KETONES,URINE NEGATIVE (NEGATIVE); LEUKOCYTE ESTERASE ,URINE TRACE (NEGATIVE); NITRITE,URINE POSITIVE (NEGATIVE); PROTEIN,URINE NEGATIVE (NEGATIVE)
[2019-12-12 00:09] LABS: ALBUMIN 4.2 GM/DL (3.2-4.5); CHLORIDE 104 MMOL/L (98-107); POTASSIUM 3.4 MMOL/L (3.6-5.0); SODIUM 138 MMOL/L (135-145)
[2019-12-12 00:10] LABS: AMYLASE 48 U/L (25-125)
--- NOTE | 2019-12-12 00:10 | ED Abdominal Pain ---
General Chief Complaint: Abdominal/GI Problems Stated Complaint: 16 WKS PREG, LEFT SIDE ABD PAIN,BELOW BELLY BUTTON Source of Information: Patient History of Present Illness Date Seen by Provider: December 11, 2019 Time Seen by Provider: 23:30 Initial Comments PT ARRIVES VIA POV FROM HOME C/O EPIGASTRIC PAIN--PAIN IS SHARP AND COMES AND GOES AND IS IN CENTER OF EPIGASTRIC AREA--BEGAN LESS THAN AN HOUR AGO, WHILE EATING NOODLES PAIN IS ALSO WORSE IF SHE LAYS ON RIGHT SIDE OR WITH ANY MOVEMENT STATES SHE HAS BEEN HAVING THIS SAME PAIN FOR THE LAST COUPLE OF YEARS, EVERYTIME SHE EATS SOMETHING "RICH OR FATTY"--NO WORK UP'S DONE IN THE PAST FOR THIS PT IS 16 WEEKS --NO PAIN BELOW BELLY BUTTON, NO VAGINAL BLEEDING OR DISCHARGE, NO PELVIC CRAMPING. STATES LMP WAS SOMETIME IN AUGUST, WITH [facility] OF 06/14/[address] FREEMAN FOR OBSTETRICS--LAST APPOINTMENT 11/26/19--NEXT APPOINTMENT IS THE FIRST OF DECEMBER PT IS AB 0--NO PROBLEMS WITH PREVIOUS PREGNANCIES HAS ONGOING NAUSEA WITH THIS --HAS ZOFRAN, BUT HAS NOT NEEDED ANY TODAY NO VOMITING NO DIARRHEA OR CONSTIPATION NO FEVER/SWEATS/CHILLS NO URINARY SYMPTOMS NO COUGH/CONGESTION OR URI SYMPTOMS NO CHEST PAIN OR SHORTNESS OF BREATH NO KNOWN SICK CONTACTS OR KNOWN EXPOSURE TO CORONAVIRUS HAS NOT STAYED AT HOME, DESPITE MANDATORY STAY AT HOME ORDERS DUE TO PANDEMIC--HAS BEEN TO [place] AT LEAST TWICE TO VISIT FAMILY, IN THE LAST 1- 2 MONTHS. PCP: DR. 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 FREEMAN Allergies and Home Medications Allergies Coded Allergies: No Known Allergies (Verified Allergy, Unknown, 03/06/17) Home Medications Benzonatate 100 Mg Capsule, 200 MG PO TID PRN for COUGH Prescribed by: ROBBIN RODGERS on 08/26/19 1302 Ciprofloxacin HCl 500 Mg Tablet, 500 MG PO BID Prescribed by: ROBBIN RODGERS on 08/26/19 1302 Nitrofurantoin Monohyd/M-Cryst 100 Mg Capsule, 1 TAB PO BID Prescribed by: ANJANA MILLER on 12/12/19 0033 Ondansetron 8 Mg Tab.rapdis, 8 MG PO Q6H PRN for NAUSEA/VOMITING Prescribed by: ROBBIN RODGERS on 08/26/19 1302 Propranolol HCl 20 Mg Tablet, 20 MG PO BID, (Reported) Patient Home Medication List Home Medication List Reviewed: Yes Review of Systems Review of Systems Constitutional: no symptoms reported; No chills, No diaphoresis, No fever EENTM: No Symptoms Reported; No Nose Congestion, No Throat Pain Respiratory: No Symptoms Reported; Denies Cough, Denies Orthopnea, Denies Shortness of Air, Denies Wheezing Cardiovascular: No Symptoms Reported; Denies Chest Pain, Denies Edema, Denies Lightheadedness, Denies Palpitations Gastrointestinal: See HPI, Abdominal Pain; Denies Constipated, Denies Diarrhea; Nausea; Denies Poor Appetite, Denies Poor Fluid Intake, Denies Rectal Bleeding, Denies Vomiting Genitourinary: No Symptoms Reported Musculoskeletal: other (HAS CHRONIC BACK PAIN , BILATERAL LEG PAIN AND GENERALIZED PAIN--STATES SHE HAS FIBROMYALGIA-HAS BEEN OFF MEDICATIONS SINCE BECOMING --LYRICA, BACLOFEN, IBUPROFEN. ) Skin: no symptoms reported Psychiatric/Neurological: No Symptoms Reported; Denies Headache, Denies Numbness, Denies Paresthesia, Denies Seizure, Denies Tingling, Denies Other Endocrine: No Symptoms Reported Hematologic/Lymphatic: No Symptoms Reported Past Wcujgmf-Rapmox-Lkugvv Hx Past Med/Social Hx: Reviewed and Corrections made Patient Social History Alcohol Use: Past History Number of Drinks Today: AA Alcohol Beverage of Choice: Beer Recreational Drug Use: Yes (HX OF METH USE) Drug of Choice: HX METH Smoking Status: Never a Smoker Recent Foreign Travel: No Contact w/Someone Who Travel: No Recent Hopitalizations: No Physical Abuse: No Sexual Abuse: No Mistreated: No Fear: No Immunizations Up To Date Tetanus Booster (TDap): Less than 5yrs PED Vaccines UTD: No Date of Influenza Vaccine: May 08, 2017 Seasonal Allergies Seasonal Allergies: No Past Medical History Surgeries: No Respiratory: No Cardiac: No Neurological: Yes Headaches /Migraines Hx : 3 Hx Para: 2 Hx Total # of Abortions (Sp): 0 Female Reproductive Disorders: Denies Sexually Transmitted Disease: No HIV/AIDS: No Genitourinary: No Gastrointestinal: No Musculoskeletal: Yes (CHRONIC LEG PAIN AND GENERALIZED PAIN ) Fibromyalgia, Chronic Back Pain Endocrine: No HEENT: No Cancer: No Psychosocial: Yes Anxiety, PTSD, Depression Integumentary: No Blood Disorders: No Adverse Reaction/Blood Tranf: No Family Medical History Diabetes mellitus 19 MOTHER G8 SISTER Hypertension 19 MOTHER Respiratory disorder 19 MOTHER Visual disorder 19 MOTHER No Pertinent Family Hx Physical Exam Vital Signs Vital Signs - First Documented 12/11/19 12/12/19 23:32 00:48 Temp 36.6 Pulse 101 Resp 20 B/P (MAP) 123/80 (94) Pulse Ox 100 O2 Delivery Room Air Capillary Refill : Height/Weight/BMI Height: 5'4.00" Weight: 230lbs. 4.0oz. [id number]; 39.00 BMI Method:Stated General Appearance: no apparent distress, obese, other (WALK UPRIGHT AND MOVES WITHOUT DIFFICULTY) Neck: normal inspection Respiratory: normal breath sounds, no respiratory distress, no accessory muscle use Cardiovascular: regular rate, rhythm, no murmur Gastrointestinal: normal bowel sounds, soft, no pulsatile mass; No distended, No guarding, No rebound; tenderness (EPIGASTRIC TENDERNESS); No hernia, No mass; other (FUNDUS DIFFICULT TO PALPATE DUE TO BODY HABITUS) Extremities: normal capillary refill, pedal edema (TRACE EDEMA--PT STATES IS NORMAL. ), other (GENERALIZED TENDERNESS OF LEGS--EXAGGERATED PAIN RESPONSE--PT STATES LEGS ALWAYS HURT. 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, no motor/sensory deficits, alert, normal mood/affect, oriented x 3 Skin: normal color, warm/dry; No rash; tattoos/piercings (EXTENSIVE TATTOOS) Progress/Results/Core Measures Results/Orders Lab Results Laboratory Tests Test 12/11/19 23:45 12/11/19 23:48 Range/Units Urine Color YELLOW Urine Clarity CLOUDY Urine pH 6.0 5-9 Urine Specific [place] >=1.030 1.016-1.022 Urine Protein NEGATIVE NEGATIVE Urine Glucose (UA) NEGATIVE NEGATIVE Urine Ketones NEGATIVE NEGATIVE Urine Nitrite POSITIVE H NEGATIVE Urine Bilirubin NEGATIVE NEGATIVE Urine Urobilinogen 0.2 < = 1.0 MG/DL Urine Leukocyte Esterase TRACE H NEGATIVE Urine RBC (Auto) TRACE-I NEGATIVE Urine RBC 0-2 /HPF Urine WBC 2-5 /HPF Urine Squamous Epithelial Cells 25-50 H /HPF Urine Crystals PRESENT H /LPF Urine Calcium Oxalate Crystals LARGE H /LPF Urine Bacteria FEW H /HPF Urine Casts PRESENT /LPF Urine Hyaline Casts 2-5 H /LPF Urine Mucus LARGE H /LPF Urine Culture Indicated YES Urine Opiates Screen NEGATIVE NEGATIVE Urine Oxycodone Screen NEGATIVE NEGATIVE Urine Methadone Screen NEGATIVE NEGATIVE Urine Propoxyphene Screen NEGATIVE NEGATIVE Urine Barbiturates Screen NEGATIVE NEGATIVE Ur Tricyclic Antidepressants Screen NEGATIVE NEGATIVE Urine Phencyclidine Screen NEGATIVE NEGATIVE Urine Amphetamines Screen NEGATIVE NEGATIVE Urine Methamphetamines Screen NEGATIVE NEGATIVE Urine Benzodiazepines Screen NEGATIVE NEGATIVE Urine Cocaine Screen NEGATIVE NEGATIVE Urine Cannabinoids Screen NEGATIVE NEGATIVE White Blood Count 10.0 4.3-11.0 10^3/uL Red Blood Count 4.27 L 4.35-5.85 10^6/uL Hemoglobin 12.1 11.5-16.0 G/DL Hematocrit 36 35-52 % Mean Corpuscular Volume 84 80-99 FL Mean Corpuscular Hemoglobin 28 25-34 PG Mean Corpuscular Hemoglobin Concent 34 32-36 G/DL Red Cell Distribution Width 14.2 10.0-14.5 % Platelet Count 337 130-400 10^3/uL Mean Platelet Volume 10.2 7.4-10.4 FL Neutrophils (%) (Auto) 66 42-75 % Lymphocytes (%) (Auto) 23 12-44 % Monocytes (%) (Auto) 9 0-12 % Eosinophils (%) (Auto) 2 0-10 % Basophils (%) (Auto) 0 0-10 % Neutrophils # (Auto) 6.7 1.8-7.8 X 10^3 Lymphocytes # (Auto) 2.3 1.0-4.0 X 10^3 Monocytes # (Auto) 0.9 0.0-1.0 X 10^3 Eosinophils # (Auto) 0.2 0.0-0.3 10^3/uL Basophils # (Auto) 0.0 0.0-0.1 10^3/uL Sodium Level 138 135-145 MMOL/L Potassium Level 3.4 L 3.6-5.0 MMOL/L Chloride Level 104 98-107 MMOL/L Carbon Dioxide Level 23 21-32 MMOL/L Anion Gap 11 5-14 MMOL/L Blood Urea Nitrogen 8 7-18 MG/DL Creatinine 0.58 L 0.60-1.30 MG/DL Estimat Glomerular Filtration Rate > 60 BUN/Creatinine Ratio 14 Glucose Level 82 70-105 MG/DL Calcium Level 10.0 8.5-10.1 MG/DL Corrected Calcium 9.8 8.5-10.1 MG/DL Total Bilirubin 0.2 0.1-1.0 MG/DL Aspartate Amino Transf (AST/SGOT) 9 5-34 U/L Alanine Aminotransferase (ALT/SGPT) 9 0-55 U/L Alkaline Phosphatase 56 40-136 U/L Total Protein 8.0 6.4-8.2 GM/DL Albumin 4.2 3.2-4.5 GM/DL Amylase Level 48 25-125 U/L Lipase 41 8-78 U/L Human Chorionic Gonadotropin, Quant 73290 H <5 MIU/ML Serum Alcohol < 10 <10 MG/DL My Orders Orders - ANJANA MILLER DO Heart Tones (12/11/19 23:27) Hcg,Quantitative (12/11/19 23:27) Ua Culture If Indicated (12/11/19 23:27) Abo Rh Type (12/11/19 23:27) Ed Iv/Invasive Line Start (12/11/19:27) Amylase (12/11/19 23:27) Cbc With Automated Diff (12/11/19 23:27) Comprehensive Metabolic Panel (12/11/19 23:27) Lipase (12/11/19 23:27) Drug Screen Stat (Urine) (12/12/19 00:12) Alcohol (12/11/19 23:48) Urine Culture (12/11/19 23:45) Ceftriaxone For Iv Use (Rocephin For I (12/12/19 00:30) Medications Given in ED Current Medications Medications Dose Ordered Sig/Gini Route Start Time Stop Time Status Last Admin Dose Admin Ceftriaxone Sodium 1000 mg/ Sterile Water 10 ml @ 200 mls/hr ONCE ONCE IV 12/12/19 00:30 12/12/19 00:33 DC 12/12/19 00:38 200 MLS/HR Vital Signs/I&O 12/11/19 12/12/19 23:32 00:48 Temp 36.6 36.6 Pulse 101 105 Resp 20 18 B/P (MAP) 123/80 (94) 106/62 (94) Pulse Ox 100 O2 Delivery Room Air Room Air Progress Progress Note : Progress Note FHR 165--AT LEVEL OF PUBIC BONE NO ULTRASOUND AVAILABLE AT THIS HOUR ALL PAIN AND TENDERNESS IS WELL ABOVE UMBILICUS AND CENTRALLY LOCATED, AND NO PAIN OR TENDERNESS BELOW UMBILICUS OR LATERALLY UNEVENTFUL ER STAY Departure Impression Primary Impression: Epigastric abdominal pain affecting in second trimester Additional Impression: UTI (urinary tract infection) in in second trimester Disposition: 01 HOME, SELF-CARE Condition: Stable Departure-Patient Inst. Referrals: RUBEN HOLLOWAY MD (PCP/Family) Primary Care Physician GUERRERO FREEMAN DO Patient Instructions: Urinary Tract Infections in , Stomach Pain Later in Add. Discharge Instructions: CLEAR LIQUIDS--WATER, BROTH, JELLO, GATORADE BRATS DIET--BANANAS, RICE, APPLESAUCE, TOAST, SALTINES CONTINUE ZOFRAN NEEDED FOR NAUSEA TYLENOL NEEDED FOR PAIN FOLLOW UP WITH DR. FREEMAN THIS WEEK FOR FURTHER CARE All discharge instructions reviewed with patient and/or family. Voiced understanding. Scripts Nitrofurantoin Monohyd/M-Cryst (Macrobid 100 mg Capsule) 100 Mg Capsule 1 TAB PO BID, #20 CAP Prov: ANJANA MILLER DO 12/12/19 ANJANA MILLER DO December 12, 2019 00:10
[2019-12-12 00:11] LABS: GLUCOSE 82 MG/DL (70-105)
[2019-12-12 00:13] LABS: BILIRUBIN,TOTAL 0.2 MG/DL (0.1-1.0); CARBON DIOXIDE 23 MMOL/L (21-32)
[2019-12-12 00:15] LABS: ALKALINE PHOSPHATASE 56 U/L (40-136); CREATININE SERUM 0.58 MG/DL (0.60-1.30); GFR ESTIMATED > 60
[2019-12-12 00:16] LABS: BUN/CREATININE RATIO 14
[2019-12-12 00:18] LABS: ALANINE AMINOTRANSFERASE 9 U/L (0-55)
[2019-12-12 00:19] LABS: LIPASE 41 U/L (8-78)
[2019-12-12 00:20] LABS: BACTERIA,URINE FEW /HPF; CALCIUM OXALATE CRYSTALS,UR LARGE /LPF; RBC,URINE 0-2 /HPF; SQUAMOUS EPITHELIAL CELL,UR 25-50 /HPF
[2019-12-12 00:30] LABS: AMPHETAMINE SCREEN, URINE NEGATIVE (NEGATIVE); BARBITURATE SCREEN URINE NEGATIVE (NEGATIVE); BENZODIAZEPINES SCREEN URINE NEGATIVE (NEGATIVE); CANNABINOID SCREEN, URINE NEGATIVE (NEGATIVE); COCAINE SCREEN URINE NEGATIVE (NEGATIVE); METHADONE STAT NEGATIVE (NEGATIVE); METHAMPHETAMINE SCREEN URINE S NEGATIVE (NEGATIVE); OPIATE SCREEN URINE NEGATIVE (NEGATIVE); OXYCODONE STAT NEGATIVE (NEGATIVE); PROPOXYPHENE STAT NEGATIVE (NEGATIVE); TRICYCLIC ANTIDEPRESSANTS SCRE NEGATIVE (NEGATIVE)
[2019-12-12] MEDS ORDERED: cefTRIAXone FOR IV USE 1,000 MG in WATER (STERILE) FOR INJECTION 10 ML IV ONE (00:30)
[2019-12-12] MEDS ORDERED: NITR-65 PO (00:33)
[2019-12-12 00:48] VITALS: BP 106/62
== END 2019-12-12 00:48 | disposition home or self-care (01) ==
LOC: EDUNIT# 23:11 → ER 23:15
DX: O26.892 Other specified pregnancy related conditions, second trimester (principal); R10.13 Epigastric pain; O23.42 Unspecified infection of urinary tract in pregnancy, second trimester; Z3A.16 16 weeks gestation of pregnancy; Z82.49 Family history of ischemic heart disease and other diseases of the circulatory system
CPT/HCPCS: 36415; 80053; 80306; 80320; 81000; 82150; 83690; 84702; 85025; 86900; 86901; 87077; 87088

== ENCOUNTER 2019-12-22 11:55 | Emergency (ER) | payer MEDICAID ==
[~2019-12-22] VITALS: Ht 160 cm; Wt 112.3 kg
[2019-12-22] MEDS ORDERED: ACETAMINOPHEN 500 MG TAB (TYLENOL) PO STA (12:27)
--- NOTE | 2019-12-22 12:35 | ED GU-Female ---
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 pt was seen recently in [place] and treated for UTI. pt is 15 weeks . Nursing Sepsis Screen: No Definite Risk Source: patient Exam Limitations: no limitations History of Present Illness Date Seen by Provider: December 22, 2019 Time Seen by Provider: 12:14 Initial Comments Here with report of increasing right lower quadrant pain today that she has down into her groin. Similar to last visit and which she was found to have nitrite positive urinary tract infection and started on nitrofurantoin. She also had Gardnerella vaginalis which was not treated at that time. Denies significant vaginal discharge or pain with sexual activity. Last activity was 2 days ago with stable partner. Denies dysuria, diarrhea or difficulty with going to the bathroom. This is her third . States that she often gets urinary tract infections. Timing/Duration: yesterday, getting worse Severity/Quality: moderate, aching Location: RLQ, suprapubic Radiation: back, groin Activities at Onset: none Prior Genitourinary Problems: similar symptoms Sexual Hometown History: less than 2 months ago, single partner Modifying Factors: Improves With Resting Associated Symptoms: No dysuria, No fever/chills, No loss of bladder control, No nausea/vomiting, No urinary frequency Allergies and Home Medications Allergies Coded Allergies: No Known Allergies (Verified Allergy, Unknown, 03/06/17) Home Medications Benzonatate 100 Mg Capsule, 200 MG PO TID PRN for COUGH Prescribed by: ROBBIN RODGERS on 08/26/19 1302 Ciprofloxacin HCl 500 Mg Tablet, 500 MG PO BID Prescribed by: ROBBIN RODGERS on 08/26/19 1302 Nitrofurantoin Monohyd/M-Cryst 100 Mg Capsule, 1 TAB PO BID Prescribed by: ANJANA MILLER on 12/12/19 0033 Ondansetron 8 Mg Tab.rapdis, 8 MG PO Q6H PRN for NAUSEA/VOMITING Prescribed by: ROBBIN RODGERS on 08/26/19 1302 Propranolol HCl 20 Mg Tablet, 20 MG PO BID, (Reported) Patient Home Medication List Home Medication List Reviewed: Yes Review of Systems Review of Systems Constitutional: see HPI; No chills, No fever EENTM: no symptoms reported Respiratory: no symptoms reported Cardiovascular: no symptoms reported Gastrointestinal: see HPI Genitourinary: see HPI; denies dysuria, denies hematuria : Yes Musculoskeletal: no symptoms reported Skin: no symptoms reported Psychiatric/Neurological: No Symptoms Reported Past Csxzzgk-Kyjwhg-Xgrnke Hx Past Med/Social Hx: Reviewed Nursing Past Med/Soc Hx Patient Social History Alcohol Use: Denies Use Number of Drinks Today: AA Alcohol Beverage of Choice: Beer Recreational Drug Use: No Drug of Choice: HX METH Smoking Status: Never a Smoker Recent Foreign Travel: No Contact w/Someone Who Travel: No Recent Infectious Disease Expo: No Recent Hopitalizations: No Immunizations Up To Date Tetanus Booster (TDap): Less than 5yrs PED Vaccines UTD: No Date of Influenza Vaccine: May 08, 2017 Seasonal Allergies Seasonal Allergies: No Past Medical History Surgeries: No Respiratory: No Cardiac: No Neurological: Yes Headaches /Migraines Female Reproductive Disorders: Denies Sexually Transmitted Disease: No HIV/AIDS: No Genitourinary: No Gastrointestinal: No Musculoskeletal: Yes (CHRONIC LEG PAIN AND GENERALIZED PAIN ) Fibromyalgia, Chronic Back Pain Endocrine: No HEENT: No Cancer: No Psychosocial: Yes Anxiety, PTSD, Depression Integumentary: No Blood Disorders: No Adverse Reaction/Blood Tranf: No Family Medical History Reviewed Nursing Family Hx Diabetes mellitus 19 MOTHER G8 SISTER Hypertension 19 MOTHER Respiratory disorder 19 MOTHER Visual disorder 19 MOTHER No Pertinent Family Hx Physical Exam Vital Signs Vital Signs - First Documented 12/22/19 12:10 Temp 39.0 Pulse 95 Resp 20 B/P (MAP) 127/75 (92) Pulse Ox 96 O2 Delivery Room Air Capillary Refill : Less Than 3 Seconds Height, Weight, BMI Height: 5'4.00" Weight: 230lbs. 4.0oz. 104.458756rj; 43.00 BMI Method:Stated General Appearance: WD/WN, no apparent distress Cardiovascular: regular rate, rhythm, no murmur Respiratory: lungs clear, normal breath sounds Gastrointestinal: soft, tenderness (suprapubic) Back: normal inspection, no CVA tenderness, no vertebral tenderness Neurologic/Psychiatric: alert, oriented x 3 Skin: normal color, warm/dry Progress/Results/Core Measures Suspected Sepsis Recent Fever Within 48 Hours: No Infection Criteria Present: None New/Unexplained Altered Menta: No Sepsis Screen: No Definite Risk SIRS Temperature: Pulse: 95 Respiratory Rate: 20 Blood Pressure 127 /75 Mean: 92 Results/Orders Lab Results Laboratory Tests Test 12/22/19 12:30 Range/Units Urine Color YELLOW Urine Clarity SL CLOUDY Urine pH 7.0 5-9 Urine Specific [place] 1.020 1.016-1.022 Urine Protein NEGATIVE NEGATIVE Urine Glucose (UA) NEGATIVE NEGATIVE Urine Ketones NEGATIVE NEGATIVE Urine Nitrite POSITIVE H NEGATIVE Urine Bilirubin NEGATIVE NEGATIVE Urine Urobilinogen 0.2 < = 1.0 MG/DL Urine Leukocyte Esterase TRACE H NEGATIVE Urine RBC (Auto) 3+ H NEGATIVE Urine RBC 50-100 H /HPF Urine WBC 2-5 /HPF Urine Squamous Epithelial Cells 5-10 /HPF Urine Crystals NONE /LPF Urine Bacteria TRACE /HPF Urine Casts NONE /LPF Urine Mucus SMALL H /LPF Urine Culture Indicated NO My Orders Orders - RAISA ALEXANDER MD Ua Culture If Indicated (12/22/19 12:27) Acetaminophen Tablet (Tylenol Tablet) (12/22/19 12:27) Phenazopyridine Tablet (Pyridium Tablet) (12/22/19 13:15) Metronidazole Tablet (Flagyl Tablet) (12/22/19 13:03) Nitrofurantoin Capsule,Macro (Macrobid C (12/22/19 13:15) Vital Signs/I&O 12/22/19 12:10 Temp 39.0 Pulse 95 Resp 20 B/P (MAP) 127/75 (92) Pulse Ox 96 O2 Delivery Room Air Capillary Refill : Less Than 3 Seconds Blood Pressure Mean: 92 Progress Note : Progress Note Seen and evaluated. Bedside ultrasound performed and showed IUP at 15-1/7 by femur length. heart tone 150. Positive movement. UA ordered. Consideration for pain. Patient has appointment with her clinical informatics physician this week. She would like to defer pelvic until then. Review of previous UA does show Gardnerella vaginalis we will consider treatment of that. I will discuss with Dr. Dean after new UA obtained. Tylenol 1 g by mouth. Monitor patient. 1306: Patient does have nitrite positive UTI again. Given previous resistance we will restart nitrofurantoin but we will add Flagyl as well given her Gardnerella vaginalis infection. I did discuss the case with Dr. Dean and he agrees with that. He recommended Pyridium as well. This was ordered. He will see her in office this week and check cultures. Discharge home with return precautions. Patient verbalize understanding instructions and agreement with plan. Departure Impression Primary Impression: Urinary tract infection Qualified Codes: N30.01 - Acute cystitis with hematuria Additional Impression: Bacterial vaginosis in Disposition: HOME, SELF-CARE Condition: Improved Departure-Patient Inst. Decision time for Depature: 13:07 Referrals: RUBEN HOLLOWAY MD (PCP/Family) Primary Care Physician Patient Instructions: Acute Abdomen (Belly Pain), Adult (DC), Bacterial Vaginosis, Urinary Tract Infection, Adult (DC) Add. Discharge Instructions: All discharge instructions reviewed with patient and/or family. Voiced understanding. Take medications as directed. Follow-up with Dr. Dean this week for recheck and further evaluation. You may take Tylenol/acetaminophen 1000 mg every 6-8 hours as needed for pain. Return for worse pain, fever, vomiting, weakness, breathing problems or other concerns as needed. Return tomorrow for recheck if not improved. Scripts Phenazopyridine HCl (Pyridium) 100 Mg Tablet 100 MG PO Q8H PRN for PAIN-MODERATE (5-7), #6 TAB Prov: RAISA ALEXANDER MD 12/22/19 Nitrofurantoin Macrocrystal (Nitrofurantoin) 100 Mg Capsule 100 MG PO BID, #13 CAP 0 Refills Prov: RAISA ALEXANDER MD 12/22/19 Metronidazole (Metronidazole) 500 Mg Tablet 500 MG PO BID, #13 TAB 0 Refills Prov: RAISA ALEXANDER MD 12/22/19 Copy Copies To 1: GUERRERO DEAN TIMOTHY D MD December 22, 2019 12:35
[2019-12-22 12:38] LABS: BILIRUBIN,URINE NEGATIVE (NEGATIVE); CLARITY,URINE SL CLOUDY; COLOR,URINE YELLOW; GLUCOSE, URINE (UA) NEGATIVE (NEGATIVE); KETONES,URINE NEGATIVE (NEGATIVE); LEUKOCYTE ESTERASE ,URINE TRACE (NEGATIVE); NITRITE,URINE POSITIVE (NEGATIVE); PROTEIN,URINE NEGATIVE (NEGATIVE)
[2019-12-22 12:53] LABS: BACTERIA,URINE TRACE /HPF; RBC,URINE 50-100 /HPF
[2019-12-22] MEDS ORDERED: metroNIDAZOLE 500 MG (FLAGYL) TAB PO STA (13:03)
[2019-12-22] MEDS ORDERED: PHEN-639 PO (13:10)
[2019-12-22] MEDS ORDERED: NITR100C PO (13:10)
[2019-12-22] MEDS ORDERED: METR-145 PO (13:10)
[2019-12-22] MEDS ORDERED: NITROFURANTOIN 100 MG (MACROBID) CAPSULE PO ONE (13:15)
[2019-12-22] MEDS ORDERED: PHENAZOPYRIDINE 100 MG (PYRIDIUM) TABLET PO ONE (13:15)
[2019-12-22 13:20] VITALS: BP 127/75
== END 2019-12-22 13:20 | disposition home or self-care (01) ==
LOC: EDUNIT# 11:55 → ER 11:57
DX: O23.42 Unspecified infection of urinary tract in pregnancy, second trimester (principal); O23.592 Infection of other part of genital tract in pregnancy, second trimester; N76.0 Acute vaginitis; Z3A.18 18 weeks gestation of pregnancy; Z82.49 Family history of ischemic heart disease and other diseases of the circulatory system
CPT/HCPCS: 81000

== ENCOUNTER 2020-01-03 09:10 | Observation (INO) | payer MEDICAID ==
[~2020-01-03] VITALS: Ht 162 cm; Wt 112.7 kg
[~2020-01-03 09:10] MED LIST changes: +METR-145 PO; +NITR100C PO; +PHEN-639 PO
[2020-01-03] MEDS ORDERED: LACTATED RINGERS 1,000 ML IV ONE (09:41)
[2020-01-03] MEDS ORDERED: ONDANSETRON 4 MG/2 ML (SDV) Z0FRAN IVP ONE (09:45)
[2020-01-03 09:49] LABS: BILIRUBIN,URINE NEGATIVE (NEGATIVE); CLARITY,URINE SL CLOUDY; COLOR,URINE YELLOW; GLUCOSE, URINE (UA) NEGATIVE (NEGATIVE); KETONES,URINE NEGATIVE (NEGATIVE); LEUKOCYTE ESTERASE ,URINE TRACE (NEGATIVE); NITRITE,URINE NEGATIVE (NEGATIVE); PH,URINE 7.5 (5-9); PROTEIN,URINE TRACE (NEGATIVE)
[2020-01-03 10:00] LABS: BACTERIA,URINE NEGATIVE /HPF; RBC,URINE RARE /HPF; SQUAMOUS EPITHELIAL CELL,UR 0-2 /HPF
--- NOTE | 2020-01-03 10:45 | ED Abdominal Pain ---
General Chief Complaint: Abdominal/GI Problems Stated Complaint: LOWER BACK PAIN;VOMITING;17 WKS Source of Information: Patient Exam Limitations: No Limitations (KALANI RICHMOND MED STUDENT) History of Present Illness Date Seen by Provider: Jan 03, 2020 Time Seen by Provider: 10:09 Initial Comments Mrs. Perez is a 24 year old female presenting to the ED today with complaints of RUQ and RLQ abdominal pain. She is currently 17 weeks with an estimated delivery date of 06/14/20, her obgyn is Dr. Dean (last appt 12/23). She states the pain has been ongoing throughout her but has been worsening. She has had 2 episodes of vomiting in the last 24 hours. She has struggled with nausea/vomiting throughout her and has been taking zofran with limited relief. Angelica states the pain is crampy in nature sometimes sharp and is aggravated by food. There is some constipation along with the N/V, her last bowel movement was yesterday, prior to that was approx 1 wk ago. She denies blood in vomit or stool. Urinary symptoms include dysuria, frequency, hesitancy she was treated for a UTI 12/21 and completed the Abx course. At that time she was also diagnosed with bacteria vaginosis and prescribed flagyl. She admits to white thick nonodorous vaginal discharge. She denies vaginal itching/irritation and dyspareunia. She noticed some mild spotting last night. Last movement was noted to be yesterday. Her previous pregnancies we complicated by labor (35 wks). She last ate 01/02/20 at 2100 and has been drinking water all morning. Severity/Quality: Moderate, Cramping, Sharp Location: RUQ, RLQ Radiation: Periumbilical Associated Symptoms: Back Pain; No Chest Pain, No Fever/Chills; Headache; No Heartburn; Nausea/Vomiting (KALANI RICHMOND MED STUDENT) Allergies and Home Medications Allergies Coded Allergies: No Known Allergies (Verified Allergy, Unknown, 03/06/17) benzonatate (Verified Allergy, Unknown, 01/03/20) Home Medications Ciprofloxacin HCl 500 Mg Tablet, 500 MG PO BID Prescribed by: ROBBIN RODGERS on 08/26/19 1302 Metronidazole 500 Mg Tablet, 500 MG PO BID Prescribed by: RAISA ALEXANDER on 12/22/19 1310 Nitrofurantoin Macrocrystal 100 Mg Capsule, 100 MG PO BID Prescribed by: RAISA ALEXANDER on 12/22/19 1310 Nitrofurantoin Monohyd/M-Cryst 100 Mg Capsule, 1 TAB PO BID Prescribed by: ANJANA MILLER on 12/12/19 0033 Ondansetron 8 Mg Tab.rapdis, 8 MG PO Q6H PRN for NAUSEA/VOMITING Prescribed by: ROBBIN RODGERS on 08/26/19 1302 Phenazopyridine HCl 100 Mg Tablet, 100 MG PO Q8H PRN for PAIN-MODERATE (5-7) Prescribed by: RAISA ALEXANDER on 12/22/19 1310 Propranolol HCl 20 Mg Tablet, 20 MG PO BID, (Reported) Patient Home Medication List Home Medication List Reviewed: Yes (KALANI RICHMOND MED STUDENT) Review of Systems Review of Systems Constitutional: no symptoms reported EENTM: No Symptoms Reported Respiratory: No Symptoms Reported Cardiovascular: No Symptoms Reported Gastrointestinal: See HPI, Abdominal Pain Genitourinary: See HPI Musculoskeletal: back pain Skin: no symptoms reported Psychiatric/Neurological: No Symptoms Reported (KALANI RICHMOND MED STUDENT) Past Oailcoh-Rpwisc-Cbanxp Hx Patient Social History Alcohol Use: Denies Use Drug of Choice: HX METH Recent Foreign Travel: No Contact w/Someone Who Travel: No Recent Hopitalizations: No (KALANI RICHMOND MED STUDENT) Immunizations Up To Date Tetanus Booster (TDap): Less than 5yrs PED Vaccines UTD: No Date of Influenza Vaccine: May 08, 2017 (KALANI RICHMOND MED STUDENT) Seasonal Allergies Seasonal Allergies: No (KALANI RICHMOND MED STUDENT) Past Medical History Surgeries: No Respiratory: No Cardiac: No Neurological: Yes Headaches /Migraines Female Reproductive Disorders: Denies Sexually Transmitted Disease: No HIV/AIDS: No Genitourinary: No Gastrointestinal: No Musculoskeletal: Yes (CHRONIC LEG PAIN AND GENERALIZED PAIN ) Fibromyalgia, Chronic Back Pain Endocrine: No HEENT: No Cancer: No Psychosocial: Yes Anxiety, PTSD, Depression Integumentary: No Blood Disorders: No Adverse Reaction/Blood Tranf: No (KALANI RICHMOND,ROBBIE TURCIOS) Family Medical History Diabetes mellitus 19 MOTHER G8 SISTER Hypertension 19 MOTHER Respiratory disorder 19 MOTHER Visual disorder 19 MOTHER No Pertinent Family Hx (KALANI RICHMOND MED STUDENT) Physical Exam Vital Signs Vital Signs - First Documented 01/03/20 10:46 Temp 36.6 Pulse 93 Resp 18 B/P (MAP) 138/83 (101) Pulse Ox 97 (KESHA COOPER MD) Vital Signs Capillary Refill : (KALANI RICHMOND,MED STUDENT) Height/Weight/BMI Height: 5'4.00" Weight: 230lbs. 4.0oz. 104.896889se; 43.00 BMI Method:Stated General Appearance: WD/WN, no apparent distress HEENT: PERRL/EOMI, pharynx normal Neck: non-tender, full range of motion, supple Respiratory: chest non-tender, lungs clear, normal breath sounds, no respiratory distress, no accessory muscle use Cardiovascular: regular rate, rhythm, no murmur Peripheral Pulses: 3+ Radial Pulses (R), 3+ Radial Pulses (L) Gastrointestinal: soft; No guarding, No rebound; tenderness (RUQ, RLQ, suprapubic), other (unable to feel fundus) Extremities: normal range of motion, no calf tenderness, pedal edema (LLE) Neurologic/Psychiatric: alert, normal mood/affect, oriented x 3 Skin: normal color, warm/dry (KALANI RICHMOND,MED STUDENT) Progress/Results/Core Measures Results/Orders Lab Results Laboratory Tests Test 01/03/20 09:30 01/03/20 10:39 Range/Units Urine Color YELLOW Urine Clarity SL CLOUDY Urine pH 7.5 5-9 Urine Specific Exline 1.020 1.016-1.022 Urine Protein TRACE H NEGATIVE Urine Glucose (UA) NEGATIVE NEGATIVE Urine Ketones NEGATIVE NEGATIVE Urine Nitrite NEGATIVE NEGATIVE Urine Bilirubin NEGATIVE NEGATIVE Urine Urobilinogen 1.0 < = 1.0 MG/DL Urine Leukocyte Esterase TRACE H NEGATIVE Urine RBC (Auto) TRACE-I NEGATIVE Urine RBC RARE /HPF Urine WBC 2-5 /HPF Urine Squamous Epithelial Cells 0-2 /HPF Urine Crystals NONE /LPF Urine Bacteria NEGATIVE /HPF Urine Casts NONE /LPF Urine Mucus NEGATIVE /LPF Urine Culture Indicated NO White Blood Count 9.6 4.3-11.0 10^3/uL Red Blood Count 3.73 L 4.35-5.85 10^6/uL Hemoglobin 10.3 L 11.5-16.0 G/DL Hematocrit 31 L 35-52 % Mean Corpuscular Volume 83 80-99 FL Mean Corpuscular Hemoglobin 28 25-34 PG Mean Corpuscular Hemoglobin Concent 33 32-36 G/DL Red Cell Distribution Width 13.8 10.0-14.5 % Platelet Count 372 130-400 10^3/uL Mean Platelet Volume 9.8 7.4-10.4 FL Neutrophils (%) (Auto) 78 H 42-75 % Lymphocytes (%) (Auto) 13 12-44 % Monocytes (%) (Auto) 8 0-12 % Eosinophils (%) (Auto) 1 0-10 % Basophils (%) (Auto) 0 0-10 % Neutrophils # (Auto) 7.5 1.8-7.8 X 10^3 Lymphocytes # (Auto) 1.2 1.0-4.0 X 10^3 Monocytes # (Auto) 0.8 0.0-1.0 X 10^3 Eosinophils # (Auto) 0.1 0.0-0.3 10^3/uL Basophils # (Auto) 0.0 0.0-0.1 10^3/uL Sodium Level 137 135-145 MMOL/L Potassium Level 3.8 3.6-5.0 MMOL/L Chloride Level 104 98-107 MMOL/L Carbon Dioxide Level 23 21-32 MMOL/L Anion Gap 10 5-14 MMOL/L Blood Urea Nitrogen 6 L 7-18 MG/DL Creatinine 0.61 0.60-1.30 MG/DL Estimat Glomerular Filtration Rate > 60 BUN/Creatinine Ratio 10 Glucose Level 88 70-105 MG/DL Calcium Level 9.4 8.5-10.1 MG/DL Corrected Calcium 9.8 8.5-10.1 MG/DL Total Bilirubin 0.2 0.1-1.0 MG/DL Aspartate Amino Transf (AST/SGOT) 7 5-34 U/L Alanine Aminotransferase (ALT/SGPT) 7 0-55 U/L Alkaline Phosphatase 95 40-136 U/L C-Reactive Protein High Sensitivity 9.09 H 0.00-0.50 MG/DL Total Protein 7.4 6.4-8.2 GM/DL Albumin 3.5 3.2-4.5 GM/DL Lipase 16 8-78 U/L (KESHA COOPER MD) My Orders Orders - KESHA COOPER MD Cbc With Automated Diff (01/03/20 09:41) Comprehensive Metabolic Panel (01/03/20 09:41) Lipase (01/03/20 09:41) Ua Culture If Indicated (01/03/20 09:41) Ed Iv/Invasive Line Start (01/03/20 09:41) Lactated Ringers (Lr 1000 Ml Iv Solution (01/03/20 09:41) Ondansetron Injection (Zofran Injectio (01/03/20 09:45) Hs C Reactive Protein (01/03/20 10:26) Us Gallbladder 15204 (01/03/20 10:32) Lidocaine 2% Viscous 15 Ml (Xylocaine Vi (01/03/20 12:30) Antacid Suspension (Mylanta Suspension (01/03/20 12:30) Ketorolac Injection (Toradol Injection) (01/03/20 14:15) Fentanyl Injection (Sublimaze Injection (01/03/20 14:15) (KESHA COOPER MD) Medications Given in ED Current Medications Medications Dose Ordered Sig/Gini Route Start Time Stop Time Status Last Admin Dose Admin Al Hydrox/Mg Hydrox/Simethicone 30 ml ONCE ONCE PO 01/03/20 12:30 01/03/20 12:31 DC 01/03/20 12:35 30 ML Fentanyl Citrate 50 mcg ONCE ONCE IVP 01/03/20 14:15 01/03/20 14:16 DC 01/03/20 14:17 50 MCG Lactated Ringer's 1,000 ml @ 0 mls/hr Q0M ONCE IV 01/03/20 09:41 01/03/20 09:43 DC 01/03/20 10:42 0 MLS/HR Lidocaine HCl 15 ml ONCE ONCE PO 01/03/20 12:30 01/03/20 12:31 DC 01/03/20 12:35 15 ML Ondansetron HCl 8 mg ONCE ONCE IVP 01/03/20 09:45 01/03/20 09:46 DC 01/03/20 10:42 8 MG (KESHA COOPER MD) Vital Signs/I&O 01/03/20 10:46 Temp 36.6 Pulse 93 Resp 18 B/P (MAP) 138/83 (101) Pulse Ox 97 (KESHA COOPER MD) Progress Progress Note : Time: 11:25 Progress Note FHT: 152 Gall bladder US unremarkable for gallbladder pathology. Patient now complaining of epigastric pain in addition to RUQ and RLQ pain. Ordered GI cocktail Epigastric pain is relieved with GI cocktail. RUQ/RLQ pain persists. (KALANI RICHMOND,MED STUDENT) Progress Note : Time: 13:55 Progress Note Patient was seen and examined by me and found to have persistent tenderness in the epigastrium, right upper quadrant, and right lower quadrant. She was tender even to light palpation. Gallbladder ultrasound was negative. There was hydroureter but no significant blood in the urine to suggest ureteral stone. Nature and onset of the pain does not seem to follow a typical pattern for ureteral stone. CRP was mildly elevated. GI cocktail was administered which helped alleviate the upper pain but did not resolve the right lower quadrant pain. She is still photographer there on reexamination. She is now complaining of worsening pain and asks for some pain medication. Fentanyl will be ordered. I discussed the case with Dr. Dean, her primary surgical services asst. He recommended consultation general surgery. I discussed the case with Dr. Torres who recommended admission to the primary service for observation. He will see her in consultation. Case had also been discussed with Dr. Rouse. She asked that Dr. Dean be the attending physician as patient's primary surgical services asst. Patient reported to me that she had constipation over the last week but yesterday had a large solid bowel movement followed by watery stool. The volume was very large but this did not improve her pain. (KESHA COOPER MD) Diagnostic Imaging Diagonstic Imaging: Ultrasound Comments PROCEDURE: US Gallbladder. TECHNIQUE: Multiple real-time grayscale images were obtained over the right upper quadrant in various projections. INDICATION: Right upper quadrant pain and vomiting. Patient is 17 weeks . Liver is enlarged at 21.3 cm. No discrete liver mass is identified. Portal vein is patent and shows normal direction of flow. Gallbladder is without stones or sludge. No wall thickening or biliary ductal dilatation is identified. Visualized pancreas is unremarkable. Right kidney does show moderate hydronephrosis. No calculi are detected. There is no ascites. IMPRESSION: 1. No evidence of cholelithiasis or acute cholecystitis. 2. Mild hepatomegaly. 3. Moderate right-sided hydronephrosis. This could be owing to hydronephrosis of . No definite calculi are detected. (KALANI RICHMOND,MED STUDENT) Departure Communication (Admissions) Time/Spoke to Admitting Phy: 13:50 Dr. Dean Time/Spoke to Consulting Phy: 13:45 Dr. Torres (KESHA COPOER MD) Impression Primary Impression: Right lower quadrant abdominal pain Additional Impressions: Nausea and vomiting Qualified Codes: R11.2 - Nausea with vomiting, unspecified Qualified Codes: Z3A.17 - 17 weeks gestation of Disposition: ADMITTED INPATIENT Condition: Improved Admissions Decision to Admit Reason: Admit from ER (General) Decision to Admit/Date: Jan 03, 2020 Time/Decision to Admit Time: 13:45 (KESHA COOPER MD) Departure-Patient Inst. Referrals: RUBEN HOLLOWAY MD (PCP/Family) Primary Care Physician Patient was seen, interviewed, and examined by me personally along with Kalani Richmond, MS4. I agree with MS 4 history, physical, assessment, and documentation. My exam is as follows: Gen. alert, oriented, mild distress HEENT: Normocephalic and atraumatic, mucous membranes moist Heart: Regular rate and rhythm without murmur Lungs: Clear to auscultation bilaterally with normal effort Abdomen: soft, normal bowel sounds, properly grounded for gestational age, tenderness in the epigastrium, right upper quadrant, and right lower quadrant (KESHA COOPER MD) KALANI RICHMOND,MED STUDENT Jan 03, 2020 10:45 KESHA COOPER MD Jan 03, 2020 14:01
[2020-01-03 10:46] LABS: BASOPHILS % (AUTO) 0 % (0-10); EOSINOPHILS # (AUTO) 0.1 10^3/uL (0.0-0.3); EOSINOPHILS % (AUTO) 1 % (0-10); HEMATOCRIT 31 % (35-52); HEMOGLOBIN 10.3 G/DL (11.5-16.0); LYMPHOCYTES # (AUTO) 1.2 X 10^3 (1.0-4.0); LYMPHOCYTES % (AUTO) 13 % (12-44); MEAN CORPUSCULAR HEMOGLOBIN 28 PG (25-34); MEAN CORPUSCULAR HGB CONC 33 G/DL (32-36); MEAN CORPUSCULAR VOLUME 83 FL (80-99); MEAN PLATELET VOLUME 9.8 FL (7.4-10.4); MONOCYTES # (AUTO) 0.8 X 10^3 (0.0-1.0); MONOCYTES % (AUTO) 8 % (0-12); NEUTROPHILS # (AUTO) 7.5 X 10^3 (1.8-7.8); NEUTROPHILS % (AUTO) 78 % (42-75); PLATELET COUNT 372 10^3/uL (130-400); RED CELL DISTRIBUTION WIDTH 13.8 % (10.0-14.5); WHITE BLOOD COUNT 9.6 10^3/uL (4.3-11.0)
[2020-01-03 11:03] LABS: ALBUMIN 3.5 GM/DL (3.2-4.5); CHLORIDE 104 MMOL/L (98-107); POTASSIUM 3.8 MMOL/L (3.6-5.0); SODIUM 137 MMOL/L (135-145)
[2020-01-03 11:05] LABS: CALCIUM 9.4 MG/DL (8.5-10.1)
[2020-01-03 11:06] LABS: GLUCOSE 88 MG/DL (70-105); TOTAL PROTEIN 7.4 GM/DL (6.4-8.2)
[2020-01-03 11:07] LABS: CARBON DIOXIDE 23 MMOL/L (21-32)
[2020-01-03 11:08] LABS: BILIRUBIN,TOTAL 0.2 MG/DL (0.1-1.0)
[2020-01-03 11:09] LABS: ALKALINE PHOSPHATASE 95 U/L (40-136); CREATININE SERUM 0.61 MG/DL (0.60-1.30); GFR ESTIMATED > 60
[2020-01-03 11:10] LABS: BUN/CREATININE RATIO 10
[2020-01-03 11:12] LABS: ALANINE AMINOTRANSFERASE 7 U/L (0-55)
[2020-01-03 11:13] LABS: LIPASE 16 U/L (8-78)
--- NOTE | 2020-01-03 11:39 | Diagnostic Imaging Report ---
PROCEDURE: US Gallbladder. TECHNIQUE: Multiple real-time grayscale images were obtained over the right upper quadrant in various projections. INDICATION: Right upper quadrant pain and vomiting. Patient is 17 weeks . Liver is enlarged at 21.3 cm. No discrete liver mass is identified. Portal vein is patent and shows normal direction of flow. Gallbladder is without stones or sludge. No wall thickening or biliary ductal dilatation is identified. Visualized pancreas is unremarkable. Right kidney does show moderate hydronephrosis. No calculi are detected. There is no ascites. IMPRESSION: 1. No evidence of cholelithiasis or acute cholecystitis. 2. Mild hepatomegaly. 3. Moderate right-sided hydronephrosis. This could be owing to hydronephrosis of . No definite calculi are detected. Dictated by: Dictated on workstation # [id number]
[2020-01-03] MEDS ORDERED: LIDOCAINE 2% VISCOUS 15 ML UDC PO ONE (12:30)
[2020-01-03] MEDS ORDERED: ANTACID SUSP 30 ML UDC (MYLANTA) PO ONE (12:30)
[2020-01-03] MEDS ORDERED: fentaNYL INJECTION 100 MCG/2 ML AMP IVP ONE ×2 (14:15→20:30)
[2020-01-03] MEDS ORDERED: KETOROLAC 30 MG/ML VIAL IVP ONE (14:15)
[2020-01-03 14:45] VITALS: BP 115/66
--- NOTE | 2020-01-03 14:45 | NUR ---
TRISH PEREZ admitted to room 3305-1 VIA W/C FROM ED ACC BY ED STAFF, with an admitting diagnosis of RIGHT LOWER QUADRANT PAIN,NAUSEA AND VOMITING AT 16 WEKS 5 DAYS GESTATION TRISH LI introduced to surroundings, call light, bed controls, phone, TV, temperature control, lights, meal times, smoking policy, visitor policy, side rail policy, bathrooms and showers. Patient Rights given to patient in the handbook.
--- NOTE | 2020-01-03 14:50 | NUR ---
PT REPORTEDLY HAS BEEN IN ED SINCE THIS A.M. AND RECEIVED ZOFRAN 8 MG AT 1042, GI COCKTAIL AT 1235, AND FENTANYL 50 MCG AT 1417.
[2020-01-03 15:00] VITALS: BP 115/66
--- NOTE | 2020-01-03 15:00 | NUR ---
ASSESSMENT PERFORMED. IV PLACED ON PUMP WITH NEW TUBING. SITE CLEAR.
[2020-01-03] MEDS ORDERED: FAMOTIDINE 20MG/2ML IV (PEPCID) IV PRN (15:15)
[2020-01-03] MEDS ORDERED: CATHETER FLUSH 10 ML SYR IV PRN (15:15)
[2020-01-03] MEDS ORDERED: ACETAMINOPHEN 500 MG TAB (TYLENOL) PO PRN (15:15)
[2020-01-03] MEDS ORDERED: ONDANSETRON 4 MG/2 ML (SDV) Z0FRAN IV PRN (15:15)
--- NOTE | 2020-01-03 16:00 | NUR ---
PT SLEEPING SOUNDLY.
--- NOTE | 2020-01-03 17:15 | NUR ---
DR. MANZANO HERE TO SEE PT. ORDERS RECEIVED.
[2020-01-03] MEDS: LACTATED RINGERS 1,000 ML IV SCH (18:18)
[2020-01-03 18:25] VITALS: BP 123/77
--- NOTE | 2020-01-03 18:29 | NUR ---
PT VOMITED IN THE TRASH CAN AFTER EATING HER DINNER. VISITOR AT BEDSIDE. ZOFRAN 4 MG IVP FOR N/V. C/O HEADACHE AND REQUESTS TYLENOL. INFORMED WE WILL WAIT A LITTLE WHILE SINCE STILL NAUSEATED.
--- NOTE | 2020-01-03 18:45 | NUR ---
DECISION TO STRAIN ALL URINE. HAVE HAD PT KEEP URINE IN THE HAT SINCE ARRIVAL.
--- NOTE | 2020-01-03 18:52 | CONSULTATION REPORT ---
DATE OF SERVICE: 01/03/2020 ADMITTING PRIMARY CARE PHYSICIAN: Dr. Jefferson Jo. HISTORY OF PRESENT ILLNESS: The patient is a 24-year-old G3, P2, female at 17 weeks' gestation with an estimated delivery date of 06/14/2020. She presented to the Emergency Department with pain on the right lateral portion of the abdomen. She states that this has been going on for the past 2 weeks; however, it was worse today. She also states that she had been having intermittent episodes of nausea and vomiting during this . At this time, she is hungry. She has had some dysuria and was treated for urinary tract infection approximately 1 week ago. Upon examination, she does have some discomfort along the right lateral abdomen as well as in the epigastric region as well. There are no peritoneal signs. She is also afebrile with a normal white count. PAST MEDICAL HISTORY: Fibromyalgia, migraine headaches, anxiety, depression, chronic back pain. ALLERGIES: No known drug allergies. MEDICATIONS: Ciprofloxacin 500 mg b.i.d., metronidazole 500 mg b.i.d., nitrofurantoin 100 mg b.i.d., Zofran p.r.n., phenazopyridine 100 mg q.8 hours p.r.n., propranolol 20 mg b.i.d. SOCIAL HISTORY: Negative smoke, negative alcohol. FAMILY HISTORY: Mother, sister, diabetes. VITAL SIGNS: Temperature 36.6, blood pressure 138/83, pulse 93, respirations 18, pulse ox 97% on room air. REVIEW OF SYSTEMS: A well-nourished female currently in no acute distress. She is not experiencing any shortness of breath or difficulty breathing. No chest pain, palpitations, diaphoresis. Intermittent episodes of nausea and vomiting during this . No hematemesis, no coffee ground emesis. History of constipation; however, had a bowel movement earlier today, which was normal in consistency and color. No red blood per rectum, no dark tarry stools. No fever, chills, no recent inadvertent weight loss. All other review of systems negative. PHYSICAL EXAMINATION: CHEST: Clear. Good breath sounds bilaterally. HEART: Regular, no murmurs. EXTREMITIES: No lower extremity edema, negative Homans sign. HEENT: No scleral icterus or cervical lymphadenopathy. ABDOMEN: Soft, nondistended. There is pain along the right lateral abdomen as well as in the epigastric region, which appears to be more diffuse in nature and no focal tenderness or point tenderness at McBurney's point. SKIN: Warm, dry. LABORATORY DATA: WBC 9.6, hemoglobin 10.3, hematocrit 31, platelets 372, BUN 6, creatinine 0.61. Liver function enzymes normal, lipase normal. Urinalysis, leukocyte esterase trace positive. ASSESSMENT AND PLAN: A 24-year-old female with right lateral abdominal pain who is a G3, P2 at 17 weeks' gestation. We feel that most likely etiology of her pain is a combination urinary tract infection; however, also uterine ligament strain due to the diffuseness of the discomfort. We will continue to monitor her with serial physical examination as well as vital signs and repeat labs in the morning. At this time, she feels hungry and would like to eat. We will advance her regular diet and then make her n.p.o. in the outsole skiver hours and then reevaluate her in the morning. If she has adequate pain control as well as no worsening of symptoms, we will discharge her home. Job ID: [id number] DocumentID: [id number] Dictated Date: 01/03/2020 18:26:32 Assistant Professor Of Psychology Date: 01/03/2020 18:52:03 Dictated By: MD PANCHITO GAYLE
--- NOTE | 2020-01-03 19:03 | NUR ---
TYLENOL 1000 MG P.O. FOR C/O HEADACHE.
--- NOTE | 2020-01-03 19:10 | NUR ---
FHR 146 PER DOPPLER.
[2020-01-03 20:00] VITALS: BP 139/75
--- NOTE | 2020-01-03 20:25 | NUR ---
Pt is c/o severe headache. was given tylenol approx hour ago. no relief. pt is still having some nausea and vomiting. 2027-dr preciado notified. new order received. 2056-fentanyl iv given for headache. 2099-vs and assessments done. 2129-pt states pain isnt any better. 2214-pt is sleeping soundly.
[2020-01-03 21:00] VITALS: BP 116/68
[2020-01-03] MEDS ORDERED: FAMOTIDINE 20 MG (PEPCID) TABLET PO SCH (21:00)
[2020-01-03] MEDS ORDERED: DOCUSATE SODIUM 100 MG (COLACE) CAP PO SCH (21:00)
--- NOTE | 2020-01-03 23:30 | NUR ---
pt calls this nurse to room. states the headache is getting worse. wanting something else for pain. Dr Dean called. new orders recieved.
[2020-01-03] MEDS ORDERED: PROMETHAZINE INJ 25 MG/ML (PHENERGAN) AMP IVP PRN (23:45)
[2020-01-03] MEDS ORDERED: ACET/BUTAL/CAFF (FIORICET) TAB PO PRN (23:45)
--- NOTE | 2020-01-03 23:45 | NUR ---
to pts room to give new medications.still rating pain a 9. pt is up with all lights on watching a movie on her phone. volume is very loud. encouraged pt to turn lights and movie off. pt states ok. does not want light off. 0000-back to check on pt. lights and movie still on. pt very drowsy. states the pain isnt any better. 0030-check on pt. she is snoring
--- NOTE | 2020-01-04 02:15 | NUR ---
pt still sleeping
[2020-01-04] MEDS: LACTATED RINGERS 1,000 ML IV SCH (03:03)
--- NOTE | 2020-01-04 04:50 | NUR ---
Woke pt for vs and FHT's. pt states her headache is finally gone. only feels a little bit of pain on right side. pt rolled to back for fht's. states pain is now a 7 in abdomen. pt is falling back to sleep while i'm getting FHT's. FHT's 155. encouraged pt to roll back to side. pt rolled to side and was asleep before i left the room.
[2020-01-04 04:54] VITALS: BP 111/60
[2020-01-04 06:06] LABS: BASOPHILS % (AUTO) 0 % (0-10); EOSINOPHILS # (AUTO) 0.1 10^3/uL (0.0-0.3); EOSINOPHILS % (AUTO) 2 % (0-10); HEMATOCRIT 30 % (35-52); HEMOGLOBIN 9.6 G/DL (11.5-16.0); LYMPHOCYTES # (AUTO) 1.8 X 10^3 (1.0-4.0); LYMPHOCYTES % (AUTO) 23 % (12-44); MEAN CORPUSCULAR HEMOGLOBIN 27 PG (25-34); MEAN CORPUSCULAR HGB CONC 33 G/DL (32-36); MEAN CORPUSCULAR VOLUME 83 FL (80-99); MEAN PLATELET VOLUME 9.7 FL (7.4-10.4); MONOCYTES # (AUTO) 0.7 X 10^3 (0.0-1.0); MONOCYTES % (AUTO) 9 % (0-12); NEUTROPHILS # (AUTO) 5.2 X 10^3 (1.8-7.8); NEUTROPHILS % (AUTO) 66 % (42-75); PLATELET COUNT 380 10^3/uL (130-400); RED CELL DISTRIBUTION WIDTH 13.9 % (10.0-14.5); WHITE BLOOD COUNT 7.8 10^3/uL (4.3-11.0)
--- NOTE | 2020-01-04 06:57 | History & Physical-OB/GYN ---
History of Present Illness History of Present Illness Reason for visit/HPI Intrauterine at 17 weeks with right sided pain Date of Admission Jan 03, 2020 at 14:22 Date Seen by a Provider: Jan 04, 2020 Time Seen by a Provider: 06:45 I consulted on this patient on 01/04/20 06:50 Attending Physician Gunnar Dean DO Admitting Physician Jefferson Jo MD Consult Allergies and Home Medications Allergies Coded Allergies: No Known Allergies (Verified Allergy, Unknown, 03/06/17) benzonatate (Verified Allergy, Unknown, 01/03/20) Home Medications Ciprofloxacin HCl 500 Mg Tablet, 500 MG PO BID Prescribed by: ROBBIN RODGERS on 08/26/19 1302 Metronidazole 500 Mg Tablet, 500 MG PO BID Prescribed by: RAISA ALEXANDER on 12/22/19 1310 Nitrofurantoin Macrocrystal 100 Mg Capsule, 100 MG PO BID Prescribed by: RAISA ALEXANDER on 12/22/19 1310 Nitrofurantoin Monohyd/M-Cryst 100 Mg Capsule, 1 TAB PO BID Prescribed by: ANJANA MILLER on 12/12/19 0033 Ondansetron 8 Mg Tab.rapdis, 8 MG PO Q6H PRN for NAUSEA/VOMITING Prescribed by: ROBBIN RODGERS on 08/26/19 1302 Phenazopyridine HCl 100 Mg Tablet, 100 MG PO Q8H PRN for PAIN-MODERATE (5-7) Prescribed by: RAISA ALEXANDER on 12/22/19 1310 Propranolol HCl 20 Mg Tablet, 20 MG PO BID, (Reported) Patient Home Medication List Home Medication List Reviewed: Yes Past Nrjbgvp-Ojhqbu-Kqwlkf Hx Patient Social History Marrital Status: single Number of Children: 0 Number of living children: 0 Alcohol Use: Denies Use Number of Drinks Today: AA Alcohol Beverage of Choice: Beer Recreational Drug Use: Yes (HX METH) Drug of Choice: HX METH Smoking Status: Never a Smoker Recent Foreign Travel: No Contact w/other who traveled: No Recent Hopitalizations: No Recent Infectious Disease Expo: No Immunizations Up To Date Tetanus Booster (TDap): Less than 5yrs Pediatric: No Date of Influenza Vaccine: May 08, 2017 Seasonal Allergies Seasonal Allergies: No Surgeries No Respiratory No Cardiovascular No Neurological Yes Headaches /Migraines Reproductive System Expected Date of Delivery: Jun 14, 2020 Last Menstrual Period: Sep 04, 2019 Hx : 3 Hx Para: 2 Hx Total # of Abortions (Spona: 0 Sexually Transmitted Disease: No HIV/AIDS: No Female Reproductive Disorders: Denies Genitourinary No Gastrointestinal No Musculoskeletal Yes (CHRONIC LEG PAIN AND GENERALIZED PAIN ) Fibromyalgia, Chronic Back Pain Endocrine History of Endocrine Disorders: No HEENT History of HEENT Disorders: No Cancer No Psychosocial History of Psychiatric Problem: Yes Behavioral Health Disorders: Anxiety, PTSD, Depression Integumentary History of Skin or Integumenta: No Blood Transfusions History of Blood Disorders: No Adverse Reaction to a Blood Tr: No Family Medical History Significant Family History: No Pertinent Family Hx Family Hx: Diabetes mellitus 19 MOTHER G8 SISTER Hypertension 19 MOTHER Respiratory disorder 19 MOTHER Visual disorder 19 MOTHER Review of Systems Constitutional: see HPI Physical Exam Physical Exam Vital Signs Vital Signs Date Time Temp Pulse Resp B/P (MAP) Pulse Ox O2 Delivery O2 Flow Rate FiO2 01/04/20 04:54 36.8 94 18 111/60 (77) 95 01/03/20 21:00 36.5 88 18 116/68 (84) 96 01/03/20 20:00 76 20 139/75 (96) 01/03/20 18:25 36.5 85 18 123/77 (92) 95 Room Air 01/03/20 15:00 36.4 92 18 96 Room Air 01/03/20 15:00 36.4 92 18 96 Room Air 01/03/20 14:45 36.4 92 18 115/66 (82) 96 Room Air 01/03/20 14:42 87 18 106/70 95 01/03/20 10:46 36.6 93 18 138/83 (101) 97 I & O 01/04/20 07:00 Intake Total 1600 ml Output Total 1200 ml Balance 400 ml Capillary Refill : Less Than 3 Seconds Labs Laboratory Tests 01/03/20 09:30: Urine Color YELLOW, Urine Clarity SL CLOUDY, Urine pH 7.5, Urine Specific [place] 1.020, Urine Protein TRACEH, Urine Glucose (UA) NEGATIVE, Urine Ketones NEGATIVE, Urine Nitrite NEGATIVE, Urine Bilirubin NEGATIVE, Urine Urobilinogen 1.0, Urine Leukocyte Esterase TRACEH, Urine RBC (Auto) TRACE-I, Urine RBC RARE, Urine WBC 2-5, Urine Squamous Epithelial Cells 0-2, Urine Crystals NONE, Urine Bacteria NEGATIVE, Urine Casts NONE, Urine Mucus NEGATIVE, Urine Culture Indicated NO 01/03/20 10:39: White Blood Count 9.6, Red Blood Count 3.73L, Hemoglobin 10.3L, Hematocrit 31L, Mean Corpuscular Volume 83, Mean Corpuscular Hemoglobin 28, Mean Corpuscular Hemoglobin Concent 33, Red Cell Distribution Width 13.8, Platelet Count 372, Mean Platelet Volume 9.8, Neutrophils (%) (Auto) 78H, Lymphocytes (%) (Auto) 13, Monocytes (%) (Auto) 8, Eosinophils (%) (Auto) 1, Basophils (%) (Auto) 0, Neutrophils # (Auto) 7.5, Lymphocytes # (Auto) 1.2, Monocytes # (Auto) 0.8, Eosinophils # (Auto) 0.1, Basophils # (Auto) 0.0, Sodium Level 137, Potassium Level 3.8, Chloride Level 104, Carbon Dioxide Level 23, Anion Gap 10, Blood Urea Nitrogen 6L, Creatinine 0.61, Estimat Glomerular Filtration Rate > 60, BUN/Creatinine Ratio 10, Glucose Level 88, Calcium Level 9.4, Corrected Calcium 9.8, Total Bilirubin 0.2, Aspartate Amino Transf (AST/SGOT) 7, Alanine Aminotransferase (ALT/SGPT) 7, Alkaline Phosphatase 95, C-Reactive Protein High Sensitivity 9.09H, Total Protein 7.4, Albumin 3.5, Lipase 16 01/04/20 05:39: White Blood Count 7.8, Red Blood Count 3.54L, Hemoglobin 9.6L, Hematocrit 30L, Mean Corpuscular Volume 83, Mean Corpuscular Hemoglobin 27, Mean Corpuscular Hemoglobin Concent 33, Red Cell Distribution Width 13.9, Platelet Count 380, Mean Platelet Volume 9.7, Neutrophils (%) (Auto) 66, Lymphocytes (%) (Auto) 23, Monocytes (%) (Auto) 9, Eosinophils (%) (Auto) 2, Basophils (%) (Auto) 0, Neutrophils # (Auto) 5.2, Lymphocytes # (Auto) 1.8, Monocytes # (Auto) 0.7, Eosinophils # (Auto) 0.1, Basophils # (Auto) 0.0 General Appearance: No Apparent Distress, WD/WN Respiratory: Chest Non Tender, Lungs Clear, Normal Breath Sounds Cardiovascular: Regular Rate, Rhythm, No Murmur Abdominal: normal bowel sounds, tenderness Extremity: Normal Inspection, Non Tender Assessment/Plan Assessment and Plan Assessment: Intrauterine at 17 weeks 2. Right Costovertebral Tenderness 3. Headache Plan: She was given IV fluids and oral pain medication. Intermittent monitoring. Admission Diagnosis Admission Status: Observation GUNNAR DEAN DO Jan 04, 2020 06:57
[2020-01-04] MEDS ORDERED: BUTA1TAB9 PO (07:02)
--- NOTE | 2020-01-04 07:06 | Discharge Summary ---
Diagnosis/Chief Complaint Date of Admission Jan 03, 2020 at 14:22 Date of Discharge January 04, 2020 Discharge Date: Jan 04, 2020 Discharge Time: 07:00 Admission Diagnosis Admission Diagnosis Intrauterine at 17 weeks 2. Right Costovertebral Tenderness Discharge Diagnosis Intrauterine at 17 weeks 2. Right Costovertebral Tenderness 3. Headache Reason Hospital Visit Intrauterine at 17 weeks with right sided pain Discharge Summary Hospital Course Was the Problem List Reviewed?: Yes Hospital Course Ms. Perez was admitted through the hospital for right sided pain during . She was evaluated with no significant findings. We observed her overnight, where her right sided pain improved, but she developed a headache. She was started on oral pain medication, which improved her headache. She had intermittent monitoring for the fetus. This morning, she only complains of soreness of her right side, but her headache is gone. We will discharge her to home with a follow up appointment for three days and a prescription for medication for her headache. Labs Laboratory Tests 01/03/20 09:30: Urine Protein TRACEH, Urine Leukocyte Esterase TRACEH 01/03/20 10:39: Red Blood Count 3.73L, Hemoglobin 10.3L, Hematocrit 31L, Neutrophils (%) (Auto) 78H, Blood Urea Nitrogen 6L, C-Reactive Protein High Sensitivity 9.09H 01/04/20 05:39: Red Blood Count 3.54L, Hemoglobin 9.6L, Hematocrit 30L Procedures None. Discharge Physical Examination Allergies: Coded Allergies: No Known Allergies (Verified Allergy, Unknown, 03/06/17) benzonatate (Verified Allergy, Unknown, 01/03/20) Vitals & I&Os Vital Signs Date Time Temp Pulse Resp B/P (MAP) Pulse Ox O2 Delivery O2 Flow Rate FiO2 01/04/20 04:54 36.8 94 18 111/60 (77) 95 01/03/20 18:25 Room Air General Appearance: Alert, Oriented X3, Cooperative HEENT: Atraumatic Respiratory: Clear to Auscultation Cardiovascular: Regular Rate, No Murmurs Abdominal: Normal Bowel Sounds, No Tenderness Extremities: No Clubbing, No Cyanosis Skin: No Rashes Neuro: Normal Gait, Normal Speech Psych/Mental Status: Mental Status NL Discharge Home Medications Reviewed and agree with Discharge Medication list on patient's Discharge Instruction sheet Instructions to Patient/Family Please see electronic discharge instructions given to patient. GUERRERO FREEMAN DO Jan 04, 2020 07:06
--- NOTE | 2020-01-04 07:35 | NUR ---
Report given to Reyna CRAWFORD
[2020-01-04 08:30] VITALS: BP 127/74
--- NOTE | 2020-01-04 08:40 | NUR ---
ASSESSMENT COMPLETED. PLAN FOR DISCHARGE TODAY.
--- NOTE | 2020-01-04 09:50 | NUR ---
DR. MANZANO HERE TO SEE PT. THIS RN DISCUSSED THE ELEVATED CRP WITH PHYSICIAN. PT HAS A UTI AND ROUND LIGAMENT PAIN.
--- NOTE | 2020-01-04 10:00 | NUR ---
DISCHARGE INSTRUCTIONS REVIEWED WITH PT AND COPY GIVEN. RX GIVEN. STATES UNDERSTANDING OF ALL INSTRUCTIONS AND NEED TO F/U SCHEDULED AND NEEDED.
[2020-01-04 10:15] VITALS: BP 127/74
--- NOTE | 2020-01-04 10:15 | NUR ---
DISMISSED AMB FROM [facility] IN STABLE CONDITION ACC BY THIS RN AND A FRIEND.
== END 2020-01-04 10:15 | disposition home or self-care (01) ==
LOC: EDUNIT# 09:10 → ER 09:13 → WS 14:22
PROVIDERS: ADMIT Obstetrics & Gynecology; ATTEND Obstetrics & Gynecology
DX: O26.892 Other specified pregnancy related conditions, second trimester (principal); O21.9 Vomiting of pregnancy, unspecified; M54.5 Low back pain; G43.909 Migraine, unspecified, not intractable, without status migrainosus; M79.7 Fibromyalgia; G89.29 Other chronic pain; F32.9 Major depressive disorder, single episode, unspecified; F41.9 Anxiety disorder, unspecified; F43.10 Post-traumatic stress disorder, unspecified; Z3A.17 17 weeks gestation of pregnancy; Z88.8 Allergy status to other drugs, medicaments and biological substances; Z79.899 Other long term (current) drug therapy; Z83.3 Family history of diabetes mellitus; Z82.49 Family history of ischemic heart disease and other diseases of the circulatory system
CPT/HCPCS: 36415; 76705; 80053; 81000; 83690; 85025; 86141; 96361; 96375; G0378

== ENCOUNTER 2020-03-11 18:37 | Outpatient (CLI) | payer MEDICAID ==
[~2020-03-11] VITALS: Ht 162.6 cm; Wt 114.5 kg
[~2020-03-11 18:37] MED LIST changes: +BUTA1TAB9 PO
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
[2020-03-11 19:06] VITALS: BP 132/70
[2020-03-11 19:10] VITALS: BP 132/70
[2020-03-11 19:30] LABS: BILIRUBIN,URINE NEGATIVE (NEGATIVE); CLARITY,URINE CLOUDY; COLOR,URINE YELLOW; GLUCOSE, URINE (UA) NEGATIVE (NEGATIVE); KETONES,URINE 3+ (NEGATIVE); LEUKOCYTE ESTERASE ,URINE 3+ (NEGATIVE); NITRITE,URINE POSITIVE (NEGATIVE); PROTEIN,URINE 1+ (NEGATIVE)
[2020-03-11] MEDS ORDERED: APAP 300 MG/CODEINE 30 MG (TYLENOL #3) TAB PO ONE (19:45)
[2020-03-11] MEDS ORDERED: PREN-142 PO (19:48)
[2020-03-11] MEDS ORDERED: LURA20TA PO (19:48)
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
--- NOTE | 2020-03-11 20:00 | Discharge Inst-Women's Service ---
Discharge Inst-Women's Serv Depart Medication/Instructions New, Converted or Re-Newed RX: RX Given to Pt/Family Instructions - Macrobid 100mg twice daily for 5 days for UTI - Pyridium 100mg three times daily for 2 days for UTI - Take tylenol/Fioricet as needed and as directed for headache. Take with food to prevent nausea. - Take a warm bath at home for abdominal pains/contractions/back pain - Wear a belly band (found at [employer] and/or [employer]) for belly support given Round Ligament Pain Final Diagnosis Round ligament pain, Aime-Crum contractions Problems Reviewed?: Yes Consults/Follow Up Additional Follow Up: Yes Orders/Referrals Follow up with Dr. Dean for care as scheduled Activity Activity: Activity as Tolerated Driving Instructions: You May Drive NO SMOKING: NO SMOKING Diet Discharge Diet: No Restrictions Symptoms to Report to : Eyesight Changes, Fever Over 101 Degrees F, Pain/Pressure in Chest, Memory Changes Suddenly, Dizziness/Fainting For Any Problems or Questions: Contact Your Physician, Go to Emergency Room STACEY PATTERSON MD Mar 11, 2020 20:00
[2020-03-11 20:01] LABS: BACTERIA,URINE MODERATE /HPF; WBC,URINE >100 /HPF
[2020-03-11] MEDS ORDERED: NITROFURANTOIN 100 MG (MACROBID) CAPSULE PO ONE ×2 (20:06→20:15)
[2020-03-11] MEDS ORDERED: PHENAZOPYRIDINE 100 MG (PYRIDIUM) TABLET ONE (20:08)
[2020-03-11] MEDS ORDERED: PHEN-639 PO (20:13)
[2020-03-11] MEDS ORDERED: NITR-65 PO (20:14)
[2020-03-11] MEDS ORDERED: PHENAZOPYRIDINE 100 MG (PYRIDIUM) TABLET PO ONE (20:15)
--- NOTE | 2020-03-11 20:20 | NUR ---
D/C instructions given & explained, pt. verbalized understanding & thankful, copy of D/C & Rx to pt. Pt. left [facility] ambulatory, to home via private vehicle.
== END 2020-03-11 20:20 | disposition home or self-care (01) ==
LOC: LDRP 18:37 → WSo 18:37
PROVIDERS: ATTEND Obstetrics & Gynecology
DX: O23.42 Unspecified infection of urinary tract in pregnancy, second trimester (principal); O62.9 Abnormality of forces of labor, unspecified; O26.892 Other specified pregnancy related conditions, second trimester; M24.20 Disorder of ligament, unspecified site; Z3A.26 26 weeks gestation of pregnancy
CPT/HCPCS: 81000; 87077; 87088; 87186; G0463; 99213

== ENCOUNTER 2020-06-01 22:26 | Outpatient (CLI) | payer MEDICAID ==
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
[~2020-06-01 22:26] MED LIST changes: +LURA20TA PO; +PREN-142 PO
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
[2020-06-01 22:42] LABS: BILIRUBIN,URINE NEGATIVE (NEGATIVE); CLARITY,URINE CLOUDY; COLOR,URINE YELLOW; GLUCOSE, URINE (UA) NEGATIVE (NEGATIVE); KETONES,URINE NEGATIVE (NEGATIVE); LEUKOCYTE ESTERASE ,URINE TRACE (NEGATIVE); NITRITE,URINE NEGATIVE (NEGATIVE); PROTEIN,URINE NEGATIVE (NEGATIVE)
--- NOTE | 2020-06-01 22:53 | NUR ---
poc updated to pt, pt reports wanting to go to [facility] and her s/o is on her way to get her. notified of pt request, orders to repeat sve at hour tracey and if no change, pt may be discharged to private vehicle to be seen at her primary care hospital.
[2020-06-01 23:00] VITALS: BP 121/72
[2020-06-01 23:03] VITALS: BP 121/72
[2020-06-01] MEDS ORDERED: CETI10CA PO (23:03)
[2020-06-01 23:09] VITALS: BP 121/72
[2020-06-01 23:29] LABS: BACTERIA,URINE TRACE /HPF; WBC,URINE 0-2 /HPF
[2020-06-01 23:30] VITALS: BP 115/68
--- NOTE | 2020-06-01 23:35 | NUR ---
Discharge packet given and explained, understanding voiced. RN made pt aware that it is her responsibility to seek care at [facility]. RN made it clear that if she was not going to [facility] per request she would still be a patient. As her condition is stable at this time and appears stable for personal vehicle transport she is discharged from our care at this time. Addendum: 06/01/20 at 0091 by FE ALBARADO RN pt denies needs or concerns at this time. pt ambulatory off unit to s/o vehicle in er parking lot.
--- NOTE | 2020-06-01 23:42 | NUR ---
Report called to [facility], this rn spoke with TY sweeney who is now aware pt is en route to unit for further eval via private vehicle.
--- NOTE | 2020-06-02 09:12 | Physician Query-Final Dx ---
Clinic Account Progress/Dx Physician Query: Please give diagnosis Please include # weeks gestation Date of Service Jun 01, 2020 at 22:26 TACOS COHEN Jun 02, 2020 09:12
== END 2020-06-01 23:35 | disposition home or self-care (01) ==
LOC: WSo 22:26 → LDRP 22:27 → WSo 23:35
PROVIDERS: ATTEND Family Medicine
DX: Z34.93 Encounter for supervision of normal pregnancy, unspecified, third trimester (principal); Z3A.38 38 weeks gestation of pregnancy; V49.40XA Driver injured in collision with unspecified motor vehicles in traffic accident, initial encounter
CPT/HCPCS: 81000; G0463; 99213

== ENCOUNTER 2020-06-16 20:36 | Emergency (ER) | payer MEDICAID ==
[~2020-06-16] VITALS: Ht 162.6 cm; Wt 113.4 kg
[~2020-06-16 20:36] MED LIST changes: +CETI10CA PO
[2020-06-16 21:34] LABS: BASOPHILS % (AUTO) 1 % (0-10); EOSINOPHILS # (AUTO) 0.3 10^3/uL (0.0-0.3); EOSINOPHILS % (AUTO) 4 % (0-10); HEMATOCRIT 32 % (35-52); HEMOGLOBIN 9.3 g/dL (11.5-16.0); INR 0.9 (0.8-1.4); LYMPHOCYTES # (AUTO) 2.2 10^3/uL (1.0-4.0); LYMPHOCYTES % (AUTO) 26 % (12-44); MEAN CORPUSCULAR HEMOGLOBIN 22 pg (25-34); MEAN CORPUSCULAR HGB CONC 30 g/dL (32-36); MEAN CORPUSCULAR VOLUME 74 fL (80-99); MEAN PLATELET VOLUME 10.9 fL (9.0-12.2); MONOCYTES # (AUTO) 0.7 10^3/uL (0.0-1.0); MONOCYTES % (AUTO) 8 % (0-12); NEUTROPHILS # (AUTO) 4.9 10^3/uL (1.8-7.8); NEUTROPHILS % (AUTO) 61 % (42-75); PLATELET COUNT 394 10^3/uL (130-400); PROTHROMBIN TIME PATIENT 12.9 SEC (12.2-14.7); WHITE BLOOD COUNT 8.2 10^3/uL (4.3-11.0)
[2020-06-16 21:36] LABS: ALBUMIN 3.5 GM/DL (3.2-4.5); CHLORIDE 107 MMOL/L (98-107); POTASSIUM 3.6 MMOL/L (3.6-5.0); SODIUM 141 MMOL/L (135-145)
[2020-06-16 21:37] LABS: CALCIUM 8.4 MG/DL (8.5-10.1)
[2020-06-16 21:39] LABS: GLUCOSE 108 MG/DL (70-105); TOTAL PROTEIN 6.7 GM/DL (6.4-8.2)
[2020-06-16 21:40] LABS: CARBON DIOXIDE 21 MMOL/L (21-32)
[2020-06-16 21:41] LABS: BILIRUBIN,TOTAL 0.1 MG/DL (0.1-1.0)
[2020-06-16 21:42] LABS: ALKALINE PHOSPHATASE 98 U/L (40-136); CREATININE SERUM 0.62 MG/DL (0.60-1.30); GFR ESTIMATED > 60
[2020-06-16 21:43] LABS: BUN/CREATININE RATIO 21
[2020-06-16 21:45] LABS: ALANINE AMINOTRANSFERASE 21 U/L (0-55)
[2020-06-16 21:46] LABS: MAGNESIUM 1.7 MG/DL (1.6-2.4)
[2020-06-16] MEDS ORDERED: LACTATED RINGERS 1,000 ML IV ONE (21:57)
[2020-06-16] MEDS ORDERED: MAGNESIUM 1 GM/100 ML IVPB 100 ML IV ONE (22:00)
[2020-06-16] MEDS ORDERED: KETOROLAC 30 MG/ML VIAL IVP ONE (22:00)
--- NOTE | 2020-06-16 22:57 | ED Headache ---
General Chief Complaint: (<6 weeks) Stated Complaint: HEADACHE Nursing Triage Note: PT AMBULATE TO TRIAGE WITH C/O HEADACHE SINCE GIVING ON 06/11/20. PT REPORTS SPEAKING WITH HER DOCTOR AND WAS TOLD TO COME TO ED IF PAIN PERSISTED. Nursing Sepsis Screen: No Definite Risk Source: patient History of Present Illness Date Seen by Provider: Jun 16, 2020 Time Seen by Provider: 20:54 Initial Comments PT ARRIVES VIA POV FROM HOME C/O FRONTAL HEADACHE SINCE LAST Tuesday06/12/20 PT DELIVERED VIA LAST Tuesday06/11/20, AT [facility] IN [place]--OB DR. HAND DID HAVE AN EPIDURAL BLOCK HAS HAD HEADACHE PRIOR TO BEING DISMISSED ON TUESDAY STATES HEADACHE IS WORSE IF SHE BENDS OVER AND THEN STANDS UP NO NAUSEA/VOMITING NO VISION CHANGES NO FEVER NO PARESTHESIAS OR MOTOR DEFICITS HAS NOT TAKEN ANYTHING FOR PAIN PT IS PT HAD NO PROBLEMS DURING OR DELIVERY. PT IS TAKING IRON PILLS AND VITAMINS STATES SHE DRANK [address] DR. ZHANG TODAY, OTHERWISE HAS NOT BEEN TAKING IN CAFFEINE. PCP: DAMIEN-HEBER, DR. HOLLOWAY Allergies and Home Medications Allergies Coded Allergies: No Known Allergies (Verified Allergy, Unknown, 03/06/17) benzonatate (Verified Allergy, Unknown, 01/03/20) Home Medications Cefdinir 300 Mg Capsule, 300 MG PO BID Prescribed by: ANJANA MILLER on 06/17/20 0030 Lurasidone HCl 20 Mg Tablet, 20 MG PO DAILY, (Reported) Vit No.124/Iron/FA 1 Each Tablet, 1 EACH PO DAILY, (Reported) Patient Home Medication List Home Medication List Reviewed: Yes Review of Systems Review of Systems Constitutional: no symptoms reported; No chills, No diaphoresis, No dizziness, No fever, No malaise, No weakness Eyes: No Symptoms Reported Ears, Nose, Mouth, Throat: no symptoms reported Respiratory: no symptoms reported; No short of breath Cardiovascular: no symptoms reported; No chest pain Gastrointestinal: no symptoms reported; No abdominal pain, No nausea, No vomiting Genitourinary: no symptoms reported Musculoskeletal: no symptoms reported; No neck pain Skin: no symptoms reported Psychiatric/Neurological: See HPI, Headache; Denies Numbness, Denies Paresthesia, Denies Seizure, Denies Tingling, Denies Tremors, Denies Weakness Past Epywrej-Etoehn-Cumxeh Hx Past Med/Social Hx: Reviewed and Corrections made Patient Social History Alcohol Use: Denies Use Number of Drinks Today: AA Alcohol Beverage of Choice: Beer Recreational Drug Use: Yes Drug of Choice: HX METH Smoking Status: Never a Smoker 2nd Hand Smoke Exposure: No Recent Foreign Travel: No Contact w/Someone Who Travel: No Recent Infectious Disease Expo: No Recent Hopitalizations: No Physical Abuse: No Sexual Abuse: No Mistreated: No Fear: No Immunizations Up To Date Tetanus Booster (TDap): Less than 5yrs PED Vaccines UTD: No Date of Influenza Vaccine: May 08, 2017 Seasonal Allergies Seasonal Allergies: No Past Medical History Surgeries: No Respiratory: No Cardiac: No Neurological: Yes Headaches /Migraines Female Reproductive Disorders: Denies Sexually Transmitted Disease: No HIV/AIDS: No Genitourinary: No Gastrointestinal: No Musculoskeletal: Yes (CHRONIC LEG PAIN AND GENERALIZED PAIN ) Fibromyalgia, Chronic Back Pain Endocrine: No HEENT: No Cancer: No Psychosocial: Yes Anxiety, PTSD, Depression Integumentary: No Blood Disorders: No Adverse Reaction/Blood Tranf: No Family Medical History Diabetes mellitus 19 MOTHER G8 SISTER Hypertension 19 MOTHER Respiratory disorder 19 MOTHER Visual disorder 19 MOTHER No Pertinent Family Hx Physical Exam Vital Signs Vital Signs - First Documented 06/16/20 06/17/20 20:51 00:52 Temp 37.0 Pulse 71 Resp 18 B/P (MAP) 130/76 (94) Pulse Ox 98 O2 Delivery Room Air Capillary Refill : Less Than 3 Seconds Height, Weight, BMI Height: 5'4.00" Weight: 230lbs. 4.0oz. 104.032602eu; 42.00 BMI Method:Stated General Appearance: WD/WN, no apparent distress, obese, other (SITTING UP -STYLE. DOES NOT APPEAR ILL OR TO BE IN ANY DISCOMFORT OR DISTRESS) HEENT: PERRL/EOMI, normal ENT inspection, TMs normal, pharynx normal Neck: non-tender, full range of motion, supple, normal inspection Cardiovascular: regular rate, rhythm, no murmur Respiratory: normal breath sounds Gastrointestinal: non tender, soft Back: no CVA tenderness Extremities: normal inspection, no pedal edema Psychiatric: alert, oriented x 3 Crainal Nerves: normal hearing, normal speech, PERRL Coordination/Gait: normal gait Motor/Sensory: no motor deficit, no sensory deficit Skin: normal color, warm/dry Progress/Results/Core Measures Results/Orders Lab Results Laboratory Tests Test 06/16/20 21:18 06/16/20 23:37 Range/Units White Blood Count 8.2 4.3-11.0 10^3/uL Red Blood Count 4.28 3.80-5.11 10^6/uL Hemoglobin 9.3 L 11.5-16.0 g/dL Hematocrit 32 L 35-52 % Mean Corpuscular Volume 74 L 80-99 fL Mean Corpuscular Hemoglobin 22 L 25-34 pg Mean Corpuscular Hemoglobin Concent 30 L 32-36 g/dL Red Cell Distribution Width 18.0 H 10.0-14.5 % Platelet Count 394 130-400 10^3/uL Mean Platelet Volume 10.9 9.0-12.2 fL Immature Granulocyte % (Auto) 1 % Neutrophils (%) (Auto) 61 42-75 % Lymphocytes (%) (Auto) 26 12-44 % Monocytes (%) (Auto) 8 0-12 % Eosinophils (%) (Auto) 4 0-10 % Basophils (%) (Auto) 1 0-10 % Neutrophils # (Auto) 4.9 1.8-7.8 10^3/uL Lymphocytes # (Auto) 2.2 1.0-4.0 10^3/uL Monocytes # (Auto) 0.7 0.0-1.0 10^3/uL Eosinophils # (Auto) 0.3 0.0-0.3 10^3/uL Basophils # (Auto) 0.0 0.0-0.1 10^3/uL Immature Granulocyte # (Auto) 0.0 0.0-0.1 10^3/uL Prothrombin Time 12.9 12.2-14.7 SEC INR Comment 0.9 0.8-1.4 Activated Partial Thromboplast Time 28 24-35 SEC Sodium Level 141 135-145 MMOL/L Potassium Level 3.6 3.6-5.0 MMOL/L Chloride Level 107 98-107 MMOL/L Carbon Dioxide Level 21 21-32 MMOL/L Anion Gap 13 5-14 MMOL/L Blood Urea Nitrogen 13 7-18 MG/DL Creatinine 0.62 0.60-1.30 MG/DL Estimat Glomerular Filtration Rate > 60 BUN/Creatinine Ratio 21 Glucose Level 108 H 70-105 MG/DL Calcium Level 8.4 L 8.5-10.1 MG/DL Corrected Calcium 8.8 8.5-10.1 MG/DL Magnesium Level 1.7 1.6-2.4 MG/DL Total Bilirubin 0.1 0.1-1.0 MG/DL Aspartate Amino Transf (AST/SGOT) 14 5-34 U/L Alanine Aminotransferase (ALT/SGPT) 21 0-55 U/L Alkaline Phosphatase 98 40-136 U/L Total Protein 6.7 6.4-8.2 GM/DL Albumin 3.5 3.2-4.5 GM/DL Urine Color JUANY H Urine Clarity TURBID Urine pH 5.5 5-9 Urine Specific [place] >=1.030 1.016-1.022 Urine Protein 1+ H NEGATIVE Urine Glucose (UA) NEGATIVE NEGATIVE Urine Ketones NEGATIVE NEGATIVE Urine Nitrite NEGATIVE NEGATIVE Urine Bilirubin NEGATIVE NEGATIVE Urine Urobilinogen 0.2 < = 1.0 MG/DL Urine Leukocyte Esterase 1+ H NEGATIVE Urine RBC (Auto) 3+ H NEGATIVE Urine RBC TNTC H /HPF Urine WBC 2-5 /HPF Urine Squamous Epithelial Cells 0-2 /HPF Urine Crystals PRESENT H /LPF Urine Calcium Oxalate Crystals FEW H /LPF Urine Bacteria MODERATE H /HPF Urine Casts NONE /LPF Urine Mucus NEGATIVE /LPF Urine Culture Indicated YES Urine Opiates Screen NEGATIVE NEGATIVE Urine Oxycodone Screen NEGATIVE NEGATIVE Urine Methadone Screen NEGATIVE NEGATIVE Urine Propoxyphene Screen NEGATIVE NEGATIVE Urine Barbiturates Screen NEGATIVE NEGATIVE Ur Tricyclic Antidepressants Screen NEGATIVE NEGATIVE Urine Phencyclidine Screen NEGATIVE NEGATIVE Urine Amphetamines Screen NEGATIVE NEGATIVE Urine Methamphetamines Screen NEGATIVE NEGATIVE Urine Benzodiazepines Screen NEGATIVE NEGATIVE Urine Cocaine Screen NEGATIVE NEGATIVE Urine Cannabinoids Screen NEGATIVE NEGATIVE My Orders Orders - ANJANA MILLER DO Ed Iv/Invasive Line Start (06/16/20 20:58) Cbc With Automated Diff (06/16/20 20:58) Comprehensive Metabolic Panel (06/16/20 20:58) Drug Screen Stat (Urine) (06/16/20 20:58) Magnesium (06/16/20 20:58) Protime With Inr (06/16/20 20:58) Partial Thromboplastin Time (06/16/20 20:58) Ua Culture If Indicated (06/16/20 20:58) Ed Iv/Invasive Line Start (06/16/20 20:58) Ketorolac Injection (Toradol Injection) (06/16/20 22:00) Magnesium 1 Gm/100 Ml Ivpb (Magnesium Leon (06/16/20 22:00) Ed Iv/Invasive Line Start (06/16/20 21:57) Lactated Ringers (Lr 1000 Ml Iv Solution (06/16/20 21:57) Urine Culture (06/16/20 23:37) Medications Given in ED Current Medications Medications Dose Ordered Sig/Gini Route Start Time Stop Time Status Last Admin Dose Admin Ketorolac Tromethamine 30 mg ONCE ONCE IVP 06/16/20 22:00 06/16/20 22:04 DC 06/16/20 22:48 30 MG Lactated Ringer's 1,000 ml @ 0 mls/hr Q0M ONCE IV 06/16/20 21:57 06/16/20 22:04 DC 06/16/20 22:48 999 MLS/HR Magnesium Sulfate/ Dextrose 100 ml @ 100 mls/hr ONCE ONCE IV 06/16/20 22:00 06/16/20 22:59 DC 06/16/20 22:48 100 MLS/HR Vital Signs/I&O 06/16/20 06/17/20 20:51 00:52 Temp 37.0 Pulse 71 87 Resp 18 17 B/P (MAP) 130/76 (94) 121/71 Pulse Ox 98 O2 Delivery Room Air Room Air Blood Pressure Mean: 94 Progress Progress Note : Progress Note GIVEN IV FLUIDS, TORADOL AND MAGNESIUM WITH COMPLETE RESOLUTION OF SYMPTOMS Departure Impression Primary Impression: spinal headache Additional Impression: Urinary tract infection Disposition: 01 HOME, SELF-CARE Condition: Improved Departure-Patient Inst. Referrals: RUBEN HOLLOWAY MD (PCP/Family) Primary Care Physician Patient Instructions: Spinal Headache, Urinary Tract Infection, Adult (DC) Add. Discharge Instructions: INCREASE YOUR FLUID INTAKE INCREASE YOUR CAFFEINE INTAKE TYLENOL 1 GRAM / MOTRIN 800 MG 4 TIMES A DAY FOR PAIN FOLLOW UP WITH YOUR DR IN 1-2 DAYS IF HEADACHE RETURNS All discharge instructions reviewed with patient and/or family. Voiced understanding. Scripts Cefdinir (Cefdinir) 300 Mg Capsule 300 MG PO BID, #20 CAP Prov: ANJANA MILLER DO 06/17/20 ANJANA MILLER DO Jun 16, 2020 22:57
[2020-06-16 23:45] LABS: BILIRUBIN,URINE NEGATIVE (NEGATIVE); CLARITY,URINE TURBID; COLOR,URINE AMBER; GLUCOSE, URINE (UA) NEGATIVE (NEGATIVE); KETONES,URINE NEGATIVE (NEGATIVE); LEUKOCYTE ESTERASE ,URINE 1+ (NEGATIVE); NITRITE,URINE NEGATIVE (NEGATIVE); PH,URINE 5.5 (5-9); PROTEIN,URINE 1+ (NEGATIVE)
[2020-06-17 00:18] LABS: BACTERIA,URINE MODERATE /HPF; CALCIUM OXALATE CRYSTALS,UR FEW /LPF; RBC,URINE TNTC /HPF; SQUAMOUS EPITHELIAL CELL,UR 0-2 /HPF
[2020-06-17 00:24] LABS: AMPHETAMINE SCREEN, URINE NEGATIVE (NEGATIVE); BARBITURATE SCREEN URINE NEGATIVE (NEGATIVE); BENZODIAZEPINES SCREEN URINE NEGATIVE (NEGATIVE); CANNABINOID SCREEN, URINE NEGATIVE (NEGATIVE); COCAINE SCREEN URINE NEGATIVE (NEGATIVE); METHADONE STAT NEGATIVE (NEGATIVE); METHAMPHETAMINE SCREEN URINE S NEGATIVE (NEGATIVE); OPIATE SCREEN URINE NEGATIVE (NEGATIVE); OXYCODONE STAT NEGATIVE (NEGATIVE); PROPOXYPHENE STAT NEGATIVE (NEGATIVE); TRICYCLIC ANTIDEPRESSANTS SCRE NEGATIVE (NEGATIVE)
[2020-06-17] MEDS ORDERED: CEFD300C3 PO (00:30)
[2020-06-17 00:52] VITALS: BP 121/71
== END 2020-06-17 00:52 | disposition home or self-care (01) ==
LOC: EDUNIT# 20:36 → ER 20:37
DX: G97.1 Other reaction to spinal and lumbar puncture (principal); N39.0 Urinary tract infection, site not specified; E66.9 Obesity, unspecified; Z68.41 Body mass index [BMI] 40.0-44.9, adult; Z88.8 Allergy status to other drugs, medicaments and biological substances; Z83.3 Family history of diabetes mellitus; Z82.49 Family history of ischemic heart disease and other diseases of the circulatory system
CPT/HCPCS: 36415; 80053; 80306; 81000; 83735; 85025; 85610; 85730; 87088

== ENCOUNTER 2021-03-31 20:54 | Emergency (ER) | payer MEDICAID ==
[~2021-03-31] VITALS: Ht 162 cm; Wt 113.4 kg
[~2021-03-31 20:54] MED LIST changes: +BUTA-235 PO; -BUTA1TAB9 PO; +CEFD300C3 PO; -CIPR500T4 PO; +CIPR500T5 PO
--- NOTE | 2021-03-31 21:52 | ED Lower Extremity ---
General Stated Complaint: L ANKLE SWOLLEN Source: patient Exam Limitations: no limitations History of Present Illness Date Seen by Provider: Mar 31, 2021 Time Seen by Provider: 21:50 Initial Comments To ER with left ankle swelling and pain laterally for about 2 to 3 weeks as well as some left calf cramping. She had an outpatient ultrasound done which failed to show evidence of DVT. She is 17 weeks gestation. No history of injury to the ankle. Onset: just prior to arrival Severity: moderate Pain/Injury Location: left ankle Method of Injury: unknown Modifying Factors: Worse With Movement Allergies and Home Medications Allergies Coded Allergies: No Known Allergies (Verified Allergy, Unknown, 03/06/17) benzonatate (Verified Allergy, Unknown, 01/03/20) Patient Home Medication List Home Medication List Reviewed: Yes Cefdinir (Cefdinir) 300 Mg Capsule, 300 MG PO BID Prescribed by: ANJANA MILLER on 06/17/20 0030 Cetirizine HCl (Zyrtec) 10 Mg Capsule, 10 MG PO, (Reported) Entered as Reported by: FE ALBARADO on 06/01/202302 Lurasidone HCl (Latuda) 20 Mg Tablet, 20 MG PO DAILY, (Reported) Entered as Reported by: FARHAD PAYTON on 03/11/201947 Vit No.124/Iron/FA ( Vitamin Tablet) 1 Each Tablet, 1 EACH PO DAILY, (Reported) Entered as Reported by: FARHAD PAYTON on 03/11/201947 Review of Systems Constitutional: see HPI EENTM: see HPI Respiratory: no symptoms reported Cardiovascular: no symptoms reported Genitourinary: no symptoms reported Musculoskeletal: see HPI Skin: no symptoms reported Psychiatric/Neurological: No Symptoms Reported Past Fxsgxfy-Pglmeq-Dhwnwk Hx Immunizations Up To Date Tetanus Booster (TDap): Less than 5yrs PED Vaccines UTD: No Seasonal Allergies Seasonal Allergies: No Past Medical History Surgeries: No Respiratory: No Cardiac: No Neurological: Yes Headaches /Migraines Female Reproductive Disorders: Denies Sexually Transmitted Disease: No HIV/AIDS: No Genitourinary: No Gastrointestinal: No Musculoskeletal: Yes (CHRONIC LEG PAIN AND GENERALIZED PAIN ) Fibromyalgia, Chronic Back Pain Endocrine: No HEENT: No Cancer: No Psychosocial: Yes Anxiety, PTSD, Depression Integumentary: No Blood Disorders: No Adverse Reaction/Blood Tranf: No Family Medical History Diabetes mellitus 19 MOTHER G8 SISTER Hypertension 19 MOTHER Respiratory disorder 19 MOTHER Visual disorder 19 MOTHER No Pertinent Family Hx Physical Exam Vital Signs Capillary Refill : Height, Weight, BMI Height: 5'4.00" Weight: 230lbs. 4.0oz. 104.120831pc; 42.00 BMI Method:Stated General Appearance: WD/WN, no apparent distress HEENT: PERRL/EOMI, normal ENT inspection Respiratory: no respiratory distress, no accessory muscle use Hips: bilateral hip non-tender, bilateral hip normal inspection, bilateral hip normal range of motion Legs: bilateral leg non-tender, bilateral leg normal inspection, bilateral leg normal range of motion Knees: bilateral knee non-tender, bilateral knee normal inspection, bilateral knee normal range of motion Ankles: left ankle pain, left ankle soft tissue tenderness, left ankle swelling, left ankle other (Posterior and lateral to the lateral malleolus there is some swelling tenderness to palpation without obvious edema ecchymosis erythema or wound.) Feet: bilateral foot non-tender, bilateral foot normal inspection, bilateral foot normal range of motion Neurologic/Psychiatric: alert, normal mood/affect, oriented x 3 Skin: normal color, warm/dry Progress/Results/Core Measures Results/Orders Lab Results Laboratory Tests Test 03/31/21 21:56 Range/Units White Blood Count 9.7 4.3-11.0 10^3/uL Red Blood Count 4.44 3.80-5.11 10^6/uL Hemoglobin 11.9 11.5-16.0 g/dL Hematocrit 37 35-52 % Mean Corpuscular Volume 82 80-99 fL Mean Corpuscular Hemoglobin 27 25-34 pg Mean Corpuscular Hemoglobin Concent 33 32-36 g/dL Red Cell Distribution Width 15.1 H 10.0-14.5 % Platelet Count 317 130-400 10^3/uL Mean Platelet Volume 10.2 9.0-12.2 fL Immature Granulocyte % (Auto) 0 % Neutrophils (%) (Auto) 66 42-75 % Lymphocytes (%) (Auto) 24 12-44 % Monocytes (%) (Auto) 8 0-12 % Eosinophils (%) (Auto) 2 0-10 % Basophils (%) (Auto) 0 0-10 % Neutrophils # (Auto) 6.4 1.8-7.8 10^3/uL Lymphocytes # (Auto) 2.3 1.0-4.0 10^3/uL Monocytes # (Auto) 0.8 0.0-1.0 10^3/uL Eosinophils # (Auto) 0.2 0.0-0.3 10^3/uL Basophils # (Auto) 0.0 0.0-0.1 10^3/uL Immature Granulocyte # (Auto) 0.0 0.0-0.1 10^3/uL C-Reactive Protein High Sensitivity 1.03 H 0.00-0.50 MG/DL My Orders Orders - TIARRA JIMÉNEZ APRN Ankle, Left, 3 Views (03/31/21 21:43) Cbc With Automated Diff (03/31/21 21:43) Hs C Reactive Protein (03/31/21 21:43) Acetaminophen/Codeine Tablet (Tylenol W/ (03/31/21 22:30) Departure Communication (Admissions) I will give her a walking boot in case this is some Achilles tendinitis as she is tender over the Achilles tendon and pain worsens with plantar flexion of the foot. Impression Primary Impression: Achilles tendinitis of left lower extremity Disposition: 01 HOME, SELF-CARE Condition: Stable Departure-Patient Inst. Decision time for Depature: 22:24 Referrals: RUBEN HOLLOWAY MD (PCP/Family) Primary Care Physician Patient Instructions: Achilles Tendinopathy Add. Discharge Instructions: 1. Ice pack to the ankle. Elevate as much as possible, wear the boot for the next few days. TIARRA JIMÉNEZ APRN Mar 31, 2021 21:51
[2021-03-31 22:03] LABS: BASOPHILS % (AUTO) 0 % (0-10); EOSINOPHILS # (AUTO) 0.2 10^3/uL (0.0-0.3); EOSINOPHILS % (AUTO) 2 % (0-10); HEMATOCRIT 37 % (35-52); HEMOGLOBIN 11.9 g/dL (11.5-16.0); LYMPHOCYTES # (AUTO) 2.3 10^3/uL (1.0-4.0); LYMPHOCYTES % (AUTO) 24 % (12-44); MEAN CORPUSCULAR HEMOGLOBIN 27 pg (25-34); MEAN CORPUSCULAR HGB CONC 33 g/dL (32-36); MEAN CORPUSCULAR VOLUME 82 fL (80-99); MEAN PLATELET VOLUME 10.2 fL (9.0-12.2); MONOCYTES # (AUTO) 0.8 10^3/uL (0.0-1.0); MONOCYTES % (AUTO) 8 % (0-12); NEUTROPHILS # (AUTO) 6.4 10^3/uL (1.8-7.8); NEUTROPHILS % (AUTO) 66 % (42-75); PLATELET COUNT 317 10^3/uL (130-400); WHITE BLOOD COUNT 9.7 10^3/uL (4.3-11.0)
--- NOTE | 2021-03-31 22:12 | Diagnostic Imaging Report ---
ANKLE, LEFT, 3 VIEWS COMPARISON: None available. INDICATION: Ankle swelling. No known injury. TECHNIQUE: Non-weight bearing AP, oblique, and lateral views. FINDINGS: No fracture or traumatic malalignment. No osteochondral lesion of the talar dome. Mild soft tissue swelling around the ankle. Achilles shadow is normal. No radiopaque foreign body. IMPRESSION: 1. Soft tissue swelling without osseous abnormality. Dictated by: Dictated on workstation # [id number]
[2021-03-31] MEDS ORDERED: APAP 300 MG/CODEINE 30 MG (TYLENOL #3) TAB PO ONE (22:30)
[2021-03-31 22:57] VITALS: BP 110/77
== END 2021-03-31 23:02 | disposition home or self-care (01) ==
LOC: EDUNIT# 20:54 → ER 20:57
DX: O26.899 Other specified pregnancy related conditions, unspecified trimester (principal); M76.62 Achilles tendinitis, left leg; Z3A.17 17 weeks gestation of pregnancy
CPT/HCPCS: 73610; 85025; 86141; 99283; L2114; 36415

== ENCOUNTER 2021-08-22 23:53 | Outpatient (CLI) | payer MEDICAID ==
[~2021-08-22] VITALS: Ht 162.6 cm; Wt 119.6 kg
[2021-08-23 00:30] VITALS: BP 109/58
[2021-08-23 00:31] LABS: BILIRUBIN,URINE NEGATIVE (NEGATIVE); CLARITY,URINE CLOUDY; COLOR,URINE YELLOW; GLUCOSE, URINE (UA) NEGATIVE (NEGATIVE); KETONES,URINE NEGATIVE (NEGATIVE); LEUKOCYTE ESTERASE ,URINE 3+ (NEGATIVE); NITRITE,URINE NEGATIVE (NEGATIVE); PH,URINE 6.5 (5-9); PROTEIN,URINE NEGATIVE (NEGATIVE)
[2021-08-23] MEDS ORDERED: LURA20TA PO (00:56)
[2021-08-23] MEDS ORDERED: PREN-8 PO (00:56)
[2021-08-23] MEDS ORDERED: PROP10TA8 PO (00:56)
[2021-08-23] MEDS ORDERED: FAMO20TA3 PO (00:56)
[2021-08-23 01:08] LABS: AMORPHOUS SEDIMENT,UR MOD AMOR URATES /LPF; BACTERIA,URINE LARGE /HPF; RBC,URINE 0-2 /HPF; SQUAMOUS EPITHELIAL CELL,UR 25-50 /HPF; WBC,URINE 50-100 /HPF
--- NOTE | 2021-08-24 08:40 | Physician Query-Final Dx ---
VICKI,08/24/21 0840: Clinic Account Progress/Dx Physician Query: Please give diagnosis Please include # weeks gestation Date of Service Aug 22, 2021 at 23:53 RODRIGO DAVID MD 08/24/21 1956: Clinic Account Progress/Dx DIAGNOSIS: Diagnosis Term intrauterine at 38 weeks gestation Contractions without active labor VICKI,JulAug 24, 2021 08:40 RODRIGO DAVID MD Aug 24, 2021 19:56
== END 2021-08-23 01:20 ==
LOC: WSo 23:53 → LDRP 23:54 → WSo 08-23 01:20
PROVIDERS: ATTEND Family Medicine
DX: O47.03 False labor before 37 completed weeks of gestation, third trimester (principal); Z3A.38 38 weeks gestation of pregnancy
CPT/HCPCS: 81000; 87088; 99213

== ENCOUNTER 2021-08-27 06:00 | Inpatient (IN) | payer MEDICAID ==
[~2021-08-27] VITALS: Ht 162.5 cm; Wt 120.5 kg
[2021-08-27] VITALS (48 sets, daily range): BP systolic 106–168; BP diastolic 56–98
[~2021-08-27 06:00] MED LIST changes: +FAMO20TA3 PO; +PREN-8 PO; +PROP10TA8 PO
[2021-08-27] MEDS: D5 LR IV SOLUTION 1,000 ML IV SCH ×2 (07:35→14:01)
[2021-08-27] MEDS ORDERED: D5 LR IV SOLUTION 1,000 ML IV ONE (08:00)
[2021-08-27] MEDS ORDERED: LIDOCAINE/EPI 2% 1:200,00 (XYLOCAINE) 20 ML VIAL INJ PRN ×2 (09:00→10:30)
[2021-08-27] MEDS ORDERED: MINERAL OIL 30 ML OIL TOP PRN ×2 (09:00→10:30)
[2021-08-27] MEDS ORDERED: OXYTOCIN PRE-MIX DRIP 500 ML IV SCH (09:00)
[2021-08-27 09:01] LABS: BASOPHILS % (AUTO) 1 % (0-10); EOSINOPHILS % (AUTO) 0 % (0-10); HEMATOCRIT 33 % (35-52); HEMOGLOBIN 9.9 g/dL (11.5-16.0); LYMPHOCYTES % (AUTO) 15 % (12-44); MEAN CORPUSCULAR HEMOGLOBIN 23 pg (25-34); MEAN CORPUSCULAR HGB CONC 30 g/dL (32-36); MEAN CORPUSCULAR VOLUME 75 fL (80-99); MEAN PLATELET VOLUME 11.8 fL (9.0-12.2); MONOCYTES # (AUTO) 0.8 10^3/uL (0.0-1.0); MONOCYTES % (AUTO) 12 % (0-12); NEUTROPHILS # (AUTO) 4.8 10^3/uL (1.8-7.8); NEUTROPHILS % (AUTO) 71 % (42-75); PLATELET COUNT 279 10^3/uL (130-400); WHITE BLOOD COUNT 6.7 10^3/uL (4.3-11.0)
[2021-08-27] MEDS ORDERED: LIDOCAINE/EPI 2% 1:200,00 (XYLOCAINE) 10 ML VIAL ONE (09:24)
--- NOTE | 2021-08-27 09:31 | Labor Progress Note ---
Labor Progress Note Labor Progress Note Date Seen by Provider: Aug 27, 2021 Time Seen by Provider: 09:00 Subjective: Pt denies complaints. Objective: Cervical exam: Consistency: soft Position: mid Presentation: vertex heart tones: 140 beats per minute, moderate variability, accels present Tocometer: 0 ctx/10 minutes Assessment/Plan: Angelica Perez is a 25 yo,Gestational Age 39 weeks here for Induction of labor per Dr. Rouse. AROM done at time of exam with clear fluid, FSE placed by nurse TOCO Pitocin Anesthesia: none Anticipate vaginal delivery. Vitals - Labs Labs Laboratory Tests 08/27/21 07:30: White Blood Count 6.7, Red Blood Count 4.37, Hemoglobin 9.9L, Hematocrit 33L, Mean Corpuscular Volume 75L, Mean Corpuscular Hemoglobin 23L, Mean Corpuscular Hemoglobin Concent 30L, Red Cell Distribution Width 16.8H, Platelet Count 279, Mean Platelet Volume 11.8, Immature Granulocyte % (Auto) 1, Neutrophils (%) (Auto) 71, Lymphocytes (%) (Auto) 15, Monocytes (%) (Auto) 12, Eosinophils (%) (Auto) 0, Basophils (%) (Auto) 1, Neutrophils # (Auto) 4.8, Lymphocytes # (Auto) 1.0, Monocytes # (Auto) 0.8, Eosinophils # (Auto) 0.0, Basophils # (Auto) 0.0, Immature Granulocyte # (Auto) 0.0 RODRIGO DAVID MD Aug 27, 2021 09:31
[2021-08-27] MEDS ORDERED: fentaNYL INJ 100 MCG/2 ML AMP INJ ONE (11:00)
[2021-08-27] MEDS ORDERED: fentaNYL 2 mcg/ml BUPIVA 0.125 100 ML IV SCH (11:00)
[2021-08-27] MEDS ORDERED: ONDANSETRON 4 MG/2 ML (SDV) Z0FRAN IV PRN (11:00)
[2021-08-27] MEDS ORDERED: LACTATED RINGERS 1,000 ML IV ONE (11:00)
[2021-08-27] MEDS ORDERED: CATHETER FLUSH 10 ML SYR IV PRN (11:00)
[2021-08-27] MEDS ORDERED: NALOXONE 0.4 MG/ML 1 ML (NARCAN) VIAL IV PRN (11:00)
[2021-08-27] MEDS ORDERED: fentaNYL 2 mcg/ml BUPIVA 0.125 100 ML ONE (11:06)
[2021-08-27] MEDS ORDERED: fentaNYL INJ 100 MCG/2 ML AMP ONE (11:54)
[2021-08-27] MEDS ORDERED: CATHETER FLUSH 10 ML SYR IV SCH ×2 (14:00→22:00)
--- NOTE | 2021-08-27 14:27 | History & Physical-OB ---
OB - Chief Complaint & HPI Date/Time Date of Admission: Date of Admission: Aug 27, 2021 at 06:00 Date seen by a Provider: Aug 27, 2021 Time Seen by a Provider: 13:15 Chief Complaint/History OB-Reason for Admission/Chief: Induction of Labor Hx : 5 Hx Para: 3 Expected Date of Delivery: Sep 02, 2021 Gestational Age in Weeks: 39 Gestational Age in Days: 1 Indication for induction: post dates History of Labs A+, Ab neg, Rub Imm HIV/RPR/HepB/C NR GC/Chyl neg Normal 1 hr GTT GBS Neg Allergies and Home Medications Allergies Coded Allergies: sumatriptan (Verified Allergy, Mild, 08/23/21) benzonatate (Verified Allergy, Unknown, 01/03/20) Patient Home Medication List Home Medication List Reviewed: Yes Famotidine (Acid Push Connector Assembler (FAMOTIDINE)) 20 Mg Tablet, 20 MG PO BID, (Reported) Entered as Reported by: CHRISTIANO PLUMMER on 08/23/2155 Lurasidone HCl (Latuda) 20 Mg Tablet, 60 MG PO DAILY, (Reported) Entered as Reported by: CHRISTIANO PLUMMER on 08/23/2155 Vit W-Ca,Fe,FA(<1 mg) ( Formula) 1 Each Tablet, 1 EACH PO DAILY, (Reported) Entered as Reported by: CHRISTIANO PLUMMER on 08/23/2155 Propranolol HCl (Propranolol HCl) 10 Mg Tablet, 10 MG PO BID PRN, (Reported) Entered as Reported by: CHRISTIANO PLUMMER on 08/23/2155 Discontinued Medications Cefdinir (Cefdinir) 300 Mg Capsule, 300 MG PO BID Discontinued Reason: No Longer Taking Prescribed by: ANJANA MILLER on 06/17/20 0030 Cetirizine HCl (Zyrtec) 10 Mg Capsule, 10 MG PO, (Reported) Discontinued Reason: No Longer Taking Entered as Reported by: EF ALBARADO on 06/01/202302 Lurasidone HCl (Latuda) 20 Mg Tablet, 20 MG PO DAILY, (Reported) Discontinued Reason: New Order Entered as Reported by: FARHAD PAYTON on 03/11/20 194 Vit No.124/Iron/FA ( Vitamin Tablet) 1 Each Tablet, 1 EACH PO DAILY, (Reported) Discontinued Reason: No Longer Taking Entered as Reported by: FARHAD PAYTON on 03/11/201947 OB - History Hx of Present Care: Yes Ultrasounds: Normal mid trimester US Obstetrical Complications: None Medical Complications: None Obstetrical History Hx : 5 Hx Para: 3 Hx # Term Pregnancies: 2 Hx # Pregnancies: 1 Number of Living Children: 3 Hx Termination: No Hx Multiple Gestation: No Hx Stillbirth: No Hx Complication: Yes (polyhydramnios) Hx Induced Hypertens: No Hx Maternal Gestational Diabet: No Delivery History Hx Dystocia: No Hx Large For Gestational Age I: No Hx Small for Gestational Age I: No Hx Section: No Hx Vaginal Delivery Post C-Sec: No Hx Blood Disorders: No Adverse Rxn to Tranfusion: No Patient Past Medical History PMHx: depression PSurgHx: none Social History/Family History Recreational Drug Use: No 2nd Hand Smoke Exposure: No Immunizations Influenza Vaccine Up-to-Date: Yes; Up-to-Date First/Initial COVID19 Vaccine: 12/18/21 COVID19 Vaccine Banquet Director: Twelve Hepatitis A: No Hepatitis B: No Tetanus Booster (TDap): Less than 5yrs Rubella: immune RPR/VDRL: Negative GBS Status: Negative HBsAG: Negative OB - Admission Exam Physical Exam Vitals: Vital Signs 08/27/21 08/27/21 10:30 12:05 Temp 36.4 Pulse 98 Resp 20 B/P (MAP) 149/72 (97) Pulse Ox 98 O2 Delivery Room Air HEENT: NCAT Heart: Rhythm Normal Lungs: Clear Abdomen: Gravid Cervical Dilatation: 6cm Effacement: 75% Station: -1 Membranes: Ruptured Amniotic Fluid: Clear Heart Rate: 140's Decelerations: No Decelerations Short Term Variability: Present Support Worker Variability: Average (6-25) Contractions on Admission: < 5 Minutes Apart Intensity: Moderate Labs Laboratory Tests Test 08/27/21 07:30 Range/Units White Blood Count 6.7 4.3-11.0 10^3/uL Red Blood Count 4.37 3.80-5.11 10^6/uL Hemoglobin 9.9 L 11.5-16.0 g/dL Hematocrit 33 L 35-52 % Mean Corpuscular Volume 75 L 80-99 fL Mean Corpuscular Hemoglobin 23 L 25-34 pg Mean Corpuscular Hemoglobin Concent 30 L 32-36 g/dL Red Cell Distribution Width 16.8 H 10.0-14.5 % Platelet Count 279 130-400 10^3/uL Mean Platelet Volume 11.8 9.0-12.2 fL Immature Granulocyte % (Auto) 1 % Neutrophils (%) (Auto) 71 42-75 % Lymphocytes (%) (Auto) 15 12-44 % Monocytes (%) (Auto) 12 0-12 % Eosinophils (%) (Auto) 0 0-10 % Basophils (%) (Auto) 1 0-10 % Neutrophils # (Auto) 4.8 1.8-7.8 10^3/uL Lymphocytes # (Auto) 1.0 1.0-4.0 10^3/uL Monocytes # (Auto) 0.8 0.0-1.0 10^3/uL Eosinophils # (Auto) 0.0 0.0-0.3 10^3/uL Basophils # (Auto) 0.0 0.0-0.1 10^3/uL Immature Granulocyte # (Auto) 0.0 0.0-0.1 10^3/uL OB - Assessment/Plan/Diagnosis Assessment Assessment: induction of labor Admission Dx Third Trimester 39 week gestation Obesity in Admission Status: Inpatient Order (span 2 midnights) Reason for Inpatient Admission: Labor Plan Plan: Induction Other Plan 25 yo @ 39.1 wga here for IOL Elective Plan - Pitocin Protocol - GBS neg Copy Copies To 1: JESSE GONG MD, HOLLY R MD Aug 27, 2021 14:27
[2021-08-27] MEDS ORDERED: WITCH HAZEL(TUCKS) 40 EA JAR TOP PRN (15:15)
[2021-08-27] MEDS ORDERED: BENZOCAINE/MENTHOL (DERMOPLAST) 56 ML CAN TP PRN (15:15)
--- NOTE | 2021-08-27 15:15 | OB Labor & Delivery Record ---
Vag Delivery Note Vag Delivery Note Date of Delivery: 08/27/21 Preoperative Diagnosis: Angelica Perez is a (25 /Para 5 / 3, Gestational Age (wks)39.1 wga here for elective induction Postoperative Diagnosis: Same Surgeon: JESSE GONG MD Airplane Dispatch Clerk: Cezar Tom MS4 Anesthesia: Epidural Delivery Type: @ 1450 Findings: Viable female , apgars 8/9, weight 7#9, 3435 grams Lacerations: None Intact placenta with 3 vessel cord. No nuchal cord, body cord or shoulder dystocia Estimated Blood Loss: 150 ml Complications: None Condition: Stable Description of Procedure: The patient is a 25 year old female who presented for IOL. She was admitted and informed consent was obtained. Her labor course was unremarkable. She progressed to complete dilatation and began to push. She was then set up for delivery. The 's head was delivered atraumatically in the THOR position. The shoulders and remainder of the 's body were then delivered without difficulty. Upon delivery, the head was held below the level of the perineum and the mouth and nares were bulb suctioned. The cord was doubly clamped and cut by FOB after 3 min delay and the was placed on maternal abdomen and attended to the pediatric staff. An intact placenta with 3-vessel cord delivered via Marine and there was found to be minimal bleeding.~ Vigorous fundal massage was performed and the fundus was found to be firm. IV oxytocin was given. Examination of the vagina and perineum revealed no lacerations that requir repair. Following the repair, sponge, instrument and needle counts were correct. Mom and baby were both in stable condition in the labor suite. Vitals - Labs Vital Signs - I&O Vital Signs Date Time Temp Pulse Resp B/P (MAP) Pulse Ox O2 Delivery O2 Flow Rate FiO2 08/27/21 12:05 98 20 149/72 (97) 98 Room Air 08/27/21 12:02 93 20 136/68 (90) 98 Room Air 08/27/21 11:59 93 20 133/68 (89) 98 Room Air 08/27/21 11:56 102 20 132/60 (84) 98 Room Air 08/27/21 11:53 102 20 152/82 (105) 98 Room Air 08/27/21 11:50 100 20 150/73 (98) 98 Room Air 08/27/21 11:46 99 20 144/71 (95) 97 Room Air 08/27/21 11:43 102 20 151/81 (104) 97 Room Air 08/27/21 11:40 98 20 143/78 (99) 98 Room Air 08/27/21 11:39 102 20 138/78 (98) 98 Room Air 08/27/21 11:36 101 20 136/83 (100) 98 Room Air 08/27/21 11:33 112 20 139/82 (101) 97 Room Air 08/27/21 11:30 97 20 136/84 (101) 96 Room Air 08/27/21 11:26 98 20 126/68 (87) 98 Room Air 08/27/21 11:23 100 20 133/80 (97) 99 Room Air 08/27/21 11:20 101 20 130/78 (95) 99 Room Air 08/27/21 11:15 97 20 136/84 (101) 96 Room Air 08/27/21 11:00 96 20 134/78 (96) 97 Room Air 08/27/21 10:45 106 20 137/80 (99) 98 Room Air 08/27/21 10:30 36.4 106 20 133/56 (81) 99 Room Air 08/27/21 10:15 88 20 168/78 (108) 95 Room Air 08/27/21 10:00 108 20 166/98 (120) 97 Room Air 08/27/21 09:45 106 20 160/90 (113) 96 Room Air 08/27/21 09:30 113 20 143/89 (107) 97 Room Air 08/27/21 09:15 103 20 139/83 (101) 97 Room Air 08/27/21 09:00 108 20 134/83 (100) 97 Room Air 08/27/21 08:30 98 20 99 Room Air 08/27/21 08:15 130 20 106/59 (75) 97 Room Air 08/27/21 08:00 36.6 101 20 99 Room Air 08/27/21 08:00 36.6 101 20 127/71 (89) Room Air Labs Laboratory Tests 08/27/21 07:30: White Blood Count 6.7, Red Blood Count 4.37, Hemoglobin 9.9L, Hematocrit 33L, Mean Corpuscular Volume 75L, Mean Corpuscular Hemoglobin 23L, Mean Corpuscular Hemoglobin Concent 30L, Red Cell Distribution Width 16.8H, Platelet Count 279, Mean Platelet Volume 11.8, Immature Granulocyte % (Auto) 1, Neutrophils (%) (Auto) 71, Lymphocytes (%) (Auto) 15, Monocytes (%) (Auto) 12, Eosinophils (%) (Auto) 0, Basophils (%) (Auto) 1, Neutrophils # (Auto) 4.8, Lymphocytes # (Auto) 1.0, Monocytes # (Auto) 0.8, Eosinophils # (Auto) 0.0, Basophils # (Auto) 0.0, Immature Granulocyte # (Auto) 0.0 JESSE GONG MD Aug 27, 2021 15:15
[2021-08-27] MEDS: OXYTOCIN PRE-MIX DRIP 500 ML IV SCH ×2 (15:27→19:38)
[2021-08-27] MEDS: ACETAMINOPHEN 500 MG TAB (TYLENOL) PO SCH (18:26)
[2021-08-27] MEDS: IBUPROFEN 600 MG (MOTRIN) TAB PO SCH (18:26)
[2021-08-27] MEDS ORDERED: FERR325T24 PO (20:39)
[2021-08-27] MEDS: DOCUSATE SODIUM 100 MG (COLACE) CAP PO SCH (21:36)
[2021-08-28 00:11] VITALS: BP 119/82
[2021-08-28] MEDS: IBUPROFEN 600 MG (MOTRIN) TAB PO SCH ×2 (00:11→10:04)
[2021-08-28 03:44] VITALS: BP 116/60
[2021-08-28] MEDS: ACETAMINOPHEN 500 MG TAB (TYLENOL) PO SCH ×2 (03:44→13:06)
[2021-08-28 06:20] LABS: BASOPHILS % (AUTO) 0 % (0-10); EOSINOPHILS # (AUTO) 0.2 10^3/uL (0.0-0.3); EOSINOPHILS % (AUTO) 3 % (0-10); HEMATOCRIT 28 % (35-52); HEMOGLOBIN 8.6 g/dL (11.5-16.0); LYMPHOCYTES # (AUTO) 1.6 10^3/uL (1.0-4.0); LYMPHOCYTES % (AUTO) 30 % (12-44); MEAN CORPUSCULAR HEMOGLOBIN 23 pg (25-34); MEAN CORPUSCULAR HGB CONC 30 g/dL (32-36); MEAN CORPUSCULAR VOLUME 75 fL (80-99); MEAN PLATELET VOLUME 11.3 fL (9.0-12.2); MONOCYTES # (AUTO) 0.8 10^3/uL (0.0-1.0); MONOCYTES % (AUTO) 14 % (0-12); NEUTROPHILS # (AUTO) 2.8 10^3/uL (1.8-7.8); NEUTROPHILS % (AUTO) 52 % (42-75); PLATELET COUNT 210 10^3/uL (130-400); WHITE BLOOD COUNT 5.3 10^3/uL (4.3-11.0)
[2021-08-28] MEDS ORDERED: FERROUS SULF 325 MG (IRON) TAB PO SCH (09:00)
[2021-08-28 09:22] VITALS: BP 122/73
[2021-08-28] MEDS: DOCUSATE SODIUM 100 MG (COLACE) CAP PO SCH (10:03)
[2021-08-28 12:45] VITALS: BP 118/79
--- NOTE | 2021-08-28 12:45 | Discharge Summary ---
Discharge Summary Hospital Course Hospital Course Date of Admission: Aug 27, 2021 at 06:00 Admission Diagnosis : Family Physician/Provider: Jefferson Jo MD Date of Discharge: 08/28/21 Discharge Diagnosis: s/p spontaneous vaginal delivery asymptomatic anemia/acute blood loss anemia Hospital Course: Pt admitted at full term for induction of labor, had uncomplicated labor and delivery and course. Labs and Pending Lab Test: Laboratory Tests 08/28/21 05:41: White Blood Count 5.3, Red Blood Count 3.77L, Hemoglobin 8.6L, Hematocrit 28L, Mean Corpuscular Volume 75L, Mean Corpuscular Hemoglobin 23L, Mean Corpuscular Hemoglobin Concent 30L, Red Cell Distribution Width 17.0H, Platelet Count 210, Mean Platelet Volume 11.3, Immature Granulocyte % (Auto) 1, Neutrophils (%) (Auto) 52, Lymphocytes (%) (Auto) 30, Monocytes (%) (Auto) 14H, Eosinophils (%) (Auto) 3, Basophils (%) (Auto) 0, Neutrophils # (Auto) 2.8, Lymphocytes # (Auto) 1.6, Monocytes # (Auto) 0.8, Eosinophils # (Auto) 0.2, Basophils # (Auto) 0.0, Immature Granulocyte # (Auto) 0.0 Home Meds Active Ferosul (Ferrous Sulfate) 325 Mg Tablet 325 Mg PO DAILY Reported Formula ( Vit W-Ca,Fe,FA(<1 mg)) 1 Each Tablet 1 Each PO DAILY Acid Substation Operator Transforming (FAMOTIDINE) (Famotidine) 20 Mg Tablet 20 Mg PO BID Propranolol HCl 10 Mg Tablet 10 Mg PO BID PRN Latuda (Lurasidone HCl) 20 Mg Tablet 60 Mg PO DAILY Assessment/Pt DC Instructions Follow up with Dr. Rouse in 6 weeks for visit. Discharge Diet: Regular Diet Activity as Tolerated: Yes (avoid strenuous activity x 6 weeks, nothing in vagina x 6 weeks) Discharge Physical Examination Allergies: Coded Allergies: sumatriptan (Verified Allergy, Mild, 08/23/21) benzonatate (Verified Allergy, Unknown, 01/03/20) General Appearance: No Apparent Distress, WD/WN Respiratory: Lungs Clear, Normal Breath Sounds Cardiovascular: Regular Rate, Rhythm, No Murmur Skin: Warm/Dry Neurologic/Psychiatric: Alert, Normal Mood/Affect RODRIGO DAVID MD Aug 28, 2021 12:45
--- NOTE | 2021-08-28 13:31 | Anesthesia-Regional Post-Op ---
Regional Patient Condition Mental Status: Alert, Oriented x3 Circulation: Same as Pre-Op Headache: Absent Sensation: Full Recovery Motor Block: Absent Post Op Complications Complications None Follow Up Care/Instructions Patient Instructions None needed. Anesthesia/Patient Condition Patient is doing well, no complaints, stable vital signs, no apparent adverse anesthesia problems. No complications reported per nursing. [place] [facility] Criteria: Yes LUCY MEAD CRNA Aug 28, 2021 13:31
[2021-08-28 14:39] VITALS: BP 118/79
== END 2021-08-28 16:45 | disposition home or self-care (01) | DRG 806 ==
LOC: LDRP 06:00
PROVIDERS: ADMIT Family Medicine; ATTEND Family Medicine
PROC: 10E0XZZ Delivery of Products of Conception, External Approach (ICD-10-PCS; principal; 2021-08-27)
PROC: 10907ZC Drainage of Amniotic Fluid, Therapeutic from Products of Conception, Via Natural or Artificial Opening (ICD-10-PCS; 2021-08-27)
PROC: 3E033VJ Introduction of Other Hormone into Peripheral Vein, Percutaneous Approach (ICD-10-PCS; 2021-08-27)
DX: O99.214 Obesity complicating childbirth (principal); D62 Acute posthemorrhagic anemia; Z37.0 Single live birth; E66.9 Obesity, unspecified; Z3A.39 39 weeks gestation of pregnancy; O90.81 Anemia of the puerperium
CPT/HCPCS: 36415; 85025; 86850; 86900; 86901

== ENCOUNTER 2021-12-12 12:40 | Emergency (ER) | payer MEDICAID ==
[~2021-12-12] VITALS: Ht 162.5 cm; Wt 111.1 kg
[~2021-12-12 12:40] MED LIST changes: +FERR325T24 PO; +LURA40TA2 PO; -LURA40TA3 PO
--- NOTE | 2021-12-12 13:16 | ED Lower Extremity ---
General Chief Complaint: Lower Extremity Stated Complaint: L ANKLE SWELLING Nursing Triage Note: ON AND OFF LEFT ANKLE PAIN. DENIES INJURY AND NOTES WEATHER WILL SOMETIMES CAUSE EXACERBATION. Source: patient Exam Limitations: no limitations History of Present Illness Date Seen by Provider: December 12, 2021 Time Seen by Provider: 12:51 Initial Comments Patient to the ER by private conveyance from home with chief complaint of of waking up this morning having some increased swelling and pain in her left ankle. She is had this off and on for the past 6 years. She says she is been to her primary care office, Dr. Wood and he has given her Lyrica which helps some and hydrocodone's which does nothing for her pain. She has been told she has fibromyalgia. She says is not constant it just comes and goes. She says she came out here and got a walking boot and that seemed to help but she has since lost the boot. This particular episode started today. No trauma or history of trauma to the left ankle. She has not seen a solutions analyst. She is using ibuprofen 800 mg 2-3 times a day and Robaxin as needed. Allergies and Home Medications Allergies Coded Allergies: sumatriptan (Verified Allergy, Mild, 08/23/21) benzonatate (Verified Allergy, Unknown, 01/03/20) Patient Home Medication List Home Medication List Reviewed: Yes Famotidine (Acid Program Strategist (FAMOTIDINE)) 20 Mg Tablet, 20 MG PO BID, (Reported) Entered as Reported by: CHRISTIANO PLUMMER on 08/23/2155 Ferrous Sulfate (Ferosul) 325 Mg Tablet, 325 MG PO DAILY Prescribed by: RODRIGO DAVID on 08/27/212038 Lurasidone HCl (Latuda) 20 Mg Tablet, 60 MG PO DAILY, (Reported) Entered as Reported by: CHRISTIANO PLUMMER on 08/23/2155 Vit W-Ca,Fe,FA(<1 mg) ( Formula) 1 Each Tablet, 1 EACH PO DAILY, (Reported) Entered as Reported by: CHRISTIANO PLUMMER on 08/23/2155 Propranolol HCl (Propranolol HCl) 10 Mg Tablet, 10 MG PO BID PRN, (Reported) Entered as Reported by: CHRISTIANO PLUMMER on 08/23/2155 Review of Systems Constitutional: No chills, No diaphoresis EENTM: No ear discharge, No ear pain Respiratory: No cough, No short of breath Cardiovascular: No chest pain, No edema Gastrointestinal: No abdominal pain, No constipation, No diarrhea Genitourinary: No discharge, No dysuria Control/STD Prophylaxis: None Musculoskeletal: see HPI; No back pain; joint pain All Other Systems Reviewed Negative Unless Noted: Yes Past Bnuynuf-Keafer-Ysvtxx Hx Patient Social History Tobacco Use?: No Use of E-Cig and/or Vaping dev: No Substance use?: No Immunizations Up To Date Tetanus Booster (TDap): Less than 5yrs PED Vaccines UTD: No First/Initial COVID19 Vaccinat: 12/18/21 Seasonal Allergies Seasonal Allergies: No Past Medical History Surgeries: No Respiratory: No Cardiac: No Neurological: Yes Headaches /Migraines Last Menstrual Period: Oct 25, 2021 Female Reproductive Disorders: Denies Sexually Transmitted Disease: No HIV/AIDS: No Genitourinary: No Gastrointestinal: No Musculoskeletal: Yes (CHRONIC LEG PAIN AND GENERALIZED PAIN ) Fibromyalgia, Chronic Back Pain Endocrine: No HEENT: No Cancer: No Psychosocial: Yes Anxiety, PTSD, Depression Integumentary: No Blood Disorders: No Adverse Reaction/Blood Tranf: No Family Medical History Diabetes mellitus 19 MOTHER G8 SISTER Hypertension 19 MOTHER Respiratory disorder 19 MOTHER Visual disorder 19 MOTHER No Pertinent Family Hx Physical Exam Vital Signs Vital Signs - First Documented 12/12/21 13:00 Temp 36.1 Pulse 76 Resp 16 B/P (MAP) 117/66 (83) Pulse Ox 98 O2 Delivery Room Air Capillary Refill : Height, Weight, BMI Height: 5'4.00" Weight: 230lbs. 4.0oz. 104.558059eo; 42.00 BMI Method:Stated General Appearance: WD/WN, no apparent distress HEENT: normal ENT inspection, pharynx normal Neck: supple, normal inspection Cardiovascular: normal peripheral pulses, regular rate, rhythm Respiratory: no respiratory distress, no accessory muscle use Hips: bilateral hip non-tender, bilateral hip normal inspection, bilateral hip normal range of motion, bilateral hip no evidence of injury Legs: bilateral leg non-tender, bilateral leg normal inspection, bilateral leg normal range of motion, bilateral leg no evidence of injury Ankles: right ankle non-tender, right ankle normal inspection, right ankle normal range of motion, right ankle no evidence of injury; left ankle bone tenderness (Lateral and medial malleolus), left ankle joint effusion (Scant), left ankle pain, left ankle soft tissue tenderness Feet: bilateral foot non-tender, bilateral foot normal inspection, bilateral foot normal range of motion, bilateral foot no evidence of injury Neurologic/Tendon: normal sensation, normal motor functions, normal tendon functions, responds to pain Neurologic/Psychiatric: alert, normal mood/affect, oriented x 3 Skin: normal color, warm/dry Progress/Results/Core Measures Results/Orders Lab Results Laboratory Tests Test 12/12/21 13:18 Range/Units White Blood Count 9.9 4.3-11.0 10^3/uL Red Blood Count 4.53 3.80-5.11 10^6/uL Hemoglobin 11.9 11.5-16.0 g/dL Hematocrit 37 35-52 % Mean Corpuscular Volume 83 80-99 fL Mean Corpuscular Hemoglobin 26 25-34 pg Mean Corpuscular Hemoglobin Concent 32 32-36 g/dL Red Cell Distribution Width 16.9 H 10.0-14.5 % Platelet Count 308 130-400 10^3/uL Mean Platelet Volume 10.5 9.0-12.2 fL Immature Granulocyte % (Auto) 0 % Neutrophils (%) (Auto) 68 42-75 % Lymphocytes (%) (Auto) 23 12-44 % Monocytes (%) (Auto) 6 0-12 % Eosinophils (%) (Auto) 2 0-10 % Basophils (%) (Auto) 1 0-10 % Neutrophils # (Auto) 6.8 1.8-7.8 10^3/uL Lymphocytes # (Auto) 2.2 1.0-4.0 10^3/uL Monocytes # (Auto) 0.6 0.0-1.0 10^3/uL Eosinophils # (Auto) 0.2 0.0-0.3 10^3/uL Basophils # (Auto) 0.1 0.0-0.1 10^3/uL Immature Granulocyte # (Auto) 0.0 0.0-0.1 10^3/uL Sodium Level 140 135-145 MMOL/L Potassium Level 3.9 3.6-5.0 MMOL/L Chloride Level 106 98-107 MMOL/L Carbon Dioxide Level 22 21-32 MMOL/L Anion Gap 12 5-14 MMOL/L Blood Urea Nitrogen 13 7-18 MG/DL Creatinine 0.62 0.60-1.30 MG/DL Estimat Glomerular Filtration Rate 125 BUN/Creatinine Ratio 21 Glucose Level 108 H 70-105 MG/DL Uric Acid 4.5 2.6-7.2 MG/DL Calcium Level 9.3 8.5-10.1 MG/DL My Orders Orders - MILTON THORPE Uric Acid (12/12/21 13:07) Cbc With Automated Diff (12/12/21 13:07) Basic Metabolic Panel (12/12/21 13:07) Ankle, Left, 3 Views (12/12/21 13:07) Vital Signs/I&O 12/12/21 13:00 Temp 36.1 Pulse 76 Resp 16 B/P (MAP) 117/66 (83) Pulse Ox 98 O2 Delivery Room Air Blood Pressure Mean: 83 Progress Progress Note : Time: 13:49 Progress Note Nontraumatic pain of the left ankle. Uric acid is only 4 and x-ray does not reveal any osseous lesions. Plan to have her follow-up with podiatry and place her in a boot. Diagnostic Imaging Diagonstic Imaging: Xray Plain Films/CT/US/NM/MRI: ankle Comments [facility], [place] NAME: TRISH LI MED REC#: [id number] PT STATUS: REG ER : 1995 PHYSICIAN: MILTON THORPE MD ADMIT DATE: 12/12/21/ER Draft Date of Exam:12/12/21 ANKLE, LEFT, 3 VIEWS EXAMINATION: Left ankle radiograph, 3 views. COMPARISON: March 31, 2021. HISTORY: 26-year-old female, left ankle pain. FINDINGS: There is no identified acute fracture. There is no identified radiopaque foreign body. There is no tibiotalar joint effusion. The joint spaces appear well-preserved. There is unremarkable alignment of the ankle mortise. IMPRESSION: 1. No identified acute bony abnormality of the left ankle. Dictated on workstation # [id number] Dict: 12/12/21 1348 Trans: 12/12/21 1401 [facility] [id number] Interpreted by: LIBERTAD PANDYA MD Electronically signed by: Reviewed: Reviewed by Me Departure Impression Primary Impression: Chronic pain of left ankle Disposition: HOME, SELF-CARE Condition: Stable Departure-Patient Inst. Decision time for Depature: 13:50 Referrals: RUBEN DEWITT DPM, DAVID F MD (PCP/Family) Primary Care Physician SHELLEY VICK DPM Patient Instructions: Walking Boot, Ankle Impingement Add. Discharge Instructions: Heating pads may be helpful for your pain. Topical creams such as icy hot or Biofreeze. Wear the boot for the next 1 to 2 months to reduce pain while walking. Continue using the ibuprofen as prescribed. Tylenol 1000 mg every 8 hours as needed for pain. Elevate your ankle above the level of your heart while at rest. Call and follow-up with a solutions analyst of your choice for continued evaluation and management of your left ankle pain. All discharge instructions reviewed with patient and/or family. Voiced understanding. Work/School Note: Work Release Form Date Seen in the Emergency Department: December 12, 2021 Return to Work: December 14, 2021 Restrictions: Need Release from Doctor Other Restrictions Listed Below: Minimize standing and walking as possible until 12/21/2021. MILTON THORPE December 12, 2021 13:16
[2021-12-12 13:25] LABS: BASOPHILS # (AUTO) 0.1 10^3/uL (0.0-0.1); BASOPHILS % (AUTO) 1 % (0-10); EOSINOPHILS # (AUTO) 0.2 10^3/uL (0.0-0.3); EOSINOPHILS % (AUTO) 2 % (0-10); HEMATOCRIT 37 % (35-52); HEMOGLOBIN 11.9 g/dL (11.5-16.0); LYMPHOCYTES # (AUTO) 2.2 10^3/uL (1.0-4.0); LYMPHOCYTES % (AUTO) 23 % (12-44); MEAN CORPUSCULAR HEMOGLOBIN 26 pg (25-34); MEAN CORPUSCULAR HGB CONC 32 g/dL (32-36); MEAN CORPUSCULAR VOLUME 83 fL (80-99); MEAN PLATELET VOLUME 10.5 fL (9.0-12.2); MONOCYTES # (AUTO) 0.6 10^3/uL (0.0-1.0); MONOCYTES % (AUTO) 6 % (0-12); NEUTROPHILS # (AUTO) 6.8 10^3/uL (1.8-7.8); NEUTROPHILS % (AUTO) 68 % (42-75); PLATELET COUNT 308 10^3/uL (130-400); WHITE BLOOD COUNT 9.9 10^3/uL (4.3-11.0)
[2021-12-12 13:34] LABS: POTASSIUM 3.9 MMOL/L (3.6-5.0)
[2021-12-12 13:35] LABS: CALCIUM 9.3 MG/DL (8.5-10.1)
[2021-12-12 13:40] LABS: CREATININE SERUM 0.62 MG/DL (0.60-1.30)
[2021-12-12 13:42] LABS: URIC ACID 4.5 MG/DL (2.6-7.2)
--- NOTE | 2021-12-12 14:02 | Diagnostic Imaging Report ---
EXAMINATION: Left ankle radiograph, 3 views. COMPARISON: March 31, 2021. HISTORY: 26-year-old female, left ankle pain. FINDINGS: There is no identified acute fracture. There is no identified radiopaque foreign body. There is no tibiotalar joint effusion. The joint spaces appear well-preserved. There is unremarkable alignment of the ankle mortise. IMPRESSION: 1. No identified acute bony abnormality of the left ankle. Dictated by: Dictated on workstation # [id number]
[2021-12-12 14:32] VITALS: BP 103/58
== END 2021-12-12 14:32 | disposition home or self-care (01) ==
LOC: EDUNIT# 12:40 → ER 12:41
DX: G89.29 Other chronic pain (principal); M25.572 Pain in left ankle and joints of left foot
CPT/HCPCS: 73610; 80048; 84550; 85025; 99282; L2114; 36415

== ENCOUNTER → 2021-12-19 | Outpatient (CLI) | payer MEDICAID ==
--- NOTE | 2021-12-19 14:47 | Diagnostic Imaging Report ---
CLINICAL INDICATIONS: Patient with acute knee pain. EXAM: X-ray left knee, 3 views. COMPARISON: None. FINDINGS: There is no acute fracture or dislocation. There is minimal spurring of the medial compartment. There is mild to moderate medial compartment narrowing on these nonweightbearing views. There is no significant knee effusion. IMPRESSION: There is mild degenerative disease of the medial compartment. There is no acute fracture or dislocation. Dictated by: Dictated on workstation # [id number]
== END ==
LOC: RAD 14:19
PROVIDERS: ATTEND Nurse Practitioner Community Health
DX: M17.12 Unilateral primary osteoarthritis, left knee (principal)
CPT/HCPCS: 73562

== ENCOUNTER 2023-03-03 21:27 | Emergency (ER) | payer MEDICAID ==
[2023-03-03] MEDS ORDERED: RX-TRIMETH/SULFA. 160-800 MG (BACTRIM DS) TAB PPK#2 PO STA (21:50)
[2023-03-03] MEDS ORDERED: MUPI22OI2 TP ×2 (21:54→22:04)
[2023-03-03] MEDS ORDERED: SULF1TAB38 PO ×2 (21:54→22:04)
--- NOTE | 2023-03-03 21:54 | ED Integumentary General ---
General Chief Complaint: Skin/Wound Problems Stated Complaint: KNOT ON BACK, SORE ON LEFT LEG Source: patient History of Present Illness Date Seen by Provider: Mar 03, 2023 Allergies and Home Medications Allergies Coded Allergies: sumatriptan (Verified Allergy, Mild, 08/23/21) benzonatate (Verified Allergy, Unknown, 01/03/20) Patient Home Medication List Famotidine (Acid Etcher Enameling (FAMOTIDINE)) 20 Mg Tablet, 20 MG PO BID, (Reported) Entered as Reported by: CHRISTIANO PLUMMER on 08/23/2155 Ferrous Sulfate (Ferosul) 325 Mg Tablet, 325 MG PO DAILY Prescribed by: RODRIGO DAVID on 08/27/212038 Lurasidone HCl (Latuda) 20 Mg Tablet, 60 MG PO DAILY, (Reported) Entered as Reported by: CHRISTIANO PLUMMER on 08/23/2155 Mupirocin (Mupirocin) 2 % Oint...g., 22 GM TP BID Prescribed by: ANJANA MILLER on 03/03/232153 Vit W-Ca,Fe,FA(<1 mg) ( Formula) 1 Each Tablet, 1 EACH PO DAILY, (Reported) Entered as Reported by: CHRISTIANO PLUMMER on 08/23/2155 Propranolol HCl (Propranolol HCl) 10 Mg Tablet, 10 MG PO BID PRN, (Reported) Entered as Reported by: CHRISTIANO PLUMMER on 08/23/2155 Sulfamethoxazole/Trimethoprim (Bactrim Ds Tablet) 1 Each Tablet, 1 EACH PO BID Prescribed by: ANJANA MILLER on 03/03/232153 Past Rvkxhfk-Wwlalh-Ejjlmj Hx Immunizations Up To Date Tetanus Booster (TDap): Less than 5yrs PED Vaccines UTD: No First/Initial COVID19 Vaccinat: 12/18/21 Seasonal Allergies Seasonal Allergies: No Past Medical History Surgeries: No Respiratory: No Cardiac: No Neurological: Yes Headaches /Migraines Female Reproductive Disorders: Denies Sexually Transmitted Disease: No HIV/AIDS: No Genitourinary: No Gastrointestinal: No Musculoskeletal: Yes (CHRONIC LEG PAIN AND GENERALIZED PAIN ) Fibromyalgia, Chronic Back Pain Endocrine: No HEENT: No Cancer: No Psychosocial: Yes Anxiety, PTSD, Depression Integumentary: No Blood Disorders: No Adverse Reaction/Blood Tranf: No Family Medical History Diabetes mellitus 19 MOTHER G8 SISTER Hypertension 19 MOTHER Respiratory disorder 19 MOTHER Visual disorder 19 MOTHER No Pertinent Family Hx Physical Exam Vital Signs Vital Signs - First Documented 03/03/23 21:40 Temp 36.7 Pulse 77 Resp 16 B/P (MAP) 100/66 (77) Pulse Ox 99 O2 Delivery Room Air Capillary Refill : Progress/Results/Core Measures Results/Orders My Orders Orders - ANJANA MILLER DO Rx-Trimeth/Sulfameth Ds Tab (Rx-Bactrim/ (03/03/23 21:50) Vital Signs/I&O 03/03/23 21:40 Temp 36.7 Pulse 77 Resp 16 B/P (MAP) 100/66 (77) Pulse Ox 99 O2 Delivery Room Air Departure Impression Primary Impression: Multiple superficial wounds with infection Additional Impression: Compulsive skin picking Disposition: 01 HOME, SELF-CARE Condition: Stable Departure-Patient Inst. Decision time for Depature: 21:50 Referrals: [facility] (PCP/Family) Primary Care Physician Patient Instructions: Cellulitis (Skin Infection), Adult (DC), MRSA (DC), Wound Care ED Add. Discharge Instructions: CLEAN WOUNDS WITH HIBICLENS SOAP 2-3 TIMES A DAY APPLY ANTIBIOTIC OINTMENT AND FRESH DRESSING TO WOUNDS TWICE A DAY DO NOT PICK AT, POKE OR SQUEEZE ANY AREAS OF YOUR SKIN MOIST HEAT TO AFFECTED AREAS AT 20 MINUTE INTERVALS TYLENOL AND MOTRIN NEEDED FOR PAIN FOLLOW UP WITH [facility] IN 2-3 DAYS FOR RECHECK--CALL IN THE MORNING TO SCHEDULE AN APPOINTMENT All discharge instructions reviewed with patient and/or family. Voiced understanding. Scripts Mupirocin (Mupirocin) 2 % Oint...g. 22 GM TP BID, #1 TUBE Prov: ANJANA MILLER DO 03/03/23 Sulfamethoxazole/Trimethoprim (Bactrim Ds Tablet) 1 Each Tablet 1 EACH PO BID, #20 TAB Prov: ANJANA MILLER DO 03/03/23 ANJANA MILLER DO Mar 03, 2023 21:54
[2023-03-03 22:17] VITALS: BP 100/66
== END 2023-03-03 22:18 | disposition home or self-care (01) ==
LOC: EDUNIT# 21:27 → ER 21:30
DX: S80.922A Unspecified superficial injury of left lower leg, initial encounter (principal); F42.4 Excoriation (skin-picking) disorder; Z28.311 Partially vaccinated for COVID-19; X58.XXXA Exposure to other specified factors, initial encounter
CPT/HCPCS: 99282